=== PATIENT | female | born 1935 | race Caucasian/White ===

== ENCOUNTER 2018-01-05 14:09 | Inpatient (IN) | payer MEDICARE ==
--- NOTE | 2018-01-05 14:37 | ED ---
General Adult HPI - General Chief complaint: Shortness of Breath Stated complaint: Sob Time Seen by Provider: 01/05/18 14:24 Source: patient, RN notes reviewed, old records reviewed Mode of arrival: wheelchair Limitations: no limitations - History of Present Illness Initial comments: 82-year-old female presenting for dyspnea over the past 2-3 days. Patient states she received an infusion approximately one week ago for a history of lymphoma. She is uncertain of the name of this infusion. She believes this may be the cause of her dyspnea. She has had a mild cough with some clear sputum. No URI symptoms. No fever or chills. Denies central chest pain. She has history of lymphoma, history of sick sinus syndrome status post pacemaker, history of DVT and PE. She is currently on Coumadin. She has history of IVC filter as well. Patient states she had an echo and stress test approximately one week ago which she believes were normal. - Related Data Home Medications Medication Instructions Recorded Confirmed Atorvastatin [Lipitor] 20 mg PO HS 02/12/16 01/05/18 Folic Acid [Folic Acid] 1 mg PO DAILY 01/05/18 01/05/18 Metoprolol Succinate [Toprol Xl] 50 mg PO DAILY 01/05/18 01/05/18 Spironolactone [Aldactone] 25 mg PO DAILY 01/05/18 01/05/18 Warfarin Sodium 2.5 mg PO HS 01/05/18 01/05/18 Previous Rx's Medication Instructions Recorded Furosemide [Lasix] 20 mg PO DAILY #30 tab 06/26/15 Potassium Chloride ER [K-Dur 10] 10 meq PO DAILY #30 tab 06/26/15 Allergies Allergy/AdvReac Type Severity Reaction Status Date / Time No Known Allergies Allergy Verified 01/05/18 14:50 Review of Systems ROS Statement: Those systems with pertinent positive or pertinent negative responses have been documented in the HPI. ROS Other: All systems not noted in ROS Statement are negative. 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, oophorectomy, tooth implants Past Anesthesia/Blood Transfusion Reactions: No Reported Reaction Past Psychological History: No Psychological Hx Reported Smoking Status: Former smoker - Past Family History Father Family Medical History: Cancer, Deep Vein Thrombosis (DVT) Additional Family Medical History / Comment(s): colon cancer at 82 Mother Family Medical History: No Reported History Additional Family Medical History / Comment(s): mother at 103yrs General Exam Limitations: no limitations General appearance: alert, in no apparent distress Head exam: Present: atraumatic, normocephalic ENT exam: Present: normal exam Neck exam: Present: normal inspection. Absent: tenderness, meningismus Respiratory exam: Present: decreased breath sounds (Decreased breath sounds at the lung bases). Absent: respiratory distress, wheezes, rales, rhonchi Cardiovascular Exam: Present: regular rate, normal rhythm GI/Abdominal exam: Present: soft. Absent: distended, tenderness Extremities exam: Present: normal inspection, normal capillary refill. Absent: pedal edema, calf tenderness Neurological exam: Present: alert, oriented X3, CN II-XII intact. Absent: motor sensory deficit Psychiatric exam: Present: normal affect, normal mood Skin exam: Present: warm, dry, intact. Absent: cyanosis, diaphoretic Course Vital Signs 01/05/18 01/05/18 01/05/18 14:12 15:00 17:00 Temperature 97.7 F Pulse Rate 84 72 77 Respiratory 18 26 H 32 H Rate Blood Pressure 122/77 130/62 165/78 O2 Sat by Pulse 99 100 93 L Oximetry 01/05/18 01/05/18 18:00 19:00 Temperature 99 F Pulse Rate 88 80 Respiratory 36 H 30 H Rate Blood Pressure 155/70 147/62 O2 Sat by Pulse 94 L 96 Oximetry EKG Findings - EKG Comments: EKG Findings:: EKG: Atrial fibrillation, low voltage, rate of 80, QRS duration 88, QTC 452, there is no ST segment elevation, artifact in leads V3 and V4, T- wave inversion in the lateral precordium. Medical Decision Making - Medical Decision Making 82-year-old female presenting with 2 days worsening dyspnea. On exam patient is diminished bilaterally, no rales, no wheezing. She's had only mild cough. No central chest pain. Chest x-rays obtained, there is some left long atelectasis at the base and concern for possible infiltrate. History not concerning for pneumonia. Hemoglobin 9.4 white blood cell count is normal at 4.7. BNP and troponin are negative. INR is therapeutic. Patient remains quite In the emergency department although her oxygenation is normal. CT is obtained which shows very large bilateral pleural effusions and cardiomegaly. There is concern for heart failure although BNP is negative. Echo will be obtained. Patient will be admitted for IV diuresis and cardiology evaluation. - Lab Data Result diagrams: 01/05/18 17:19 01/05/18 17:19 Lab Results 01/05/18 01/05/18 01/05/18 Range/Units 15:00 15:00 16:25 WBC (3.8-10.6) k/uL RBC (3.80-5.40) m/uL Hgb (11.4-16.0) gm/dL Hct (34.0-46.0) % MCV (80.0-100.0) fL MCH (25.0-35.0) pg MCHC (31.0-37.0) g/dL RDW (11.5-15.5) % Plt Count (150-450) k/uL Neutrophils % (Manual) % Band Neutrophils % % Lymphocytes % (Manual) % Monocytes % (Manual) % Eosinophils % (Manual) % Neutrophils # (Manual) (1.3-7.7) k/uL Lymphocytes # (Manual) (1.0-4.8) k/uL Monocytes # (Manual) (0-1.0) k/uL Eosinophils # (Manual) (0-0.7) k/uL Nucleated RBCs (0-0) /100 WBC Manual Slide Review Polychromasia Hypochromasia Poikilocytosis Anisocytosis Macrocytosis PT 22.1 H (9.0-12.0) sec INR 2.5 H (<1.2) APTT 32.1 H (22.0-30.0) sec Sodium 131 L (137-145) mmol/L Potassium 10.0 H* (3.5-5.1) mmol/L Chloride 103 (98-107) mmol/L Carbon Dioxide 18 L (22-30) mmol/L Anion Gap 10 mmol/L BUN 23 H (7-17) mg/dL Creatinine 0.74 (0.52-1.04) mg/dL Est GFR (CKD-EPI)AfAm 89 (>60 ml/min/1.73 sqM) Est GFR (CKD-EPI)NonAf 77 (>60 ml/min/1.73 sqM) Glucose 105 H (74-99) mg/dL Plasma Lactic Acid Britton 2.0 (0.7-2.0) mmol/L Calcium 9.1 (8.4-10.2) mg/dL Magnesium 2.1 (1.6-2.3) mg/dL Total Bilirubin 5.5 H (0.2-1.3) mg/dL AST 165 H (14-36) U/L ALT 17 (9-52) U/L Alkaline Phosphatase 84 (38-126) U/L Total Creatine Kinase (30-135) U/L CK-MB (CK-2) (0.0-2.4) ng/mL CK-MB (CK-2) Rel Index Troponin I (0.000-0.034) ng/mL NT-Pro-B Natriuret Pep pg/mL Total Protein 7.4 (6.3-8.2) g/dL Albumin 4.7 (3.5-5.0) g/dL 01/05/18 01/05/18 01/05/18 Range/Units 16:25 16:25 16:25 WBC 4.8 (3.8-10.6) k/uL RBC 2.86 L (3.80-5.40) m/uL Hgb 9.7 L (11.4-16.0) gm/dL Hct 28.3 L (34.0-46.0) % MCV 98.7 (80.0-100.0) fL MCH 33.9 (25.0-35.0) pg MCHC 34.4 (31.0-37.0) g/dL RDW 17.7 H (11.5-15.5) % Plt Count 135 L (150-450) k/uL Neutrophils % (Manual) 69 % Band Neutrophils % 1 % Lymphocytes % (Manual) 22 % Monocytes % (Manual) 7 % Eosinophils % (Manual) 1 % Neutrophils # (Manual) 3.30 (1.3-7.7) k/uL Lymphocytes # (Manual) 1.06 (1.0-4.8) k/uL Monocytes # (Manual) 0.34 (0-1.0) k/uL Eosinophils # (Manual) 0.05 (0-0.7) k/uL Nucleated RBCs 0 (0-0) /100 WBC Manual Slide Review Performed Polychromasia Hypochromasia Slight Poikilocytosis Moderate Anisocytosis Slight Macrocytosis Slight PT (9.0-12.0) sec INR (<1.2) APTT (22.0-30.0) sec Sodium (137-145) mmol/L Potassium (3.5-5.1) mmol/L Chloride (98-107) mmol/L Carbon Dioxide (22-30) mmol/L Anion Gap mmol/L BUN (7-17) mg/dL Creatinine (0.52-1.04) mg/dL Est GFR (CKD-EPI)AfAm (>60 ml/min/1.73 sqM) Est GFR (CKD-EPI)NonAf (>60 ml/min/1.73 sqM) Glucose (74-99) mg/dL Plasma Lactic Acid Britton (0.7-2.0) mmol/L Calcium (8.4-10.2) mg/dL Magnesium (1.6-2.3) mg/dL Total Bilirubin (0.2-1.3) mg/dL AST (14-36) U/L ALT (9-52) U/L Alkaline Phosphatase (38-126) U/L Total Creatine Kinase 78 (30-135) U/L CK-MB (CK-2) 1.4 (0.0-2.4) ng/mL CK-MB (CK-2) Rel Index 1.8 Troponin I 0.022 (0.000-0.034) ng/mL NT-Pro-B Natriuret Pep 938 pg/mL Total Protein (6.3-8.2) g/dL Albumin (3.5-5.0) g/dL 01/05/18 01/05/18 01/05/18 Range/Units 17:19 17:19 17:19 WBC 4.7 (3.8-10.6) k/uL RBC 2.89 L (3.80-5.40) m/uL Hgb 9.4 L (11.4-16.0) gm/dL Hct 27.8 L (34.0-46.0) % MCV 96.2 (80.0-100.0) fL MCH 32.7 (25.0-35.0) pg MCHC 34.0 (31.0-37.0) g/dL RDW 16.3 H (11.5-15.5) % Plt Count 112 L (150-450) k/uL Neutrophils % (Manual) 72 % Band Neutrophils % % Lymphocytes % (Manual) 16 % Monocytes % (Manual) 12 % Eosinophils % (Manual) % Neutrophils # (Manual) 3.38 (1.3-7.7) k/uL Lymphocytes # (Manual) 0.75 L (1.0-4.8) k/uL Monocytes # (Manual) 0.56 (0-1.0) k/uL Eosinophils # (Manual) (0-0.7) k/uL Nucleated RBCs 0 (0-0) /100 WBC Manual Slide Review Polychromasia Present Hypochromasia Poikilocytosis Slight Anisocytosis Slight Macrocytosis PT (9.0-12.0) sec INR (<1.2) APTT (22.0-30.0) sec Sodium 137 (137-145) mmol/L Potassium 4.7 (3.5-5.1) mmol/L Chloride 102 (98-107) mmol/L Carbon Dioxide 23 (22-30) mmol/L Anion Gap 12 mmol/L BUN 23 H (7-17) mg/dL Creatinine 0.80 (0.52-1.04) mg/dL Est GFR (CKD-EPI)AfAm 81 (>60 ml/min/1.73 sqM) Est GFR (CKD-EPI)NonAf 70 (>60 ml/min/1.73 sqM) Glucose 113 H (74-99) mg/dL Plasma Lactic Acid Britton (0.7-2.0) mmol/L Calcium 9.6 (8.4-10.2) mg/dL Magnesium 2.0 (1.6-2.3) mg/dL Total Bilirubin 3.7 H (0.2-1.3) mg/dL AST 36 (14-36) U/L ALT 26 (9-52) U/L Alkaline Phosphatase 104 (38-126) U/L Total Creatine Kinase 34 (30-135) U/L CK-MB (CK-2) 1.3 (0.0-2.4) ng/mL CK-MB (CK-2) Rel Index 3.8 Troponin I <0.012 (0.000-0.034) ng/mL NT-Pro-B Natriuret Pep pg/mL Total Protein 5.5 L (6.3-8.2) g/dL Albumin 3.3 L (3.5-5.0) g/dL 01/05/18 01/05/18 01/05/18 Range/Units 17:19 17:19 17:19 WBC (3.8-10.6) k/uL RBC (3.80-5.40) m/uL Hgb (11.4-16.0) gm/dL Hct (34.0-46.0) % MCV (80.0-100.0) fL MCH (25.0-35.0) pg MCHC (31.0-37.0) g/dL RDW (11.5-15.5) % Plt Count (150-450) k/uL Neutrophils % (Manual) % Band Neutrophils % % Lymphocytes % (Manual) % Monocytes % (Manual) % Eosinophils % (Manual) % Neutrophils # (Manual) (1.3-7.7) k/uL Lymphocytes # (Manual) (1.0-4.8) k/uL Monocytes # (Manual) (0-1.0) k/uL Eosinophils # (Manual) (0-0.7) k/uL Nucleated RBCs (0-0) /100 WBC Manual Slide Review Polychromasia Hypochromasia Poikilocytosis Anisocytosis Macrocytosis PT 21.8 H (9.0-12.0) sec INR 2.4 H (<1.2) APTT 27.4 (22.0-30.0) sec Sodium (137-145) mmol/L Potassium (3.5-5.1) mmol/L Chloride (98-107) mmol/L Carbon Dioxide (22-30) mmol/L Anion Gap mmol/L BUN (7-17) mg/dL Creatinine (0.52-1.04) mg/dL Est GFR (CKD-EPI)AfAm (>60 ml/min/1.73 sqM) Est GFR (CKD-EPI)NonAf (>60 ml/min/1.73 sqM) Glucose (74-99) mg/dL Plasma Lactic Acid Britton 1.6 (0.7-2.0) mmol/L Calcium (8.4-10.2) mg/dL Magnesium (1.6-2.3) mg/dL Total Bilirubin (0.2-1.3) mg/dL AST (14-36) U/L ALT (9-52) U/L Alkaline Phosphatase (38-126) U/L Total Creatine Kinase (30-135) U/L CK-MB (CK-2) (0.0-2.4) ng/mL CK-MB (CK-2) Rel Index Troponin I (0.000-0.034) ng/mL NT-Pro-B Natriuret Pep 943 pg/mL Total Protein (6.3-8.2) g/dL Albumin (3.5-5.0) g/dL Disposition Clinical Impression: Congestive heart failure Disposition: ADMITTED IP TO THIS HOSP Condition: Stable Is patient prescribed a controlled substance at d/c from ED?: No Referrals: Alfredo Norwood MD [Primary Care Provider] - 1-2 days Decision to Admit Reason: Admit from EC Decision Date: 01/05/18 Decision Time: 17:20
--- NOTE | 2018-01-05 15:53 | XR ---
EXAMINATION TYPE: XR chest 2V DATE OF EXAM: 01/05/2018 COMPARISON: 02/14/2016 INDICATION: Difficulty breathing, SOB TECHNIQUE: Frontal and lateral views of the chest are obtained. FINDINGS: The heart size is normal. The pulmonary vasculature is normal. Some mild streak opacities at the left base. Correlate for atelectasis or pneumonia.. IMPRESSION: 1. Mild streak opacities at the left base. Correlate for atelectasis or pneumonia.
[2018-01-05 15:56] LABS: INR 2.5 (<1.2); Prothrombin Time 22.1 sec (9.0-12.0)
[2018-01-05 15:57] LABS: Partial Thromboplastin Time 32.1 sec (22.0-30.0)
[2018-01-05 16:55] LABS: Albumin 4.7 g/dL (3.5-5.0); Calcium 9.1 mg/dL (8.4-10.2); Magnesium 2.1 mg/dL (1.6-2.3); Total Protein 7.4 g/dL (6.3-8.2)
[2018-01-05 17:01] LABS: Total Bilirubin 5.5 mg/dL (0.2-1.3)
[2018-01-05 17:02] LABS: Anisocytosis Slight; HCT 28.3 % (34.0-46.0); HGB 9.7 gm/dL (11.4-16.0); Hypochromasia Slight; MCH 33.9 pg (25.0-35.0); MCHC 34.4 g/dL (31.0-37.0); MCV 98.7 fL (80.0-100.0); Macrocytosis Slight; Mean Platelet Volume 8.7; Platelet Count 135 k/uL (150-450); Poikilocytosis Moderate; RBC 2.86 m/uL (3.80-5.40); RDW 17.7 % (11.5-15.5); WBC 4.8 k/uL (3.8-10.6)
[2018-01-05 17:20] LABS: Band Neutrophils % 1 %; Eosinophils # (M) 0.05 k/uL (0-0.7); Lymphocytes # (M) 1.06 k/uL (1.0-4.8); Monocytes # (M) 0.34 k/uL (0-1.0); Neutrophils % (M) 69 %; Nucleated Red Blood Cells 0 /100 WBC (0-0); Total Cells Counted 100
[2018-01-05 17:25] LABS: Creatine Kinase MB 1.4 ng/mL (0.0-2.4); Troponin I 0.022 ng/mL (0.000-0.034)
[2018-01-05] MEDS ORDERED: RX INFO: IV CONTRAST WAS GIVEN 1 EACH MISC MISCELLANE PRN (17:42)
[2018-01-05 17:57] LABS: INR 2.4 (<1.2); Partial Thromboplastin Time 27.4 sec (22.0-30.0); Prothrombin Time 21.8 sec (9.0-12.0)
[2018-01-05 17:59] LABS: Albumin 3.3 g/dL (3.5-5.0); Calcium 9.6 mg/dL (8.4-10.2); Creatine Kinase 34 U/L (30-135); Potassium 4.7 mmol/L (3.5-5.1); Total Bilirubin 3.7 mg/dL (0.2-1.3); Total Protein 5.5 g/dL (6.3-8.2)
[2018-01-05 18:11] LABS: Creatine Kinase MB 1.3 ng/mL (0.0-2.4); Troponin I <0.012 ng/mL (0.000-0.034)
[2018-01-05 18:15] LABS: Anisocytosis Slight; HCT 27.8 % (34.0-46.0); HGB 9.4 gm/dL (11.4-16.0); MCH 32.7 pg (25.0-35.0); MCV 96.2 fL (80.0-100.0); Mean Platelet Volume 7.8; Platelet Count 112 k/uL (150-450); Poikilocytosis Slight; RBC 2.89 m/uL (3.80-5.40); RDW 16.3 % (11.5-15.5); WBC 4.7 k/uL (3.8-10.6)
[2018-01-05] MEDS ORDERED: AZITHROMYCIN 500 MG in SODIUM CHLORIDE 0.9% 250 ML IVPB STA (18:23)
[2018-01-05] MEDS ORDERED: cefTRIAXone IN SWFI 1,000 MG/10 ML SYRINGE IVP STA (18:23)
[2018-01-05 18:24] LABS: Lymphocytes # (M) 0.75 k/uL (1.0-4.8); Monocytes # (M) 0.56 k/uL (0-1.0); Neutrophils # (M) 3.38 k/uL (1.3-7.7); Neutrophils % (M) 72 %; Nucleated Red Blood Cells 0 /100 WBC (0-0); Polychromasia Present; Total Cells Counted 100
--- NOTE | 2018-01-05 18:51 | CT ---
EXAMINATION TYPE: CT angio chest DATE OF EXAM: 01/05/2018 6:37 PM COMPARISON: 09/17/2012 HISTORY: SOB CT DLP: 915 mGycm Automated exposure control for dose reduction was used. CONTRAST: CTA scan of the thorax is performed with IV Contrast, patient injected with 100 mL of Isovue 370, pul monary embolism protocol. There are 3-D post processed images.. FINDINGS: There are moderate sized bilateral pleural effusions. Heart is enlarged. There is atelectasis at the lung bases. There is no pericardial effusion. I see no filling defects in the pulmonary arteries. There is no evidence of thoracic aortic aneurysm or dissection. There is no mediastinal adenopathy. There are interstitial infiltrates in the upper sisi ng miguel. The bony thorax appears intact. IMPRESSION: NO EVIDENCE OF PULMONARY EMBOLISM. LARGE PLEURAL EFFUSIONS WITH CARDIOMEGALY. BILATERAL LOWER LOBE IN FILTRATE AND ATELECTASIS. THIS IS PROBABLY CONGESTIVE HEART FAILURE. PLEURAL AND PULMONARY CHANGES IS NEW COMPARED TO OLD EXAM.
[2018-01-05] MEDS ORDERED: FUROSEMIDE 10 MG/ML 4 ML VIAL IV STA (19:30)
[2018-01-05] MEDS ORDERED: NALOXONE 0.4 MG/ML 1 ML VIAL IV PRN (19:36)
[2018-01-05] MEDS ORDERED: ACETAMINOPHEN TAB 325 MG TAB PO PRN (19:36)
[2018-01-05] MEDS: FUROSEMIDE 10 MG/ML 4 ML VIAL IV SCH (21:46)
[2018-01-06 01:38] LABS: Glucose,Whole Blood 130 mg/dL (75-99)
[2018-01-06 01:51] VITALS: BMI 32.1
[2018-01-06 05:12] LABS: Calcium 9.4 mg/dL (8.4-10.2); Phosphorus 4.7 mg/dL (2.5-4.5); Potassium 5.3 mmol/L (3.5-5.1)
[2018-01-06 05:36] LABS: Hypochromasia Slight; Macrocytosis Slight
[2018-01-06 05:57] LABS: Anisocytosis Slight; HCT 27.3 % (34.0-46.0); HGB 9.4 gm/dL (11.4-16.0); MCH 33.5 pg (25.0-35.0); MCHC 34.3 g/dL (31.0-37.0); MCV 97.5 fL (80.0-100.0); Mean Platelet Volume 7.6; Platelet Count 129 k/uL (150-450); Poikilocytosis Moderate; RDW 17.1 % (11.5-15.5); WBC 4.6 k/uL (3.8-10.6)
[2018-01-06 06:16] LABS: Monocytes # (M) 0.64 k/uL (0-1.0); Neutrophils # (M) 2.76 k/uL (1.3-7.7); Neutrophils % (M) 60 %; Nucleated Red Blood Cells 0 /100 WBC (0-0); Total Cells Counted 100
--- NOTE | 2018-01-06 07:47 | XR ---
EXAMINATION TYPE: XR chest 1V portable DATE OF EXAM: 01/06/2018 HISTORY: Shortness of breath. COMPARISON: 01/05/2018 TECHNIQUE: Single view of the chest is submitted. FINDINGS: Demonstrated are scattered senescent parenchymal change. Pulmonary venous congestion with basilar pleural effusions and mild compressive atelectasis. The hear t is at the upper limits of normal with regards to size. Hilar and mediastinal structures are within normal limits. Degenerative changes are seen of the dorsal spine. IMPRESSION: 1. Correlate for mild CHF.
[2018-01-06] MEDS: FUROSEMIDE 10 MG/ML 4 ML VIAL IV SCH ×2 (08:03→20:48)
--- NOTE | 2018-01-06 09:15 | P.CNPUL ---
History of Present Illness Consult date: 01/06/18 Reason for consult: dyspnea, pleural effusion, abnormal CXR/CT Chief complaint: Shortness of breath History of present illness: Consult dated 01/06/2018 82-year-old female who presented with complaints of 2 or 3 days with increasing shortness of breath. She was evaluated in the emergency room. She has a history of both melanoma and lymphoma. The patient apparently came in with what appears to be congestive heart failure. N-terminal proBNP was mildly elevated. Chest x-ray was consistent with heart failure. Apparently she had a recent stress test and echocardiogram that were relatively normal she tells us. She does have a history of a pacemaker insertion for sick sinus syndrome. She also has a previous history of DVT and pulmonary embolism and had a filter placed. A CT angiogram was negative for PE on this admission. The patient did have evidence of some interstitial edema and pleural effusions left greater than right. She is on blood thinner. It has been held. We'll have interventional radiology consider doing a thoracentesis on her. Her medical problem list includes atrial fibrillation melanoma, lymphoma, possible COPD deep venous thrombosis pulmonary embolism hypertension GERD. The melanoma involvement of the eye. Surgical history includes heart catheterization hysterectomy joint replacement tubal ligation dental implants pacemaker insertion, etc. Review of Systems A 12 point review of systems is positive for shortness of breath. He denies fever chills. Not coughing or producing any phlegm. No nausea vomiting or diarrhea. No chest pain or chest discomfort. 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, oophorectomy, tooth implants Past Anesthesia/Blood Transfusion Reactions: No Reported Reaction Past Psychological History: No Psychological Hx Reported Smoking Status: Former smoker Past Alcohol Use History: Rare Additional Past Alcohol Use History / Comment(s): less than one drink per month Past Drug Use History: None Reported - Past Family History Father Family Medical History: Cancer, Deep Vein Thrombosis (DVT) Additional Family Medical History / Comment(s): colon cancer at 82 Mother Family Medical History: No Reported History Additional Family Medical History / Comment(s): mother at 103yrs Medications and Allergies Home Medications Medication Instructions Recorded Confirmed Type Furosemide [Lasix] 20 mg PO DAILY #30 tab 06/26/15 01/05/18 Rx Potassium Chloride ER [K-Dur 10] 10 meq PO DAILY #30 tab 06/26/15 01/05/18 Rx Atorvastatin [Lipitor] 20 mg PO HS 02/12/16 01/05/18 History Folic Acid [Folic Acid] 1 mg PO DAILY 01/05/18 01/05/18 History Metoprolol Succinate [Toprol Xl] 50 mg PO DAILY 01/05/18 01/05/18 History Spironolactone [Aldactone] 25 mg PO DAILY 01/05/18 01/05/18 History Warfarin Sodium 2.5 mg PO HS 01/05/18 01/05/18 History Allergies Allergy/AdvReac Type Severity Reaction Status Date / Time No Known Allergies Allergy Verified 01/05/18 14:50 Physical Exam Osteopathic Statement: *. No significant issues noted on an osteopathic structural exam other than those noted in the History and Physical/Consult. Vitals: Vital Signs Temp Pulse Resp BP Pulse Ox 01/06/18 07:00 80 31 H 135/70 98 01/06/18 06:30 90 30 H 131/58 99 01/06/18 06:00 74 17 131/58 99 01/06/18 05:30 79 23 161/73 100 01/06/18 05:00 105 H 22 161/73 99 01/06/18 04:50 94 25 H 161/73 98 01/06/18 04:40 101 H 35 H 161/73 98 01/06/18 04:30 95 20 147/77 98 01/06/18 04:20 96 21 147/77 98 01/06/18 04:10 77 17 147/77 98 01/06/18 04:00 98.7 F 88 18 147/77 98 01/06/18 03:50 94 21 147/77 99 01/06/18 03:40 95 17 147/77 98 01/06/18 03:30 66 21 155/86 98 01/06/18 03:20 74 33 H 155/86 98 01/06/18 03:10 70 33 H 155/86 99 01/06/18 03:00 91 39 H 155/86 98 01/06/18 02:50 82 35 H 155/86 99 01/06/18 02:40 82 34 H 155/86 99 01/06/18 02:30 83 35 H 169/89 99 01/06/18 02:20 97.7 F 88 27 H 169/89 100 01/06/18 02:10 91 32 H 169/89 100 01/06/18 02:00 87 32 H 169/89 99 01/06/18 01:50 87 30 H 169/89 100 01/06/18 01:40 87 169/89 100 01/06/18 01:34 89 01/06/18 00:59 97.7 F 86 30 H 124/57 97 01/05/18 23:00 99.0 F 79 30 H 166/66 95 01/05/18 22:06 97.7 F 01/05/18 21:30 78 30 H 145/65 99 01/05/18 19:00 99 F 80 30 H 147/62 96 01/05/18 18:00 88 36 H 155/70 94 L 01/05/18 17:00 77 32 H 165/78 93 L 01/05/18 15:00 72 26 H 130/62 100 01/05/18 14:12 97.7 F 84 18 122/77 99 Intake and Output 01/05/18 01/06/18 01/06/18 22:59 06:59 14:59 Output Total 525 Balance -525 Output: Urine 525 Other: Voiding Method Bedside Commode # Voids 0 0 Weight 101.6 kg No acute distress, oriented 3, Currently on oxygen at 2 L. HEENT examination is grossly unremarkable. Mucous membranes are moist. No oral lesions. Neck supple. Full range of motion. No adenopathy thyromegaly or neck vein distention. Cardiovascular examination reveals regular rhythm rate. S1-S2 normal. No S3 or S4. No discernible murmur noted. Lungs reveal bibasilar crackles. Breath sounds are equal bilaterally. No rhonchi. No wheezes. Abdomen soft bowel sounds are heard. No masses or tenderness. Extremities are intact. No cyanosis clubbing or edema. Skin is without rash or lesion. Neurologic examination is brief but nonfocal. Results - Laboratory Findings CBC and BMP: 01/06/18 04:40 01/06/18 04:40 PT/INR, D-dimer PT 21.8 sec (9.0-12.0) H 01/05/18 17:19 INR 2.4 (<1.2) H 01/05/18 17:19 Abnormal lab findings: Abnormal Labs 01/05/18 01/05/18 01/05/18 15:00 16:25 16:25 RBC 2.86 L Hgb 9.7 L Hct 28.3 L RDW 17.7 H Plt Count 135 L Lymphocytes # (Manual) PT 22.1 H INR 2.5 H APTT 32.1 H Sodium 131 L Potassium 10.0 H* Carbon Dioxide 18 L BUN 23 H Glucose 105 H POC Glucose (mg/dL) Phosphorus Total Bilirubin 5.5 H AST 165 H Total Protein Albumin 01/05/18 01/05/18 01/05/18 17:19 17:19 17:19 RBC 2.89 L Hgb 9.4 L Hct 27.8 L RDW 16.3 H Plt Count 112 L Lymphocytes # (Manual) 0.75 L PT 21.8 H INR 2.4 H APTT Sodium Potassium Carbon Dioxide BUN 23 H Glucose 113 H POC Glucose (mg/dL) Phosphorus Total Bilirubin 3.7 H AST Total Protein 5.5 L Albumin 3.3 L 01/06/18 01/06/18 01/06/18 01:35 04:40 04:40 RBC 2.80 L Hgb 9.4 L Hct 27.3 L RDW 17.1 H Plt Count 129 L Lymphocytes # (Manual) PT INR APTT Sodium 135 L Potassium 5.3 H Carbon Dioxide 21 L BUN 24 H Glucose 113 H POC Glucose (mg/dL) 130 H Phosphorus 4.7 H Total Bilirubin AST Total Protein Albumin - Diagnostic Findings Chest x-ray: image reviewed CT scan - chest: image reviewed (Chest x-ray labs and medications are all reviewed.) Assessment and Plan Assessment: Assessment Shortness of breath, likely related to fluid overload/heart failure. It may be diastolic in nature as apparently the patient's echocardiogram shows good LV function Bilateral pleural effusions, left greater than right, likely related to the heart failure. History of melanoma History of lymphoma. 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 Plan: Plan dated 01/06/2018 The patient's blood thinner has been held. We'll have interventional radiology consider doing an ultrasound to rule out malignant pleural effusion. She does have a history of lymphoma and melanoma. Other than that, the patient seems be doing relatively well. She is a bit tachypnea. Meds labs and x-rays are all reviewed. No evidence of pulmonary embolism on CT angiogram. She does have a filter in place. Additional recommendations and suggestions are forthcoming. Time with Patient: Greater than 30
[2018-01-06] MEDS: METOPROLOL SUCCINATE (ER) 50 MG TAB.ER.24H PO SCH (10:07)
[2018-01-06 10:09] LABS: Total Protein 5.6 g/dL (6.3-8.2)
--- NOTE | 2018-01-06 11:14 | ECHOF ---
Referral Reason:Dyspnea MEASUREMENTS -------- HEIGHT: 152.4 cm WEIGHT: 101.2 kg BP: IVSd: 1.2 cm (0.6 - 1.1) LVIDd: 4.1 cm (3.9 - 5.3) LVPWd: 1.3 cm (0.6 - 1.1) IVSs: 1.4 cm LVIDs: 3.0 cm LVPWs: 1.6 cm LAESV Index (A-L): 33.15 ml/m Ao Diam: 2.7 cm (2.0 - 3.7) AV Cusp: 1.7 cm (1.5 - 2.6) LA Diam: 5.6 cm (2.7 - 3.8) MV EXCURSION: 20.607 mm (> 18.000) MV EF SLOPE: 107 mm/s (70 - 150) EPSS: 0.4 cm MV E Matthew: 0.89 m/s MV DecT: 194 ms MV A Matthew: 0.32 m/s MV E/A Ratio: 2.74 RAP: 5.00 mmHg RVSP: 47.20 mmHg FINDINGS -------- Paced rhythm. This was a technically adequate study. The left ventricular size is normal. Left ventricular wall thickness is normal. Overall left vent ricular systolic function is low-normal with, an EF between 50 - 55 %. The right ventricle is normal in size. The left atrial size is normal. The right atrial size is normal. There is mild aortic valve sclerosis. There is no evidence of aortic regurgitation. Mild mitral annular calcification present. Mild mitral regurgitation is present. Mild tricuspid regurgitation present. There is mild to moderate pulmonary hypertension. The right ventricular systolic pressure, as measured by Doppler, is 47.20mmHg. There is no pulmonic regurgitation present. The aortic root size is normal. There is no pericardial effusion. Large Pleural Effusion. CONCLUSIONS -------- 1. Paced rhythm. 2. This was a technically adequate study. 3. The left ventricular size is normal. 4. Left ventricular wall thickness is normal. 5. Overall left ventricular systolic function is low-normal with, an EF between 50 - 55 %. 6. There is mild aortic valve sclerosis. 7. Mild mitral annular calcification present. 8. Mild mitral regurgitation is present. 9. Mild tricuspid regurgitation present. 10. There is mild to moderate pulmonary hypertension. 11. The right ventricular systolic pressure, as measured by Doppler, is 47.20mmHg. 12. There is no pulmonic regurgitation present. 13. The aortic root size is normal. 14. There is no pericardial effusion. 15. Large Pleural Effusion. [employer] CUTTER: Lynsey Rosas RDCS
[2018-01-06 13:57] LABS: INR 2.2 (<1.2)
--- NOTE | 2018-01-06 15:10 | P.HPIM ---
History of Present Illness H&P Date: 01/06/18 Chief Complaint: Difficulty breathing Yet what looks like this is an 82-year-old female patient of Dr. Lee with a past mental history of atrial fibrillation, right eye melanoma with prosthesis, COPD, DVT and pulmonary embolism, gastroesophageal reflux disease hypertension, sick sinus syndrome status post pacemaker, lymphoma actively being treated. Patient states that she had onset of shortness of breath and difficulty breathing along with the cough a little phlegm production. She states she had some sharp chest pain that she thought was related to her pacemaker. She came into [facility] emergency center for evaluation. CT angiogram was negative for pulmonary embolism. There was interstitial edema and pleural effusions left greater than right. Chest x- ray shows correlate with mild CHF. Hemoglobin 9.4, BUN 23 creatinine 0.8. INR is 2.5, sodium 131 potassium 10. Lactic acid was 2. Total bilirubin 5.5 and AST 165. ProBNP was 938. Troponin 0.0-2. Patient was admitted to the selective care unit and consult requested by pulmonary medicine and cardiology. Echocardiogram reveals EF 50-55%, mild aortic valve sclerosis, mild mitral regurgitation, mild tricuspid regurgitation, moderate pulmonary hypertension, large pleural effusion. Review of Systems All systems: negative Constitutional: Reports fatigue, Denies chills, Denies fever, Denies poor appetite Eyes: denies blurred vision, denies pain Ears, nose, mouth and throat: Denies headache, Denies sore throat, Denies vertigo Cardiovascular: Reports chest pain, Reports decreased exercise tolerance, Reports dyspnea on exertion, Reports shortness of breath, Denies lightheadedness , Denies syncope Respiratory: Reports cough, Reports cough with sputum, Reports dyspnea, Denies excessive sputum, Denies hemoptysis, Denies home oxygen, Denies wheezing Gastrointestinal: Denies abdominal pain, Denies diarrhea, Denies nausea, Denies vomiting Genitourinary: Denies dysuria, Denies hematuria Musculoskeletal: Denies myalgias Integumentary: Denies pruritus, Denies rash Neurological: Denies numbness, Denies weakness Psychiatric: Denies anxiety, Denies depression Endocrine: Denies fatigue, Denies weight change 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, oophorectomy, tooth implants Past Anesthesia/Blood Transfusion Reactions: No Reported Reaction Past Psychological History: No Psychological Hx Reported Smoking Status: Former smoker Past Alcohol Use History: Rare Additional Past Alcohol Use History / Comment(s): less than one drink per month Past Drug Use History: None Reported - Past Family History Father Family Medical History: Cancer, Deep Vein Thrombosis (DVT) Additional Family Medical History / Comment(s): colon cancer at 82 Mother Family Medical History: No Reported History Additional Family Medical History / Comment(s): mother at 103yrs Medications and Allergies Home Medications Medication Instructions Recorded Confirmed Type Furosemide [Lasix] 20 mg PO DAILY #30 tab 06/26/15 01/05/18 Rx Potassium Chloride ER [K-Dur 10] 10 meq PO DAILY #30 tab 06/26/15 01/05/18 Rx Atorvastatin [Lipitor] 20 mg PO HS 02/12/16 01/05/18 History Folic Acid [Folic Acid] 1 mg PO DAILY 01/05/18 01/05/18 History Metoprolol Succinate [Toprol Xl] 50 mg PO DAILY 01/05/18 01/05/18 History Spironolactone [Aldactone] 25 mg PO DAILY 01/05/18 01/05/18 History Warfarin Sodium 2.5 mg PO HS 01/05/18 01/05/18 History Allergies Allergy/AdvReac Type Severity Reaction Status Date / Time No Known Allergies Allergy Verified 01/05/18 14:50 Physical Exam Vitals: Vital Signs Temp Pulse Resp BP Pulse Ox 01/06/18 07:00 80 31 H 135/70 98 01/06/18 06:30 90 30 H 131/58 99 01/06/18 06:00 74 17 131/58 99 01/06/18 05:30 79 23 161/73 100 01/06/18 05:00 105 H 22 161/73 99 01/06/18 04:50 94 25 H 161/73 98 01/06/18 04:40 101 H 35 H 161/73 98 01/06/18 04:30 95 20 147/77 98 01/06/18 04:20 96 21 147/77 98 01/06/18 04:10 77 17 147/77 98 01/06/18 04:00 98.7 F 88 18 147/77 98 01/06/18 03:50 94 21 147/77 99 01/06/18 03:40 95 17 147/77 98 01/06/18 03:30 66 21 155/86 98 01/06/18 03:20 74 33 H 155/86 98 01/06/18 03:10 70 33 H 155/86 99 01/06/18 03:00 91 39 H 155/86 98 01/06/18 02:50 82 35 H 155/86 99 01/06/18 02:40 82 34 H 155/86 99 01/06/18 02:30 83 35 H 169/89 99 01/06/18 02:20 97.7 F 88 27 H 169/89 100 01/06/18 02:10 91 32 H 169/89 100 01/06/18 02:00 87 32 H 169/89 99 01/06/18 01:50 87 30 H 169/89 100 01/06/18 01:40 87 169/89 100 01/06/18 01:34 89 01/06/18 00:59 97.7 F 86 30 H 124/57 97 01/05/18 23:00 99.0 F 79 30 H 166/66 95 01/05/18 22:06 97.7 F 01/05/18 21:30 78 30 H 145/65 99 01/05/18 19:00 99 F 80 30 H 147/62 96 01/05/18 18:00 88 36 H 155/70 94 L 01/05/18 17:00 77 32 H 165/78 93 L 01/05/18 15:00 72 26 H 130/62 100 01/05/18 14:12 97.7 F 84 18 122/77 99 Intake and Output 01/05/18 01/06/18 01/06/18 22:59 06:59 14:59 Output Total 525 Balance -525 Output: Urine 525 Other: Voiding Method Bedside Commode # Voids 0 0 Weight 101.6 kg Gen: This is an 82-year-old female. She has seen in the ICU she is waiting for [facility] care bed. She is sitting up in awake and alert and appears to be comfortable and in no acute distress. HEENT: Head is atraumatic, normocephalic. Pupils equal, round. Sclerae is anicteric. NECK: Supple. No JVD. No lymphadenopathy. No thyromegaly. LUNGS: Diminished to the bilateral bases.. No wheezes or rhonchi. No intercostal retractions. HEART: Irregular rate and rhythm. No murmur. ABDOMEN: Soft. Bowel sounds are present. No masses. No tenderness. EXTREMITIES: No pedal edema. No calf tenderness. Dorsalis pedis +2 bilaterally. NEUROLOGICAL: Patient is awake, alert and oriented x3. Cranial nerves 2 through 12 are grossly intact. Results CBC & Chem 7: 01/06/18 04:40 01/06/18 04:40 Labs: Abnormal Lab Results - Last 24 Hours (Table) 01/05/18 01/05/18 01/05/18 Range/Units 15:00 16:25 16:25 RBC 2.86 L (3.80-5.40) m/uL Hgb 9.7 L (11.4-16.0) gm/dL Hct 28.3 L (34.0-46.0) % RDW 17.7 H (11.5-15.5) % Plt Count 135 L (150-450) k/uL Lymphocytes # (Manual) (1.0-4.8) k/uL PT 22.1 H (9.0-12.0) sec INR 2.5 H (<1.2) APTT 32.1 H (22.0-30.0) sec Sodium 131 L (137-145) mmol/L Potassium 10.0 H* (3.5-5.1) mmol/L Carbon Dioxide 18 L (22-30) mmol/L BUN 23 H (7-17) mg/dL Glucose 105 H (74-99) mg/dL POC Glucose (mg/dL) (75-99) mg/dL Phosphorus (2.5-4.5) mg/dL Total Bilirubin 5.5 H (0.2-1.3) mg/dL AST 165 H (14-36) U/L Total Protein (6.3-8.2) g/dL Albumin (3.5-5.0) g/dL 01/05/18 01/05/18 01/05/18 Range/Units 17:19 17:19 17:19 RBC 2.89 L (3.80-5.40) m/uL Hgb 9.4 L (11.4-16.0) gm/dL Hct 27.8 L (34.0-46.0) % RDW 16.3 H (11.5-15.5) % Plt Count 112 L (150-450) k/uL Lymphocytes # (Manual) 0.75 L (1.0-4.8) k/uL PT 21.8 H (9.0-12.0) sec INR 2.4 H (<1.2) APTT (22.0-30.0) sec Sodium (137-145) mmol/L Potassium (3.5-5.1) mmol/L Carbon Dioxide (22-30) mmol/L BUN 23 H (7-17) mg/dL Glucose 113 H (74-99) mg/dL POC Glucose (mg/dL) (75-99) mg/dL Phosphorus (2.5-4.5) mg/dL Total Bilirubin 3.7 H (0.2-1.3) mg/dL AST (14-36) U/L Total Protein 5.5 L (6.3-8.2) g/dL Albumin 3.3 L (3.5-5.0) g/dL 01/06/18 01/06/18 01/06/18 Range/Units 01:35 04:40 04:40 RBC 2.80 L (3.80-5.40) m/uL Hgb 9.4 L (11.4-16.0) gm/dL Hct 27.3 L (34.0-46.0) % RDW 17.1 H (11.5-15.5) % Plt Count 129 L (150-450) k/uL Lymphocytes # (Manual) (1.0-4.8) k/uL PT (9.0-12.0) sec INR (<1.2) APTT (22.0-30.0) sec Sodium 135 L (137-145) mmol/L Potassium 5.3 H (3.5-5.1) mmol/L Carbon Dioxide 21 L (22-30) mmol/L BUN 24 H (7-17) mg/dL Glucose 113 H (74-99) mg/dL POC Glucose (mg/dL) 130 H (75-99) mg/dL Phosphorus 4.7 H (2.5-4.5) mg/dL Total Bilirubin (0.2-1.3) mg/dL AST (14-36) U/L Total Protein (6.3-8.2) g/dL Albumin (3.5-5.0) g/dL Thrombosis Risk Factor Assmnt - DVT/VTE Prophylaxis DVT/VTE Prophylaxis: Pharmacologic Prophylaxis ordered Assessment and Plan Plan: 1. Acute respiratory distress secondary to pleural effusions bilaterally with left greater than right and possible acute diastolic heart failure. Consult in place with cardiology and pulmonary medicine. Echocardiogram as above. Continue Lasix 40 mg IV every 12 hours, Toprol-XL 50 mg daily, Aldactone 25 mg daily. Coumadin is on hold for thoracentesis. 2. History of right eye melanoma with prosthesis. Stable. 3. Lymphoma under the care of oncology. 4. Chronic atrial fibrillation status post pacemaker. Continue Toprol-XL. 5. History of DVT and pulmonary embolism status post [place] filter. Coumadin is on hold. 6. Hypertension. Continue Toprol-XL 50 mg daily 7. Gastroesophageal reflux disease and GI prophylaxis. Protonix daily. 8. History of brain aneurysm, stable. 9. DVT prophylaxis. Patient is therapeutic on Coumadin. 10. Patient will be admitted to the hospital for a minimum of 3 nights stay. Discharge plan: Most likely return home. PT and OT will be added once patient' s respiratory status is stable. Impression and plan of care have been directed as dictated by the signing physician. Geneva Dc nurse practitioner acting as scribe for signing physician.
--- NOTE | 2018-01-06 15:24 | P.CRDCN ---
History of Present Illness Consult date: 01/06/18 History of present illness: This is a 82-year-old female with history of previous pulmonary emboli and also [place] filter placement, who is admitted now with complaints of increasing shortness of breath. She also has sick sinus syndrome and permanent pacemaker implantation. Patient had this symptoms in the past. Chest x-ray showed some bilateral infiltrates and possible pleural effusion and mild cardiomegaly. Computed tomography scan rule out possibility of pulmonary embolism. There appeared to be pleural effusion. Echocardiogram showed ejection fraction of 50- 50%. No significant valvular abnormalities are noted. The etiology of pleural effusion is not clear. Her proBNP is within normal limits for her age. We can empirically treat her with some diuretics. If the pleural effusion doesn't improve, may consider pleural tap. Clinically doesn't have a significant JVD or peripheral edema. Lungs show diminished breath sounds at bases. 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, oophorectomy, tooth implants Past Anesthesia/Blood Transfusion Reactions: No Reported Reaction Past Psychological History: No Psychological Hx Reported Smoking Status: Former smoker Past Alcohol Use History: Rare Additional Past Alcohol Use History / Comment(s): less than one drink per month Past Drug Use History: None Reported - Past Family History Father Family Medical History: Cancer, Deep Vein Thrombosis (DVT) Additional Family Medical History / Comment(s): colon cancer at 82 Mother Family Medical History: No Reported History Additional Family Medical History / Comment(s): mother at 103yrs Medications and Allergies Home Medications Medication Instructions Recorded Confirmed Type Furosemide [Lasix] 20 mg PO DAILY #30 tab 06/26/15 01/05/18 Rx Potassium Chloride ER [K-Dur 10] 10 meq PO DAILY #30 tab 06/26/15 01/05/18 Rx Atorvastatin [Lipitor] 20 mg PO HS 02/12/16 01/05/18 History Folic Acid [Folic Acid] 1 mg PO DAILY 01/05/18 01/05/18 History Metoprolol Succinate [Toprol Xl] 50 mg PO DAILY 01/05/18 01/05/18 History Spironolactone [Aldactone] 25 mg PO DAILY 01/05/18 01/05/18 History Warfarin Sodium 2.5 mg PO HS 01/05/18 01/05/18 History Allergies Allergy/AdvReac Type Severity Reaction Status Date / Time No Known Allergies Allergy Verified 01/05/18 14:50 Physical Exam Vitals: Vital Signs Temp Pulse Resp BP Pulse Ox 01/06/18 11:00 78 32 H 116/69 99 01/06/18 10:00 94 32 H 129/62 98 01/06/18 09:00 81 41 H 131/87 100 01/06/18 08:00 97.7 F 107 H 29 H 138/76 100 01/06/18 07:00 80 31 H 135/70 98 01/06/18 06:30 90 30 H 131/58 99 01/06/18 06:00 74 17 131/58 99 01/06/18 05:30 79 23 161/73 100 01/06/18 05:00 105 H 22 161/73 99 01/06/18 04:50 94 25 H 161/73 98 01/06/18 04:40 101 H 35 H 161/73 98 01/06/18 04:30 95 20 147/77 98 01/06/18 04:20 96 21 147/77 98 01/06/18 04:10 77 17 147/77 98 01/06/18 04:00 98.7 F 88 18 147/77 98 01/06/18 03:50 94 21 147/77 99 01/06/18 03:40 95 17 147/77 98 01/06/18 03:30 66 21 155/86 98 01/06/18 03:20 74 33 H 155/86 98 01/06/18 03:10 70 33 H 155/86 99 01/06/18 03:00 91 39 H 155/86 98 01/06/18 02:50 82 35 H 155/86 99 01/06/18 02:40 82 34 H 155/86 99 01/06/18 02:30 83 35 H 169/89 99 01/06/18 02:20 97.7 F 88 27 H 169/89 100 01/06/18 02:10 91 32 H 169/89 100 01/06/18 02:00 87 32 H 169/89 99 01/06/18 01:50 87 30 H 169/89 100 01/06/18 01:40 87 169/89 100 01/06/18 01:34 89 01/06/18 00:59 97.7 F 86 30 H 124/57 97 01/05/18 23:00 99.0 F 79 30 H 166/66 95 01/05/18 22:06 97.7 F 01/05/18 21:30 78 30 H 145/65 99 01/05/18 19:00 99 F 80 30 H 147/62 96 01/05/18 18:00 88 36 H 155/70 94 L 01/05/18 17:00 77 32 H 165/78 93 L Intake and Output 01/06/18 01/06/18 01/06/18 06:59 14:59 22:59 Output Total 525 400 Balance -525 -400 Output: Urine 525 400 Other: Voiding Method Bedside Commode Bedside Commode # Voids 0 1 # Bowel Movements 1 GENERAL EXAM: Patient is alert and oriented and doesn't appear to be in any acute distress HEENT: Normocephalic. Normal reaction of pupils, equal size, normal range of extraocular motion. No erythema or exudates in the throat. NECK: No masses, no nuchal rigidity. CHEST: No chest wall deformity. LUNGS: Diminished breath sounds at bases HEART: S1 and S2 normal with no audible mumurs or gallops. Regular rhythm, femorals equal on both sides.. ABDOMEN: No hepatosplenomegaly, normal bowel sounds, no guarding or rigidity. SKIN: No rashes CENTRAL NERVOUS SYSTEM: No focal deficits. EXTREMITIES: No cyanosis, clubbing or edema. Results 01/06/18 04:40 01/06/18 04:40 Cardiac Enzymes 01/05/18 01/05/18 01/05/18 Range/Units 16:25 16:25 17:19 AST 165 H (14-36) U/L Lactate Dehydrogenase (313-618) U/L CK-MB (CK-2) 1.4 1.3 (0.0-2.4) ng/mL Troponin I 0.022 <0.012 (0.000-0.034) ng/mL 01/05/18 01/06/18 Range/Units 17:19 04:40 AST 36 (14-36) U/L Lactate Dehydrogenase 959 H (313-618) U/L CK-MB (CK-2) (0.0-2.4) ng/mL Troponin I (0.000-0.034) ng/mL Coagulation 01/05/18 01/05/18 01/06/18 Range/Units 15:00 17:19 13:32 PT 22.1 H 21.8 H 20.0 H (9.0-12.0) sec APTT 32.1 H 27.4 (22.0-30.0) sec CBC 01/05/18 01/05/18 01/06/18 Range/Units 16:25 17:19 04:40 WBC 4.8 4.7 4.6 (3.8-10.6) k/uL RBC 2.86 L 2.89 L 2.80 L (3.80-5.40) m/uL Hgb 9.7 L 9.4 L 9.4 L (11.4-16.0) gm/dL Hct 28.3 L 27.8 L 27.3 L (34.0-46.0) % Plt Count 135 L 112 L 129 L (150-450) k/uL Comprehensive Metabolic Panel 01/05/18 01/05/18 01/06/18 Range/Units 16:25 17:19 04:40 Sodium 131 L 137 135 L (137-145) mmol/L Potassium 10.0 H* 4.7 5.3 H (3.5-5.1) mmol/L Chloride 103 102 101 (98-107) mmol/L Carbon Dioxide 18 L 23 21 L (22-30) mmol/L BUN 23 H 23 H 24 H (7-17) mg/dL Creatinine 0.74 0.80 0.80 (0.52-1.04) mg/dL Glucose 105 H 113 H 113 H (74-99) mg/dL Calcium 9.1 9.6 9.4 (8.4-10.2) mg/dL AST 165 H 36 (14-36) U/L ALT 17 26 (9-52) U/L Alkaline Phosphatase 84 104 (38-126) U/L Total Protein 7.4 5.5 L (6.3-8.2) g/dL Albumin 4.7 3.3 L (3.5-5.0) g/dL 01/06/18 Range/Units 04:40 Sodium (137-145) mmol/L Potassium (3.5-5.1) mmol/L Chloride (98-107) mmol/L Carbon Dioxide (22-30) mmol/L BUN (7-17) mg/dL Creatinine (0.52-1.04) mg/dL Glucose (74-99) mg/dL Calcium (8.4-10.2) mg/dL AST (14-36) U/L ALT (9-52) U/L Alkaline Phosphatase (38-126) U/L Total Protein 5.6 L (6.3-8.2) g/dL Albumin (3.5-5.0) g/dL Current Medications Generic Name Dose Route Start Last Admin Trade Name Freq PRN Reason Stop Dose Admin Acetaminophen 650 mg 01/05/18 19:36 Tylenol Tab PO Q6HR PRN Mild Pain or Fever > 100.5 Atorvastatin Calcium 20 mg 01/06/18 21:00 Lipitor PO HS ASHU Folic Acid 1 mg 01/07/18 12:00 Folic Acid PO 1200 ASHU Furosemide 40 mg 01/05/18 21:00 01/06/18 08:03 Lasix IV 40 mg Q12HR ASHU Administration Metoprolol Succinate 50 mg 01/06/18 09:15 01/06/18 10:07 Toprol Xl PO 50 mg DAILY ASHU Administration Miscellaneous Information 1 each 01/05/18 17:42 01/05/18 19:22 Rx Info: Iv Contrast Was Given MISCELLANE 01/07/18 17:42 1 each DAILY PRN Administration Per Protocol Naloxone HCl 0.2 mg 01/05/18 19:36 Narcan IV Q2M PRN Opioid Reversal Spironolactone 25 mg 01/07/18 09:00 Aldactone PO DAILY ASHU Intake and Output 01/06/18 01/06/18 01/06/18 06:59 14:59 22:59 Output Total 525 400 Balance -525 -400 Output: Urine 525 400 Other: Voiding Method Bedside Commode Bedside Commode # Voids 0 1 # Bowel Movements 1 01/06/18 04:40 01/06/18 04:40 EKG Interpretations (text) Atrial fibrillation with controlled ventricular response Assessment and Plan (1) Pleural effusion Current Visit: Yes Status: Acute Code(s): J90 - PLEURAL EFFUSION, NOT ELSEWHERE CLASSIFIED SNOMED Code(s): 66218593 (2) Anemia Current Visit: No Status: Acute Code(s): D64.9 - ANEMIA, UNSPECIFIED SNOMED Code(s): 430104041 (3) Atrial fibrillation Current Visit: No Status: Acute Code(s): I48.91 - UNSPECIFIED ATRIAL FIBRILLATION SNOMED Code(s): 91163540 (4) Hx of deep venous thrombosis Current Visit: No Status: Acute Code(s): Z86.718 - PERSONAL HISTORY OF OTHER VENOUS THROMBOSIS AND EMBOLISM SNOMED Code(s): 327923950 (5) Presence of permanent cardiac pacemaker Current Visit: No Status: Acute Code(s): Z95.0 - PRESENCE OF CARDIAC PACEMAKER SNOMED Code(s): 848096924 Plan: The etiology of her symptoms are not entirely clear. No clinical evidence of JVD or peripheral edema and proBNP is within normal limits. Echo showed normal LV function without any significant valvular abnormalities. We'll may brightly treated with Lasix and see if symptoms improve. If pleural effusion persists, consider pleural tap. Further recommendations depend upon clinical course
[2018-01-06] MEDS: ATORVASTATIN 20 MG TAB PO SCH (20:48)
[2018-01-07 06:19] LABS: INR 1.7 (<1.2); Prothrombin Time 15.7 sec (9.0-12.0)
[2018-01-07 06:26] LABS: Calcium 9.9 mg/dL (8.4-10.2)
[2018-01-07 06:34] LABS: Anisocytosis Slight; HCT 27.5 % (34.0-46.0); HGB 9.3 gm/dL (11.4-16.0); Hypochromasia Slight; MCH 33.3 pg (25.0-35.0); MCHC 33.7 g/dL (31.0-37.0); MCV 98.6 fL (80.0-100.0); Macrocytosis Slight; Mean Platelet Volume 7.5; Platelet Count 154 k/uL (150-450); Poikilocytosis Slight; RBC 2.79 m/uL (3.80-5.40); WBC 4.3 k/uL (3.8-10.6)
[2018-01-07 07:28] LABS: Eosinophils # (M) 0.09 k/uL (0-0.7); Lymphocytes # (M) 1.08 k/uL (1.0-4.8); Monocytes # (M) 0.56 k/uL (0-1.0); Neutrophils # (M) 2.62 k/uL (1.3-7.7); Neutrophils % (M) 61 %; Nucleated Red Blood Cells 0 /100 WBC (0-0); Rouleaux Present; Total Cells Counted 200
[2018-01-07] MEDS ORDERED: POTASSIUM CHLORIDE ER 10 MEQ TAB.ER.PRT PO SCH (09:00)
[2018-01-07] MEDS: METOPROLOL SUCCINATE (ER) 50 MG TAB.ER.24H PO SCH (09:24)
[2018-01-07] MEDS: SPIRONOLACTONE 25 MG TAB PO SCH (09:25)
[2018-01-07] MEDS: FUROSEMIDE 10 MG/ML 4 ML VIAL IV SCH ×2 (09:25→20:18)
[2018-01-07] MEDS ORDERED: LIDOCAINE 1% INJ 10MG/ML (20 ML MDV) SQ ONE (10:17)
--- NOTE | 2018-01-07 10:52 | XR ---
EXAMINATION TYPE: XR chest 1V DATE OF EXAM: 01/07/2018 COMPARISON: 01/06/2018 HISTORY: Status post left thoracentesis. Left-sided pleural effusion. TECHNIQUE: Single frontal view of the chest is obtained. FINDINGS: There is improved degree of the left pleural effusion, now trace. Trace right pleural effu benja and right basilar airspace disease is redemonstrated. Overall there are low lung volumes and crossing watchman wding of the pulmonary vasculature. Cardia mediastinal silhouette is stable. Single lead left-sided c ardiac device is noted. No postprocedural pneumothorax is seen. Chronic bilateral pleural thickening is present. IMPRESSION: Improved degree of left-sided pleural effusion, now trace, with persistent small right p leural effusion and right basilar airspace disease most commonly related to atelectasis. No postproce dural pneumothorax.
[2018-01-07] MEDS: FOLIC ACID 1 MG TAB PO SCH (12:13)
--- NOTE | 2018-01-07 12:33 | P.PN ---
Subjective Progress Note Date: 01/07/18 This is an 82-year-old female patient of Dr. Lee with a past mental history of atrial fibrillation, right eye melanoma with prosthesis, COPD , DVT and pulmonary embolism, gastroesophageal reflux disease hypertension, sick sinus syndrome status post pacemaker, lymphoma actively being treated. Patient states that she had onset of shortness of breath and difficulty breathing along with the cough a little phlegm production. She states she had some sharp chest pain that she thought was related to her pacemaker. She came into [facility] emergency center for evaluation. CT angiogram was negative for pulmonary embolism. There was interstitial edema and pleural effusions left greater than right. Chest x-ray shows correlate with mild CHF. Hemoglobin 9.4, BUN 23 creatinine 0.8. INR is 2.5, sodium 131 potassium 10. Lactic acid was 2. Total bilirubin 5.5 and AST 165. ProBNP was 938. Troponin 0.0-2. Patient was admitted to the selective care unit and consult requested by pulmonary medicine and cardiology. Echocardiogram reveals EF 50-55%, mild aortic valve sclerosis, mild mitral regurgitation, mild tricuspid regurgitation, moderate pulmonary hypertension, large pleural effusion. 01/07: INR today is 1.7. Patient is scheduled for thoracentesis today. We will ask for oncology consult regarding whether patient should continue chemotherapy as normally scheduled or wait for pathology report from thoracentesis. Hemoglobin is stable at 9.3. Objective - Vital Signs Vital signs: Vital Signs Temp 97.7 F 01/07/18 04:00 Pulse 77 01/07/18 10:37 Resp 16 01/07/18 10:37 BP 124/57 01/07/18 10:37 Pulse Ox 96 01/07/18 10:37 Intake & Output 01/06/18 01/07/18 01/07/18 18:59 06:59 18:59 Output Total 400 650 Balance -400 -650 Weight 98 kg Output: Urine 400 650 Other: Voiding Method Bedside Commode Toilet # Voids 1 1 # Bowel Movements 1 - Exam Gen: This is an 82-year-old female. She is sitting up in awake and alert and appears to be comfortable and in no acute distress. HEENT: Head is atraumatic, normocephalic. Pupils equal, round. Sclerae is anicteric. NECK: Supple. No JVD. No lymphadenopathy. No thyromegaly. LUNGS: Diminished to the bilateral bases.. No wheezes or rhonchi. No intercostal retractions. HEART: Irregular rate and rhythm. No murmur. ABDOMEN: Soft. Bowel sounds are present. No masses. No tenderness. EXTREMITIES: No pedal edema. No calf tenderness. Dorsalis pedis +2 bilaterally. NEUROLOGICAL: Patient is awake, alert and oriented x3. Cranial nerves 2 through 12 are grossly intact. - Labs CBC & Chem 7: 01/07/18 05:41 01/07/18 05:41 Labs: Abnormal Lab Results - Last 24 Hours (Table) 01/06/18 01/07/18 01/07/18 Range/Units 13:32 05:41 05:41 RBC 2.79 L (3.80-5.40) m/uL Hgb 9.3 L (11.4-16.0) gm/dL Hct 27.5 L (34.0-46.0) % RDW 17.0 H (11.5-15.5) % PT 20.0 H 15.7 H (9.0-12.0) sec INR 2.2 H 1.7 H (<1.2) BUN (7-17) mg/dL Glucose (74-99) mg/dL 01/07/18 Range/Units 05:41 RBC (3.80-5.40) m/uL Hgb (11.4-16.0) gm/dL Hct (34.0-46.0) % RDW (11.5-15.5) % PT (9.0-12.0) sec INR (<1.2) BUN 26 H (7-17) mg/dL Glucose 108 H (74-99) mg/dL Assessment and Plan Plan: 1. Acute respiratory distress secondary to pleural effusions bilaterally with left greater than right and possible acute diastolic heart failure. Consult in place with cardiology and pulmonary medicine. Echocardiogram as above. Continue Lasix 40 mg IV every 12 hours, Toprol-XL 50 mg daily, Aldactone 25 mg daily. Coumadin is on hold for thoracentesis. Thoracentesis is scheduled for today. 2. History of right eye melanoma with prosthesis. Stable. 3. Lymphoma under the care of oncology. 4. Chronic atrial fibrillation status post pacemaker. Continue Toprol-XL. 5. History of DVT and pulmonary embolism status post [place] filter. Coumadin is on hold. 6. Hypertension. Continue Toprol-XL 50 mg daily 7. Gastroesophageal reflux disease and GI prophylaxis. Protonix daily. 8. History of brain aneurysm, stable. 9. DVT prophylaxis. Patient is therapeutic on Coumadin. 10. Patient will be admitted to the hospital for a minimum of 3 nights stay. Discharge plan: Most likely return home. PT and OT will be added once patient' s respiratory status is stable. Impression and plan of care have been directed as dictated by the signing physician. Geneva Dc nurse practitioner acting as scribe for signing physician.
--- NOTE | 2018-01-07 12:35 | P.PN ---
Subjective Progress Note Date: 01/07/18 This is a 82-year-old female with history of previous pulmonary emboli and also [place] filter placement, who is admitted now with complaints of increasing shortness of breath. She also has sick sinus syndrome and permanent pacemaker implantation. Patient had this symptoms in the past. Chest x-ray showed some bilateral infiltrates and possible pleural effusion and mild cardiomegaly. Computed tomography scan rule out possibility of pulmonary embolism. There appeared to be pleural effusion. Echocardiogram showed ejection fraction of 50- 50%. No significant valvular abnormalities are noted. The etiology of pleural effusion is not clear. Her proBNP is within normal limits for her age. We can empirically treat her with some diuretics. If the pleural effusion doesn't improve, may consider pleural tap. Clinically doesn't have a significant JVD or peripheral edema. Lungs show diminished breath sounds at bases. No complaints of cough, fever or chills. 01/07/2018 Patient seen and examined this morning, just returned from a thoracentesis. Overall she does state that she's feeling better. Blood pressure 124/60 with a heart rate in the 70s, 96% on room air. White blood cell count is normal, hemoglobin 9.3, platelet count 154. INR today is 1.7. Sodium 139, potassium 4.0, BUN 26, creatinine 0.9. Objective - Vital Signs Vital signs: Vital Signs Temp 97.9 F 01/07/18 08:00 Pulse 77 01/07/18 10:37 Resp 16 01/07/18 10:37 BP 124/57 01/07/18 10:37 Pulse Ox 96 01/07/18 10:37 Intake & Output 01/06/18 01/07/18 01/07/18 18:59 06:59 18:59 Output Total 400 650 Balance -400 -650 Weight 98 kg Output: Urine 400 650 Other: Voiding Method Bedside Commode Toilet Toilet # Voids 1 1 # Bowel Movements 1 - Exam PHYSICAL EXAMINATION: HEENT: Head is atraumatic, normocephalic. Pupils equal, round. Neck is supple. There is no elevated jugular venous pressure. HEART EXAMINATION: Heart S1, S2 normal. No murmur or gallop heard. CHEST EXAMINATION: Lungs are clear with diminished air entry to bilateral bases. ABDOMEN: Soft, nontender. Bowel sounds are heard. No organomegaly noted. EXTREMITIES: 2+ peripheral pulses with no evidence of peripheral edema and no calf tenderness noted. NEUROLOGIC patient is awake, alert and oriented -3. . - Labs CBC & Chem 7: 01/07/18 05:41 01/07/18 05:41 Labs: Abnormal Lab Results - Last 24 Hours (Table) 01/06/18 01/07/18 01/07/18 Range/Units 13:32 05:41 05:41 RBC 2.79 L (3.80-5.40) m/uL Hgb 9.3 L (11.4-16.0) gm/dL Hct 27.5 L (34.0-46.0) % RDW 17.0 H (11.5-15.5) % PT 20.0 H 15.7 H (9.0-12.0) sec INR 2.2 H 1.7 H (<1.2) BUN (7-17) mg/dL Glucose (74-99) mg/dL 01/07/18 Range/Units 05:41 RBC (3.80-5.40) m/uL Hgb (11.4-16.0) gm/dL Hct (34.0-46.0) % RDW (11.5-15.5) % PT (9.0-12.0) sec INR (<1.2) BUN 26 H (7-17) mg/dL Glucose 108 H (74-99) mg/dL Assessment and Plan Plan: Assessment and plan #1. Acute respiratory distress secondary to pleural effusions bilaterally with left greater than right status post thoracentesis of the left side this morning. #2 no clear-cut evidence of congestive cardiac failure. 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 Echocardiogram with Doppler study revealed an LV function of 50-55%. Moderate pulmonary hypertension. DNP note has been reviewed, I agree with a documented findings and plan of care. Patient was seen and examined.
--- NOTE | 2018-01-07 13:59 | P.PN ---
Subjective Progress Note Date: 01/07/18 Principal diagnosis: Shortness of breath likely related to fluid overload/heart failure Consult dated 01/06/2018 82-year-old female who presented with complaints of 2 or 3 days with increasing shortness of breath. She was evaluated in the emergency room. She has a history of both melanoma and lymphoma. The patient apparently came in with what appears to be congestive heart failure. N-terminal proBNP was mildly elevated. Chest x-ray was consistent with heart failure. Apparently she had a recent stress test and echocardiogram that were relatively normal she tells us. She does have a history of a pacemaker insertion for sick sinus syndrome. She also has a previous history of DVT and pulmonary embolism and had a filter placed. A CT angiogram was negative for PE on this admission. The patient did have evidence of some interstitial edema and pleural effusions left greater than right. She is on blood thinner. It has been held. We'll have interventional radiology consider doing a thoracentesis on her. Her medical problem list includes atrial fibrillation melanoma, lymphoma, possible COPD deep venous thrombosis pulmonary embolism hypertension GERD. The melanoma involvement of the eye. Surgical history includes heart catheterization hysterectomy joint replacement tubal ligation dental implants pacemaker insertion, etc. On 01/07/2018 patient seen in follow-up, she is status post ultrasound-guided left thoracentesis would removal of 1000 ML of pleural fluid. She reports significant improvements in her breathing, she is currently on room air, O2 sat at 96%, hemodynamically stable, afebrile. Pleural fluids sent for cytology and analysis. Patient tolerated the procedures very well. Chest x-ray showed improved degree of left-sided pleural effusion, and persistent right pleural effusion and right basilar airspace disease, most likely related to atelectasis. Today's labs were reviewed, WBC is 4.3, hemoglobin is 9.3, INR is 1.7, electrolytes are normal, B1 is 26, creatinine 0.90. She is receiving IV diuretics. We will see if patient can have ultrasound-guided right thoracentesis tomorrow, continue holding Coumadin. Objective - Vital Signs Vital signs: Vital Signs Temp 97.9 F 01/07/18 08:00 Pulse 77 01/07/18 10:37 Resp 16 01/07/18 10:37 BP 124/57 01/07/18 10:37 Pulse Ox 96 01/07/18 10:37 Intake & Output 01/06/18 01/07/18 01/07/18 18:59 06:59 18:59 Output Total 400 650 Balance -400 -650 Weight 98 kg Output: Urine 400 650 Other: Voiding Method Bedside Commode Toilet Toilet # Voids 1 1 # Bowel Movements 1 - Exam No acute distress, oriented 3, Currently on oxygen at 2 L. HEENT examination is grossly unremarkable. Mucous membranes are moist. No oral lesions. Neck supple. Full range of motion. No adenopathy thyromegaly or neck vein distention. Cardiovascular examination reveals regular rhythm rate. S1-S2 normal. No S3 or S4. No discernible murmur noted. Lungs reveal bibasilar crackles. Breath sounds are equal bilaterally. No rhonchi. No wheezes. Abdomen soft bowel sounds are heard. No masses or tenderness. Extremities are intact. No cyanosis clubbing or edema. Skin is without rash or lesion. Neurologic examination is brief but nonfocal. - Labs CBC & Chem 7: 01/07/18 05:41 01/07/18 05:41 Labs: Abnormal Lab Results - Last 24 Hours (Table) 01/06/18 01/07/18 01/07/18 Range/Units 13:32 05:41 05:41 RBC 2.79 L (3.80-5.40) m/uL Hgb 9.3 L (11.4-16.0) gm/dL Hct 27.5 L (34.0-46.0) % RDW 17.0 H (11.5-15.5) % PT 20.0 H 15.7 H (9.0-12.0) sec INR 2.2 H 1.7 H (<1.2) BUN (7-17) mg/dL Glucose (74-99) mg/dL 01/07/18 Range/Units 05:41 RBC (3.80-5.40) m/uL Hgb (11.4-16.0) gm/dL Hct (34.0-46.0) % RDW (11.5-15.5) % PT (9.0-12.0) sec INR (<1.2) BUN 26 H (7-17) mg/dL Glucose 108 H (74-99) mg/dL Assessment and Plan Plan: Assessment: Shortness of breath, likely related to fluid overload/heart failure. It may be diastolic in nature as apparently the patient's echocardiogram shows good LV function Bilateral pleural effusions, left greater than right, likely related to the heart failure. History of melanoma History of lymphoma. 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 Plan: Plan dated 01/06/2018 The patient's blood thinner has been held. We'll have interventional radiology consider doing an ultrasound to rule out malignant pleural effusion. She does have a history of lymphoma and melanoma. Other than that, the patient seems be doing relatively well. She is a bit tachypnea. Meds labs and x-rays are all reviewed. No evidence of pulmonary embolism on CT angiogram. She does have a filter in place. Additional recommendations and suggestions are forthcoming. Plan dated 01/07/2018 Await the results of the pleural fluid analysis and cytology. Patient tolerated the procedure well, reports significant improvement in her dyspnea. We will request interventional radiology to consider right-sided ultrasound- guided thoracentesis tomorrow, continue holding Coumadin. Continue to follow I performed a history & physical examination of the patient and discussed their management with my nurse practitioner, Renate Pradhan. I reviewed the nurse practitioner's note and agree with the documented findings and plan of care. Lung sounds are positive for a few bibasilar crackles. The findings and the impression was discussed with the patient. I attest to the documentation by the nurse practitioner. Time with Patient: Less than 30
--- NOTE | 2018-01-07 14:02 | US ---
EXAMINATION TYPE: US thoracentesis DATE OF EXAM: 01/07/2018 COMPARISON: NONE HISTORY: Pleural effusion. FINDINGS: Maximal barrier technique was utilized. The skin overlying a suitable pocket of fluid was localized and the overlying skin prepped and draped. Lidocaine was used for local anesthesia. Ultras ound was used with sterile technique. A 5 [place] catheter over guide needle was advanced into the pl eural fluid collection using ultrasound guidance and the catheter advanced, needle removed. Approxim ately 1 liter(s) of serous sanguinous fluid was removed. Catheter was withdrawn and hemostasis achie carly. There is no immediate complication. The patient discharged in stable condition without complic ation. IMPRESSION: STATUS POST ULTRASOUND GUIDED THORACENTESIS, POST PROCEDURE CHEST X-RAY PENDING. THIS PA OCEDURE WAS PERFORMED BY THE UNDERSIGNED. Specimen sent for laboratory analysis.
[2018-01-07 14:27] LABS: Appearance,BF Hazy; Color,BF Orange; Nucleated Cells, Body Fluid 1610 /uL; RBC, Body Fluid 4570 /uL
[2018-01-07 14:30] LABS: Mononuclear WBC,Body Fluid 94 %; Polynuclear WBC,Body Fluid 5 %; Total Cells Counted,Body Fluid 100
[2018-01-07] MEDS: ATORVASTATIN 20 MG TAB PO SCH (20:18)
[2018-01-07 20:39] LABS: Total Protein, Body Fluid 3600 mg/dL
[2018-01-08 06:40] LABS: INR 1.4 (<1.2); Prothrombin Time 12.9 sec (9.0-12.0)
[2018-01-08 06:42] LABS: Calcium 9.6 mg/dL (8.4-10.2); Potassium 3.9 mmol/L (3.5-5.1)
[2018-01-08 06:59] LABS: Anisocytosis Slight; HCT 24.5 % (34.0-46.0); HGB 8.8 gm/dL (11.4-16.0); Hypochromasia Slight; MCH 35.2 pg (25.0-35.0); MCHC 36.1 g/dL (31.0-37.0); MCV 97.6 fL (80.0-100.0); Macrocytosis Slight; Mean Platelet Volume 7.5; Platelet Count 148 k/uL (150-450); Poikilocytosis Moderate; RBC 2.52 m/uL (3.80-5.40); RDW 16.9 % (11.5-15.5); WBC 3.1 k/uL (3.8-10.6)
[2018-01-08 07:18] LABS: Lymphocytes # (M) 0.87 k/uL (1.0-4.8); Monocytes # (M) 0.43 k/uL (0-1.0); Neutrophils % (M) 58 %; Nucleated Red Blood Cells 0 /100 WBC (0-0); Total Cells Counted 100
[2018-01-08] MEDS: FUROSEMIDE 10 MG/ML 4 ML VIAL IV SCH ×2 (09:09→20:12)
[2018-01-08] MEDS: SPIRONOLACTONE 25 MG TAB PO SCH (09:09)
[2018-01-08] MEDS: METOPROLOL SUCCINATE (ER) 50 MG TAB.ER.24H PO SCH (09:09)
--- NOTE | 2018-01-08 10:22 | P.PN ---
Subjective Progress Note Date: 01/08/18 Principal diagnosis: Congestive heart failure Consult dated 01/06/2018 82-year-old female who presented with complaints of 2 or 3 days with increasing shortness of breath. She was evaluated in the emergency room. She has a history of both melanoma and lymphoma. The patient apparently came in with what appears to be congestive heart failure. N-terminal proBNP was mildly elevated. Chest x-ray was consistent with heart failure. Apparently she had a recent stress test and echocardiogram that were relatively normal she tells us. She does have a history of a pacemaker insertion for sick sinus syndrome. She also has a previous history of DVT and pulmonary embolism and had a filter placed. A CT angiogram was negative for PE on this admission. The patient did have evidence of some interstitial edema and pleural effusions left greater than right. She is on blood thinner. It has been held. We'll have interventional radiology consider doing a thoracentesis on her. Her medical problem list includes atrial fibrillation melanoma, lymphoma, possible COPD deep venous thrombosis pulmonary embolism hypertension GERD. The melanoma involvement of the eye. Surgical history includes heart catheterization hysterectomy joint replacement tubal ligation dental implants pacemaker insertion, etc. On 01/07/2018 patient seen in follow-up, she is status post ultrasound-guided left thoracentesis would removal of 1000 ML of pleural fluid. She reports significant improvements in her breathing, she is currently on room air, O2 sat at 96%, hemodynamically stable, afebrile. Pleural fluids sent for cytology and analysis. Patient tolerated the procedures very well. Chest x-ray showed improved degree of left-sided pleural effusion, and persistent right pleural effusion and right basilar airspace disease, most likely related to atelectasis. Today's labs were reviewed, WBC is 4.3, hemoglobin is 9.3, INR is 1.7, electrolytes are normal, B1 is 26, creatinine 0.90. She is receiving IV diuretics. We will see if patient can have ultrasound-guided right thoracentesis tomorrow, continue holding Coumadin. The patient is seen again today 01/08/2018 in follow-up on the selective care unit. She is currently resting quite comfortably in bed. She is awake and alert in no acute distress. She states she is breathing quite a bit easier today as compared to yesterday. Maintaining good O2 saturations in the 90s on room air. She is status post left-sided thoracentesis with approximately 1 L of fluid removed. Total protein 3.6. LDH 277. Pathology is pending. The plan is for ultrasound-guided right-sided thoracentesis today per IR. White count 3.1. Hemoglobin 8.8. INR 1.4. Creatinine 1.01. Objective - Vital Signs Vital signs: Vital Signs Temp 97.2 F L 01/08/18 09:00 Pulse 78 01/08/18 09:00 Resp 24 01/08/18 09:00 BP 117/60 01/08/18 09:00 Pulse Ox 96 01/08/18 09:00 Intake & Output 01/07/18 01/08/18 01/08/18 18:59 06:59 18:59 Intake Total 600 Output Total 2150 Balance 600 -2150 Weight 95.9 kg Intake: Oral 600 Output: Urine 2150 Other: Voiding Method Toilet Toilet # Voids 2 2 - Exam GENERAL EXAM: Alert, active, comfortable in no apparent distress. HEAD: Normocephalic. EYES: Normal reaction of pupils, equal size. NOSE: Clear with pink turbinates. THROAT: No erythema or exudates. NECK: No masses, no JVD. CHEST: No chest wall deformity. LUNGS: Equal air entry with faint crackles in the bilateral posterior bases. CVS: S1 and S2 normal with no audible murmur, regular rhythm. ABDOMEN: No hepatosplenomegaly, normal bowel sounds, no guarding or rigidity. SPINE: No scoliosis or deformity SKIN: No rashes CENTRAL NERVOUS SYSTEM: No focal deficits, tone is normal in all 4 extremities. EXTREMITIES: There is no peripheral edema. No clubbing, no cyanosis. Peripheral pulses are intact. - Labs CBC & Chem 7: 01/08/18 06:09 01/08/18 06:09 Labs: Abnormal Lab Results - Last 24 Hours (Table) 01/08/18 01/08/18 01/08/18 Range/Units 06:09 06:09 06:09 WBC 3.1 L (3.8-10.6) k/uL RBC 2.52 L (3.80-5.40) m/uL Hgb 8.8 L (11.4-16.0) gm/dL Hct 24.5 L (34.0-46.0) % MCH 35.2 H (25.0-35.0) pg RDW 16.9 H (11.5-15.5) % Plt Count 148 L (150-450) k/uL Lymphocytes # (Manual) 0.87 L (1.0-4.8) k/uL PT 12.9 H (9.0-12.0) sec INR 1.4 H (<1.2) BUN 26 H (7-17) mg/dL Microbiology - Last 24 Hours (Table) 01/07/18 10:18 Gram Stain - Preliminary Pleural Fluid Body Fluid Culture - Preliminary 01/07/18 10:18 Anaerobic Culture - Preliminary Pleural Fluid Assessment and Plan Assessment: Assessment: Shortness of breath, likely related to fluid overload/heart failure. It may be diastolic in nature as apparently the patient's echocardiogram shows good LV function Bilateral pleural effusions, left greater than right, likely related to the heart failure. Status post left-sided thoracentesis with 1 L fluid removed. Pathology is pending. History of melanoma History of lymphoma. History of atrial fibrillation/flutter, status post pacemaker insertion, maintained on warfarin in the outpatient setting. 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 Plan: The patient was seen and evaluated by Dr. Garcia. She is currently stable from the pulmonary standpoint. She remains on IV diuretics and Aldactone per cardiology. We will follow the patient on an as-needed basis. I, the cosigning physician, performed a history & physical examination of the patient. Lungs sounds are faint crackles in the bilateral posterior bases. Maintaining good O2 saturations in the 90s on room air. I discussed the assessment and plan of care with my nurse practitioner, Elaine Cheatham. I attest to the above note as dictated by her.
[2018-01-08] MEDS: FOLIC ACID 1 MG TAB PO SCH (12:17)
--- NOTE | 2018-01-08 12:17 | P.PN ---
Subjective Progress Note Date: 01/08/18 This is an 82-year-old female patient of Dr. Lee with a past mental history of atrial fibrillation, right eye melanoma with prosthesis, COPD , DVT and pulmonary embolism, gastroesophageal reflux disease hypertension, sick sinus syndrome status post pacemaker, lymphoma actively being treated. Patient states that she had onset of shortness of breath and difficulty breathing along with the cough a little phlegm production. She states she had some sharp chest pain that she thought was related to her pacemaker. She came into [facility] emergency center for evaluation. CT angiogram was negative for pulmonary embolism. There was interstitial edema and pleural effusions left greater than right. Chest x-ray shows correlate with mild CHF. Hemoglobin 9.4, BUN 23 creatinine 0.8. INR is 2.5, sodium 131 potassium 10. Lactic acid was 2. Total bilirubin 5.5 and AST 165. ProBNP was 938. Troponin 0.0-2. Patient was admitted to the selective care unit and consult requested by pulmonary medicine and cardiology. Echocardiogram reveals EF 50-55%, mild aortic valve sclerosis, mild mitral regurgitation, mild tricuspid regurgitation, moderate pulmonary hypertension, large pleural effusion. 01/07: INR today is 1.7. Patient is scheduled for thoracentesis today. We will ask for oncology consult regarding whether patient should continue chemotherapy as normally scheduled or wait for pathology report from thoracentesis. Hemoglobin is stable at 9.3. 01/08: Patient underwent ultrasound-guided left thoracentesis with removal of 1 L of pleural fluid. Patient states that her breathing is significantly improved. Plan is for a right sided thoracentesis today and she can resume Coumadin. Patient is anticipating discharge home on Thursday. Her daughter is coming here to stay with her and will be arriving on Thursday. Objective - Vital Signs Vital signs: Vital Signs Temp 97.2 F L 01/08/18 09:00 Pulse 78 01/08/18 09:00 Resp 24 01/08/18 09:00 BP 117/60 01/08/18 09:00 Pulse Ox 96 01/08/18 09:00 Intake & Output 01/07/18 01/08/18 01/08/18 18:59 06:59 18:59 Intake Total 600 Output Total 2150 Balance 600 -2150 Weight 95.9 kg Intake: Oral 600 Output: Urine 2150 Other: Voiding Method Toilet Toilet # Voids 2 2 - Exam Gen: This is an 82-year-old female. She is sitting up in awake and alert and appears to be comfortable and in no acute distress. HEENT: Head is atraumatic, normocephalic. Pupils equal, round. Sclerae is anicteric. NECK: Supple. No JVD. No lymphadenopathy. No thyromegaly. LUNGS: Diminished to the bilateral bases.. No wheezes or rhonchi. No intercostal retractions. HEART: Irregular rate and rhythm. No murmur. ABDOMEN: Soft. Bowel sounds are present. No masses. No tenderness. EXTREMITIES: No pedal edema. No calf tenderness. Dorsalis pedis +2 bilaterally. NEUROLOGICAL: Patient is awake, alert and oriented x3. Cranial nerves 2 through 12 are grossly intact. - Labs CBC & Chem 7: 01/08/18 06:09 01/08/18 06:09 Labs: Abnormal Lab Results - Last 24 Hours (Table) 01/08/18 01/08/18 01/08/18 Range/Units 06:09 06:09 06:09 WBC 3.1 L (3.8-10.6) k/uL RBC 2.52 L (3.80-5.40) m/uL Hgb 8.8 L (11.4-16.0) gm/dL Hct 24.5 L (34.0-46.0) % MCH 35.2 H (25.0-35.0) pg RDW 16.9 H (11.5-15.5) % Plt Count 148 L (150-450) k/uL Lymphocytes # (Manual) 0.87 L (1.0-4.8) k/uL PT 12.9 H (9.0-12.0) sec INR 1.4 H (<1.2) BUN 26 H (7-17) mg/dL Microbiology - Last 24 Hours (Table) 01/07/18 10:18 Gram Stain - Preliminary Pleural Fluid Body Fluid Culture - Preliminary 01/07/18 10:18 Anaerobic Culture - Preliminary Pleural Fluid Assessment and Plan Plan: 1. Acute respiratory distress secondary to pleural effusions bilaterally with left greater than right and possible acute diastolic heart failure. Consult in place with cardiology and pulmonary medicine. Echocardiogram as above. Continue Lasix 40 mg IV every 12 hours, Toprol-XL 50 mg daily, Aldactone 25 mg daily. Coumadin is on hold for thoracentesis. Thoracentesis left-sided ultrasound-guided completed yesterday with removal of 1 L of fluid. Patient is scheduled for right sided thoracentesis today. Coumadin will then be resumed tonight.. 2. History of right eye melanoma with prosthesis. Stable. 3. Lymphoma under the care of oncology. 4. Chronic atrial fibrillation status post pacemaker. Continue Toprol-XL. 5. History of DVT and pulmonary embolism status post [place] filter. Coumadin is on hold. 6. Hypertension. Continue Toprol-XL 50 mg daily 7. Gastroesophageal reflux disease and GI prophylaxis. Protonix daily. 8. History of brain aneurysm, stable. 9. DVT prophylaxis. Patient is therapeutic on Coumadin. Discharge plan: Home on Thursday and/or is staying with her. Impression and plan of care have been directed as dictated by the signing physician. Geneva Dc nurse practitioner acting as scribe for signing physician.
--- NOTE | 2018-01-08 13:09 | P.PN ---
Subjective Progress Note Date: 01/08/18 This is a 82-year-old female with history of previous pulmonary emboli and also Luis Fernando filter placement, who is admitted now with complaints of increasing shortness of breath. She also has sick sinus syndrome and permanent pacemaker implantation. Patient had this symptoms in the past. Chest x-ray showed some bilateral infiltrates and possible pleural effusion and mild cardiomegaly. Computed tomography scan rule out possibility of pulmonary embolism. There appeared to be pleural effusion. Echocardiogram showed ejection fraction of 50- 50%. No significant valvular abnormalities are noted. The etiology of pleural effusion is not clear. Her proBNP is within normal limits for her age. We can empirically treat her with some diuretics. If the pleural effusion doesn't improve, may consider pleural tap. Clinically doesn't have a significant JVD or peripheral edema. Lungs show diminished breath sounds at bases. No complaints of cough, fever or chills. 01/07/2018 Patient seen and examined this morning, just returned from a thoracentesis. Overall she does state that she's feeling better. Blood pressure 124/60 with a heart rate in the 70s, 96% on room air. White blood cell count is normal, hemoglobin 9.3, platelet count 154. INR today is 1.7. Sodium 139, potassium 4.0, BUN 26, creatinine 0.9. 01/08/2018 Patient seen and examined this morning, sitting up in the chair, breathing is overall stable. She is scheduled today to undergo a thoracentesis of the right side of her lung by interventional radiology at 2:00 today. Hemodynamically she is stable. She continues to be on IV Lasix. Her weight is down 3 kg today , creatinine 1.0. Objective - Vital Signs Vital signs: Vital Signs Temp 97.3 F L 01/08/18 11:53 Pulse 79 01/08/18 11:53 Resp 20 01/08/18 11:53 BP 121/67 01/08/18 11:53 Pulse Ox 95 01/08/18 11:53 Intake & Output 01/07/18 01/08/18 01/08/18 18:59 06:59 18:59 Intake Total 600 Output Total 2150 Balance 600 -2150 Weight 95.9 kg Intake: Oral 600 Output: Urine 2150 Other: Voiding Method Toilet Toilet Toilet # Voids 2 2 - Exam PHYSICAL EXAMINATION: HEENT: Head is atraumatic, normocephalic. Pupils equal, round. Neck is supple. There is no elevated jugular venous pressure. HEART EXAMINATION: Heart S1, S2 normal. No murmur or gallop heard. CHEST EXAMINATION: Lungs are clear with diminished air entry to bilateral bases. ABDOMEN: Soft, nontender. Bowel sounds are heard. No organomegaly noted. EXTREMITIES: 2+ peripheral pulses with no evidence of peripheral edema and no calf tenderness noted. NEUROLOGIC patient is awake, alert and oriented -3. . - Labs CBC & Chem 7: 01/08/18 06:09 01/08/18 06:09 Labs: Abnormal Lab Results - Last 24 Hours (Table) 01/08/18 01/08/18 01/08/18 Range/Units 06:09 06:09 06:09 WBC 3.1 L (3.8-10.6) k/uL RBC 2.52 L (3.80-5.40) m/uL Hgb 8.8 L (11.4-16.0) gm/dL Hct 24.5 L (34.0-46.0) % MCH 35.2 H (25.0-35.0) pg RDW 16.9 H (11.5-15.5) % Plt Count 148 L (150-450) k/uL Lymphocytes # (Manual) 0.87 L (1.0-4.8) k/uL PT 12.9 H (9.0-12.0) sec INR 1.4 H (<1.2) BUN 26 H (7-17) mg/dL Microbiology - Last 24 Hours (Table) 01/07/18 10:18 Gram Stain - Preliminary Pleural Fluid Body Fluid Culture - Preliminary 01/07/18 10:18 Anaerobic Culture - Preliminary Pleural Fluid Assessment and Plan Plan: Assessment and plan #1. Acute respiratory distress secondary to pleural effusions bilaterally with left greater than right status post thoracentesis of the left side this morning. #2 no clear-cut evidence of congestive cardiac failure. 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 Echocardiogram with Doppler study revealed an LV function of 50-55%. Moderate pulmonary hypertension. DNP note has been reviewed, I agree with a documented findings and plan of care. Patient was seen and examined.
[2018-01-08] MEDS ORDERED: IOPAMIDOL-300 CONTRAST 30 ML VIAL (ORAL USE) PO PRN (13:17)
[2018-01-08] MEDS ORDERED: RX INFO: IV CONTRAST WAS GIVEN 1 EACH MISC MISCELLANE PRN (13:17)
[2018-01-08 14:00] LABS: Reticulocyte % 4.9 % (0.5-2.0)
[2018-01-08 14:21] LABS: Uric Acid 14.9 mg/dL (3.7-7.4)
--- NOTE | 2018-01-08 14:29 | XR ---
EXAMINATION TYPE: XR chest 1V DATE OF EXAM: 01/08/2018 COMPARISON: 01/07/2018 INDICATION: Postthoracentesis right side TECHNIQUE: Single frontal view of the chest is obtained. FINDINGS: The heart size is normal. The pulmonary vasculature is normal. Small left pleural effusion appears to be present. No significant right pleural effusion. No pneumothorax is evident. IMPRESSION: 1. No acute pulmonary process. 2. No pneumothorax postthoracentesis.
--- NOTE | 2018-01-08 15:38 | US ---
EXAMINATION TYPE: US thoracentesis DATE OF EXAM: 01/08/2018 COMPARISON: NONE HISTORY: Pleural effusion. FINDINGS: Maximal barrier technique was utilized. The skin overlying a suitable pocket of fluid was localized and the overlying skin prepped and draped. Lidocaine was used for local anesthesia. Ultras ound was used with sterile technique. A 5 Uzbek catheter over guide needle was advanced into the pl eural fluid collection using ultrasound guidance and the catheter advanced, needle removed. Approxim ately 1 liter(s) of serous sanguinous fluid was removed. Catheter was withdrawn and hemostasis achie carly. There is no immediate complication. The patient discharged in stable condition without complic ation. IMPRESSION: STATUS POST ULTRASOUND GUIDED THORACENTESIS, POST PROCEDURE CHEST X-RAY PENDING. THIS [place] OCEDURE WAS PERFORMED BY THE UNDERSIGNED.
[2018-01-08] MEDS: ALLOPURINOL 300 MG TAB PO SCH (16:12)
--- NOTE | 2018-01-08 16:31 | CT ---
EXAMINATION TYPE: CT abdomen pelvis w con DATE OF EXAM: 01/08/2018 HISTORY: Increased bili, history of lymphoma. CT DLP: 1653.6mGycm Automated Exposure Control for Dose Reduction was Utilized. CONTRAST: CT scan of the abdomen and pelvis is performed with IV Contrast, patient injected with 80 mL of Isovu e M300. COMPARISON: None. FINDINGS: LUNG BASES: There bilateral pleural effusions, small the left and trace on the right. Right basilar a irspace disease with cylindrical bronchiectasis is seen that is high density suggestive of atelectasi s rather than pneumonia. LIVER/GB: Liver is unremarkable without focal mass. Gallbladder is surgically absent. No fluid collec tion is seen within the gallbladder fossa. PANCREAS: Pancreatic parenchymal atrophy is identified. No ductal dilatation. SPLEEN: No significant abnormality is seen. No splenomegaly. ADRENALS: Slight thickening of the adrenal glands without discrete nodularity. KIDNEYS: Kidneys enhance symmetrically. No hydronephrosis. BOWEL: Distal esophageal diverticulum is seen left laterally, likely pulsion type diverticulum. Desce nding duodenal diverticulum is also seen. UTERUS/ADNEXA: No gross abnormality seen. LYMPH NODES: Right superficial inguinal adenopathy measures up to 1.2 cm. Prominent but nonenlarged l eft superficial inguinal lymph nodes are seen. Confluent and large left external chain iliac lymph no salma measure up to 2.5 cm. On the right external chain iliac lymph nodes measure up to 2.0 cm. Interna l iliac lymph nodes on the left measure 1.6 cm in short axis on the right measure 1.2 cm. Periaortic adenopathy is most confluent left laterally on series 3 image 46 measuring 2.5 x 1.9 cm. Left periaor tic adenopathy near the left renal vein is centrally hypoattenuated measuring 1 cm in short axis. Sca ttered nonenlarged mesenteric lymph nodes are seen. OSSEOUS STRUCTURES: No suspicious lesion. OTHER: Renal inferior vena cava filter is noted. IMPRESSION: 1. Abdominal pelvic adenopathy in keeping with the patient's history of lymphoma as described above. 2. Bilateral pleural effusions, small left and trace on the right. Findings most suggestive of right basilar atelectasis.
[2018-01-08] MEDS ORDERED: WARFARIN 5 MG TAB PO ONE (18:00)
--- NOTE | 2018-01-08 19:11 | P.CONS ---
<Mavis Hassan - Last Filed: 01/08/18 19:05> History of Present Illness - Reason for Consult Consult date: 01/08/18 MALT Lymphoma Requesting physician: Geneva Dc - Chief Complaint Shortness of Breath - History of Present Illness This is a very nice lady, patient of Dr. Ngo'ginger who originally presented with buldging of her right eye in the summer of 2011 and got progressively worse associated with significant decrease in her vision.She was evaluated by a local architectural associate and found to have retinal detachement and was referred to [facility]. She had a CT scan of the brain on 06/04/2012 which revealed high density materials within the right globe.A CT scan of chest/abdomen/pelvis and a bone scan done on 06/04/2012 were negative except for a 5 mm lung nodule.Her laboratory work up was unremarkable. 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 She had a repeat CT scan of orbit on 11/18/2012 which was negative.(I reviewed it with Dr Zhang and felt no significant changes from prior CT scan). Repeat CT scan of head on 03/13/2014 revealed no significant changes. Repeat CT scan of orbits on 10/05/2015 revealed no evidence of recurrent lymphoma. She has a known history of deep vein thrombosis and pulmonary emboli and also Luis Fernando filter placement. She also has known history of atrial fibrillation , melanoma, COPD, GERD sick sinus syndrome and permanent pacemaker implantation. She presented to Emergency Department with complaints of Shortness of Breath. Chest x-ray showed some bilateral infiltrates and possible pleural effusion and mild cardiomegaly. Computed tomography scan was negative pulmonary embolism. Although did reveal pleural effusions (Left greater than right) and some evidence of interstitial edema. Echo showed ejection fraction of 50-50%. Cardiology and Pulmonary have consulted on patient. She was recently started on Rituxan weekly x4, status post one treatment 01/07/18 - Thoracentesis performed and 1Liter of fluid removed. Cytology pending 01/08/18 - Planning for thoracentesis of right pleural effusion. She is breathing well, no oxygen. 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, oophorectomy, tooth implants Past Anesthesia/Blood Transfusion Reactions: No Reported Reaction Past Psychological History: No Psychological Hx Reported Smoking Status: Former smoker Past Alcohol Use History: Rare Additional Past Alcohol Use History / Comment(s): less than one drink per month Past Drug Use History: None Reported - Past Family History Father Family Medical History: Cancer, Deep Vein Thrombosis (DVT) Additional Family Medical History / Comment(s): colon cancer at 82 Mother Family Medical History: No Reported History Additional Family Medical History / Comment(s): mother at 103yrs Medications and Allergies Home Medications Medication Instructions Recorded Confirmed Type Furosemide [Lasix] 20 mg PO DAILY #30 tab 06/26/15 01/05/18 Rx Potassium Chloride ER [K-Dur 10] 10 meq PO DAILY #30 tab 06/26/15 01/05/18 Rx Atorvastatin [Lipitor] 20 mg PO HS 02/12/16 01/05/18 History Folic Acid [Folic Acid] 1 mg PO DAILY 01/05/18 01/05/18 History Metoprolol Succinate [Toprol Xl] 50 mg PO DAILY 01/05/18 01/05/18 History Spironolactone [Aldactone] 25 mg PO DAILY 01/05/18 01/05/18 History Warfarin Sodium 2.5 mg PO HS 01/05/18 01/05/18 History Allergies Allergy/AdvReac Type Severity Reaction Status Date / Time No Known Allergies Allergy Verified 01/05/18 14:50 Physical Exam Vitals: Vital Signs Temp Pulse Resp BP Pulse Ox 01/08/18 11:53 97.3 F L 79 20 121/67 95 01/08/18 09:00 97.2 F L 78 24 117/60 96 01/08/18 04:00 97.6 F 72 18 115/67 97 01/08/18 00:00 85 20 118/61 95 01/07/18 20:00 98.5 F 83 20 126/63 96 01/07/18 16:00 71 18 138/81 97 Intake and Output 01/07/18 01/08/18 01/08/18 22:59 06:59 14:59 Intake Total 240 Output Total 600 1550 Balance -360 -1550 Intake: Oral 240 Output: Urine 600 1550 Other: Voiding Method Toilet Toilet # Voids 1 2 Weight 95.9 kg - Constitutional General appearance: average body habitus, cooperative, no acute distress - EENT Right artificial eye ENT: hard of hearing, NA/AT, normal oropharynx - Neck Neck: lymphadenopathy, normal ROM - Respiratory Respiratory: bilateral: diminished (Bilateral, no increased effort) - Cardiovascular Rhythm: regular Heart sounds: normal: S1, S2 - Gastrointestinal General gastrointestinal: normal bowel sounds, soft - Neurologic Neurologic: CNII-XII intact - Musculoskeletal Musculoskeletal: generalized weakness, strength equal bilaterally - Psychiatric Psychiatric: A&O x's 3, appropriate affect, intact judgment & insight Results CBC & Chem 7: 01/08/18 06:09 01/08/18 06:09 Labs: Abnormal Lab Results - Last 24 Hours (Table) 01/08/18 01/08/18 01/08/18 Range/Units 06:09 06:09 06:09 WBC 3.1 L (3.8-10.6) k/uL RBC 2.52 L (3.80-5.40) m/uL Hgb 8.8 L (11.4-16.0) gm/dL Hct 24.5 L (34.0-46.0) % MCH 35.2 H (25.0-35.0) pg RDW 16.9 H (11.5-15.5) % Plt Count 148 L (150-450) k/uL Lymphocytes # (Manual) 0.87 L (1.0-4.8) k/uL PT 12.9 H (9.0-12.0) sec INR 1.4 H (<1.2) BUN 26 H (7-17) mg/dL Microbiology - Last 24 Hours (Table) 01/07/18 10:18 Gram Stain - Preliminary Pleural Fluid Body Fluid Culture - Preliminary 01/07/18 10:18 Anaerobic Culture - Preliminary Pleural Fluid Assessment and Plan Plan: 1. Acute Respiratory Insufficiency Secondary to Bilateral Pleural Effusions - Pulmonary Following - CTA Reviewed (No PE) 2. HX: MALT Lymphoma involving right eye in 2011, status right enoculation at that time - Status Post Rituxan therapy on 01/01/18 (one of 4 weekly doses) - Reviewed CT Abdomen and Pelvis - LDH 900s, Check Uric Acid Level 3. Bilateral Pleural Effusions: - Status Post 1 Liter Removed Via Thoracentesis of Left Effusion on 01/07/18 ( Pathology Pending) - Plan Thoracentesis of Right Lung (Sent Cytology, LDH, ALbumin) - Pulmonary and Cardiology Following 4. Normocytic Anemia - Chronic - Check Hapto, Iron Studies, B12, Folate, Retics, Smear. 5. Mild Leukopenia (Lymphopenia) and Thrombocytopenia 6. Hyperbilirubinemia - Chronically Elevated - Hepatitis Panel 12/22/17 drawn in office - Non-Reactive 7. HX: DVT and PE with IVC Filter - On Warfarin at home - Currently on Hold for procedures - Monitor PT/INR 8. Increased Uric Acid and LDH secondary to Lymphoma - Allopurinol 300mg Daily - Monitor Tumor Lysis <Norris,Erwin - Last Filed: 01/09/18 01:16> Physical Exam Vitals: Vital Signs Temp Pulse Resp BP Pulse Ox 01/08/18 20:00 96.9 F L 81 17 111/49 94 L 01/08/18 16:10 77 107/51 01/08/18 15:36 72 16 109/58 94 L 01/08/18 15:13 97.6 F 83 16 100/56 96 01/08/18 14:42 78 20 117/50 95 01/08/18 14:36 76 20 106/62 95 01/08/18 11:53 97.3 F L 79 20 121/67 95 01/08/18 09:00 97.2 F L 78 24 117/60 96 01/08/18 04:00 97.6 F 72 18 115/67 97 Intake and Output 01/08/18 01/08/18 01/09/18 14:59 22:59 06:59 Intake Total 0 120 Output Total 1000 Balance -1000 120 Intake: Oral 0 120 Output: Other 1000 Other: Voiding Method Toilet Toilet # Voids 1 Results CBC & Chem 7: 01/08/18 06:09 01/08/18 06:09 Labs: Abnormal Lab Results - Last 24 Hours (Table) 01/08/18 01/08/18 01/08/18 Range/Units 06:09 06:09 06:09 WBC 3.1 L (3.8-10.6) k/uL RBC 2.52 L (3.80-5.40) m/uL Hgb 8.8 L (11.4-16.0) gm/dL Hct 24.5 L (34.0-46.0) % MCH 35.2 H (25.0-35.0) pg RDW 16.9 H (11.5-15.5) % Plt Count 148 L (150-450) k/uL Lymphocytes # (Manual) 0.87 L (1.0-4.8) k/uL Retic Count (0.5-2.0) % PT 12.9 H (9.0-12.0) sec INR 1.4 H (<1.2) BUN 26 H (7-17) mg/dL Uric Acid (3.7-7.4) mg/dL Creatine Kinase (30-135) U/L Vitamin B12 (200.0-944.0) pg/mL 01/08/18 01/08/18 01/08/18 Range/Units 06:09 06:09 06:09 WBC (3.8-10.6) k/uL RBC (3.80-5.40) m/uL Hgb (11.4-16.0) gm/dL Hct (34.0-46.0) % MCH (25.0-35.0) pg RDW (11.5-15.5) % Plt Count (150-450) k/uL Lymphocytes # (Manual) (1.0-4.8) k/uL Retic Count 4.9 H (0.5-2.0) % PT (9.0-12.0) sec INR (<1.2) BUN (7-17) mg/dL Uric Acid 14.9 H* (3.7-7.4) mg/dL Creatine Kinase (30-135) U/L Vitamin B12 193.0 L (200.0-944.0) pg/mL 01/08/18 Range/Units 16:15 WBC (3.8-10.6) k/uL RBC (3.80-5.40) m/uL Hgb (11.4-16.0) gm/dL Hct (34.0-46.0) % MCH (25.0-35.0) pg RDW (11.5-15.5) % Plt Count (150-450) k/uL Lymphocytes # (Manual) (1.0-4.8) k/uL Retic Count (0.5-2.0) % PT (9.0-12.0) sec INR (<1.2) BUN (7-17) mg/dL Uric Acid (3.7-7.4) mg/dL Creatine Kinase 24 L (30-135) U/L Vitamin B12 (200.0-944.0) pg/mL Microbiology - Last 24 Hours (Table) 01/07/18 10:18 Gram Stain - Preliminary Pleural Fluid Body Fluid Culture - Preliminary Assessment and Plan Plan: Add: Case reviewed with GUM MACHINE OPERATOR. Agree with above. Possibility of tumor lysis need to be considered with a high uric acid level. However creatinine, potassium, and calcium are all normal. Therefore for now we will treat with IV fluids and allopurinol, and follow tumor lysis labs. If there is any evidence of progression, rasburicase will be utilized
[2018-01-08] MEDS: ATORVASTATIN 20 MG TAB PO SCH (20:12)
[2018-01-08 20:27] LABS: Iron Saturation 16.38 (12.00-45.00)
[2018-01-08 20:38] VITALS: RESP 18
[2018-01-08 20:47] LABS: Folate, Serum >24.0 ng/mL
[2018-01-09 07:13] LABS: INR 1.3 (<1.2)
[2018-01-09 07:19] LABS: Albumin 3.2 g/dL (3.5-5.0); Calcium 9.4 mg/dL (8.4-10.2); Potassium 4.1 mmol/L (3.5-5.1); Total Bilirubin 2.6 mg/dL (0.2-1.3); Total Protein 5.3 g/dL (6.3-8.2)
[2018-01-09 07:33] LABS: Anisocytosis Slight; HCT 26.8 % (34.0-46.0); HGB 9.1 gm/dL (11.4-16.0); MCH 32.9 pg (25.0-35.0); MCHC 33.8 g/dL (31.0-37.0); Macrocytosis Slight; Mean Platelet Volume 7.2; Platelet Count 144 k/uL (150-450); Poikilocytosis Slight; RBC 2.75 m/uL (3.80-5.40); RDW 16.3 % (11.5-15.5); WBC 3.6 k/uL (3.8-10.6)
[2018-01-09 07:34] LABS: Uric Acid 15.6 mg/dL (3.7-7.4)
[2018-01-09 07:35] LABS: MCV 97.6 fL (80.0-100.0)
[2018-01-09 08:44] LABS: Band Neutrophils % 1 %; Lymphocytes # (M) 0.65 k/uL (1.0-4.8); Monocytes # (M) 0.36 k/uL (0-1.0); Neutrophils % (M) 71 %; Nucleated Red Blood Cells 0 /100 WBC (0-0); Total Cells Counted 100
[2018-01-09] MEDS: FUROSEMIDE 10 MG/ML 4 ML VIAL IV SCH (08:57)
[2018-01-09] MEDS: METOPROLOL SUCCINATE (ER) 50 MG TAB.ER.24H PO SCH (08:58)
[2018-01-09] MEDS: SPIRONOLACTONE 25 MG TAB PO SCH (08:58)
[2018-01-09] MEDS: ALLOPURINOL 300 MG TAB PO SCH (08:58)
[2018-01-09 09:06] VITALS: BP 111/62; PULSE 75; TEMP 98.3
--- NOTE | 2018-01-09 11:14 | P.PN ---
Subjective Progress Note Date: 01/09/18 This is a 82-year-old female with history of previous pulmonary emboli and also Luis Fernando filter placement, who is admitted now with complaints of increasing shortness of breath. She also has sick sinus syndrome and permanent pacemaker implantation. Patient had this symptoms in the past. Chest x-ray showed some bilateral infiltrates and possible pleural effusion and mild cardiomegaly. Computed tomography scan rule out possibility of pulmonary embolism. There appeared to be pleural effusion. Echocardiogram showed ejection fraction of 50- 50%. No significant valvular abnormalities are noted. The etiology of pleural effusion is not clear. Her proBNP is within normal limits for her age. We can empirically treat her with some diuretics. If the pleural effusion doesn't improve, may consider pleural tap. Clinically doesn't have a significant JVD or peripheral edema. Lungs show diminished breath sounds at bases. No complaints of cough, fever or chills. 01/07/2018 Patient seen and examined this morning, just returned from a thoracentesis. Overall she does state that she's feeling better. Blood pressure 124/60 with a heart rate in the 70s, 96% on room air. White blood cell count is normal, hemoglobin 9.3, platelet count 154. INR today is 1.7. Sodium 139, potassium 4.0, BUN 26, creatinine 0.9. 01/08/2018 Patient seen and examined this morning, sitting up in the chair, breathing is overall stable. She is scheduled today to undergo a thoracentesis of the right side of her lung by interventional radiology at 2:00 today. Hemodynamically she is stable. She continues to be on IV Lasix. Her weight is down 3 kg today , creatinine 1.0. 01/09/2018 Patient seen and examined this morning, feeling much better overall. Underwent a thoracentesis of the right lung yesterday. Continues to be on IV Lasix. Repeat chest x-ray does not reveal any acute pulmonary process. We'll discontinue the IV Lasix today and put the patient on oral diuretics. Objective - Vital Signs Vital signs: Vital Signs Temp 98.3 F 01/09/18 08:00 Pulse 75 01/09/18 08:00 Resp 18 01/09/18 04:00 BP 111/62 01/09/18 08:00 Pulse Ox 97 01/09/18 08:00 Intake & Output 01/08/18 01/09/1801/09/18 18:59 06:59 18:59 Intake Total 120 Output Total 1000 800 Balance -880 -800 Weight 94.7 kg Intake: Oral 120 Output: Urine 800 Other 1000 Other: Voiding Method Toilet Toilet # Voids 1 4 - Exam PHYSICAL EXAMINATION: HEENT: Head is atraumatic, normocephalic. Pupils equal, round. Neck is supple. There is no elevated jugular venous pressure. HEART EXAMINATION: Heart S1, S2 normal. No murmur or gallop heard. CHEST EXAMINATION: Lungs are clear to auscultation. ABDOMEN: Soft, nontender. Bowel sounds are heard. No organomegaly noted. EXTREMITIES: 2+ peripheral pulses with no evidence of peripheral edema and no calf tenderness noted. NEUROLOGIC patient is awake, alert and oriented -3. . - Labs CBC & Chem 7: 01/09/18 06:30 01/09/18 06:30 Labs: Abnormal Lab Results - Last 24 Hours (Table) 01/08/18 01/08/18 01/08/18 Range/Units 06:09 06:09 06:09 WBC (3.8-10.6) k/uL RBC (3.80-5.40) m/uL Hgb (11.4-16.0) gm/dL Hct (34.0-46.0) % RDW (11.5-15.5) % Plt Count (150-450) k/uL Lymphocytes # (Manual) (1.0-4.8) k/uL Retic Count 4.9 H (0.5-2.0) % INR (<1.2) BUN (7-17) mg/dL Creatinine (0.52-1.04) mg/dL Uric Acid 14.9 H* (3.7-7.4) mg/dL Total Bilirubin (0.2-1.3) mg/dL Creatine Kinase (30-135) U/L Total Protein (6.3-8.2) g/dL Albumin (3.5-5.0) g/dL Vitamin B12 193.0 L (200.0-944.0) pg/mL 01/08/18 01/09/18 01/09/18 Range/Units 16:15 06:30 06:30 WBC 3.6 L (3.8-10.6) k/uL RBC 2.75 L (3.80-5.40) m/uL Hgb 9.1 L (11.4-16.0) gm/dL Hct 26.8 L (34.0-46.0) % RDW 16.3 H (11.5-15.5) % Plt Count 144 L (150-450) k/uL Lymphocytes # (Manual) 0.65 L (1.0-4.8) k/uL Retic Count (0.5-2.0) % INR 1.3 H (<1.2) BUN (7-17) mg/dL Creatinine (0.52-1.04) mg/dL Uric Acid (3.7-7.4) mg/dL Total Bilirubin (0.2-1.3) mg/dL Creatine Kinase 24 L (30-135) U/L Total Protein (6.3-8.2) g/dL Albumin (3.5-5.0) g/dL Vitamin B12 (200.0-944.0) pg/mL 01/09/18 Range/Units 06:30 WBC (3.8-10.6) k/uL RBC (3.80-5.40) m/uL Hgb (11.4-16.0) gm/dL Hct (34.0-46.0) % RDW (11.5-15.5) % Plt Count (150-450) k/uL Lymphocytes # (Manual) (1.0-4.8) k/uL Retic Count (0.5-2.0) % INR (<1.2) BUN 30 H (7-17) mg/dL Creatinine 1.06 H (0.52-1.04) mg/dL Uric Acid 15.6 H* (3.7-7.4) mg/dL Total Bilirubin 2.6 H (0.2-1.3) mg/dL Creatine Kinase (30-135) U/L Total Protein 5.3 L (6.3-8.2) g/dL Albumin 3.2 L (3.5-5.0) g/dL Vitamin B12 (200.0-944.0) pg/mL Microbiology - Last 24 Hours (Table) 01/07/18 10:18 Gram Stain - Preliminary Pleural Fluid Body Fluid Culture - Preliminary Assessment and Plan Plan: Assessment and plan #1. Acute respiratory distress secondary to pleural effusions bilaterally with left greater than right status post bilateral thoracentesis . #2 no clear-cut evidence of congestive cardiac failure. 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 She was taking 40 mg daily at home, we'll increase that to 40 mg twice a day. Increase activity as tolerated. DNP note has been reviewed, I agree with a documented findings and plan of care. Patient was seen and examined.
[2018-01-09] MEDS ORDERED: CYANOCOBALAMIN 1,000 MCG/ML 1 ML VIAL IM SCH (11:15)
--- NOTE | 2018-01-09 11:20 | P.PN ---
Subjective Progress Note Date: 01/09/18 Principal diagnosis: Hemolytic Anemia This is a very nice lady, patient of Dr. Chow who originally presented with buldging of her right eye in the summer of 2011 and got progressively worse associated with significant decrease in her vision.She was evaluated by a local activities volunteer and found to have retinal detachement and was referred to [facility]. She had a CT scan of the brain on 06/04/2012 which revealed high density materials within the right globe.A CT scan of chest/abdomen/pelvis and a bone scan done on 06/04/2012 were negative except for a 5 mm lung nodule.Her laboratory work up was unremarkable. 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 She had a repeat CT scan of orbit on 11/18/2012 which was negative.(I reviewed it with Dr Zhang and felt no significant changes from prior CT scan). Repeat CT scan of head on 03/13/2014 revealed no significant changes. Repeat CT scan of orbits on 10/05/2015 revealed no evidence of recurrent lymphoma. She has a known history of deep vein thrombosis and pulmonary emboli and also Luis Fernando filter placement. She also has known history of atrial fibrillation , melanoma, COPD, GERD sick sinus syndrome and permanent pacemaker implantation. She presented to Emergency Department with complaints of Shortness of Breath. Chest x-ray showed some bilateral infiltrates and possible pleural effusion and mild cardiomegaly. Computed tomography scan was negative pulmonary embolism. Although did reveal pleural effusions (Left greater than right) and some evidence of interstitial edema. Echo showed ejection fraction of 50-50%. Cardiology and Pulmonary have consulted on patient. She was recently started on Rituxan weekly x4, status post one treatment - This was for a low grade hemolytic anemia not Lymphoma treatment. No current evidence of recurrent or bulky disease lymphoma. 01/07/18 - Thoracentesis performed and 1Liter of fluid removed. Cytology pending 01/08/18 - Planning for thoracentesis of right pleural effusion. She is breathing well, no oxygen. She is feeling much better since thoracentesis 01/09/18 - She is feeling good today, up in chair and breathing better Objective - Vital Signs Vital signs: Vital Signs Temp 98.3 F 05/26/18 08:00 Pulse 75 01/09/18 08:00 Resp 18 01/09/18 04:00 BP 111/62 01/09/18 08:00 Pulse Ox 97 01/09/18 08:00 Intake & Output 01/08/18 01/09/18 01/09/18 18:59 06:59 18:59 Intake Total 120 Output Total 1000 800 Balance -880 -800 Weight 94.7 kg Intake: Oral 120 Output: Urine 800 Other 1000 Other: Voiding Method Toilet Toilet # Voids 1 4 - Constitutional General appearance: Present: average body habitus, no acute distress - EENT EENT Comment(s): Right prosthetic eye - Neck Neck: Present: normal ROM - Respiratory Respiratory: bilateral: CTA, diminished (bibasilar) - Cardiovascular Rhythm: irregularly irregular - Gastrointestinal General gastrointestinal: Present: normal bowel sounds, soft - Integumentary Integumentary: Present: pale - Neurologic Neurologic: Present: CNII-XII intact - Musculoskeletal Musculoskeletal: Present: generalized weakness, strength equal bilaterally - Psychiatric Psychiatric: Present: A&O x's 3, appropriate affect, intact judgment & insight - Labs CBC & Chem 7: 01/09/18 06:30 01/09/18 06:30 Labs: Abnormal Lab Results - Last 24 Hours (Table) 01/08/18 01/08/18 01/08/18 Range/Units 06:09 06:09 06:09 WBC (3.8-10.6) k/uL RBC (3.80-5.40) m/uL Hgb (11.4-16.0) gm/dL Hct (34.0-46.0) % RDW (11.5-15.5) % Plt Count (150-450) k/uL Lymphocytes # (Manual) (1.0-4.8) k/uL Retic Count 4.9 H (0.5-2.0) % INR (<1.2) BUN (7-17) mg/dL Creatinine (0.52-1.04) mg/dL Uric Acid 14.9 H* (3.7-7.4) mg/dL Total Bilirubin (0.2-1.3) mg/dL Creatine Kinase (30-135) U/L Total Protein (6.3-8.2) g/dL Albumin (3.5-5.0) g/dL Vitamin B12 193.0 L (200.0-944.0) pg/mL 01/08/18 01/09/18 01/09/18 Range/Units 16:15 06:30 06:30 WBC 3.6 L (3.8-10.6) k/uL RBC 2.75 L (3.80-5.40) m/uL Hgb 9.1 L (11.4-16.0) gm/dL Hct 26.8 L (34.0-46.0) % RDW 16.3 H (11.5-15.5) % Plt Count 144 L (150-450) k/uL Lymphocytes # (Manual) 0.65 L (1.0-4.8) k/uL Retic Count (0.5-2.0) % INR 1.3 H (<1.2) BUN (7-17) mg/dL Creatinine (0.52-1.04) mg/dL Uric Acid (3.7-7.4) mg/dL Total Bilirubin (0.2-1.3) mg/dL Creatine Kinase 24 L (30-135) U/L Total Protein (6.3-8.2) g/dL Albumin (3.5-5.0) g/dL Vitamin B12 (200.0-944.0) pg/mL 01/09/18 Range/Units 06:30 WBC (3.8-10.6) k/uL RBC (3.80-5.40) m/uL Hgb (11.4-16.0) gm/dL Hct (34.0-46.0) % RDW (11.5-15.5) % Plt Count (150-450) k/uL Lymphocytes # (Manual) (1.0-4.8) k/uL Retic Count (0.5-2.0) % INR (<1.2) BUN 30 H (7-17) mg/dL Creatinine 1.06 H (0.52-1.04) mg/dL Uric Acid 15.6 H* (3.7-7.4) mg/dL Total Bilirubin 2.6 H (0.2-1.3) mg/dL Creatine Kinase (30-135) U/L Total Protein 5.3 L (6.3-8.2) g/dL Albumin 3.2 L (3.5-5.0) g/dL Vitamin B12 (200.0-944.0) pg/mL Microbiology - Last 24 Hours (Table) 01/07/18 10:18 Gram Stain - Preliminary Pleural Fluid Body Fluid Culture - Preliminary Assessment and Plan Plan: 1. Acute Respiratory Insufficiency Secondary to Bilateral Pleural Effusions - Pulmonary Following - CTA Reviewed (No PE) 2. HX: MALT Lymphoma involving right eye in 2011, status right enoculation at that time - Reviewed CT Abdomen and Pelvis - No evidence of recurrent or bulky disease. 3. Bilateral Pleural Effusions: - Status Post 1 Liter Removed Via Thoracentesis of Left Effusion on 01/07/18 ( Pathology Pending) - Plan Thoracentesis of Right Lung (Sent Cytology, LDH, ALbumin) - Await Cytology from Fluid. - Pulmonary and Cardiology Following 4. Normocytic Anemia - Chronic factor of hemolytic anemia and B12 deficiency - Status Post Rituxan therapy on 01/01/18 (one of 4 weekly doses) - Check Hapto, Iron Studies, B12, Folate, Retics, Smear. - B12 deficiency noted - Will add B12 1000mcg daily while in hospital, may be discharged on PO sublingual and follow-up in office to receive IM injections as an outpatient. No need to remain in hospital to receive B12 injections. 5. Mild Leukopenia (Lymphopenia) and Thrombocytopenia 6. Hyperbilirubinemia - Chronically Elevated secondary to low grade chronic hemolytic anemia - Hepatitis Panel 12/22/17 drawn in office - Non-Reactive 7. HX: DVT and PE with IVC Filter - On Warfarin at home - Currently on Hold for procedures - Monitor PT/INR 8. Increased Uric Acid - Unclear etiology as there is no evidence of bulky disease related to her history of lymphoma. - Possible Gout versus other - Allopurinol 300mg Daily Plan From Hematology Standpoint to follow-up with Dr. Ngo as outpatient regarding hemolytic anemia and lymphoma surveillance Physician Attestation: I have completed the full History and Physical of this patient and agree with the above note by Mavis Hassan NP. Dictated as a scribe.
--- NOTE | 2018-01-09 11:44 | P.DS ---
Providers Date of admission: 01/05/18 19:36 Attending physician: Amanda Gunderson MD Consults: 01/05/18 19:37 Consult Physician Routine Consulting Provider: Margo Rodrigues Consult Reason/Comments: Bilateral pleural effusions, concern for heart failure Do you want consulting provider notified?: Yes 01/05/18 19:45 Consult Physician Routine Consulting Provider: Artem Fisher Consult Reason/Comments: Bilateral pleural effusions Do you want consulting provider notified?: Yes 01/07/18 12:29 Consult Physician Routine Consulting Provider: Erwin Pisano Consult Reason/Comments: lymphoma, should she continue chemo or wait for path Do you want consulting provider notified?: Yes Primary care physician: [facility] Course: This is an 82-year-old female patient of Dr. Lee with a past mental history of atrial fibrillation, right eye melanoma with prosthesis, COPD , DVT and pulmonary embolism, gastroesophageal reflux disease hypertension, sick sinus syndrome status post pacemaker, lymphoma actively being treated. Patient states that she had onset of shortness of breath and difficulty breathing along with the cough a little phlegm production. She states she had some sharp chest pain that she thought was related to her pacemaker. She came into [facility] emergency center for evaluation. CT angiogram was negative for pulmonary embolism. There was interstitial edema and pleural effusions left greater than right. Chest x-ray shows correlate with mild CHF. Hemoglobin 9.4, BUN 23 creatinine 0.8. INR is 2.5, sodium 131 potassium 10. Lactic acid was 2. Total bilirubin 5.5 and AST 165. ProBNP was 938. Troponin 0.0-2. Patient was admitted to the selective care unit and consult requested by pulmonary medicine and cardiology. Echocardiogram reveals EF 50-55%, mild aortic valve sclerosis, mild mitral regurgitation, mild tricuspid regurgitation, moderate pulmonary hypertension, large pleural effusion. 01/07: INR today is 1.7. Patient is scheduled for thoracentesis today. We will ask for oncology consult regarding whether patient should continue chemotherapy as normally scheduled or wait for pathology report from thoracentesis. Hemoglobin is stable at 9.3. 01/08: Patient underwent ultrasound-guided left thoracentesis with removal of 1 L of pleural fluid. Patient states that her breathing is significantly improved. Plan is for a right sided thoracentesis today and she can resume Coumadin. Patient is anticipating discharge home on Thursday. Her daughter is coming here to stay with her and will be arriving on Thursday. Had her second thoracentesis successfully with over 1500 mL off, cytology still pending at this point. Patient will be discharged home to follow cytology and the rest of as an outpatient. She is back on warfarin for now PT/INR be done next week. Surprisingly her uric acid was very high between 14-16 patient had no sign and symptom of gout so far but was started on allopurinol 300 mg daily with switch to every other day afterward and watch for any recurrent episode of gout in the next few weeks. Assessment and Plan Plan: 1. Acute respiratory distress secondary to pleural effusions bilaterally with left greater than right and possible acute diastolic heart failure. Consult in place with cardiology and pulmonary medicine. Echocardiogram as above. Continue Lasix 40 mg IV every 12 hours, Toprol-XL 50 mg daily, Aldactone 25 mg daily. Coumadin is on hold for thoracentesis. Thoracentesis left-sided ultrasound-guided completed yesterday with removal of 1 L of fluid. Patient is scheduled for right sided thoracentesis today. Patient had the second side thoracentesis yesterday successfully been feeling much better with decreased shortness of breath or mobility has improved she was to go home and follow the cytology as an outpatient.. 2. History of right eye melanoma with prosthesis. Stable. 3. Lymphoma under the care of oncology. 4. Chronic atrial fibrillation status post pacemaker. Continue Toprol-XL. 5. History of DVT and pulmonary embolism status post Luis Fernando filter. Coumadin is on hold. 6. Hypertension. Continue Toprol-XL 50 mg daily 7. Gastroesophageal reflux disease and GI prophylaxis. Protonix daily. 8. History of brain aneurysm, stable. Patient is stable today 01/09/2018 to be discharged home to follow as an outpatient by myself, pulmonary and oncology to the side and further management depend on the cytology of the pleural fluid. Patient Condition at Discharge: Stable Plan - Discharge Summary Discharge Rx Participant: Yes New Discharge Prescriptions: New Acetaminophen Tab [Tylenol] 650 mg PO Q6HR PRN tab PRN Reason: Mild Pain Or Fever > 100.5 Allopurinol [Zyloprim] 300 mg PO DAILY #60 tab Continue Potassium Chloride ER [K-Dur 10] 10 meq PO DAILY #30 tab Atorvastatin [Lipitor] 20 mg PO HS Spironolactone [Aldactone] 25 mg PO DAILY Metoprolol Succinate [Toprol Xl] 50 mg PO DAILY Folic Acid 1 mg PO DAILY Warfarin Sodium 2.5 mg PO HS Changed Furosemide [Lasix] 40 mg PO DAILY #60 tab Discharge Medication List Potassium Chloride ER [K-Dur 10] 10 meq PO DAILY #30 tab 06/26/15 [Rx] Atorvastatin [Lipitor] 20 mg PO HS 02/12/16 [History] Folic Acid 1 mg PO DAILY 01/05/18 [History] Metoprolol Succinate [Toprol Xl] 50 mg PO DAILY 01/05/18 [History] Spironolactone [Aldactone] 25 mg PO DAILY 01/05/18 [History] Warfarin Sodium 2.5 mg PO HS 01/05/18 [History] Acetaminophen Tab [Tylenol] 650 mg PO Q6HR PRN tab 01/09/18 [Rx] Allopurinol [Zyloprim] 300 mg PO DAILY #60 tab 01/09/18 [Rx] Furosemide [Lasix] 40 mg PO DAILY #60 tab 01/09/18 [Rx] Follow up Appointment(s)/Referral(s): Alfredo Norwood MD [Primary Care Provider] - 1 Week Jace Garcia DO [Doctor of Osteopathic Medicine] - 1 Week Almas Ngo MD [STAFF PHYSICIAN] - 1 Week Discharge Disposition: HOME SELF-CARE
[2018-01-09 11:52] LABS: Haptoglobin 37.1 mg/dL (31.2-198.0)
[2018-01-09] MEDS: FOLIC ACID 1 MG TAB PO SCH (12:43)
[2018-01-09] MEDS ORDERED: FUROSEMIDE 40 MG TAB PO SCH (16:00)
== END 2018-01-09 13:22 | disposition home or self-care (01) | DRG 292 ==
LOC: EC 14:09 → 6SEL 19:36 → 6ICU 01-06 00:52 → 6SEL 01-06 12:03
PROVIDERS: ADMIT Internal Medicine; ATTEND Internal Medicine
PROC: 0W9B3ZZ Drainage of Left Pleural Cavity, Percutaneous Approach (ICD-10-PCS; principal; 2018-01-07)
PROC: 0W9B3ZZ Drainage of Left Pleural Cavity, Percutaneous Approach (ICD-10-PCS; 2018-01-08)
DX: I11.0 Hypertensive heart disease with heart failure (principal); C85.90 Non-Hodgkin lymphoma, unspecified, unspecified site; D58.9 Hereditary hemolytic anemia, unspecified; R06.03 Acute respiratory distress; J98.11 Atelectasis; D63.8 Anemia in other chronic diseases classified elsewhere; I08.3 Combined rheumatic disorders of mitral, aortic and tricuspid valves; I27.20 Pulmonary hypertension, unspecified; I48.2 Chronic atrial fibrillation; J44.9 Chronic obstructive pulmonary disease, unspecified; K21.9 Gastro-esophageal reflux disease without esophagitis; I50.31 Acute diastolic (congestive) heart failure; Z79.01 Long term (current) use of anticoagulants; Z79.899 Other long term (current) drug therapy; Z80.0 Family history of malignant neoplasm of digestive organs; Z85.820 Personal history of malignant melanoma of skin; Z86.711 Personal history of pulmonary embolism; Z86.718 Personal history of other venous thrombosis and embolism; Z87.891 Personal history of nicotine dependence; Z90.01 Acquired absence of eye; Z90.710 Acquired absence of both cervix and uterus; Z95.0 Presence of cardiac pacemaker
CPT/HCPCS: 32555; 36415; 71045; 71046; 71275; 74177; 80048; 80053; 82550; 82553; 82607; 82728; 82746; 82945; 83010; 83540; 83550; 83605; 83615; 83735; 83880; 83921; 84100; 84155; 84157; 84484; 84550; 85025; 85045; 85610; 85730; 87070; 87075; 87205; 89050; 93005; 93306; 96365; 96366; 96375; 99285

== ENCOUNTER 2018-01-19 09:44 | Inpatient (IN) | payer MEDICARE ==
--- NOTE | 2018-01-19 10:02 | ED ---
General Adult HPI - General Chief complaint: Shortness of Breath Stated complaint: Diff Breathing Time Seen by Provider: 01/19/18 09:52 Source: patient, RN notes reviewed Mode of arrival: wheelchair Limitations: no limitations - History of Present Illness Initial comments: Patient is a pleasant 82-year-old female presenting to the emergency Department with shortness of breath. Symptoms started a couple nights ago and have progressed, especially since last night/early this morning. Patient was in the hospital within the past couple of weeks with similar problems. Patient did have fluid removed from her lungs. Patient states symptoms are similar but worse at this time. Patient is unclear if she has any history of chronic lung disease but does not believe she does prior to the past previous weeks. No fevers. No chest pain. Patient states there may be some mild ankle swelling. - Related Data Home Medications Medication Instructions Recorded Confirmed Atorvastatin [Lipitor] 20 mg PO HS 02/12/16 01/19/18 Folic Acid 1 mg PO DAILY 01/05/18 01/19/18 Metoprolol Succinate [Toprol Xl] 50 mg PO DAILY 01/05/18 01/19/18 Spironolactone [Aldactone] 25 mg PO DAILY 01/05/18 01/19/18 Warfarin Sodium 2.5 mg PO HS 01/05/18 01/19/18 Previous Rx's Medication Instructions Recorded Potassium Chloride ER [K-Dur 10] 10 meq PO DAILY #30 tab 06/26/15 Acetaminophen Tab [Tylenol] 650 mg PO Q6HR PRN tab 01/09/18 Allopurinol [Zyloprim] 300 mg PO DAILY #60 tab 01/09/18 Furosemide [Lasix] 40 mg PO DAILY #60 tab 01/09/18 Allergies Allergy/AdvReac Type Severity Reaction Status Date / Time No Known Allergies Allergy Verified 01/19/18 10:17 Review of Systems ROS Statement: Those systems with pertinent positive or pertinent negative responses have been documented in the HPI. ROS Other: All systems not noted in ROS Statement are negative. Constitutional: Denies: fever Eyes: Denies: eye pain ENT: Denies: ear pain Respiratory: Reports: dyspnea Cardiovascular: Denies: chest pain Endocrine: Reports: fatigue Gastrointestinal: Denies: abdominal pain Genitourinary: Denies: dysuria Musculoskeletal: Denies: back pain Skin: Denies: rash Neurological: Denies: weakness 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, oophorectomy, tooth implants Past Anesthesia/Blood Transfusion Reactions: No Reported Reaction Past Psychological History: No Psychological Hx Reported Smoking Status: Former smoker Past Alcohol Use History: Rare Past Drug Use History: None Reported - Past Family History Father Family Medical History: Cancer, Deep Vein Thrombosis (DVT) Additional Family Medical History / Comment(s): colon cancer at 82 Mother Family Medical History: No Reported History Additional Family Medical History / Comment(s): mother at 103yrs General Exam Limitations: no limitations General appearance: alert Head exam: Present: atraumatic Eye exam: Present: other (Patient has a prosthetic right eye) ENT exam: Present: normal oropharynx Neck exam: Present: normal inspection Respiratory exam: Present: accessory muscle use, decreased breath sounds ( Bilateral bases) Cardiovascular Exam: Present: regular rate, irregular rhythm GI/Abdominal exam: Present: soft. Absent: tenderness Extremities exam: Present: pedal edema (Mild bilateral). Absent: calf tenderness Back exam: Present: normal inspection Neurological exam: Present: alert Psychiatric exam: Present: normal affect, normal mood Skin exam: Present: normal color. Absent: rash Course Vital Signs 01/19/18 01/19/18 01/19/18 09:48 09:57 10:03 Temperature 97.1 F L Pulse Rate 76 78 Respiratory 20 30 H 34 H Rate Blood Pressure 127/58 155/81 O2 Sat by Pulse 98 100 Oximetry 01/19/18 01/19/18 01/19/18 11:04 11:58 12:58 Temperature Pulse Rate 73 72 72 Respiratory 18 22 18 Rate Blood Pressure 141/58 144/89 134/58 O2 Sat by Pulse 99 97 100 Oximetry EKG Findings - EKG Comments: EKG Findings:: A. fib with rate of 76. QRS 80. QT 374. QTC 420. Normal axis. Low QRS voltage. Lateral T wave inversion. Medical Decision Making - Medical Decision Making Patient reevaluated and is somewhat improved. Patient updated on results and plan. Case was discussed in detail with Dr. Stone, who will admit for Dr. Norwood. She does recommend Lasix and cardiology consult. - Lab Data Result diagrams: 01/19/18 12:25 01/19/18 12:25 Lab Results 01/19/18 01/19/18 01/19/18 Range/Units 12:25 12:25 12:25 WBC 4.1 (3.8-10.6) k/uL RBC 2.78 L (3.80-5.40) m/uL Hgb 9.8 L (11.4-16.0) gm/dL Hct 28.0 L (34.0-46.0) % MCV 100.4 H (80.0-100.0) fL MCH 35.0 (25.0-35.0) pg MCHC 34.9 (31.0-37.0) g/dL RDW 17.2 H (11.5-15.5) % Plt Count 149 L (150-450) k/uL Neutrophils % (Manual) 79 % Lymphocytes % (Manual) 12 % Monocytes % (Manual) 8 % Eosinophils % (Manual) 1 % Neutrophils # (Manual) 3.24 (1.3-7.7) k/uL Lymphocytes # (Manual) 0.49 L (1.0-4.8) k/uL Monocytes # (Manual) 0.33 (0-1.0) k/uL Eosinophils # (Manual) 0.04 (0-0.7) k/uL Nucleated RBCs 0 (0-0) /100 WBC Differential Comment Manual Slide Review Performed Toxic Vacuolation Present Hypochromasia Moderate Poikilocytosis Moderate Anisocytosis Slight Macrocytosis Slight PT (9.0-12.0) sec INR (<1.2) APTT (22.0-30.0) sec Sodium 140 (137-145) mmol/L Potassium 4.8 (3.5-5.1) mmol/L Chloride 109 H (98-107) mmol/L Carbon Dioxide 19 L (22-30) mmol/L Anion Gap 12 mmol/L BUN 24 H (7-17) mg/dL Creatinine 0.90 (0.52-1.04) mg/dL Est GFR (CKD-EPI)AfAm 70 (>60 ml/min/1.73 sqM) Est GFR (CKD-EPI)NonAf 61 (>60 ml/min/1.73 sqM) Glucose 102 H (74-99) mg/dL Calcium 10.0 (8.4-10.2) mg/dL Total Bilirubin 3.3 H (0.2-1.3) mg/dL AST 41 H (14-36) U/L ALT 34 (9-52) U/L Alkaline Phosphatase 110 (38-126) U/L Total Creatine Kinase 44 (30-135) U/L CK-MB (CK-2) 1.6 (0.0-2.4) ng/mL CK-MB (CK-2) Rel Index 3.6 Troponin I <0.012 (0.000-0.034) ng/mL NT-Pro-B Natriuret Pep pg/mL Total Protein 5.6 L (6.3-8.2) g/dL Albumin 3.4 L (3.5-5.0) g/dL 01/19/18 01/19/18 Range/Units 12:25 12:25 WBC (3.8-10.6) k/uL RBC (3.80-5.40) m/uL Hgb (11.4-16.0) gm/dL Hct (34.0-46.0) % MCV (80.0-100.0) fL MCH (25.0-35.0) pg MCHC (31.0-37.0) g/dL RDW (11.5-15.5) % Plt Count (150-450) k/uL Neutrophils % (Manual) % Lymphocytes % (Manual) % Monocytes % (Manual) % Eosinophils % (Manual) % Neutrophils # (Manual) (1.3-7.7) k/uL Lymphocytes # (Manual) (1.0-4.8) k/uL Monocytes # (Manual) (0-1.0) k/uL Eosinophils # (Manual) (0-0.7) k/uL Nucleated RBCs (0-0) /100 WBC Differential Comment Manual Slide Review Toxic Vacuolation Hypochromasia Poikilocytosis Anisocytosis Macrocytosis PT 19.5 H (9.0-12.0) sec INR 2.2 H (<1.2) APTT 31.0 H (22.0-30.0) sec Sodium (137-145) mmol/L Potassium (3.5-5.1) mmol/L Chloride (98-107) mmol/L Carbon Dioxide (22-30) mmol/L Anion Gap mmol/L BUN (7-17) mg/dL Creatinine (0.52-1.04) mg/dL Est GFR (CKD-EPI)AfAm (>60 ml/min/1.73 sqM) Est GFR (CKD-EPI)NonAf (>60 ml/min/1.73 sqM) Glucose (74-99) mg/dL Calcium (8.4-10.2) mg/dL Total Bilirubin (0.2-1.3) mg/dL AST (14-36) U/L ALT (9-52) U/L Alkaline Phosphatase (38-126) U/L Total Creatine Kinase (30-135) U/L CK-MB (CK-2) (0.0-2.4) ng/mL CK-MB (CK-2) Rel Index Troponin I (0.000-0.034) ng/mL NT-Pro-B Natriuret Pep 1320 pg/mL Total Protein (6.3-8.2) g/dL Albumin (3.5-5.0) g/dL - Radiology Data Radiology results: image reviewed (Chest x-ray shows bibasilar effusions, correlate for CHF) Disposition Clinical Impression: Pleural effusion Disposition: ADMITTED IP TO THIS HOSP Is patient prescribed a controlled substance at d/c from ED?: No Referrals: Alfredo Norwood MD [Primary Care Provider] - 1-2 days Decision Time: 14:10
--- NOTE | 2018-01-19 10:44 | XR ---
EXAMINATION TYPE: XR chest 2V DATE OF EXAM: 01/19/2018 COMPARISON: Prior chest 01/07/2018 HISTORY: Difficulty breathing TECHNIQUE: Frontal and lateral views of the chest are obtained. FINDINGS: Bibasilar increased density is present, there is blunting of the costophrenic angles an ob scured hemidiaphragms and heart borders. No evident pneumothorax. Heart is likely enlarged. Pacemaker lead is stable, generator in left pectoral region. Central vascularity is prominent. IMPRESSION: Correlate for congestive heart failure with bibasilar effusions and associated atelectas is versus edema, cannot exclude pneumonia, follow-up recommended.
[2018-01-19 12:47] LABS: INR 2.2 (<1.2); Prothrombin Time 19.5 sec (9.0-12.0)
[2018-01-19 13:01] LABS: Anisocytosis Slight; HGB 9.8 gm/dL (11.4-16.0); Hypochromasia Moderate; MCV 100.4 fL (80.0-100.0); Macrocytosis Slight; Mean Platelet Volume 11.5; Platelet Count 149 k/uL (150-450); Poikilocytosis Moderate; RBC 2.78 m/uL (3.80-5.40); RDW 17.2 % (11.5-15.5); WBC 4.1 k/uL (3.8-10.6)
[2018-01-19 13:02] LABS: MCHC 34.9 g/dL (31.0-37.0)
[2018-01-19 13:03] LABS: Creatine Kinase 44 U/L (30-135)
[2018-01-19 13:07] LABS: Albumin 3.4 g/dL (3.5-5.0); Total Bilirubin 3.3 mg/dL (0.2-1.3); Total Protein 5.6 g/dL (6.3-8.2)
[2018-01-19 13:08] LABS: Potassium 4.8 mmol/L (3.5-5.1)
[2018-01-19 13:16] LABS: Creatine Kinase MB 1.6 ng/mL (0.0-2.4); Troponin I <0.012 ng/mL (0.000-0.034)
[2018-01-19 13:24] LABS: Eosinophils # (M) 0.04 k/uL (0-0.7); Lymphocytes # (M) 0.49 k/uL (1.0-4.8); Monocytes # (M) 0.33 k/uL (0-1.0); Neutrophils # (M) 3.24 k/uL (1.3-7.7); Neutrophils % (M) 79 %; Nucleated Red Blood Cells 0 /100 WBC (0-0); Total Cells Counted 100
[2018-01-19 13:25] LABS: Toxic Vacuolation Present
[2018-01-19] MEDS ORDERED: ASPIRIN 325 MG TAB PO STA (14:10)
[2018-01-19] MEDS: FUROSEMIDE 10 MG/ML 4 ML VIAL IV SCH ×2 (16:07→23:31)
[2018-01-19] MEDS: NITROGLYCERIN OINT 1 INCH/GM PACKET TOPICAL SCH ×3 (16:08→23:31)
[2018-01-19] MEDS ORDERED: ACETAMINOPHEN TAB 325 MG TAB PO PRN (16:21)
[2018-01-19] MEDS: ATORVASTATIN 20 MG TAB PO SCH (19:47)
[2018-01-20] MEDS: FUROSEMIDE 10 MG/ML 4 ML VIAL IV SCH ×3 (06:30→23:05)
[2018-01-20] MEDS ORDERED: ASPIRIN 325 MG TAB PO SCH (09:00)
[2018-01-20] MEDS: METOPROLOL SUCCINATE (ER) 50 MG TAB.ER.24H PO SCH (09:00)
[2018-01-20] MEDS: NITROGLYCERIN OINT 1 INCH/GM PACKET TOPICAL SCH (09:00)
[2018-01-20] MEDS: SPIRONOLACTONE 25 MG TAB PO SCH (09:01)
[2018-01-20] MEDS: ALLOPURINOL 300 MG TAB PO SCH (09:01)
[2018-01-20] MEDS: FOLIC ACID 1 MG TAB PO SCH (09:01)
[2018-01-20] MEDS: POTASSIUM CHLORIDE ER 10 MEQ TAB.ER.PRT PO SCH (09:01)
--- NOTE | 2018-01-20 10:14 | P.CNPUL ---
History of Present Illness Consult date: 01/20/18 Requesting physician: Bibi Stone Reason for consult: dyspnea, abnormal CXR/CT (Bilateral pleural effusions right greater than left) Chief complaint: Shortness of breath History of present illness: This is a very pleasant 82-year-old female patient who follows with Dr. Norwood as her primary care physician. She has a history of atrial fibrillation/ flutter anticoagulated with warfarin, hypertension, pulmonary embolism/DVT with previous [place] filter placement, gastroesophageal reflux disease, chronic obstructive pulmonary disease. 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 She had undergone 1 round of Rituxan therapy on 2017. Following that she developed congestive heart failure and bilateral pleural effusions and was recently admitted for the same. She had undergone thoracentesis bilaterally on January 07 and then 01/08/2018. Fluid which was negative for malignancy. She was due to see Dr. Garcia in our office yesterday however she developed increasing shortness of breath and presented to the emergency room. He did feel nearly back to her baseline and her discharge however the last several days she has noticed the shortness of breath progressively worsening. Chest x-ray reveals recurrent bilateral pleural effusions right greater than left. Hemoglobin 9.8. INR 2.2. Creatinine 0.90. ProBNP 1320. She has been initiated on Lasix 40 mg IV push every 8 hours along with Aldactone 25 mg daily. She is seen today in consultation on the selective care unit. She is awake and alert in no acute distress. She is maintaining good O2 saturations in the mid to upper 90s on 2 L/m per nasal cannula. She has been afebrile. No leukocytosis. Review of Systems 14 point review of system was conducted. All negative other than as mentioned in the HPI. Past Medical History Past Medical History: Atrial Fibrillation, Atrial Flutter, Coronary Artery Disease (CAD), Cancer, COPD, Deep Vein Thrombosis (DVT), GERD/Reflux, Hypertension, Osteoarthritis (OA), Pneumonia, Pulmonary Embolus (PE) Additional Past Medical History / Comment(s): Pt resently admitted to [facility] on with bilateral pleural effusions and thoracentesis done bilaterally. Echo showed ef of 50-55%. 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 History of Any Multi-Drug Resistant Organisms: None Reported Past Surgical History: Heart Catheterization, Hysterectomy, Joint Replacement, Pacemaker, Tubal Ligation Additional Past Surgical History / Comment(s): Bilateral thoracentesis 12/2017, green field filter, cardiac cath in 2012 with mild disease, ORIF R leg d/t fracture, R eye removed, tooth implants, skin lesions removed from face and R leg, EGD/colonoscopies, bronchoscopy, D&C, L knee arthroscopy, bilateral knee tendon repairs. Past Anesthesia/Blood Transfusion Reactions: No Reported Reaction Additional Past Anesthesia/Blood Transfusion Reaction / Comment(s): Pt has received blood in past without reaction. Type of Cardiac Device: Permanent Pacemaker Device Placement Date:: 02/14/16 Smoking Status: Former smoker - Past Family History Father Family Medical History: Cancer, Deep Vein Thrombosis (DVT) Additional Family Medical History / Comment(s): colon cancer at 82 Mother Family Medical History: No Reported History Additional Family Medical History / Comment(s): mother at 103yrs Medications and Allergies Home Medications Medication Instructions Recorded Confirmed Type Potassium Chloride ER [K-Dur 10] 10 meq PO DAILY #30 tab 06/26/15 01/19/18 Rx Atorvastatin [Lipitor] 20 mg PO HS 02/12/16 01/19/18 History Folic Acid 1 mg PO DAILY 01/05/18 01/19/18 History Metoprolol Succinate [Toprol Xl] 50 mg PO DAILY 01/05/18 01/19/18 History Spironolactone [Aldactone] 25 mg PO DAILY 01/05/18 01/19/18 History Warfarin Sodium 2.5 mg PO HS 01/05/18 01/19/18 History Acetaminophen Tab [Tylenol] 650 mg PO Q6HR PRN tab 01/09/18 01/19/18 Rx Allopurinol [Zyloprim] 300 mg PO DAILY #60 tab 01/09/18 01/19/18 Rx Furosemide [Lasix] 40 mg PO DAILY #60 tab 01/09/18 01/19/18 Rx Allergies Allergy/AdvReac Type Severity Reaction Status Date / Time No Known Allergies Allergy Verified 01/19/18 10:17 Physical Exam Vitals: Vital Signs Temp Pulse Pulse Resp BP BP Pulse Ox 01/20/18 08:00 97.4 F L 85 18 119/59 97 01/20/18 03:24 97.7 F 82 20 106/55 95 01/20/18 00:00 98.0 F 91 20 134/55 98 01/19/18 20:00 98.3 F 80 20 124/57 95 01/19/18 17:00 88 18 142/78 100 01/19/18 16:05 97.2 F L 81 22 127/58 96 01/19/18 14:14 97.5 F L 73 18 115/56 100 01/19/18 12:58 72 18 134/58 100 01/19/18 11:58 72 22 144/89 97 01/19/18 11:04 73 18 141/58 99 01/19/18 10:03 78 34 H 155/81 100 01/19/18 09:57 30 H 01/19/18 09:48 97.1 F L 76 20 127/58 98 Intake and Output 01/19/18 01/20/18 01/20/18 22:59 06:59 14:59 Intake Total 360 118 Output Total 600 1600 Balance -240 -1600 118 Intake: Oral 360 118 Output: Urine 600 1600 Other: Voiding Method Toilet # Voids 2 Weight 99 kg GENERAL EXAM: Alert, active, comfortable in no apparent distress. HEAD: Normocephalic. EYES: Right eye enucleation. NOSE: Clear with pink turbinates. THROAT: No erythema or exudates. NECK: No masses, no JVD. CHEST: No chest wall deformity. Pacer left chest LUNGS: Equal air entry with crackles in the bilateral posterior bases. CVS: S1 and S2 normal with no audible murmur, irregular rhythm. ABDOMEN: No hepatosplenomegaly, normal bowel sounds, no guarding or rigidity. SPINE: No scoliosis or deformity SKIN: No rashes CENTRAL NERVOUS SYSTEM: No focal deficits, tone is normal in all 4 extremities. EXTREMITIES: There is no peripheral edema. No clubbing, no cyanosis. Peripheral pulses are intact. Results - Laboratory Findings CBC and BMP: 01/19/18 12:25 01/19/18 12:25 PT/INR, D-dimer PT 19.5 sec (9.0-12.0) H 01/19/18 12:25 INR 2.2 (<1.2) H 01/19/18 12:25 Abnormal lab findings: Abnormal Labs 01/19/18 01/19/18 01/19/18 12:25 12:25 12:25 RBC 2.78 L Hgb 9.8 L Hct 28.0 L MCV 100.4 H RDW 17.2 H Plt Count 149 L Lymphocytes # (Manual) 0.49 L PT 19.5 H INR 2.2 H APTT 31.0 H Chloride 109 H Carbon Dioxide 19 L BUN 24 H Glucose 102 H Total Bilirubin 3.3 H AST 41 H Total Protein 5.6 L Albumin 3.4 L - Diagnostic Findings Chest x-ray: image reviewed Assessment and Plan Assessment: Impression: #1 Acute hypoxic respiratory failure secondary to recurrent bilateral pleural effusions secondary to diastolic congestive heart failure. #2 Bilateral pleural effusions status post bilateral thoracentesis on January 07 and 2017. Fluid negative for malignancy. #3 Lymphoma, first dose of Rituxan received on 01/01/2018. 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 #5 Atrial fibrillation anticoagulated with warfarin. INR 2.2. #6 History of PE/DVT, status post [place] filter placement. #7 Chronic obstructive pulmonary disease with a remote history of chronic tobacco dependence. #8 History of brain aneurysm in 1994 with residual left-handed weakness. #9 Hypertension. #10 Gastric esophageal reflux disease. #11 Anemia, current hemoglobin 9.8. Plan: The patient was seen and evaluated by Dr. Fisher. Chest x-ray was reviewed. There is recurrence of bilateral pleural effusion right greater than left. We will order an ultrasound of the chest to see if there is any significant fluid for repeat thoracentesis. Warfarin currently on hold. In the interim we'll continue with diuretics. We will continue to follow and make further recommendations based on her clinical status. I, the cosigning physician, performed a history & physical examination of the patient. Lungs sounds crackles in the bilateral posterior bases right greater than left. Maintaining good O2 saturations in the 90s on 2 L/m per nasal cannula. I discussed the assessment and plan of care with my nurse practitioner , Elaine Cheatham. I attest to the above note as dictated by her. Time with Patient: Greater than 30
--- NOTE | 2018-01-20 11:18 | US ---
EXAMINATION TYPE: US chest DATE OF EXAM: 01/20/2018 COMPARISON: NONE CLINICAL HISTORY: Bilateral pleural effusions. EXAM MEASUREMENTS: Right Pleural Effusion fluid pocket: 9.8 cm Right skin to fluid thickness: 2.9 cm Left Pleural Effusion fluid pocket: 6.1 cm Left skin to fluid thickness: 3.8 cm Right side marked for possible thoracentesis outside the dept. Left side marked for possible thoracentesis outside the dept. Pulmonologists are able to review the images in the patient?s EMR. IMPRESSIONS: Pleural effusions as discussed.
--- NOTE | 2018-01-20 11:36 | P.CRDCN ---
History of Present Illness History of present illness: Mrs. Pena is a pleasant 82-year-old female past medical history significant for chronic permanent atrial fibrillation on usp anticoagulation with coumadin, sick sinus syndrome s/p permanent pacemaker implantation, coronary artery disease involving the mid LAD 30%, hypertension, lymphoma on chemotherapy, DVT and PE. She follows with Dr. Velasco in the office. We have been asked to see her in consultation for bilateral pleural effusions. She was recently admitted here with similar symptoms and underwent a thoracentesis which removed approximately 1-liter of serous sanguinous fluid. Cultures have shown no growth. She was discharged home feeling well and states her breathing was stable and she felt good for a couple days. After about 2 days she started feeling short of breath again with exertion. The breathing was worse with exertion, better with rest, worse especially at night when she would lay down and try to sleep. She describes feeling like she was drowning when she laid flat. Denies symptoms of chest pain, dizziness, palpitations, nausea, vomiting or diaphoresis. Chest xray on admission reveals bibasilar effusions with associated atelectasis versus edema, cannot exclude pneumonia. After her last admission she was sent home on Lasix 40 mg daily. She states she followed up with her primary care physician and was told to decrease that to 20 daily. She has been started on IV Lasix 40 mg every 8 hours. EKG reveals atrial fibrillation with controlled ventricular response with T- wave inversion anterolaterally. This is consistent with old EKG. No acute changes. Laboratory data reviewed, hemoglobin 9.8, platelets 149, INR 2.2, sodium 140, potassium 4.8, creatinine 0.9, proBNP 1320, cardiac enzymes negative 1. Current cardiac medications include Lasix 20 mg daily, Aldactone 25 mg daily, potassium supplementation, Toprol 50 mg daily, atorvastatin 20 mg daily and Coumadin 2.5 mg daily. Most recent echocardiogram performed 01/06/2018 reveals preserved left ventricular systolic function with ejection fraction 50-55%, mild MR, mild TR and moderate pulmonary hypertension with an RVSP of 47.20 mmHg. Review of Systems At the time of my exam: CONSTITUTIONAL: Denies fever. Denies chills. EYES: Denies blurred vision. Denies vision changes. Denies eye pain. EARS, NOSE, MOUTH & THROAT: Denies headache. Denies sore throat. Denies ear pain. CARDIOVASCULAR: Denies chest pain. Complains of shortness of breath. Complains of orthopnea. Denies PND. Denies palpitations. RESPIRATORY: Denies cough. GASTROINTESTINAL: Denies abdominal pain. Denies diarrhea. Denies constipation. Denies nausea. Denies vomiting. MUSCULOSKELETAL: Denies myalgias. INTEGUMENTARY: Denies pruitis. Denies rash. NEUROLOGIC: Denies numbness. Denies tingling. Denies weakness. PSYCHIATRIC: Denies anxiety. Denies depression. ENDOCRINE: Denies fatigue. Denies weight change. Denies polydipsia. Denies polyurina. GENITOURINARY: Denies burning, hematuria or urgency with micturation. HEMATOLOGIC: Denies history of anemia. Denies bleeding. Past Medical History Past Medical History: Atrial Fibrillation, Atrial Flutter, Coronary Artery Disease (CAD), Cancer, COPD, Deep Vein Thrombosis (DVT), GERD/Reflux, Hypertension, Osteoarthritis (OA), Pneumonia, Pulmonary Embolus (PE) Additional Past Medical History / Comment(s): Pt resently admitted to [facility] on with bilateral pleural effusions and thoracentesis done bilaterally. Echo showed ef of 50-55%. 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 History of Any Multi-Drug Resistant Organisms: None Reported Past Surgical History: Heart Catheterization, Hysterectomy, Joint Replacement, Pacemaker, Tubal Ligation Additional Past Surgical History / Comment(s): Bilateral thoracentesis 12/2017, green field filter, cardiac cath in 2012 with mild disease, ORIF R leg d/t fracture, R eye removed, tooth implants, skin lesions removed from face and R leg, EGD/colonoscopies, bronchoscopy, D&C, L knee arthroscopy, bilateral knee tendon repairs. Past Anesthesia/Blood Transfusion Reactions: No Reported Reaction Additional Past Anesthesia/Blood Transfusion Reaction / Comment(s): Pt has received blood in past without reaction. Type of Cardiac Device: Permanent Pacemaker Device Placement Date:: 02/14/16 Smoking Status: Former smoker - Past Family History Father Family Medical History: Cancer, Deep Vein Thrombosis (DVT) Additional Family Medical History / Comment(s): colon cancer at 82 Mother Family Medical History: No Reported History Additional Family Medical History / Comment(s): mother at 103yrs Medications and Allergies Home Medications Medication Instructions Recorded Confirmed Type Potassium Chloride ER [K-Dur 10] 10 meq PO DAILY #30 tab 06/26/15 01/19/18 Rx Atorvastatin [Lipitor] 20 mg PO HS 02/12/16 01/19/18 History Folic Acid 1 mg PO DAILY 01/05/18 01/19/18 History Metoprolol Succinate [Toprol Xl] 50 mg PO DAILY 01/05/18 01/19/18 History Spironolactone [Aldactone] 25 mg PO DAILY 01/05/18 01/19/18 History Warfarin Sodium 2.5 mg PO HS 01/05/18 01/19/18 History Acetaminophen Tab [Tylenol] 650 mg PO Q6HR PRN tab 01/09/18 01/19/18 Rx Allopurinol [Zyloprim] 300 mg PO DAILY #60 tab 01/09/18 01/19/18 Rx Furosemide [Lasix] 40 mg PO DAILY #60 tab 01/09/18 01/19/18 Rx Allergies Allergy/AdvReac Type Severity Reaction Status Date / Time No Known Allergies Allergy Verified 01/19/18 10:17 Physical Exam Vitals: Vital Signs Temp Pulse Pulse Resp BP BP Pulse Ox 01/20/18 08:00 97.4 F L 85 18 119/59 97 01/20/18 03:24 97.7 F 82 20 106/55 95 01/20/18 00:00 98.0 F 91 20 134/55 98 01/19/18 20:00 98.3 F 80 20 124/57 95 01/19/18 17:00 88 18 142/78 100 01/19/18 16:05 97.2 F L 81 22 127/58 96 01/19/18 14:14 97.5 F L 73 18 115/56 100 01/19/18 12:58 72 18 134/58 100 01/19/18 11:58 72 22 144/89 97 01/19/18 11:04 73 18 141/58 99 01/19/18 10:03 78 34 H 155/81 100 01/19/18 09:57 30 H 01/19/18 09:48 97.1 F L 76 20 127/58 98 Intake and Output 01/19/18 01/20/18 01/20/18 22:59 06:59 14:59 Intake Total 360 118 Output Total 600 1600 Balance -240 -1600 118 Intake: Oral 360 118 Output: Urine 600 1600 Other: Voiding Method Toilet # Voids 2 Weight 99 kg Blood pressure 119/59 heart rate 85 afebrile maintaining oxygen saturation on nasal cannula 2 L. GENERAL: This is a 82-year-old female in no apparent distress at the time of my examination. HEENT: Head is atraumatic, normocephalic. Pupils are equal, round. Sclerae anicteric. Conjunctivae are clear. Mucous membranes of the mouth are moist. Neck is supple. There is no jugular venous distention. No carotid bruit is heard. LUNGS: Bibasilar rales. No wheezes or rhonchi. No chest wall tenderness is noted on palpation or with deep breathing. HEART: Irregular rate and rhythm without murmurs, rubs or gallops. S1 and S2 heard. ABDOMEN: Soft, nontender. Bowel sounds are heard. No organomegaly noted. EXTREMITIES: 1+ bilateral lower extremity pretibial edema. No calf tenderness noted. VASCULAR: Radial and dorsalis pedis pulses palpated, no evidence of clubbing. NEUROLOGIC: Patient is awake, alert and oriented x3. Results 01/19/18 12:25 01/19/18 12:25 Cardiac Enzymes 01/19/18 01/19/18 Range/Units 12:25 12:25 AST 41 H (14-36) U/L CK-MB (CK-2) 1.6 (0.0-2.4) ng/mL Troponin I <0.012 (0.000-0.034) ng/mL Coagulation 01/19/18 Range/Units 12:25 PT 19.5 H (9.0-12.0) sec APTT 31.0 H (22.0-30.0) sec CBC 01/19/18 Range/Units 12:25 WBC 4.1 (3.8-10.6) k/uL RBC 2.78 L (3.80-5.40) m/uL Hgb 9.8 L (11.4-16.0) gm/dL Hct 28.0 L (34.0-46.0) % Plt Count 149 L (150-450) k/uL Comprehensive Metabolic Panel 01/19/18 Range/Units 12:25 Sodium 140 (137-145) mmol/L Potassium 4.8 (3.5-5.1) mmol/L Chloride 109 H (98-107) mmol/L Carbon Dioxide 19 L (22-30) mmol/L BUN 24 H (7-17) mg/dL Creatinine 0.90 (0.52-1.04) mg/dL Glucose 102 H (74-99) mg/dL Calcium 10.0 (8.4-10.2) mg/dL AST 41 H (14-36) U/L ALT 34 (9-52) U/L Alkaline Phosphatase 110 (38-126) U/L Total Protein 5.6 L (6.3-8.2) g/dL Albumin 3.4 L (3.5-5.0) g/dL Current Medications Generic Name Dose Route Start Last Admin Trade Name Freq PRN Reason Stop Dose Admin Acetaminophen 650 mg 01/19/18 16:21 Tylenol Tab PO Q6HR PRN Mild Pain or Fever > 100.5 Allopurinol 300 mg 01/20/18 09:00 01/20/18 09:01 Zyloprim PO 300 mg DAILY ASHU Administration Atorvastatin Calcium 20 mg 01/19/18 21:00 01/19/18 19:47 Lipitor PO 20 mg HS ASHU Administration Folic Acid 1 mg 01/20/18 09:00 01/20/18 09:01 Folic Acid PO 1 mg DAILY ASHU Administration Furosemide 40 mg 01/19/18 15:00 01/20/18 06:30 Lasix IV 40 mg Q8H ASHU Administration Metoprolol Succinate 50 mg 01/20/18 09:00 01/20/18 09:00 Toprol Xl PO 50 mg DAILY ASHU Administration Nitroglycerin 1 inch 01/19/18 14:15 01/20/18 09:00 Nitro-Bid Oint TOPICAL 1 inch QID ASHU Administration Potassium Chloride 10 meq 01/20/18 09:00 01/20/18 09:01 K-Dur 10 PO 10 meq DAILY ASHU Administration Sodium Chloride 10 ml 01/19/18 21:00 01/20/18 09:01 Saline Flush IV 10 ml BID ASHU Administration Spironolactone 25 mg 01/20/18 09:00 01/20/18 09:01 Aldactone PO 25 mg DAILY ASHU Administration Intake and Output 01/19/18 01/20/18 01/20/18 22:59 06:59 14:59 Intake Total 360 118 Output Total 600 1600 Balance -240 -1600 118 Intake: Oral 360 118 Output: Urine 600 1600 Other: Voiding Method Toilet # Voids 2 Weight 99 kg 01/19/18 12:25 01/19/18 12:25 Assessment and Plan Assessment: ASSESSMENT 1. Acute respiratory distress secondary to b/l pleural effusion. No clear cut evidence of heart failure with normal proBNP. 2. Chronic permanent atiral fibrillation with controlled ventriculare response on terminologist anticoagulation with coumadin, currently being held pending pulmonary evaluation of pleural effusions. 3. Hypertension, controlled 4. History of sick sinus syndrome s/p permanent pacemaker implantation 5. History of lymphoma PLAN Ongoing medical management with possible thoracentesis. Coumadin will be held until pulmonary has evaluated the patient for possible repeat thoracentesis. Continue atorvastatin 20 mg daily, aldactone 25 mg daily and toprol 50 mg daily. Further recommendations to follow based on clinical course. Nurse Practitioner note has been reviewed, I agree with a documented findings and plan of care. Patient was seen and examined.
--- NOTE | 2018-01-20 13:00 | P.HPIM ---
History of Present Illness H&P Date: 01/20/18 This is an 82-year-old female patient of Dr. Lee with a past mental history of atrial fibrillation, right eye melanoma with prosthesis, COPD , DVT and pulmonary embolism, gastroesophageal reflux disease hypertension, sick sinus syndrome status post pacemaker, lymphoma actively being treated. She had a recent hospitalization January 05 through January 09 at which time she was treated for acute respiratory distress secondary to pleural effusions bilaterally and acute diastolic heart failure. She underwent a thoracentesis on the left side with removal of 1 L and the right side was done the following day with removal of 1500 MLS and significant improvement of her shortness of breath and patient was discharged home. Patient now presents with shortness of breath just as much as last time. She denies any cough or chest pain. She denies any bloody sputum production. She states she had a follow-up appointment set for yesterday with Dr. Garcia but she ended up coming into the hospital instead. She has had a follow-up appointment with Dr. Gunderson since her discharge and Lasix 40 mg daily was decreased to 20 mg daily. Cytology from last admission reveals negative for metastatic melanoma with good control section performance. Negative for monoclonal B-cell population.Echocardiogram EF 50-55%, mild aortic valve sclerosis, mild mitral regurgitation, mild tricuspid regurgitation, moderate pulmonary hypertension, large pleural effusion. She has history of 90 pounds weight loss since her 2 1/2 years ago. She came into [facility] emergency center for evaluation. Chest x-ray shows correlate for heart failure with bibasilar effusions and associated atelectasis versus edema. Cannot exclude pneumonia. Patient was afebrile. Respiratory rate between 20 and 34. Pulse ox was 98%. Hemoglobin 9.8, PLT 149. BUN 24 creatinine 0.9. INR is 2.2, sodium 131 potassium 10. Lactic acid was 2. Total bilirubin 3.3 and AST 41. ProBNP was 1320. Troponin 0.012. Patient was admitted to the selective care unit and consult requested by pulmonary medicine and cardiology. Review of Systems All systems: negative Constitutional: Reports weight loss, Denies chills, Denies fever Eyes: denies blurred vision, denies pain Ears, nose, mouth and throat: Denies dysphagia, Denies headache, Denies mouth pain, Denies sore throat Cardiovascular: Reports dyspnea on exertion, Reports orthopnea, Reports shortness of breath, Denies chest pain, Denies leg edema, Denies lightheadedness , Denies palpitations, Denies paroxysmal nocturnal dyspnea, Denies syncope Respiratory: Denies congestion, Denies cough, Denies cough with sputum, Denies dyspnea, Denies excessive sputum, Denies hemoptysis, Denies home oxygen, Denies wheezing Gastrointestinal: Denies abdominal pain, Denies diarrhea, Denies nausea, Denies vomiting Genitourinary: Denies dysuria, Denies hematuria, Denies urgency, Denies urinary frequency Musculoskeletal: Denies frequent falls, Denies myalgias Integumentary: Denies pruritus, Denies rash, Denies wounds Neurological: Denies confusion, Denies gait dysfunction, Denies numbness, Denies seizures, Denies syncope, Denies vertigo, Denies weakness Psychiatric: Denies anxiety, Denies depression Endocrine: Denies fatigue, Denies weight change Past Medical History Past Medical History: Atrial Fibrillation, Atrial Flutter, Coronary Artery Disease (CAD), Cancer, COPD, Deep Vein Thrombosis (DVT), GERD/Reflux, Hypertension, Osteoarthritis (OA), Pneumonia, Pulmonary Embolus (PE) Additional Past Medical History / Comment(s): Pt resently admitted to [facility] on with bilateral pleural effusions and thoracentesis done bilaterally. Echo showed ef of 50-55%. 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 History of Any Multi-Drug Resistant Organisms: None Reported Past Surgical History: Heart Catheterization, Hysterectomy, Joint Replacement, Pacemaker, Tubal Ligation Additional Past Surgical History / Comment(s): Bilateral thoracentesis 12/2017, green [place] filter, cardiac cath in 2012 with mild disease, ORIF R leg d/t fracture, R eye removed, tooth implants, skin lesions removed from face and R leg, EGD/colonoscopies, bronchoscopy, D&C, L knee arthroscopy, bilateral knee tendon repairs. Past Anesthesia/Blood Transfusion Reactions: No Reported Reaction Additional Past Anesthesia/Blood Transfusion Reaction / Comment(s): Pt has received blood in past without reaction. Type of Cardiac Device: Permanent Pacemaker Device Placement Date:: 02/14/16 Smoking Status: Former smoker - Past Family History Father Family Medical History: Cancer, Deep Vein Thrombosis (DVT) Additional Family Medical History / Comment(s): colon cancer at 82 Mother Family Medical History: No Reported History Additional Family Medical History / Comment(s): mother at 103yrs Medications and Allergies Home Medications Medication Instructions Recorded Confirmed Type Potassium Chloride ER [K-Dur 10] 10 meq PO DAILY #30 tab 06/26/15 01/19/18 Rx Atorvastatin [Lipitor] 20 mg PO HS 02/12/16 01/19/18 History Folic Acid 1 mg PO DAILY 01/05/18 01/19/18 History Metoprolol Succinate [Toprol Xl] 50 mg PO DAILY 01/05/18 01/19/18 History Spironolactone [Aldactone] 25 mg PO DAILY 01/05/18 01/19/18 History Warfarin Sodium 2.5 mg PO HS 01/05/18 01/19/18 History Acetaminophen Tab [Tylenol] 650 mg PO Q6HR PRN tab 01/09/18 01/19/18 Rx Allopurinol [Zyloprim] 300 mg PO DAILY #60 tab 01/09/18 01/19/18 Rx Furosemide [Lasix] 40 mg PO DAILY #60 tab 01/09/18 01/19/18 Rx Allergies Allergy/AdvReac Type Severity Reaction Status Date / Time No Known Allergies Allergy Verified 01/19/18 10:17 Physical Exam Vitals: Vital Signs Temp Pulse Pulse Resp BP BP Pulse Ox 01/20/18 03:24 97.7 F 82 20 106/55 95 01/20/18 00:00 98.0 F 91 20 134/55 98 01/19/18 20:00 98.3 F 80 20 124/57 95 01/19/18 17:00 88 18 142/78 100 01/19/18 16:05 97.2 F L 81 22 127/58 96 01/19/18 14:14 97.5 F L 73 18 115/56 100 01/19/18 12:58 72 18 134/58 100 01/19/18 11:58 72 22 144/89 97 01/19/18 11:04 73 18 141/58 99 01/19/18 10:03 78 34 H 155/81 100 01/19/18 09:57 30 H 01/19/18 09:48 97.1 F L 76 20 127/58 98 Intake and Output 01/19/18 01/20/18 01/20/18 22:59 06:59 14:59 Intake Total 360 118 Output Total 600 1600 Balance -240 -1600 118 Intake: Oral 360 118 Output: Urine 600 1600 Other: Voiding Method Toilet # Voids 2 Weight 99 kg Gen: This is an 82-year-old female. She is sitting up in awake and alert and appears to be comfortable and in no acute distress. HEENT: Head is atraumatic, normocephalic. Pupils equal, round. Sclerae is anicteric. Conjunctiva pink. Because members of the mouth are moist. NECK: Supple. No JVD. No lymphadenopathy. No thyromegaly. LUNGS: Diminished to the bilateral basesm with fine crackles. No wheezes or rhonchi. No intercostal retractions. HEART: Irregular rate and rhythm. No murmur. ABDOMEN: Soft. Bowel sounds are present. No masses. No tenderness. EXTREMITIES: 1+ pedal edema. No calf tenderness. Dorsalis pedis +2 bilaterally. NEUROLOGICAL: Patient is awake, alert and oriented x3. Cranial nerves 2 through 12 are grossly intact. Results CBC & Chem 7: 01/19/18 12:25 01/19/18 12:25 Labs: Abnormal Lab Results - Last 24 Hours (Table) 01/19/18 01/19/18 01/19/18 Range/Units 12:25 12:25 12:25 RBC 2.78 L (3.80-5.40) m/uL Hgb 9.8 L (11.4-16.0) gm/dL Hct 28.0 L (34.0-46.0) % MCV 100.4 H (80.0-100.0) fL RDW 17.2 H (11.5-15.5) % Plt Count 149 L (150-450) k/uL Lymphocytes # (Manual) 0.49 L (1.0-4.8) k/uL PT 19.5 H (9.0-12.0) sec INR 2.2 H (<1.2) APTT 31.0 H (22.0-30.0) sec Chloride 109 H (98-107) mmol/L Carbon Dioxide 19 L (22-30) mmol/L BUN 24 H (7-17) mg/dL Glucose 102 H (74-99) mg/dL Total Bilirubin 3.3 H (0.2-1.3) mg/dL AST 41 H (14-36) U/L Total Protein 5.6 L (6.3-8.2) g/dL Albumin 3.4 L (3.5-5.0) g/dL Thrombosis Risk Factor Assmnt - DVT/VTE Prophylaxis DVT/VTE Prophylaxis: Pharmacologic Prophylaxis ordered - Choose All That Apply Any of the Below Risk Factors Present?: Yes Each Factor Represents 1 point: Abnormal pulmonary function (COPD), Obesity ( BMI >25), Serious lung disease incl. pneumonia (< 1month) Other Risk Factors: Yes Each Risk Factor Represents 2 Points: Malignancy Each Risk Factor Represents 3 Points: Age 75 years or older, Family history of DVT/PE, History of DVT/PE Other congenital or acquired thrombophilia - If yes, enter type in comment: No Thrombosis Risk Factor Assessment Total Risk Factor Score: 14 Thrombosis Risk Factor Assessment Level: High Risk Assessment and Plan Plan: 1. Acute respiratory distress secondary to pleural effusions bilaterally right greater than left and possible acute diastolic heart failure. Consults with cardiology and pulmonary medicine are appreciated. Echocardiogram as above from previous admission. Continue Lasix 40 mg IV every 8 hours, Toprol-XL 50 mg daily, Aldactone 25 mg daily. Coumadin is on hold for thoracentesis. Chest ultrasound ordered. Coumadin currently on hold. 2. History of right eye melanoma with prosthesis. Stable. 3. Lymphoma under the care of oncology. 4. Chronic atrial fibrillation. Continue Toprol-XL. Coumadin is on hold. Recheck INR in the morning. 5. History of DVT and pulmonary embolism status post [place] filter. Coumadin is on hold. 6. Hypertension. Continue Toprol-XL 50 mg daily 7. Gastroesophageal reflux disease and GI prophylaxis. Protonix daily. 8. History of brain aneurysm, stable. 9. Sick sinus syndrome status post permanent pacemaker. 10. DVT prophylaxis. Patient is therapeutic on Coumadin. 11. Patient will be admitted to the hospital for a minimum of 2 nights stay. Discharge plan: Home with home care. Impression and plan of care have been directed as dictated by the signing physician. Geneva Dc nurse practitioner acting as scribe for signing physician.
[2018-01-20 14:28] VITALS: BMI 30.4
[2018-01-20] MEDS: ATORVASTATIN 20 MG TAB PO SCH (19:48)
[2018-01-21] MEDS: FUROSEMIDE 10 MG/ML 4 ML VIAL IV SCH ×3 (06:18→23:22)
[2018-01-21 06:31] LABS: INR 1.9 (<1.2); Prothrombin Time 16.9 sec (9.0-12.0)
[2018-01-21 06:39] LABS: Calcium 9.3 mg/dL (8.4-10.2); Potassium 4.5 mmol/L (3.5-5.1)
[2018-01-21] MEDS: POTASSIUM CHLORIDE ER 10 MEQ TAB.ER.PRT PO SCH (07:42)
[2018-01-21] MEDS: ALLOPURINOL 300 MG TAB PO SCH (07:42)
[2018-01-21] MEDS: FOLIC ACID 1 MG TAB PO SCH (07:42)
[2018-01-21] MEDS: METOPROLOL SUCCINATE (ER) 50 MG TAB.ER.24H PO SCH (07:42)
[2018-01-21] MEDS: SPIRONOLACTONE 25 MG TAB PO SCH (07:43)
[2018-01-21] MEDS ORDERED: PHYTONADIONE ORAL 5 MG/5 ML ORAL.SYRG PO STA (11:02)
--- NOTE | 2018-01-21 11:02 | P.PN ---
Subjective Progress Note Date: 01/21/18 Principal diagnosis: Recurrent bilateral pleural effusions This is a very pleasant 82-year-old female patient who follows with Dr. Norwood as her primary care physician. She has a history of atrial fibrillation/ flutter anticoagulated with warfarin, hypertension, pulmonary embolism/DVT with previous [place] filter placement, gastroesophageal reflux disease, chronic obstructive pulmonary disease. 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 She had undergone 1 round of Rituxan therapy on 2017. Following that she developed congestive heart failure and bilateral pleural effusions and was recently admitted for the same. She had undergone thoracentesis bilaterally on January 07 and then 01/08/2018. Fluid which was negative for malignancy. She was due to see Dr. Garcia in our office yesterday however she developed increasing shortness of breath and presented to the emergency room. He did feel nearly back to her baseline and her discharge however the last several days she has noticed the shortness of breath progressively worsening. Chest x-ray reveals recurrent bilateral pleural effusions right greater than left. Hemoglobin 9.8. INR 2.2. Creatinine 0.90. ProBNP 1320. She has been initiated on Lasix 40 mg IV push every 8 hours along with Aldactone 25 mg daily. She is seen today in consultation on the selective care unit. She is awake and alert in no acute distress. She is maintaining good O2 saturations in the mid to upper 90s on 2 L/m per nasal cannula. She has been afebrile. No leukocytosis. The patient is seen again today 01/21/2018 in follow-up on the selective care unit. She remains awake and alert in no acute distress. She is breathing somewhat better today as compared to yesterday. Maintaining good O2 saturations in the mid to upper 90s on 2 L/m per nasal cannula. She's been afebrile. Hemodynamically stable. Ultrasound of the chest did reveal a 9.8 cm pocket on the right. 6.1 cm pocket on the left. Today's INR is 1.9. Objective - Vital Signs Vital signs: Vital Signs Temp 97.5 F L 01/21/18 07:36 Pulse 81 01/21/18 08:00 Resp 18 01/21/18 08:00 BP 127/61 01/21/18 07:36 Pulse Ox 96 01/21/18 07:36 Intake & Output 01/20/18 01/21/18 01/21/18 18:59 06:59 18:59 Intake Total 336 180 Output Total 600 Balance 336 -600 180 Weight 99 kg Intake: Oral 336 180 Output: Urine 600 Other: Voiding Method Toilet - Exam GENERAL EXAM: Alert, active, comfortable in no apparent distress. HEAD: Normocephalic. EYES: Right eye enucleation. NOSE: Clear with pink turbinates. THROAT: No erythema or exudates. NECK: No masses, no JVD. CHEST: No chest wall deformity. Pacer left chest LUNGS: Equal air entry with crackles in the bilateral posterior bases. CVS: S1 and S2 normal with no audible murmur, irregular rhythm. ABDOMEN: No hepatosplenomegaly, normal bowel sounds, no guarding or rigidity. SPINE: No scoliosis or deformity SKIN: No rashes CENTRAL NERVOUS SYSTEM: No focal deficits, tone is normal in all 4 extremities. EXTREMITIES: There is no peripheral edema. No clubbing, no cyanosis. Peripheral pulses are intact. - Labs CBC & Chem 7: 01/19/18 12:25 01/21/18 05:52 Labs: Abnormal Lab Results - Last 24 Hours (Table) 01/21/18 01/21/18 Range/Units 05:52 05:52 PT 16.9 H (9.0-12.0) sec INR 1.9 H (<1.2) BUN 28 H (7-17) mg/dL Glucose 101 H (74-99) mg/dL Assessment and Plan Assessment: Impression: #1 Acute hypoxic respiratory failure secondary to recurrent bilateral pleural effusions secondary to diastolic congestive heart failure. #2 Bilateral pleural effusions status post bilateral thoracentesis on January 07 and 2017. Fluid negative for malignancy. #3 Lymphoma, first dose of Rituxan received on 01/01/2018. 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 #5 Atrial fibrillation anticoagulated with warfarin. INR 1.9. #6 History of PE/DVT, status post [place] filter placement. #7 Chronic obstructive pulmonary disease with a remote history of chronic tobacco dependence. #8 History of brain aneurysm in 1994 with residual left-handed weakness. #9 Hypertension. #10 Gastric esophageal reflux disease. #11 Anemia, current hemoglobin 9.8. Plan: The patient was seen and evaluated by Dr. Fisher. Chest ultrasound was reviewed. There is significant bilateral pleural effusion right greater than left. We will give a dose of vitamin K today. Repeat INR in a.m. Warfarin currently on hold. Plan for thoracentesis in the a.m. Continue with diuretics. We will continue to follow and make further recommendations based on her clinical status. I, the cosigning physician, performed a history & physical examination of the patient. Lungs sounds crackles in the bilateral posterior bases right greater than left. Maintaining good O2 saturations in the 90s on 2 L/m per nasal cannula. I discussed the assessment and plan of care with my nurse practitioner , Elaine Cheatham. I attest to the above note as dictated by her.
[2018-01-21] MEDS: ATORVASTATIN 20 MG TAB PO SCH (20:46)
[2018-01-22] MEDS: FUROSEMIDE 10 MG/ML 4 ML VIAL IV SCH (06:44)
[2018-01-22 06:45] LABS: INR 1.2 (<1.2); Prothrombin Time 11.8 sec (9.0-12.0)
[2018-01-22 07:03] LABS: Anisocytosis Slight; HCT 26.1 % (34.0-46.0); HGB 9.1 gm/dL (11.4-16.0); Hypochromasia Slight; MCH 34.7 pg (25.0-35.0); MCHC 34.7 g/dL (31.0-37.0); MCV 100.2 fL (80.0-100.0); Macrocytosis Slight; Mean Platelet Volume 7.7; Platelet Count 123 k/uL (150-450); Poikilocytosis Slight; RBC 2.61 m/uL (3.80-5.40); RDW 17.2 % (11.5-15.5); WBC 3.6 k/uL (3.8-10.6)
--- NOTE | 2018-01-22 07:21 | XR ---
EXAMINATION TYPE: XR chest 1V portable DATE OF EXAM: 01/22/2018 COMPARISON: 01/20/2018 HISTORY: Pleural effusion follow-up exam. TECHNIQUE: Single frontal view of the chest is obtained. FINDINGS: There is a persistent small layering right pleural effusion with associated right basilar airspace disease and trace left pleural effusion with left basilar linear atelectasis. No cephalizati on is seen. Cardiac silhouette is partially obscured but appears enlarged. Single lead left cardiac d evice is present. There is osseous demineralization mild acromioclavicular arthropathy. I IMPRESSION: Similar-appearing small right and trace left pleural effusions with bibasilar airspace d isease, likely compressive atelectasis. No cephalization or pulmonary vascular congestion.
--- NOTE | 2018-01-22 08:29 | P.PN ---
Subjective Progress Note Date: 01/21/18 This is an 82-year-old female patient of Dr. Lee with a past mental history of atrial fibrillation, right eye melanoma with prosthesis, COPD , DVT and pulmonary embolism, gastroesophageal reflux disease hypertension, sick sinus syndrome status post pacemaker, lymphoma actively being treated. She had a recent hospitalization January 05 through January 09 at which time she was treated for acute respiratory distress secondary to pleural effusions bilaterally and acute diastolic heart failure. She underwent a thoracentesis on the left side with removal of 1 L and the right side was done the following day with removal of 1500 MLS and significant improvement of her shortness of breath and patient was discharged home. Patient now presents with shortness of breath just as much as last time. She denies any cough or chest pain. She denies any bloody sputum production. She states she had a follow-up appointment set for yesterday with Dr. Garcia but she ended up coming into the hospital instead. She has had a follow-up appointment with Dr. Gunderson since her discharge and Lasix 40 mg daily was decreased to 20 mg daily. Cytology from last admission reveals negative for metastatic melanoma with good control section performance. Negative for monoclonal B-cell population.Echocardiogram EF 50-55%, mild aortic valve sclerosis, mild mitral regurgitation, mild tricuspid regurgitation, moderate pulmonary hypertension, large pleural effusion. She has history of 90 pounds weight loss since her 2 1/2 years ago. She came into [facility] emergency center for evaluation. Chest x-ray shows correlate for heart failure with bibasilar effusions and associated atelectasis versus edema. Cannot exclude pneumonia. Patient was afebrile. Respiratory rate between 20 and 34. Pulse ox was 98%. Hemoglobin 9.8, PLT 149. BUN 24 creatinine 0.9. INR is 2.2, sodium 131 potassium 10. Lactic acid was 2. Total bilirubin 3.3 and AST 41. ProBNP was 1320. Troponin 0.012. Patient was admitted to the selective care unit and consult requested by pulmonary medicine and cardiology. 01/21: Chest ultrasound showed a right pleural fluid pocket of 9.8 cm and left of 6.1. INR today is 1.9 and patient has been given vitamin K 1 dose. Plan for thoracentesis in the morning. Currently on Lasix 40 mg IV every 8 hours. Patient states her breathing status is improved since she came in. Objective - Vital Signs Vital signs: Vital Signs Temp 97.5 F L 01/21/18 07:36 Pulse 72 01/21/18 11:13 Resp 16 01/21/18 11:13 BP 127/57 01/21/18 11:13 Pulse Ox 95 01/21/18 11:13 Intake & Output 01/20/18 01/21/18 01/21/18 18:59 06:59 18:59 Intake Total 336 180 Output Total 600 Balance 336 -600 180 Weight 99 kg Intake: Oral 336 180 Output: Urine 600 Other: Voiding Method Toilet - Exam Gen: This is an 82-year-old female. She is sitting up in awake and alert and appears to be comfortable and in no acute distress. HEENT: Head is atraumatic, normocephalic. Pupils equal, round. Sclerae is anicteric. Conjunctiva pink. Because members of the mouth are moist. NECK: Supple. No JVD. No lymphadenopathy. No thyromegaly. LUNGS: Diminished to the bilateral basesm with fine crackles. No wheezes or rhonchi. No intercostal retractions. HEART: Irregular rate and rhythm. No murmur. ABDOMEN: Soft. Bowel sounds are present. No masses. No tenderness. EXTREMITIES: 1+ pedal edema. No calf tenderness. Dorsalis pedis +2 bilaterally. NEUROLOGICAL: Patient is awake, alert and oriented x3. Cranial nerves 2 through 12 are grossly intact. - Labs CBC & Chem 7: 01/22/18 06:16 01/21/18 05:52 Labs: Abnormal Lab Results - Last 24 Hours (Table) 01/21/18 01/21/18 Range/Units 05:52 05:52 PT 16.9 H (9.0-12.0) sec INR 1.9 H (<1.2) BUN 28 H (7-17) mg/dL Glucose 101 H (74-99) mg/dL Assessment and Plan Plan: 1. Acute respiratory distress secondary to pleural effusions bilaterally right greater than left and possible acute diastolic heart failure. Consults with cardiology and pulmonary medicine are appreciated. Echocardiogram as above from previous admission. Continue Lasix 40 mg IV every 8 hours, Toprol-XL 50 mg daily, Aldactone 25 mg daily. Coumadin is on hold for thoracentesis. Chest ultrasound as above. One dose of vitamin K was given today. 2. History of right eye melanoma with prosthesis. Stable. 3. Lymphoma under the care of oncology. 4. Chronic atrial fibrillation. Continue Toprol-XL. Coumadin is on hold. Recheck INR in the morning. 5. History of DVT and pulmonary embolism status post [place] filter. Coumadin is on hold. 6. Hypertension. Continue Toprol-XL 50 mg daily 7. Gastroesophageal reflux disease and GI prophylaxis. Protonix daily. 8. History of brain aneurysm, stable. 9. Sick sinus syndrome status post permanent pacemaker. 10. DVT prophylaxis. Patient is therapeutic on Coumadin. Discharge plan: Home with home care on Thursday or Thursday. Impression and plan of care have been directed as dictated by the signing physician. Geneva Dc nurse practitioner acting as scribe for signing physician.
[2018-01-22 08:44] VITALS: TEMP 97
[2018-01-22] MEDS: ALLOPURINOL 300 MG TAB PO SCH (08:45)
[2018-01-22] MEDS: METOPROLOL SUCCINATE (ER) 50 MG TAB.ER.24H PO SCH (08:45)
[2018-01-22] MEDS: POTASSIUM CHLORIDE ER 10 MEQ TAB.ER.PRT PO SCH (08:45)
[2018-01-22] MEDS: SPIRONOLACTONE 25 MG TAB PO SCH (08:45)
[2018-01-22] MEDS: FOLIC ACID 1 MG TAB PO SCH (08:45)
[2018-01-22] MEDS ORDERED: LIDOCAINE 2% INJ 20 MG/ML (20 ML MDV) ONE (10:08)
--- NOTE | 2018-01-22 10:49 | XR ---
EXAMINATION TYPE: XR chest 1V portable DATE OF EXAM: 01/22/2018 COMPARISON: 01/22/2018 HISTORY: Status post left thoracentesis TECHNIQUE: Single frontal view of the chest is obtained. FINDINGS: There is a [id number] layering right pleural effusion and right basilar airspace. T here is interval near complete resolution of the left-sided pleural effusion, trace fluid remaining, with improvement in degree of the left-sided midlung platelike subsegmental atelectasis. No postproce dural pneumothorax is appreciated. Osseous structures are intact. Single lead left-sided cardiac deep ce is stable. Cardiomediastinal silhouette is enlarged. IMPRESSION: 1. No postprocedural left-sided pneumothorax visualized with near-complete resolution of the left-jorge luis ed pleural effusion and improvement of the left midlung atelectasis. 2. [id number] right pleural effusion with probable atelectasis.
[2018-01-22 10:58] LABS: Total Protein 5.4 g/dL (6.3-8.2)
--- NOTE | 2018-01-22 11:08 | P.PN ---
Subjective Progress Note Date: 01/22/18 Principal diagnosis: Recurrent bilateral pleural effusions This is a very pleasant 82-year-old female patient who follows with Dr. Norwood as her primary care physician. She has a history of atrial fibrillation/ flutter anticoagulated with warfarin, hypertension, pulmonary embolism/DVT with previous [place] filter placement, gastroesophageal reflux disease, chronic obstructive pulmonary disease. 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 She had undergone 1 round of Rituxan therapy on 2017. Following that she developed congestive heart failure and bilateral pleural effusions and was recently admitted for the same. She had undergone thoracentesis bilaterally on January 07 and then 01/08/2018. Fluid which was negative for malignancy. She was due to see Dr. Garcia in our office yesterday however she developed increasing shortness of breath and presented to the emergency room. He did feel nearly back to her baseline and her discharge however the last several days she has noticed the shortness of breath progressively worsening. Chest x-ray reveals recurrent bilateral pleural effusions right greater than left. Hemoglobin 9.8. INR 2.2. Creatinine 0.90. ProBNP 1320. She has been initiated on Lasix 40 mg IV push every 8 hours along with Aldactone 25 mg daily. She is seen today in consultation on the selective care unit. She is awake and alert in no acute distress. She is maintaining good O2 saturations in the mid to upper 90s on 2 L/m per nasal cannula. She has been afebrile. No leukocytosis. The patient is seen again today 01/21/2018 in follow-up on the selective care unit. She remains awake and alert in no acute distress. She is breathing somewhat better today as compared to yesterday. Maintaining good O2 saturations in the mid to upper 90s on 2 L/m per nasal cannula. She's been afebrile. Hemodynamically stable. Ultrasound of the chest did reveal a 9.8 cm pocket on the right. 6.1 cm pocket on the left. Today's INR is 1.9. The patient is seen again today 01/22/2018 in follow-up on the selective care unit. She has been up ambulating with assistance. Maintaining good O2 saturations in the 90s on room air. Dr. Fisher reviewed her chest x-ray today he did go ahead and perform a left-sided thoracentesis with 850 dark fluid removed. Sent for cytology. Sent for fluid analysis along with flow cytology. White count 2.6. Hemoglobin 9.1. INR 1.2. She remains on diuretics. Objective - Vital Signs Vital signs: Vital Signs Temp 97.0 F L 01/22/18 08:00 Pulse 70 01/22/18 08:00 Resp 18 01/22/18 10:12 BP 147/63 01/22/18 08:00 Pulse Ox 93 L 01/22/18 10:12 Intake & Output 01/21/18 01/22/18 01/22/18 18:59 06:59 18:59 Intake Total 478 240 Balance 478 240 Weight 87 kg Intake: Oral 478 240 Other: Voiding Method Toilet - Exam GENERAL EXAM: Alert, active, comfortable in no apparent distress. HEAD: Normocephalic. EYES: Right eye enucleation. NOSE: Clear with pink turbinates. THROAT: No erythema or exudates. NECK: No masses, no JVD. CHEST: No chest wall deformity. Pacer left chest LUNGS: Equal air entry with crackles in the bilateral posterior bases. CVS: S1 and S2 normal with no audible murmur, irregular rhythm. ABDOMEN: No hepatosplenomegaly, normal bowel sounds, no guarding or rigidity. SPINE: No scoliosis or deformity SKIN: No rashes CENTRAL NERVOUS SYSTEM: No focal deficits, tone is normal in all 4 extremities. EXTREMITIES: There is no peripheral edema. No clubbing, no cyanosis. Peripheral pulses are intact. - Labs CBC & Chem 7: 01/22/18 06:16 01/21/18 05:52 Labs: Abnormal Lab Results - Last 24 Hours (Table) 01/22/18 01/22/18 01/22/18 Range/Units 06:16 06:16 06:16 WBC 3.6 L (3.8-10.6) k/uL RBC 2.61 L (3.80-5.40) m/uL Hgb 9.1 L (11.4-16.0) gm/dL Hct 26.1 L (34.0-46.0) % MCV 100.2 H (80.0-100.0) fL RDW 17.2 H (11.5-15.5) % Plt Count 123 L (150-450) k/uL INR 1.2 H (<1.2) Total Protein 5.4 L (6.3-8.2) g/dL Assessment and Plan Assessment: Impression: #1 Acute hypoxic respiratory failure secondary to recurrent bilateral pleural effusions secondary to diastolic congestive heart failure. Left-sided thoracentesis performed today with 850 MLS dark fluid removed. Sent for cytology, flow cytology and fluid analysis. #2 Bilateral pleural effusions status post bilateral thoracentesis on January 07 and 2017. Fluid negative for malignancy. #3 Lymphoma, first dose of Rituxan received on 01/01/2018. 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 #5 Atrial fibrillation anticoagulated with warfarin. INR 1.9. #6 History of PE/DVT, status post [place] filter placement. #7 Chronic obstructive pulmonary disease with a remote history of chronic tobacco dependence. #8 History of brain aneurysm in 1994 with residual left-handed weakness. #9 Hypertension. #10 Gastric esophageal reflux disease. #11 Anemia, current hemoglobin 9.8. Plan: The patient was seen and evaluated by Dr. Fisher. Chest x-ray reviewed. He did go ahead and perform a left-sided thoracentesis with 850 MLS of dark fluid removed. She is stable from the pulmonary standpoint and could be discharged home once post thoracentesis x-ray reviewed. She should follow-up in our office in 1-2 weeks' time. We will repeat a chest x-ray then. We may consider right-sided thoracentesis in the outpatient setting if needed. Continue with diuretics. I, the cosigning physician, performed a history & physical examination of the patient. Lungs sounds crackles in the bilateral posterior bases right greater than left. Maintaining good O2 saturations in the 90s on room air. I discussed the assessment and plan of care with my nurse practitioner, Elaine Cheatham. I attest to the above note as dictated by her.
[2018-01-22 11:18] VITALS: BP 101/54; PULSE 75; RESP 16
--- NOTE | 2018-01-22 11:27 | PCN ---
PROCEDURE NOTE OPERATIVE REPORT: Left-sided thoracentesis. PREOPERATIVE DIAGNOSIS: Left pleural effusion. POSTOPERATIVE DIAGNOSIS: Left pleural effusion. ANESTHESIA USED: 2 mL of 1% lidocaine. PROCEDURE: The patient was placed in a sitting upright position. The area below the left scapula was prepared in a sterile fashion and drapes were applied. At the level of 8th intercostal space and tip of the scapula, the area was locally anesthetized. Then, a 26-gauge needle was inserted into the same site to the pleural space and the fluid was localized. Then a small tiny incision was made with a size 11 scalpel and the 8-Qat[place] catheter with a needle were inserted at the same site, advanced into the pleural space. Fluid was obtained. Then, the catheter was advanced out of the needle, and the needle was pulled out of the pleural space. Freely flowing fluid was removed, roughly 850 mL of serosanguineous fluid removed from the left pleural space. Procedure was well tolerated. No evidence of any immediate complications. Chest x-ray was ordered postoperatively. The fluid was sent for different diagnostic studies including flow cytometry since the patient had history of lymphoma. MMODL / IJN: [id number] /
--- NOTE | 2018-01-22 14:28 | P.DS ---
Providers Date of admission: 01/20/18 14:10 Expected date of discharge: 01/22/18 Attending physician: Bibi Stone Consults: 01/19/18 14:10 Consult Physician Routine Consulting Provider: Jace Garcia Consult Reason/Comments: Bilateral pleural effusions Do you want consulting provider notified?: Yes Consult Physician Routine Consulting Provider: Sushil Lantigua Consult Reason/Comments: Bilateral pleural effusions Do you want consulting provider notified?: Yes Primary care physician: Alfredo Cuco [facility] Course: This is an 82-year-old female patient of Dr. Norwood with a past mental history of atrial fibrillation, right eye melanoma with prosthesis, COPD, DVT and pulmonary embolism, gastroesophageal reflux disease hypertension, sick sinus syndrome status post pacemaker, lymphoma actively being treated. She had a recent hospitalization January 05 through January 09 at which time she was treated for acute respiratory distress secondary to pleural effusions bilaterally and acute diastolic heart failure. She underwent a thoracentesis on the left side with removal of 1 L and the right side was done the following day with removal of 1500 MLS and significant improvement of her shortness of breath and patient was discharged home. Patient now presents with shortness of breath just as much as last time. She denies any cough or chest pain. She denies any bloody sputum production. She states she had a follow-up appointment set for yesterday with Dr. Garcia but she ended up coming into the hospital instead. She has had a follow-up appointment with Dr. Gunderson since her discharge and Lasix 40 mg daily was decreased to 20 mg daily. Cytology from last admission reveals negative for metastatic melanoma with good control section performance. Negative for monoclonal B-cell population.Echocardiogram EF 50-55%, mild aortic valve sclerosis, mild mitral regurgitation, mild tricuspid regurgitation , moderate pulmonary hypertension, large pleural effusion. She has history of 90 pounds weight loss since her 2 1/2 years ago. She came into [facility] emergency center for evaluation. Chest x-ray shows correlate for heart failure with bibasilar effusions and associated atelectasis versus edema. Cannot exclude pneumonia. Patient was afebrile. Respiratory rate between 20 and 34. Pulse ox was 98%. Hemoglobin 9.8, PLT 149. BUN 24 creatinine 0.9. INR is 2.2, sodium 131 potassium 10. Lactic acid was 2. Total bilirubin 3.3 and AST 41. ProBNP was 1320. Troponin 0.012. Patient was admitted to the selective care unit and consult requested by pulmonary medicine and cardiology. 01/21: Chest ultrasound showed a right pleural fluid pocket of 9.8 cm and left of 6.1. INR today is 1.9 and patient has been given vitamin K 1 dose. Plan for thoracentesis in the morning. Currently on Lasix 40 mg IV every 8 hours. Patient states her breathing status is improved since she came in. 01/22: Repeat chest x-ray shows similar-appearing small right and trace left pleural effusion with bibasilar airspace disease likely compressive atelectasis. Patient underwent a left-sided thoracentesis with removal of 850 ML's of serosanguineous fluid. Patient has been cleared for discharge from pulmonary medicine with follow-up in the office in one to 2 weeks for possible right-sided thoracentesis as an outpatient if needed. Pulse ox is 93% on room air. Patient will be discharged home today in stable condition. Discharge diagnoses: 1. Acute respiratory distress secondary to pleural effusions bilaterally right greater than left and possible acute diastolic heart failure. 2. History of right eye melanoma with prosthesis. 3. Lymphoma under the care of oncology. 4. Chronic atrial fibrillation. 5. History of DVT and pulmonary embolism status post [place] filter. 6. Hypertension. 7. Gastroesophageal reflux disease and GI prophylaxis. 8. History of brain aneurysm, stable. 9. Sick sinus syndrome status post permanent pacemaker. 10. Anemia of chronic disease. Discharge plan: Home with [facility] Impression and plan of care have been directed as dictated by the signing physician. Geneva Dc nurse practitioner acting as scribe for signing physician. . Patient Condition at Discharge: Good Plan - Discharge Summary Discharge Rx Participant: No New Discharge Prescriptions: Continue Potassium Chloride ER [K-Dur 10] 10 meq PO DAILY #30 tab Atorvastatin [Lipitor] 20 mg PO HS Spironolactone [Aldactone] 25 mg PO DAILY Metoprolol Succinate [Toprol Xl] 50 mg PO DAILY Folic Acid 1 mg PO DAILY Warfarin Sodium 2.5 mg PO HS Acetaminophen Tab [Tylenol] 650 mg PO Q6HR PRN tab PRN Reason: Mild Pain Or Fever > 100.5 Allopurinol [Zyloprim] 300 mg PO DAILY #60 tab Changed Furosemide [Lasix] 40 mg PO BID #120 tab Discharge Medication List Potassium Chloride ER [K-Dur 10] 10 meq PO DAILY #30 tab 06/26/15 [Rx] Atorvastatin [Lipitor] 20 mg PO HS 02/12/16 [History] Folic Acid 1 mg PO DAILY 01/05/18 [History] Metoprolol Succinate [Toprol Xl] 50 mg PO DAILY 01/05/18 [History] Spironolactone [Aldactone] 25 mg PO DAILY 01/05/18 [History] Warfarin Sodium 2.5 mg PO HS 01/05/18 [History] Acetaminophen Tab [Tylenol] 650 mg PO Q6HR PRN tab 01/09/18 [Rx] Allopurinol [Zyloprim] 300 mg PO DAILY #60 tab 01/09/18 [Rx] Furosemide [Lasix] 40 mg PO BID #120 tab 01/22/18 [Rx] Follow up Appointment(s)/Referral(s): Alfredo Norwood MD [Primary Care Provider] - 02/01/18 4:30 pm (Thursday) Jace Garcia DO [Doctor of Osteopathic Medicine] - 01/27/18 2:30 pm ( Thursday with Anny MORENO) [facility], [NON-STAFF] - Patient Instructions/Handouts: Thoracentesis (DC), Pleural Effusion (DC) Discharge Disposition: HOME WITH HOME HEALTH SERVICES
[2018-01-22 16:18] LABS: Appearance,BF Cloudy; Color,BF Yellow
[2018-01-22 18:14] LABS: Nucleated Cells, Body Fluid 1200 /uL; RBC, Body Fluid 3900 /uL
[2018-01-22 18:16] LABS: Mononuclear WBC,Body Fluid 73 %; Polynuclear WBC,Body Fluid 27 %; Total Cells Counted,Body Fluid 100
[2018-01-22 19:10] LABS: Total Protein, Body Fluid 3500 mg/dL
== END 2018-01-22 14:39 | disposition home health service (06) | DRG 291 ==
LOC: EC 09:44 → 6SEL 14:10 → OBSVTOIN 01-20 14:10 → 6SEL 01-20 23:15
PROVIDERS: ADMIT Family Medicine; ATTEND Family Medicine
PROC: 0W9B3ZZ Drainage of Left Pleural Cavity, Percutaneous Approach (ICD-10-PCS; principal; 2018-01-20)
DX: I11.0 Hypertensive heart disease with heart failure (principal); J96.01 Acute respiratory failure with hypoxia; C85.90 Non-Hodgkin lymphoma, unspecified, unspecified site; J90 Pleural effusion, not elsewhere classified; I50.31 Acute diastolic (congestive) heart failure; D63.8 Anemia in other chronic diseases classified elsewhere; I08.3 Combined rheumatic disorders of mitral, aortic and tricuspid valves; I25.10 Atherosclerotic heart disease of native coronary artery without angina pectoris; I27.20 Pulmonary hypertension, unspecified; I48.2 Chronic atrial fibrillation; J44.9 Chronic obstructive pulmonary disease, unspecified; K21.9 Gastro-esophageal reflux disease without esophagitis; Z79.01 Long term (current) use of anticoagulants; Z79.899 Other long term (current) drug therapy; Z80.0 Family history of malignant neoplasm of digestive organs; Z85.820 Personal history of malignant melanoma of skin; Z85.840 Personal history of malignant neoplasm of eye; Z86.010 Personal history of colon polyps; Z86.711 Personal history of pulmonary embolism; Z86.718 Personal history of other venous thrombosis and embolism; Z87.891 Personal history of nicotine dependence; Z90.01 Acquired absence of eye; Z90.710 Acquired absence of both cervix and uterus; Z95.0 Presence of cardiac pacemaker
CPT/HCPCS: 36415; 71045; 71046; 76604; 80048; 80053; 82550; 82553; 82945; 83615; 83880; 84155; 84157; 84484; 84550; 85025; 85027; 85610; 85730; 87070; 87205; 88108; 88305; 88341; 88342; 89050; 93005; 96374; 99285

== ENCOUNTER 2018-02-03 12:04 | Day surgery (SDC) | payer MEDICARE ==
[~2018-02-03 12:04] MED LIST: SODIUM CHLORIDE 0.9% 500 ML in EMPTY BAG 1 BAG IV PRN
[2018-02-03 13:00] VITALS: BP 129/86; TEMP 97.6
[2018-02-03 13:18] VITALS: PULSE 85; RESP 22
--- NOTE | 2018-02-03 14:13 | XR ---
EXAMINATION TYPE: XR chest 1V portable DATE OF EXAM: 02/03/2018 COMPARISON: NONE INDICATION: Postthoracentesis TECHNIQUE: Single frontal view of the chest is obtained. FINDINGS: The heart size is normal. The pulmonary vasculature is normal. Bibasilar present. A small left pleural effusion is present. No pneumothorax is evident. IMPRESSION: 1. Right lower lobe atelectasis. No pneumothorax is evident. 2. Small left pleural effusion
--- NOTE | 2018-02-03 15:27 | PCN ---
PROCEDURE NOTE PROCEDURE NOTE: Thoracentesis, on the right side. PREOPERATIVE DIAGNOSIS: Right-sided pleural effusion. POSTOPERATIVE DIAGNOSIS: Right-sided pleural effusion. Indication Pleural effusion. A time-out was completed verifying correct patient, procedure, site, positioning, and implant (s) or special equipment if applicable. Ultrasound guidance was not used and appropriate fluid pocket was identified and marked. Patient was positioned, prepped and draped in usual sterile fashion. Lidocaine was used to anesthetize the area. A Thoracentesis catheter was introduced into the pleural space and fluid was removed. Blood loss was none. A chest x-ray was ordered to evaluate for pneumothorax. Total Fluid Removed 1.5 L Color of Fluid Turbid, dark yellowish fluid Fluid was sent for appropriate laboratory tests. Patient tolerated the procedure well and there were no complications. No bedside complications or bleeding. Chest x-rays to follow. The fluid will be sent for flow cytometry and cytology. MMODL / IJN: [id number] /
[2018-02-03 22:45] LABS: Appearance,BF Hazy; Color,BF Yellow; Mononuclear WBC,Body Fluid 96 %; Nucleated Cells, Body Fluid 490 /uL; Polynuclear WBC,Body Fluid 3 %
[2018-02-04 15:27] LABS: RBC, Body Fluid 2060 /uL
== END 2018-02-03 16:23 | disposition home or self-care (01) ==
LOC: PROCWHC3 12:04
PROVIDERS: ATTEND Internal Medicine Critical Care Medicine
DX: J90 Pleural effusion, not elsewhere classified (principal); J98.11 Atelectasis
CPT/HCPCS: 32554; 36415; 71045; 88108; 88305; 89050

== ENCOUNTER 2018-02-12 09:56 | Day surgery (SDC) | payer MEDICARE ==
[~2018-02-12 09:56] MED LIST changes: +Pre Op ABX Message 1 EACH MISC MISCELLANE ONE; -SODIUM CHLORIDE 0.9% 500 ML in EMPTY BAG 1 BAG IV PRN
[2018-02-12 10:51] VITALS: TEMP 97.6
[2018-02-12] MEDS ORDERED: LACTATED RINGERS 1,000 ML IV ONE (10:57)
[2018-02-12] MEDS ORDERED: LIDOCAINE 1% 20 ML VIAL (10MG/ML) FOR IV START INTRADERMA ONE (10:58)
[2018-02-12 12:49] LABS: Prothrombin Time 18.2 sec (9.0-12.0)
[2018-02-12] MEDS ORDERED: PROPOFOL 10 MG/ML 20 ML VIAL IV ONE (12:56)
[2018-02-12] MEDS ORDERED: LIDOCAINE 1% INJ 10MG/ML (20 ML MDV) SQ ONE (13:14)
--- NOTE | 2018-02-12 13:47 | P.OP ---
Date of Procedure: 02/12/18 Preoperative Diagnosis: Recurrent bilateral pleural effusion Postoperative Diagnosis: Same Procedure(s) Performed: Bilateral Pleurx catheter placement with fluoroscopy Implants: Bilateral Pleurx catheters Anesthesia: MAC Surgeon: Sharan Barton [employer] Stewardess #1: Kvng Kerns Estimated Blood Loss (ml): 4 IV fluids (ml): 200 Urine output (ml): 0 Pathology: other (Pleural fluid for cytology) Condition: stable Disposition: PACU Indications for Procedure: 82-year-old female who presents with persistent and worsening shortness of breath. She has had multiple bilateral thoracenteses performed over the last several months. Last thoracentesis was on February 03 at which time over a liter of fluid was drained from the right side. She is recurred that pleural effusion within a week. Bilateral Pleurx catheters were indicated for control pleural drainage. Pleural fluid was exudative but negative by cytology. Operative Findings: Pleural spaces were entered bilaterally without difficulty with a needle. Pleural fluid was aspirated from bilateral sides. Aspirate was clear serous pleural fluid bilaterally. A total of 750 mL was drained from the left side. 1500 mL was drained from the right side. Fluoroscopy guidance was used. Both pleural spaces appeared empty by fluoroscopy at the completion of the procedure. Description of Procedure: Patient was brought to the operating room and placed supine on the operating table. The head was elevated 30. Bilateral chest and upper abdomen were sterilely prepped and draped. 2% lidocaine was used for anesthesia. Initial puncture was performed in the eighth interspace in the posterior axillary line on the left side. Pleural fluid was encountered. An 18-gauge needle was used to puncture at the site after instillation of lidocaine and a guidewire was placed into the left pleural space. Presence in the pleural space was confirmed on fluoroscopy. The puncture site was now enlarged to 1 cm and a counterincision was made in the left upper quadrant about three quarters of a centimeter. Pleurx catheter was tunneled from the abdominal counterincision to the initial primary incision and the cuff positioned just under the skin of the abdominal incision. Introducer and dilator were placed over the guidewire and through the introducer sheath the Pleurx catheter was introduced into the left pleural space. Placement in the pleural space was confirmed with fluoroscopy. Incision was closed with Vicryl suture and skin glue and the catheter secured at the exit site with a 2-0 silk. The catheter was connected to suction. Next we punctured the right side in the midaxillary line in the eighth interspace and again encountered pleural fluid. 18-gauge needle was placed and the guidewire placed into the pleural space through the 18-gauge needle. Placement in the pleural cavity was confirmed on fluoroscopy. The puncture site was enlarged to 1 cm and counterincision made in the right upper quadrant three quarters of a centimeter. A second Pleurx catheter was tunneled from the abdominal incision to the initial puncture incision with the cuff secured just under the skin of the abdominal incision. Introducer and dilator were placed over the guidewire and through the introducer sheath the Pleurx catheter was placed into the pleural space. Placement in the pleural space was confirmed on fluoroscopy. Catheter was connected to suction. The incision was closed with layers of Vicryl suture and skin glue. This catheter was secured at the exit site with a 2-0 silk. Fluoroscopy was now used to confirm complete evacuation of the pleural spaces bilaterally. The Pleurx catheters were capped and placed and appropriate dressings. Patient was then transferred to recovery in stable condition. Plan - Discharge Summary New Discharge Prescriptions: No Action Potassium Chloride ER [K-Dur 10] 10 meq PO DAILY #30 tab Atorvastatin [Lipitor] 20 mg PO HS Spironolactone [Aldactone] 25 mg PO DAILY Metoprolol Succinate [Toprol Xl] 50 mg PO DAILY Folic Acid 1 mg PO DAILY Warfarin Sodium 2.5 mg PO HS Acetaminophen Tab [Tylenol] 650 mg PO Q6HR PRN tab PRN Reason: Mild Pain Or Fever > 100.5 Allopurinol [Zyloprim] 300 mg PO DAILY #60 tab Furosemide [Lasix] 40 mg PO BID #120 tab Discharge Medication List Potassium Chloride ER [K-Dur 10] 10 meq PO DAILY #30 tab 06/26/15 [Rx] Atorvastatin [Lipitor] 20 mg PO HS 02/12/16 [History] Folic Acid 1 mg PO DAILY 01/05/18 [History] Metoprolol Succinate [Toprol Xl] 50 mg PO DAILY 01/05/18 [History] Spironolactone [Aldactone] 25 mg PO DAILY 01/05/18 [History] Warfarin Sodium 2.5 mg PO HS 01/05/18 [History] Acetaminophen Tab [Tylenol] 650 mg PO Q6HR PRN tab 01/09/18 [Rx] Allopurinol [Zyloprim] 300 mg PO DAILY #60 tab 01/09/18 [Rx] Furosemide [Lasix] 40 mg PO BID #120 tab 01/22/18 [Rx] Activity/Diet/Wound Care/Special Instructions: Notify physician if you develop a temperature > 101 F, shortness of breath, reddness, swelling, oozing, or intense pain at the exit site. Home care to drain PleurX catheters ThursdayFebruary 15, then 2-3 times per week according to patient's symptoms. Please call Dr. Barton's office with drainage amounts weekly. Discharge Disposition: HOME WITH HOME HEALTH SERVICES
--- NOTE | 2018-02-12 14:15 | FL ---
EXAMINATION TYPE: FL guided central line placemt DATE OF EXAM: 02/12/2018 CLINICAL HISTORY: Bilateral pleural effusions TECHNIQUE: Fluoroscopy. COMPARISON: None. FINDINGS: Fluoroscopic guidance was provided during bilateral pleural catheter insertion procedure p erformed by Dr. Barton. A total of 23 seconds of fluoroscopic time was utilized during the procedure and 0 spot images are acquired. IMPRESSION: As Above.
--- NOTE | 2018-02-12 14:50 | XR ---
EXAMINATION TYPE: XR chest 1V portable DATE OF EXAM: 02/12/2018 Comparison: 02/03/2018 Clinical History: 82-year-old female Pleural Catheter placement Findings: Heart remains mildly enlarged. Mild elongation thoracic aorta. Mild diffuse interstitial prominence. Bibasilar densities remain though with decrease in size of the pleural effusions bilaterally. Left an terior chest wall pacemaker generator with right ventricular lead. A pleural catheter is present on t he right with tip directed superiorly at the level of the aortic knob. A left pleural catheter may al so be present. No pneumothorax. Impression: 1. Bilateral pleural effusions have decreased. The right pleural catheter has its tip directed superi floridalma near the aortic knob. A left pleural catheter is also likely present. 2. Cardiomegaly, interstitial prominence, and patchy bibasilar atelectasis/consolidation remain. Evy elate to exclude underlying pneumonia and for mild CHF.
[2018-02-12] MEDS ORDERED: ACETAMINOPHEN TAB 500 MG TAB PO STA (17:04)
[2018-02-12 17:08] VITALS: BP 106/72; PULSE 104; RESP 18
== END 2018-02-12 18:00 | disposition home health service (06) ==
LOC: OR 09:56
PROVIDERS: ATTEND Thoracic Surgery (Cardiothoracic Vascular Surgery)
DX: J90 Pleural effusion, not elsewhere classified (principal); Z85.79 Personal history of other malignant neoplasms of lymphoid, hematopoietic and related tissues; Z79.01 Long term (current) use of anticoagulants; Z79.899 Other long term (current) drug therapy; I25.10 Atherosclerotic heart disease of native coronary artery without angina pectoris; I10 Essential (primary) hypertension; I48.91 Unspecified atrial fibrillation; Z86.718 Personal history of other venous thrombosis and embolism; I49.5 Sick sinus syndrome; Z86.711 Personal history of pulmonary embolism; I67.1 Cerebral aneurysm, nonruptured
CPT/HCPCS: 32550; 88108; 88305; 85610; 77001; 71045; J2001; J2704

== ENCOUNTER 2018-03-12 20:57 | Inpatient (IN) | payer MEDICARE ==
--- NOTE | 2018-03-12 21:22 | ED ---
General Adult HPI - General Chief complaint: Recheck/Abnormal Lab/Rx Stated complaint: Abn Blood count Time Seen by Provider: 03/12/18 21:00 Source: patient Mode of arrival: wheelchair Limitations: no limitations - History of Present Illness Initial comments: This patient is an 82-year-old woman who presents to be evaluated for low hemoglobin. The patient states that she had gone to see her physician today, Dr. Norwood, and she had been taken. She received a call tonight telling her that her blood counts were very low and that she should go to the emergency department. The patient does relate that over the past approximately 3 days she has been very fatigued, and that when she attempts to walk around the house she becomes so short of breath that she must rest. Patient denies any active bleeding. She has not noticed red blood or dark tarry stools. She states that she has long-standing history of anemia. She states she has not previously required transfusion. Patient denies chest pain. She does have some lightheadedness when she stands up. No palpitations. Denies dyspnea at rest. -: hour(s) Improves with: rest Worsens with: other (Exertion) Associated Symptoms: other (Exertional dyspnea) Treatments Prior to Arrival: none - Related Data Home Medications Medication Instructions Recorded Confirmed Atorvastatin [Lipitor] 20 mg PO HS 02/12/16 03/12/18 Folic Acid 1 mg PO DAILY 01/05/18 03/12/18 Metoprolol Succinate [Toprol Xl] 25 mg PO DAILY 01/05/18 03/13/18 Spironolactone [Aldactone] 12.5 mg PO DAILY 01/05/18 03/13/18 Warfarin Sodium 2.5 mg PO HS 01/05/18 03/12/18 Previous Rx's Medication Instructions Recorded Potassium Chloride ER [K-Dur 10] 10 meq PO DAILY #30 tab 06/26/15 Acetaminophen Tab [Tylenol] 650 mg PO Q6HR PRN tab 01/09/18 Allopurinol [Zyloprim] 300 mg PO DAILY #60 tab 01/09/18 Furosemide [Lasix] 40 mg PO BID #120 tab 01/22/18 Allergies Allergy/AdvReac Type Severity Reaction Status Date / Time No Known Allergies Allergy Verified 03/12/18 21:15 Review of Systems ROS Statement: Those systems with pertinent positive or pertinent negative responses have been documented in the HPI. ROS Other: All systems not noted in ROS Statement are negative. Constitutional: Reports: weakness (Generalized). Denies: fever, chills Respiratory: Denies: cough, dyspnea, wheezes, hemoptysis Cardiovascular: Reports: dyspnea on exertion. Denies: chest pain, palpitations , orthopnea, edema, syncope Gastrointestinal: Denies: abdominal pain, vomiting, diarrhea Genitourinary: Denies: dysuria, frequency Musculoskeletal: Denies: back pain Skin: Denies: rash Neurological: Denies: headache, weakness, numbness Hematological/Lymphatic: Denies: easy bleeding Past Medical History Past Medical History: Atrial Fibrillation, Atrial Flutter, Coronary Artery Disease (CAD), Cancer, COPD, Deep Vein Thrombosis (DVT), GERD/Reflux, Hypertension, Osteoarthritis (OA), Pneumonia, Pulmonary Embolus (PE) Additional Past Medical History / Comment(s): Pt resently admitted to [facility] on with bilateral pleural effusions and thoracentesis done bilaterally. Echo showed ef of 50-55%. 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 History of Any Multi-Drug Resistant Organisms: None Reported Past Surgical History: Heart Catheterization, Hysterectomy, Joint Replacement, Pacemaker, Tubal Ligation Additional Past Surgical History / Comment(s): Bilateral thoracentesis 12/2017, green field filter, cardiac cath in 2012 with mild disease, ORIF R leg d/t fracture, R eye removed, tooth implants, skin lesions removed from face and R leg, EGD/colonoscopies, bronchoscopy, D&C, L knee arthroscopy, bilateral knee tendon repairs. Past Anesthesia/Blood Transfusion Reactions: No Reported Reaction Additional Past Anesthesia/Blood Transfusion Reaction / Comment(s): Pt has received blood in past without reaction. Type of Cardiac Device: Permanent Pacemaker Device Placement Date:: 02/14/16 Past Psychological History: No Psychological Hx Reported Smoking Status: Former smoker Past Alcohol Use History: None Reported Past Drug Use History: None Reported - Past Family History Father Family Medical History: Cancer, Deep Vein Thrombosis (DVT) Additional Family Medical History / Comment(s): colon cancer at 82 Mother Family Medical History: No Reported History Additional Family Medical History / Comment(s): mother at 103yrs General Exam Limitations: no limitations General appearance: alert, in no apparent distress, obese Head exam: Present: atraumatic, normocephalic Eye exam: Present: normal appearance, other (Conjunctival pallor). Absent: scleral icterus, conjunctival injection ENT exam: Present: mucous membranes dry, other (Mucosal pallor) Respiratory exam: Present: normal lung sounds bilaterally. Absent: respiratory distress, wheezes, rales, rhonchi, stridor Cardiovascular Exam: Present: regular rate, irregular rhythm, normal heart sounds. Absent: systolic murmur, diastolic murmur, rubs, gallop GI/Abdominal exam: Present: soft. Absent: distended, tenderness, guarding, rebound, mass Extremities exam: Present: normal inspection, normal capillary refill. Absent: pedal edema, calf tenderness Back exam: Present: normal inspection. Absent: CVA tenderness (R), CVA tenderness (L) Neurological exam: Present: alert Skin exam: Present: warm, dry, intact, pallor. Absent: rash Course Vital Signs 03/12/18 03/12/18 03/12/18 21:07 22:22 23:14 Temperature 96.8 F L Pulse Rate 96 78 74 Respiratory 20 20 22 Rate Blood Pressure 85/48 83/37 93/42 O2 Sat by Pulse 96 98 100 Oximetry 03/13/18 03/13/18 03/13/18 00:40 01:10 02:10 Temperature Pulse Rate 85 70 82 Respiratory 18 18 18 Rate Blood Pressure 80/39 81/43 84/45 O2 Sat by Pulse 100 100 100 Oximetry 03/13/18 03/13/18 03/13/18 02:30 02:40 02:48 Temperature 97.1 F L 97.6 F 97.1 F L Pulse Rate 74 74 83 Respiratory 18 18 18 Rate Blood Pressure 82/46 87/42 88/53 O2 Sat by Pulse 100 100 100 Oximetry 03/13/18 03:10 Temperature 97.2 F L Pulse Rate 77 Respiratory 18 Rate Blood Pressure 89/47 O2 Sat by Pulse 100 Oximetry EKG Findings - EKG Results: EKG: interpreted by ERMD, normal axis, normal QRS, no acute changes EKG shows: atrial fibrillation (Rate approximate 79 bpm) - Blocks, [place], Hypertrophy, ST Abn: Repolarization changes or abnormalities: ST or T wave suggestive of ischemia ( There are T inversions in the inferior leads 2, 3, aVF, and in the lateral leads V4 through V6. These are present on the comparison EKG.) Medical Decision Making - Medical Decision Making This patient is an 82-year-old woman presenting after she was called with abnormal lab results. The patient is anemic, hemoglobin 5.9 and& crossmatch is in progress, patient will have transfusion when blood is ready. Case discussed with her primary physician who will admit. The case is also discussed with Dr. Garcia, and his treatment recommendations are incorporated. At this point, the patient is appearing stable for the select care. - Lab Data Result diagrams: 03/12/18 21:05 03/12/18 21:05 Lab Results 03/12/18 03/12/18 03/12/18 Range/Units 21:05 21:05 21:05 WBC 4.2 (3.8-10.6) k/uL RBC 1.76 L (3.80-5.40) m/uL Hgb 5.9 L* D (11.4-16.0) gm/dL Hct 17.5 L* (34.0-46.0) % MCV 99.1 (80.0-100.0) fL MCH 33.5 (25.0-35.0) pg MCHC 33.8 (31.0-37.0) g/dL RDW 14.8 (11.5-15.5) % Plt Count 167 (150-450) k/uL Neutrophils % (Manual) 82 % Lymphocytes % (Manual) 13 % Monocytes % (Manual) 5 % Neutrophils # (Manual) 3.44 (1.3-7.7) k/uL Lymphocytes # (Manual) 0.55 L (1.0-4.8) k/uL Monocytes # (Manual) 0.21 (0-1.0) k/uL Nucleated RBCs 0 (0-0) /100 WBC Manual Slide Review Performed Hypochromasia (manual) Present Poikilocytosis Slight Anisocytosis (manual) Present Macrocytosis Slight PT 12.4 H (9.0-12.0) sec INR 1.3 H (<1.2) APTT 26.9 (22.0-30.0) sec Sodium 133 L (137-145) mmol/L Potassium 6.2 H* (3.5-5.1) mmol/L Chloride 106 (98-107) mmol/L Carbon Dioxide 15 L (22-30) mmol/L Anion Gap 12 mmol/L BUN 65 H (7-17) mg/dL Creatinine 1.96 H (0.52-1.04) mg/dL Est GFR (CKD-EPI)AfAm 27 (>60 ml/min/1.73 sqM) Est GFR (CKD-EPI)NonAf 24 (>60 ml/min/1.73 sqM) Glucose 111 H (74-99) mg/dL Calcium 8.9 (8.4-10.2) mg/dL Total Bilirubin 1.5 H (0.2-1.3) mg/dL AST 30 (14-36) U/L ALT 29 (9-52) U/L Alkaline Phosphatase 85 (38-126) U/L Total Protein 4.6 L (6.3-8.2) g/dL Albumin 2.8 L (3.5-5.0) g/dL Stool Occult Blood (Negative) Blood Type Blood Type Recheck Antibody Screen Crossmatch Spec Expiration Date 03/12/18 03/13/18 Range/Units 23:04 00:05 WBC (3.8-10.6) k/uL RBC (3.80-5.40) m/uL Hgb (11.4-16.0) gm/dL Hct (34.0-46.0) % MCV (80.0-100.0) fL MCH (25.0-35.0) pg MCHC (31.0-37.0) g/dL RDW (11.5-15.5) % Plt Count (150-450) k/uL Neutrophils % (Manual) % Lymphocytes % (Manual) % Monocytes % (Manual) % Neutrophils # (Manual) (1.3-7.7) k/uL Lymphocytes # (Manual) (1.0-4.8) k/uL Monocytes # (Manual) (0-1.0) k/uL Nucleated RBCs (0-0) /100 WBC Manual Slide Review Hypochromasia (manual) Poikilocytosis Anisocytosis (manual) Macrocytosis PT (9.0-12.0) sec INR (<1.2) APTT (22.0-30.0) sec Sodium (137-145) mmol/L Potassium (3.5-5.1) mmol/L Chloride (98-107) mmol/L Carbon Dioxide (22-30) mmol/L Anion Gap mmol/L BUN (7-17) mg/dL Creatinine (0.52-1.04) mg/dL Est GFR (CKD-EPI)AfAm (>60 ml/min/1.73 sqM) Est GFR (CKD-EPI)NonAf (>60 ml/min/1.73 sqM) Glucose (74-99) mg/dL Calcium (8.4-10.2) mg/dL Total Bilirubin (0.2-1.3) mg/dL AST (14-36) U/L ALT (9-52) U/L Alkaline Phosphatase (38-126) U/L Total Protein (6.3-8.2) g/dL Albumin (3.5-5.0) g/dL Stool Occult Blood Positive H (Negative) Blood Type O Positive Blood Type Recheck No Antibody Screen NEGATIVE Crossmatch See Detail Spec Expiration Date 03/16/2018 - 4883 Critical Care Time Critical Care Time: Yes (35 minutes) Disposition Clinical Impression: Hyperkalemia, Anemia, Atrial fibrillation, Acute renal failure, GIB ( gastrointestinal bleeding) Disposition: ADMITTED IP TO THIS [facility] Condition: Serious
[2018-03-12 21:38] LABS: Albumin 2.8 g/dL (3.5-5.0); Calcium 8.9 mg/dL (8.4-10.2); Total Bilirubin 1.5 mg/dL (0.2-1.3); Total Protein 4.6 g/dL (6.3-8.2)
[2018-03-12 21:47] LABS: INR 1.3 (<1.2); Partial Thromboplastin Time 26.9 sec (22.0-30.0); Prothrombin Time 12.4 sec (9.0-12.0)
[2018-03-12 22:04] LABS: MCH 33.5 pg (25.0-35.0); MCHC 33.8 g/dL (31.0-37.0); MCV 99.1 fL (80.0-100.0); Macrocytosis Slight; Mean Platelet Volume 8.3; Platelet Count 167 k/uL (150-450); Poikilocytosis Slight; RBC 1.76 m/uL (3.80-5.40); RDW 14.8 % (11.5-15.5); WBC 4.2 k/uL (3.8-10.6)
[2018-03-12 22:07] LABS: HCT 17.5 % (34.0-46.0); HGB 5.9 gm/dL (11.4-16.0)
[2018-03-12 22:14] LABS: Potassium 6.2 mmol/L (3.5-5.1)
[2018-03-12 22:19] LABS: Lymphocytes # (M) 0.55 k/uL (1.0-4.8); Monocytes # (M) 0.21 k/uL (0-1.0); Neutrophils # (M) 3.44 k/uL (1.3-7.7); Neutrophils % (M) 82 %; Nucleated Red Blood Cells 0 /100 WBC (0-0); Total Cells Counted 100
[2018-03-12 22:20] LABS: Anisocytosis (M) Present; Hypochromasia (M) Present
[2018-03-12] MEDS ORDERED: HYDROcodone/APAP 5-325MG 1 EACH TAB PO STA (23:16)
[2018-03-13] MEDS ORDERED: ACETAMINOPHEN TAB 325 MG TAB PO PRN ×2 (00:42→09:04)
[2018-03-13] MEDS ORDERED: ONDANSETRON 4 MG/2 ML VIAL IVP PRN (00:42)
[2018-03-13] MEDS ORDERED: NALOXONE 0.4 MG/ML 1 ML VIAL IV PRN (00:42)
[2018-03-13] MEDS ORDERED: PANTOPRAZOLE 40 MG/10 ML VIAL IVP STA (00:45)
[2018-03-13] MEDS ORDERED: SODIUM BICARB 8.4% 50 ML SYR (1 MEQ/ML) IV STA (00:49)
[2018-03-13] MEDS ORDERED: DEXTROSE 50%-WATER 50 ML SYRINGE IVP STA (00:49)
[2018-03-13] MEDS ORDERED: CALCIUM GLUCONATE 1,000 MG in SODIUM CHLORIDE 0.9% 100 ML IVPB ONE (00:49)
[2018-03-13] MEDS ORDERED: SODIUM POLYSTYRENE SULFONATE 15 GM/60 ML BOTTLE PO STA (00:49)
[2018-03-13] MEDS ORDERED: INSULIN REGULAR 100 UNIT/ML VIAL IV STA (00:49)
[2018-03-13] MEDS ORDERED: SODIUM CHLORIDE 0.9% IV ONE (01:00)
[2018-03-13] MEDS ORDERED: CALCIUM CHLORIDE IV ONE (01:00)
[2018-03-13] MEDS ORDERED: SODIUM CHLORIDE 0.9% 1,000 ML IV ONE (01:24)
[2018-03-13] MEDS: SODIUM CHLORIDE 0.9% 1,000 ML IV SCH (02:43)
[2018-03-13 03:52] VITALS: BMI 28.4
[2018-03-13] MEDS: METOPROLOL SUCCINATE (ER) 50 MG TAB.ER.24H PO SCH (08:46)
[2018-03-13] MEDS: FOLIC ACID 1 MG TAB PO SCH (08:47)
[2018-03-13 09:10] LABS: Anisocytosis Slight
[2018-03-13] MEDS ORDERED: FUROSEMIDE 10 MG/ML 2 ML VIAL IV PRN ×2 (09:31)
[2018-03-13 09:32] LABS: Albumin 2.1 g/dL (3.5-5.0); Calcium 8.5 mg/dL (8.4-10.2); Potassium 4.7 mmol/L (3.5-5.1); Total Bilirubin 1.2 mg/dL (0.2-1.3); Total Protein 3.7 g/dL (6.3-8.2)
[2018-03-13 09:54] LABS: MCHC 34.1 g/dL (31.0-37.0); MCV 99.8 fL (80.0-100.0); Macrocytosis Slight; Mean Platelet Volume 8.2; Platelet Count 109 k/uL (150-450); RBC 1.69 m/uL (3.80-5.40); RDW 15.6 % (11.5-15.5)
[2018-03-13 09:56] LABS: HCT 16.9 % (34.0-46.0); HGB 5.8 gm/dL (11.4-16.0)
--- NOTE | 2018-03-13 10:59 | CONS ---
CONSULTATION DATE OF SERVICE: 03/13/2018 REQUESTING PHYSICIAN: Dr. Norwood. REASON FOR CONSULTATION: Severe symptomatic anemia. HISTORY OF PRESENT ILLNESS: The patient is an 82-year-old pleasant white female who came in to the emergency room for severe anemia. She went to see Dr. Norwood on an outpatient basis yesterday for routine labs as she was having extreme fatigue and tiredness for the last 2 weeks duration. She was noted to have a hemoglobin of 5.9. She got a call from Dr. Norwood's office yesterday, recommending her to go to the emergency room and she was subsequently admitted for further evaluation. The patient denies any abdominal pain. She reports no nausea or vomiting. No rectal bleeding or melena. She recalls having a colonoscopy by Dr. Amaya in the last 1-2 years and was noted to have small polyps. She received 1 unit of blood through the night and this morning repeat hemoglobin is 5.9. She denies any prior history of peptic ulcer disease or NSAID use. No history of blood transfusions in the past. The patient stated that recently she was admitted to the hospital a month ago for bilateral pleural effusion and underwent thoracentesis done and presently following with Dr. Correa on an outpatient basis. She has history of lymphoma diagnosed in the past. She is scheduled for a PET scan today at 3:00 pm for history of non-Hodgkin's lymphoma. PAST MEDICAL HISTORY: Past medical history significant for atrial fibrillation, coronary artery disease, history of non-Hodgkin's lymphoma, GERD, hypertension, degenerative joint disease, DVT, history of PE in the past. PAST SURGICAL HISTORY: Colonoscopy 1-2 years ago, right eye removed because of lymphoma in 1994. Cardiac cath, left leg fracture surgery, D and C, knee arthroscopy, bronchoscopy, right leg fracture, bilateral knee tendon repairs. MEDICATIONS: At home include Lipitor, folic acid, Toprol, Aldactone, Coumadin. ALLERGIES: None. SOCIAL HISTORY: No smoking or alcohol use. FAMILY HISTORY: Family history of father had DVT. REVIEW OF SYSTEMS: Cardiopulmonary: No chest pain, shortness of breath. Genitourinary: No dysuria or hematuria. Musculoskeletal unremarkable. Skin unremarkable. Endocrine unremarkable. Psychiatric unremarkable. Neurology unremarkable. ENT vision unremarkable. Constitutional: No recent weight loss. No fever, chills, night sweats. PHYSICAL EXAMINATION: She appears comfortable. No apparent distress. Vital signs are stable. Blood pressure is 87/42, pulse is 74, temperature 97.6. HEENT examination unremarkable. Conjunctivae pink. Sclerae anicteric. Oral cavity no lesions. Neck no JVD or lymph node enlargement. Chest was clear to auscultation. HEART: Regular rate and rhythm. ABDOMEN: Soft. Bowel sounds are positive. No organomegaly Extremities: No pedal edema. Skin no rashes. NEUROLOGIC: Alert and oriented x3. No focal deficits. LABS: WBC 4.2, hemoglobin 5.9, platelets 167. PT 12.4, INR is 1.3. Sodium 133, potassium 6.2, BUN is 63, creatinine 1.96. Stool Hemoccult was positive. Repeat hemoglobin this morning is 5.8. Rest of the labs are pending. IMPRESSION: 1. This is a lady who presents to the hospital with severe symptomatic anemia and hemoglobin 5.9 with no evidence of active gastrointestinal bleed. Stool Hemoccult was positive. She had a colonoscopy 1-[address] Amaya according to the patient was within normal limits. The patient has been on Coumadin for atrial fibrillation. Currently, her INR is 1.3 and Coumadin is on hold. At this time, possibility of upper gastrointestinal source of occult blood loss needs to be considered. Also possibility of bone marrow pathology needs to be considered. 2. Atrial fibrillation on Coumadin, currently on hold. INR is 1.3. RECOMMENDATIONS: 1. Start on clear liquid diet. 2. Repeat CBC today, was 5.8, so we will give her 2 units of blood transfusion. 3. Continue with Protonix 40 mg daily. 4. Obtain iron studies. 5. Recommend hematology consultation. Thank you for this consultation. We will follow the patient closely with you during her hospital stay. MMODL / IJN: [id number] /
[2018-03-13 11:01] LABS: Lymphocytes # (M) 0.82 k/uL (1.0-4.8); Monocytes # (M) 0.12 k/uL (0-1.0); Neutrophils # (M) 1.06 k/uL (1.3-7.7); Neutrophils % (M) 53 %; Nucleated Red Blood Cells 1 /100 WBC (0-0); Total Cells Counted 100
[2018-03-13] MEDS ORDERED: IPRATROPIUM-ALBUTEROL 3 ML NEB INHALATION PRN (13:05)
--- NOTE | 2018-03-13 13:05 | P.HPIM ---
History of Present Illness H&P Date: 03/13/18 Chief Complaint: Acute GI bleed, acute blood loss anemia, pleural effusion, A. graciela 82-year-old female one of my office patient of known very well for many years with history of melanoma, history of atherosclerotic heart disease, history of 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 History of chronic iron deficiency anemia, and history of atrophy fibrillation with rapid ventricular response has been well controlled medication. Patient was hospitalized last 2 months with increased pleural effusion require thoracentesis with analysis of her fluid, has been seen pulmonary on regular basis since. Patient was seen in the office on Thursday with complaint of severe tiredness fatigue found to be pale with high suspicion for severe anemia. CBC was done and hemoglobin reported as 5.7. Patient was call and requested to go to the emergency department where was seen her hemoglobin remained very low started process for blood transfusion, her Hemoccult was positive A she was claimed to be inactive acute gastrointestinal bleed requested GI consult and admit patient to the hospital. Review of Systems CONSTITUTIONAL: Well-developed no acute respiratory distress. Severe fatigue and tiredness EYES: No icterus sclerae, no conjunctivitis. EARS, NOSE, MOUTH, THROAT, and FACE: No sore throat, lymphadenopathy, carotid bruits or deformity. RESPIRATORY: No SOB cough or wheezes. CARDIOVASCULAR: No CP, Palpitation, PND, Orthopnea, or angina. GASTROINTESTINAL: No Abd pain, Nausea or vomiting, no Diarrhea or constipation, possible GI bleed with slight change in bowel habit only. GENITOURINARY: Negative for Hematuria or UTI, no kidney stones. INTEGUMENT/BREAST: Negative for any muscular injury with mild osteoarthritis.. HEMATOLOGIC/LYMPHATIC: Negative for bleed or purpura. MUSCULOSKELTAL: Negative for Myalgia or arthralgia. NEURLOGICAL: No LOC, Sz or syncope, blurred vision dizziness or abnormality.. BEHAVIORAL/PSYCH: Negative. ENDOCRINE: Negative. Past Medical History Past Medical History: Atrial Fibrillation, Atrial Flutter, Coronary Artery Disease (CAD), Cancer, COPD, Deep Vein Thrombosis (DVT), GERD/Reflux, Hypertension, Osteoarthritis (OA), Pneumonia, Pulmonary Embolus (PE) Additional Past Medical History / Comment(s): Pt resently admitted to [facility] on with bilateral pleural effusions and thoracentesis done bilaterally. Echo showed ef of 50-55%. 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 History of Any Multi-Drug Resistant Organisms: None Reported Past Surgical History: Heart Catheterization, Hysterectomy, Joint Replacement, Pacemaker, Tubal Ligation Additional Past Surgical History / Comment(s): Bilateral thoracentesis 12/2017, green field filter, cardiac cath in 2012 with mild disease, ORIF R leg d/t fracture, R eye removed, tooth implants, skin lesions removed from face and R leg, EGD/colonoscopies, bronchoscopy, D&C, L knee arthroscopy, bilateral knee tendon repairs. Past Anesthesia/Blood Transfusion Reactions: No Reported Reaction Additional Past Anesthesia/Blood Transfusion Reaction / Comment(s): Pt has received blood in past without reaction. Type of Cardiac Device: Permanent Pacemaker Device Placement Date:: 02/14/16 Past Psychological History: No Psychological Hx Reported Smoking Status: Former smoker Past Alcohol Use History: None Reported Past Drug Use History: None Reported - Past Family History Father Family Medical History: Cancer, Deep Vein Thrombosis (DVT) Additional Family Medical History / Comment(s): colon cancer at 82 Mother Family Medical History: No Reported History Additional Family Medical History / Comment(s): mother at 103yrs Medications and Allergies Home Medications Medication Instructions Recorded Confirmed Type Potassium Chloride ER [K-Dur 10] 10 meq PO DAILY #30 tab 06/26/15 03/12/18 Rx Atorvastatin [Lipitor] 20 mg PO HS 02/12/16 03/12/18 History Folic Acid 1 mg PO DAILY 01/05/18 03/12/18 History Metoprolol Succinate [Toprol Xl] 25 mg PO DAILY 01/05/18 03/13/18 History Spironolactone [Aldactone] 12.5 mg PO DAILY 01/05/18 03/13/18 History Warfarin Sodium 2.5 mg PO HS 01/05/18 03/12/18 History Acetaminophen Tab [Tylenol] 650 mg PO Q6HR PRN tab 01/09/18 03/12/18 Rx Allopurinol [Zyloprim] 300 mg PO DAILY #60 tab 01/09/18 03/13/18 Rx Furosemide [Lasix] 40 mg PO BID #120 tab 01/22/18 03/12/18 Rx Allergies Allergy/AdvReac Type Severity Reaction Status Date / Time No Known Allergies Allergy Verified 03/12/18 21:15 Physical Exam Vitals: Vital Signs Temp Pulse Pulse Resp BP BP Pulse Ox 03/13/18 07:52 97.0 F L 77 16 87/45 100 03/13/18 03:35 97 F L 82 18 94/45 99 03/13/18 03:10 97.2 F L 77 18 89/47 100 03/13/18 02:48 97.1 F L 83 18 88/53 100 03/13/18 02:40 97.6 F 74 18 87/42 100 03/13/18 02:30 97.1 F L 74 18 82/46 100 03/13/18 02:10 82 18 84/45 100 03/13/18 01:10 70 18 81/43 100 03/13/18 00:40 85 18 80/39 100 03/12/18 23:14 74 22 93/42 100 03/12/18 22:22 78 20 83/37 98 03/12/18 21:07 96.8 F L 96 20 85/48 96 Intake and Output 03/12/18 03/13/18 03/13/18 22:59 06:59 14:59 Intake Total 400 Balance 400 Intake: Oral 100 Blood Product 300 Rc As-1 Unit 300 [id number] Other: Weight 102.512 kg 99.5 kg General Appearance: Alert, cooperative, no distress, appears stated age. Neck HEENT: Supple, no lymphadenopathy, no thyroid enlargement, no carotid bruits. Lungs: Clear to auscultation without crackles or wheezes no rhonchi, no deformity. Chest Wall: Chest wall normal expansion with deep inspiration no tenderness and no deformity was found on exam, no costochondral pain or discomfort. Heart: Irregular rhythm and rate S1-S2 positive S3 positive systolic murmur Back: Symmetric, no curvature, ROM normal, no CVA tenderness. Abdomen: Soft, non-tender, bowel sounds active all four quadrants, slight discomfort in the epigastric area with no rebound or rigidity. Extremities: Extremities normal, atraumatic, no cyanosis or edema. Pulses: 2+ and symmetric. Skin: Skin color, texture, tugor normal, no rashes or lesions. Neurologic: Alert oriented x3 cranial nerves II through XII intact, no motor deficit, no abnormal balance or gait. Results CBC & Chem 7: 03/13/18 08:47 03/13/18 08:55 Labs: Abnormal Lab Results - Last 24 Hours (Table) 03/12/18 03/12/18 03/12/18 Range/Units 21:05 21:05 21:05 RBC 1.76 L (3.80-5.40) m/uL Hgb 5.9 L* D (11.4-16.0) gm/dL Hct 17.5 L* (34.0-46.0) % Lymphocytes # (Manual) 0.55 L (1.0-4.8) k/uL PT 12.4 H (9.0-12.0) sec INR 1.3 H (<1.2) Sodium 133 L (137-145) mmol/L Potassium 6.2 H* (3.5-5.1) mmol/L Carbon Dioxide 15 L (22-30) mmol/L BUN 65 H (7-17) mg/dL Creatinine 1.96 H (0.52-1.04) mg/dL Glucose 111 H (74-99) mg/dL Total Bilirubin 1.5 H (0.2-1.3) mg/dL Total Protein 4.6 L (6.3-8.2) g/dL Albumin 2.8 L (3.5-5.0) g/dL Stool Occult Blood (Negative) Crossmatch 03/12/18 03/13/18 Range/Units 23:04 00:05 RBC (3.80-5.40) m/uL Hgb (11.4-16.0) gm/dL Hct (34.0-46.0) % Lymphocytes # (Manual) (1.0-4.8) k/uL PT (9.0-12.0) sec INR (<1.2) Sodium (137-145) mmol/L Potassium (3.5-5.1) mmol/L Carbon Dioxide (22-30) mmol/L BUN (7-17) mg/dL Creatinine (0.52-1.04) mg/dL Glucose (74-99) mg/dL Total Bilirubin (0.2-1.3) mg/dL Total Protein (6.3-8.2) g/dL Albumin (3.5-5.0) g/dL Stool Occult Blood Positive H (Negative) Crossmatch See Detail Thrombosis Risk Factor Assmnt - DVT/VTE Prophylaxis DVT/VTE Prophylaxis: Mechanical Prophylaxis ordered - Choose All That Apply Each Risk Factor Represents 3 Points: Age 75 years or older, History of DVT/PE Thrombosis Risk Factor Assessment Total Risk Factor Score: 6 Thrombosis Risk Factor Assessment Level: High Risk Assessment and Plan Plan: 1 acute gastrointestinal bleed: Most likely upper in origin and most likely cause and aggravated by gastritis or peptic ulcer disease with somebody has been on anticoagulation. Consult gastroenterology, consult compensation specialist, we'll continue to watch patient for any further bleed, CBC will be done every 8 hours and transfusion to keep hemoglobin above 9. 2 acute blood loss anemia: Will require 2 units of blood transfusion, correct hemoglobin to above 90 g and watch for any symptoms. 3 recurrent bilateral pleural effusion: Post thoracentesis less than 3 weeks ago , patient still seen pulmonary on regular basis, will repeat chest x-ray. 4 hyperkalemia: Kayexalate along with D50 with insulin will be use, repeat potassium level and if no improvement further management will be done. 5 acute kidney injury: With chronic kidney disease, bun to creatinine ratio is above 20 and this is a prerenal condition with the current problem hydration blood transfusion and recheck BUN/creatinine in 24 hours. 6 A. fib with RVR: Heart rates under control lately patient is doing well will hold off on anticoagulation for the next 3 weeks. 7 COPD: Will use DuoNeb on an as-needed basis. 8 atherosclerosis heart disease: With no angioplasty or stent placement continue medical management. 9 diastolic congestive heart failure: Patient remain on furosemide 40 mg twice a day and spironolactone 12.5 mg daily. 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 11 hyperlipidemia: Remain on atorvastatin 20 mg a day. 12 recurrent gout: Has been on Zyloprim 300 mg daily. 13 GI prophylaxis: Patient will be on pantoprazole IV. 14 DVT prophylaxis: Off anticoagulation for now will continue knee-high CODI hose and Venodyne boots. CODE STATUS: Full code. Admit patient to inpatient status for more than 2 nights.
[2018-03-13] MEDS: ATORVASTATIN 20 MG TAB PO SCH (20:11)
[2018-03-13 20:36] LABS: HCT 20.2 % (34.0-46.0); HGB 7.2 gm/dL (11.4-16.0); MCH 32.4 pg (25.0-35.0); MCHC 35.4 g/dL (31.0-37.0); Mean Platelet Volume 8.6; Platelet Count 122 k/uL (150-450); RBC 2.21 m/uL (3.80-5.40); RDW 15.3 % (11.5-15.5); WBC 2.5 k/uL (3.8-10.6)
[2018-03-13 20:56] LABS: Band Neutrophils % 2 %; Neutrophils % (M) 53 %; Nucleated Red Blood Cells 0 /100 WBC (0-0); Total Cells Counted 100
[2018-03-13 20:58] LABS: Lymphocytes # (M) 1.13 k/uL (1.0-4.8); MCV 91.4 fL (80.0-100.0)
[2018-03-14] MEDS: SODIUM CHLORIDE 0.9% 1,000 ML IV SCH (01:47)
[2018-03-14 07:40] LABS: INR 1.9 (<1.2); Prothrombin Time 17.1 sec (9.0-12.0)
[2018-03-14 07:43] LABS: Albumin 2.2 g/dL (3.5-5.0); Calcium 8.8 mg/dL (8.4-10.2); Potassium 4.4 mmol/L (3.5-5.1); Total Bilirubin 2.1 mg/dL (0.2-1.3); Total Protein 3.9 g/dL (6.3-8.2)
[2018-03-14 07:48] LABS: Anisocytosis Slight; HGB 8.5 gm/dL (11.4-16.0); Poikilocytosis Slight
[2018-03-14 08:16] LABS: MCH 34.8 pg (25.0-35.0); MCHC 37.1 g/dL (31.0-37.0); MCV 93.8 fL (80.0-100.0); Mean Platelet Volume 7.9; Platelet Count 103 k/uL (150-450); RBC 2.45 m/uL (3.80-5.40); RDW 16.4 % (11.5-15.5); WBC 2.6 k/uL (3.8-10.6)
[2018-03-14 08:25] LABS: Eosinophils # (M) 0.05 k/uL (0-0.7); Lymphocytes # (M) 0.73 k/uL (1.0-4.8); Monocytes # (M) 0.26 k/uL (0-1.0); Neutrophils # (M) 1.56 k/uL (1.3-7.7); Neutrophils % (M) 60 %; Nucleated Red Blood Cells 0 /100 WBC (0-0); Total Cells Counted 100
[2018-03-14] MEDS: FOLIC ACID 1 MG TAB PO SCH (09:08)
[2018-03-14] MEDS: ALLOPURINOL 100 MG TAB PO SCH (09:08)
[2018-03-14] MEDS: PANTOPRAZOLE 40 MG/10 ML VIAL IV SCH (09:08)
[2018-03-14] MEDS: FUROSEMIDE 40 MG TAB PO SCH ×2 (09:08→20:29)
[2018-03-14] MEDS: METOPROLOL SUCCINATE (ER) 50 MG TAB.ER.24H PO SCH (09:08)
--- NOTE | 2018-03-14 09:41 | P.PN ---
Subjective Progress Note Date: 03/14/18 Principal diagnosis: Acute GI bleed, acute blood loss anemia, pleural effusion, A. fib, long management with anticoagulation. 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 History of chronic iron deficiency anemia, and history of atrophy fibrillation with rapid ventricular response has been well controlled medication. Patient was hospitalized last 2 months with increased pleural effusion require thoracentesis with analysis of her fluid, has been seen pulmonary on regular basis since. Patient was seen in the office on Thursday with complaint of severe tiredness fatigue found to be pale with high suspicion for severe anemia. CBC was done and hemoglobin reported as 5.7. Patient was call and requested to go to the emergency department where was seen her hemoglobin remained very low started process for blood transfusion, her Hemoccult was positive A she was claimed to be inactive acute gastrointestinal bleed requested GI consult and admit patient to the hospital. Patient will be going for EGD with Dr. Duckworth hopefully today in the meanwhile her hemoglobin is slightly but more stable and no active bleed, has been off anticoagulation for now. Her generalized weakness and fatigue is slightly but better. Hemoglobin is above 8.5 today no need for blood transfusion, patient kidney function has improved since yesterday with mild hydration. Discussion whether to hold her anticoagulation for 2-3 weeks will be discussed after the finding of her EGD. Objective - Vital Signs Vital signs: Vital Signs Temp 96.5 F L 03/14/18 03:30 Pulse 94 03/14/18 04:00 Resp 20 03/14/18 04:00 BP 106/57 03/14/18 03:30 Pulse Ox 96 03/14/18 03:30 Intake & Output 03/13/18 03/14/18 03/14/18 18:59 06:59 18:59 Intake Total 1440 310 Output Total 1150 2049 Balance 290 -1740 Weight 96.5 kg Intake: Oral 820 0 Blood Product 620 310 Rc As-1 Unit 310 [id number] Rc As-1 Unit 310 [id number] Rc Pheresis 2 As3 Unit 310 [id number] Rc Pheresis 2 As3 Unit 0 [id number] Output: Urine 1150 2050 Other: # Voids 1 1 - Exam Review of Systems CONSTITUTIONAL: Well-developed no acute respiratory distress. Severe fatigue and tiredness EYES: No icterus sclerae, no conjunctivitis. EARS, NOSE, MOUTH, THROAT, and FACE: No sore throat, lymphadenopathy, carotid bruits or deformity. RESPIRATORY: No SOB cough or wheezes. CARDIOVASCULAR: No CP, Palpitation, PND, Orthopnea, or angina. GASTROINTESTINAL: Mild abdominal discomfort with nausea with no vomiting.. GENITOURINARY: Negative for Hematuria or UTI, no kidney stones. INTEGUMENT/BREAST: Negative for any muscular injury with mild osteoarthritis.. HEMATOLOGIC/LYMPHATIC: Negative for bleed or purpura. MUSCULOSKELTAL: Negative for Myalgia or arthralgia. NEURLOGICAL: No LOC, Sz or syncope, blurred vision dizziness or abnormality.. BEHAVIORAL/PSYCH: Negative. ENDOCRINE: Negative. Physical: General Appearance: Alert, cooperative, no distress, appears stated age. Neck HEENT: Supple, no lymphadenopathy, no thyroid enlargement, no carotid bruits. Lungs: Clear to auscultation without crackles or wheezes no rhonchi, no deformity. Chest Wall: Chest wall normal expansion with deep inspiration no tenderness and no deformity was found on exam, no costochondral pain or discomfort. Heart: Irregular rhythm and rate S1-S2 positive S3 positive systolic murmur Back: Symmetric, no curvature, ROM normal, no CVA tenderness. Abdomen: Soft, non-tender, bowel sounds active all four quadrants, slight discomfort in the epigastric area with no rebound or rigidity. Extremities: Extremities normal, atraumatic, no cyanosis or edema. Pulses: 2+ and symmetric. Skin: Skin color, texture, tugor normal, no rashes or lesions. Neurologic: Alert oriented x3 cranial nerves II through XII intact, no motor deficit, no abnormal balance or gait. - Labs CBC & Chem 7: 03/14/18 06:39 03/14/18 06:39 Labs: Abnormal Lab Results - Last 24 Hours (Table) 03/13/18 03/13/18 03/13/18 Range/Units 00:05 08:47 08:55 WBC 2.0 L* (3.8-10.6) k/uL RBC 1.69 L (3.80-5.40) m/uL Hgb 5.8 L* (11.4-16.0) gm/dL Hct 16.9 L* (34.0-46.0) % MCHC (31.0-37.0) g/dL RDW 15.6 H (11.5-15.5) % Plt Count 109 L (150-450) k/uL Neutrophils # (Manual) 1.06 L (1.3-7.7) k/uL Lymphocytes # (Manual) 0.82 L (1.0-4.8) k/uL Nucleated RBCs 1 H (0-0) /100 WBC PT (9.0-12.0) sec INR (<1.2) Sodium 136 L (137-145) mmol/L Chloride 111 H (98-107) mmol/L Carbon Dioxide 16 L (22-30) mmol/L BUN 62 H (7-17) mg/dL Creatinine 1.63 H (0.52-1.04) mg/dL Total Bilirubin (0.2-1.3) mg/dL Total Protein 3.7 L (6.3-8.2) g/dL Albumin 2.1 L (3.5-5.0) g/dL Crossmatch See Detail 03/13/18 03/14/18 03/14/18 Range/Units 19:42 06:39 06:39 WBC 2.5 L 2.6 L (3.8-10.6) k/uL RBC 2.21 L 2.45 L (3.80-5.40) m/uL Hgb 7.2 L 8.5 L (11.4-16.0) gm/dL Hct 20.2 L 23.0 L (34.0-46.0) % MCHC 37.1 H (31.0-37.0) g/dL RDW 16.4 H (11.5-15.5) % Plt Count 122 L 103 L (150-450) k/uL Neutrophils # (Manual) (1.3-7.7) k/uL Lymphocytes # (Manual) (1.0-4.8) k/uL Nucleated RBCs (0-0) /100 WBC PT 17.1 H (9.0-12.0) sec INR 1.9 H (<1.2) Sodium (137-145) mmol/L Chloride (98-107) mmol/L Carbon Dioxide (22-30) mmol/L BUN (7-17) mg/dL Creatinine (0.52-1.04) mg/dL Total Bilirubin (0.2-1.3) mg/dL Total Protein (6.3-8.2) g/dL Albumin (3.5-5.0) g/dL Crossmatch 03/14/18 Range/Units 06:39 WBC (3.8-10.6) k/uL RBC (3.80-5.40) m/uL Hgb (11.4-16.0) gm/dL Hct (34.0-46.0) % MCHC (31.0-37.0) g/dL RDW (11.5-15.5) % Plt Count (150-450) k/uL Neutrophils # (Manual) (1.3-7.7) k/uL Lymphocytes # (Manual) (1.0-4.8) k/uL Nucleated RBCs (0-0) /100 WBC PT (9.0-12.0) sec INR (<1.2) Sodium 136 L (137-145) mmol/L Chloride 112 H (98-107) mmol/L Carbon Dioxide 20 L (22-30) mmol/L BUN 43 H (7-17) mg/dL Creatinine 1.13 H (0.52-1.04) mg/dL Total Bilirubin 2.1 H (0.2-1.3) mg/dL Total Protein 3.9 L (6.3-8.2) g/dL Albumin 2.2 L (3.5-5.0) g/dL Crossmatch Assessment and Plan Plan: 1 acute gastrointestinal bleed: Stable so far, patient is going for an EGD and continue PPI for now we'll continue PPI for the next 3-4 weeks and whether to start or not anticoagulation past 7 days will be discussed with the patient after the result. 2 acute blood loss anemia: She had total of 3 units of blood her hemoglobin is up to 8.5, no need for blood transfusion today Minna hemoglobin dropped down further. 3 recurrent bilateral pleural effusion: Post thoracentesis less than 3 weeks ago , patient still seen pulmonary on regular basis, will repeat chest x-ray. 4 hyperkalemia: Potassium improvement back to normal no need for any management for it.. 5 acute kidney injury: Change to almost normal bun and creatinine continue conservative management for now. 6 A. fib with RVR: Heart rates under control lately patient is doing well will hold off on anticoagulation for the next 3 weeks. 7 COPD: Will use DuoNeb on an as-needed basis. 8 atherosclerosis heart disease: With no angioplasty or stent placement continue medical management. 9 diastolic congestive heart failure: Patient remain on furosemide 40 mg twice a day and spironolactone 12.5 mg daily. 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 11 hyperlipidemia: Remain on atorvastatin 20 mg a day. 12 recurrent gout: Has been on Zyloprim 300 mg daily. 13 GI prophylaxis: Patient will be on pantoprazole IV. 14 DVT prophylaxis: Off anticoagulation for now will continue knee-high CODI hose and Venodyne boots. CODE STATUS: Full code. Discharge planning: Patient might be going home in 48 hours if the bleeding stopped and the EGD showed finding consistent with something might be manageable with medication.
[2018-03-14] MEDS ORDERED: LACTATED RINGERS 1,000 ML IV ONE (10:14)
--- NOTE | 2018-03-14 10:45 | P.PCN ---
Date of Procedure: 03/14/18 Procedure(s) Performed: BRIEF HISTORY: Patient is a 82-year-old, pleasant, white female, admitted to hospital with severe symptomatic anemia and hemoglobin of 5.8 g/dL. She received total of 3 units of blood transfusion last hemoglobin is 8.5. She had a colonoscopy one to [address] Amaya which was normal. She denies any GI bleeding. She was noted to have a Hemoccult positive stool. She has history of recurrent DVT and has been on Coumadin which is currently on hold. She is scheduled for an upper endoscopy to rule out peptic ulcer disease PROCEDURE PERFORMED: Esophagogastroduodenoscopy. PREOPERATIVE DIAGNOSIS: Severe symptomatic anemia and a negative colonoscopy one year ago. IV sedation per anesthesia. PROCEDURE: After informed consent was obtained, the patient was brought into the endoscopy unit. IV sedation was administered by Anesthesia under continuous monitoring. Initially the Olympus GIF-140 video endoscope was inserted into the mouth. Esophagus intubated without any difficulty. It was gradually advanced into the stomach and duodenum and carefully examined. The bulb and the second part of the duodenum appeared normal. The scope at this time was withdrawn to the stomach, adequately insufflated with air, and upon careful examination, mucosa of the antrum, body, cardia and the fundus appeared normal. The scope was then withdrawn into the esophagus. The GE junction was located at 39 cm from the incisors. The esophagus appeared normal. There were no erosions or ulcerations seen and the patient tolerated the procedure well. IMPRESSION: 1. Antral erosive gastritis. 2. No evidence of esophagitis or peptic ulcer. RECOMMENDATIONS: The findings of this examination were discussed with the patient as her family. Consult hematology for anemia. Resume regular diet.
--- NOTE | 2018-03-14 12:19 | P.CNPUL ---
History of Present Illness Consult date: 03/14/18 Reason for consult: other Chief complaint: Pleural effusion, anemia, renal failure History of present illness: Pulmonary consultation dated 03/14/2018 This is an 82-year-old female with multiple trips and admissions to the hospital. She apparently presents this time with complaints of shortness of breath and feeling weak. She apparently was found to be quite anemic and subsequently has had 3 units of packed red blood cells. She underwent an EGD today. She also is complaining of profound shortness of breath. She apparently has a history of pleural effusions. One of my partners did a thoracentesis on her and subsequent to that Dr. Barton has placed bilateral Pleurx catheters. She apparently had blood work in her primary doctor's office and was found to be anemic which is why she came into the hospital. She did not notice any blood in her stools black tarry stools or she did not admit to any vomiting up of blood or coffee ground emesis. Her biggest reasons for coming in was that she was told to come in and because of shortness of breath. She has an extensive medical history including atrial fibrillation CAD COPD DVT GERD hypertension DJD pneumonia pulmonary embolism bilateral pleural effusions status post bilateral Pleurx catheter insertions lymphoma brain aneurysm sick sinus syndrome status post pacemaker and a whole host of other medical problems and surgical procedures. She has received 3 units of blood since being admitted to the hospital. Her EGD today showed antral erosive gastritis without evidence of esophagitis or peptic ulcer. Review of Systems A 12 point review of systems is positive for weakness and fatigue shortness of breath on exertion. She's feeling a bit better today. She has received 3 units of blood. She denies any shortness of breath cough wheezing phlegm production chest pain chest discomfort and nausea vomiting or diarrhea at the present time. Past Medical History Past Medical History: Atrial Fibrillation, Atrial Flutter, Coronary Artery Disease (CAD), Cancer, COPD, Deep Vein Thrombosis (DVT), GERD/Reflux, Hypertension, Osteoarthritis (OA), Pneumonia, Pulmonary Embolus (PE) Additional Past Medical History / Comment(s): Pt resently admitted to [facility] on with bilateral pleural effusions and thoracentesis done bilaterally. Echo showed ef of 50-55%. 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 History of Any Multi-Drug Resistant Organisms: None Reported Past Surgical History: Heart Catheterization, Hysterectomy, Joint Replacement, Pacemaker, Tubal Ligation Additional Past Surgical History / Comment(s): Bilateral thoracentesis 12/2017, green field filter, cardiac cath in 2012 with mild disease, ORIF R leg d/t fracture, R eye removed, tooth implants, skin lesions removed from face and R leg, EGD/colonoscopies, bronchoscopy, D&C, L knee arthroscopy, bilateral knee tendon repairs. Past Anesthesia/Blood Transfusion Reactions: No Reported Reaction Additional Past Anesthesia/Blood Transfusion Reaction / Comment(s): Pt has received blood in past without reaction. Type of Cardiac Device: Permanent Pacemaker Device Placement Date:: 02/14/16 Past Psychological History: No Psychological Hx Reported Smoking Status: Former smoker Past Alcohol Use History: None Reported Past Drug Use History: None Reported - Past Family History Father Family Medical History: Cancer, Deep Vein Thrombosis (DVT) Additional Family Medical History / Comment(s): colon cancer at 82 Mother Family Medical History: No Reported History Additional Family Medical History / Comment(s): mother at 103yrs Medications and Allergies Home Medications Medication Instructions Recorded Confirmed Type Potassium Chloride ER [K-Dur 10] 10 meq PO DAILY #30 tab 06/26/15 03/12/18 Rx Atorvastatin [Lipitor] 20 mg PO HS 02/12/16 03/12/18 History Folic Acid 1 mg PO DAILY 01/05/18 03/12/18 History Metoprolol Succinate [Toprol Xl] 25 mg PO DAILY 01/05/18 03/13/18 History Spironolactone [Aldactone] 12.5 mg PO DAILY 01/05/18 03/13/18 History Warfarin Sodium 2.5 mg PO HS 01/05/18 03/12/18 History Acetaminophen Tab [Tylenol] 650 mg PO Q6HR PRN tab 01/09/18 03/12/18 Rx Allopurinol [Zyloprim] 300 mg PO DAILY #60 tab 01/09/18 03/13/18 Rx Furosemide [Lasix] 40 mg PO BID #120 tab 01/22/18 03/12/18 Rx Allergies Allergy/AdvReac Type Severity Reaction Status Date / Time No Known Allergies Allergy Verified 03/12/18 21:15 Physical Exam Osteopathic Statement: *. No significant issues noted on an osteopathic structural exam other than those noted in the History and Physical/Consult. Vitals: Vital Signs Temp Pulse Pulse Resp BP BP Pulse Ox 03/14/18 04:00 94 20 03/14/18 03:30 96.5 F L 75 106/57 96 03/14/18 01:40 98.1 F 91 20 116/53 93 L 03/14/18 01:10 98 F 75 20 103/50 93 L 03/14/18 01:00 98.1 F 92 16 112/53 03/14/18 00:00 94 16 03/13/18 23:45 98.3 F 89 121/53 96 03/13/18 22:55 97.9 F 90 16 111/56 95 03/13/18 22:45 98.5 F 95 18 103/49 95 03/13/18 20:00 97.7 F 94 16 116/54 97 03/13/18 16:57 97.2 F L 84 18 91/46 99 03/13/18 16:10 97.0 F L 70 18 92/48 99 03/13/18 15:46 97.0 F L 78 18 83/42 99 03/13/18 15:40 97.0 F L 81 18 83/42 99 03/13/18 15:30 97.0 F L 74 18 91/42 99 03/13/18 14:27 97.1 F L 85 18 95/44 99 03/13/18 13:29 97.0 F L 79 18 96/44 99 03/13/18 12:59 97.1 F L 75 16 94/44 100 03/13/18 12:49 97.0 F L 78 16 93/45 99 Intake and Output 03/13/18 03/14/18 03/14/18 22:59 06:59 14:59 Intake Total 690 310 580 Output Total 950 1500 Balance -260 1190 580 Intake: IV 100 Oral 380 480 Blood Product 310 310 Rc As-1 Unit 310 [id number] Rc Pheresis 2 As3 Unit 310 [id number] Rc Pheresis 2 As3 Unit 0 0 [id number] Output: Urine 950 1500 Other: # Voids 1 1 1 Weight 96.5 kg No acute distress, oriented 3. Not requiring any supplemental oxygen at this time. She is a bit pale. HEENT examination is grossly unremarkable. Mucous membranes are moist. No oral lesions. Neck supple. Full range of motion. No adenopathy thyromegaly or neck vein distention. Cardiovascular examination reveals irregular rhythm and rate. S1-S2 normal. No S3 or S4. No discernible murmur noted. Lungs reveal mostly clear breath sounds. Her sounds are equal bilaterally. There are a few scattered bibasilar rhonchi noted. Bilateral Pleurx catheters noted. Abdomen soft bowel sounds are heard. No masses or tenderness. Extremities are intact. No cyanosis clubbing or edema. Skin is without rash or lesion. Neurologic examination is brief but nonfocal. Results - Laboratory Findings CBC and BMP: 03/14/18 06:39 03/14/18 06:39 PT/INR, D-dimer PT 17.1 sec (9.0-12.0) H 03/14/18 06:39 INR 1.9 (<1.2) H 03/14/18 06:39 Abnormal lab findings: Abnormal Labs 03/12/18 03/12/18 03/12/18 21:05 21:05 21:05 WBC RBC 1.76 L Hgb 5.9 L* D Hct 17.5 L* MCHC RDW Plt Count Neutrophils # (Manual) Lymphocytes # (Manual) 0.55 L Nucleated RBCs PT 12.4 H INR 1.3 H Sodium 133 L Potassium 6.2 H* Chloride Carbon Dioxide 15 L BUN 65 H Creatinine 1.96 H Glucose 111 H Total Bilirubin 1.5 H Total Protein 4.6 L Albumin 2.8 L Stool Occult Blood Crossmatch 03/12/18 03/13/18 03/13/18 23:04 00:05 08:47 WBC 2.0 L* RBC 1.69 L Hgb 5.8 L* Hct 16.9 L* MCHC RDW 15.6 H Plt Count 109 L Neutrophils # (Manual) 1.06 L Lymphocytes # (Manual) 0.82 L Nucleated RBCs 1 H PT INR Sodium Potassium Chloride Carbon Dioxide BUN Creatinine Glucose Total Bilirubin Total Protein Albumin Stool Occult Blood Positive H Crossmatch See Detail 03/13/18 03/13/1803/14/18 08:55 19:42 06:39 WBC 2.5 L 2.6 L RBC 2.21 L 2.45 L Hgb 7.2 L 8.5 L Hct 20.2 L 23.0 L MCHC 37.1 H RDW 16.4 H Plt Count 122 L 103 L Neutrophils # (Manual) Lymphocytes # (Manual) 0.73 L Nucleated RBCs PT INR Sodium 136 L Potassium Chloride 111 H Carbon Dioxide 16 L BUN 62 H Creatinine 1.63 H Glucose Total Bilirubin Total Protein 3.7 L Albumin 2.1 L Stool Occult Blood Crossmatch 03/14/18 03/14/18 06:39 06:39 WBC RBC Hgb Hct MCHC RDW Plt Count Neutrophils # (Manual) Lymphocytes # (Manual) Nucleated RBCs PT 17.1 H INR 1.9 H Sodium 136 L Potassium Chloride 112 H Carbon Dioxide 20 L BUN 43 H Creatinine 1.13 H Glucose Total Bilirubin 2.1 H Total Protein 3.9 L Albumin 2.2 L Stool Occult Blood Crossmatch - Diagnostic Findings Chest x-ray: report reviewed (Labs x-rays and medications are reviewed.), image reviewed Assessment and Plan Assessment: Assessment Gastrointestinal bleeding secondary to antral erosive gastritis. The patient has required 3 units of PRBCs on this admission Weakness and shortness of breath in part related to her underlying anemia from a GI bleed History of bilateral pleural effusions, status post thoracentesis and bilateral Pleurx catheter placement Chronic atrial fibrillation History of COPD from previous tobacco use History of hyperlipidemia History of hypertension CAD History of lymphoma DVT/pulmonary embolism GERD History of pneumonia Brain aneurysm Plan: Plan dated 03/14/2018 A chest x-ray will be ordered. White count 2.6 hemoglobin up to 8.5 from 5.9 hematocrit 23 and platelet count is 103,000. PT was 17.1 with an INR of 1.9. Sodium 136 potassium 4.4 chloride 112 CO2 20 BUN is down to 43 and 1.13 from 65 and 1.96 on admission. Microbiology is negative. Medications are reviewed. She is on updrafts 4 times a day and when necessary. We'll continue to follow. Pulmonary status seems to be relatively stable at this time. Time with Patient: Greater than 30
--- NOTE | 2018-03-14 17:31 | XR ---
EXAMINATION TYPE: XR chest 1V portable DATE OF EXAM: 03/14/2018 CLINICAL HISTORY: Difficulty breathing progress study. TECHNIQUE: Single AP portable upright view of the chest is obtained. COMPARISON: Chest x-ray from 03/09/2018 FINDINGS: A single lead cardiac conduction device is again seen and unchanged position. Small bilateral pleural effusions with associated atelectasis persists. Minimally increased interstit ial markings are evident. No new focal consolidation or pneumothorax. Osseous structures are unchange d. The cardiomediastinal silhouette is unchanged. IMPRESSION: Overall no significant interval change. Stable small bilateral pleural effusions.
[2018-03-14] MEDS: ATORVASTATIN 20 MG TAB PO SCH (20:29)
[2018-03-15 06:51] LABS: Anisocytosis Slight; HCT 25.6 % (34.0-46.0); HGB 8.8 gm/dL (11.4-16.0); MCH 32.9 pg (25.0-35.0); MCHC 34.3 g/dL (31.0-37.0); MCV 95.9 fL (80.0-100.0); Mean Platelet Volume 7.5; Platelet Count 116 k/uL (150-450); RBC 2.67 m/uL (3.80-5.40); RDW 17.2 % (11.5-15.5); WBC 2.7 k/uL (3.8-10.6)
[2018-03-15] MEDS: SODIUM CHLORIDE 0.9% 1,000 ML IV SCH (06:56)
[2018-03-15 07:00] LABS: INR 1.7 (<1.2); Prothrombin Time 15.9 sec (9.0-12.0)
[2018-03-15 07:08] LABS: Albumin 2.4 g/dL (3.5-5.0); Calcium 9.1 mg/dL (8.4-10.2); Potassium 4.2 mmol/L (3.5-5.1); Total Bilirubin 1.7 mg/dL (0.2-1.3); Total Protein 4.3 g/dL (6.3-8.2)
[2018-03-15 07:35] LABS: Eosinophils # (M) 0.03 k/uL (0-0.7); Lymphocytes # (M) 0.89 k/uL (1.0-4.8); Monocytes # (M) 0.27 k/uL (0-1.0); Neutrophils # (M) 1.51 k/uL (1.3-7.7); Neutrophils % (M) 56 %; Nucleated Red Blood Cells 0 /100 WBC (0-0); Total Cells Counted 100
[2018-03-15 07:36] LABS: Large Platelets Present; Toxic Vacuolation Present
[2018-03-15] MEDS: PANTOPRAZOLE 40 MG/10 ML VIAL IV SCH (08:45)
[2018-03-15] MEDS: METOPROLOL SUCCINATE (ER) 50 MG TAB.ER.24H PO SCH ×2 (08:45→15:56)
[2018-03-15] MEDS: FUROSEMIDE 40 MG TAB PO SCH ×2 (08:45→19:50)
[2018-03-15] MEDS: SPIRONOLACTONE 25 MG TAB PO SCH (08:46)
[2018-03-15] MEDS: ALLOPURINOL 100 MG TAB PO SCH (08:46)
[2018-03-15] MEDS: FOLIC ACID 1 MG TAB PO SCH (08:46)
[2018-03-15 12:42] LABS: Reticulocyte % 13.5 % (0.5-2.0)
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
--- NOTE | 2018-03-15 15:52 | P.PN ---
Subjective Progress Note Date: 03/15/18 82-year-old female one of my office patient of known very well for many years with history of melanoma, history of atherosclerotic heart disease, history of 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 History of chronic iron deficiency anemia, and history of atrophy fibrillation with rapid ventricular response has been well controlled medication. Patient was hospitalized last 2 months with increased pleural effusion require thoracentesis with analysis of her fluid, has been seen pulmonary on regular basis since. Patient was seen in the office on Thursday with complaint of severe tiredness fatigue found to be pale with high suspicion for severe anemia. CBC was done and hemoglobin reported as 5.7. Patient was call and requested to go to the emergency department where was seen her hemoglobin remained very low started process for blood transfusion, her Hemoccult was positive A she was claimed to be inactive acute gastrointestinal bleed requested GI consult and admit patient to the hospital. Patient will be going for EGD with Dr. Duckworth hopefully today in the meanwhile her hemoglobin is slightly but more stable and no active bleed, has been off anticoagulation for now. Her generalized weakness and fatigue is slightly but better. Hemoglobin is above 8.5 today no need for blood transfusion, patient kidney function has improved since yesterday with mild hydration. Discussion whether to hold her anticoagulation for 2-3 weeks will be discussed after the finding of her EGD. 03/15: Yesterday, patient underwent EGD with Dr. Duckworth found antral erosive gastritis. No evidence of esophagitis or peptic ulcer. Recommendations were to consult hematology. Patient was resumed on a regular diet. Patient is tolerating her diet. She states she was up a lot during the night due to Lasix and did not get very much sleep. She has a little left upper quadrant discomfort. She denies having any lightheadedness or dizziness. Patient is followed by Dr. fregoso with recommendations to have pleural fluid evacuated prior to her discharge. Patient does have bilateral Pleurx catheters in place. Chest x-ray showed no sizable pleural effusion. Hemoglobin is stable at 8.8. INR is 1.7, BUN 35 creatinine 1.08. Objective - Vital Signs Vital signs: Vital Signs Temp 97.4 F L 03/15/18 08:49 Pulse 79 03/15/18 08:49 Resp 18 03/15/18 08:49 BP 109/72 03/15/18 08:49 Pulse Ox 97 03/15/18 08:49 Intake & Output 03/14/18 03/15/18 03/15/18 18:59 06:59 18:59 Intake Total 1300 240 Output Total 400 Balance 1300 -400 240 Weight 94.1 kg Intake: IV 100 Oral 1200 240 Output: Urine 400 Other: # Voids 1 1 1 - Exam General Appearance: Alert, cooperative, no distress, appears stated age. Neck HEENT: Supple, no lymphadenopathy, no thyroid enlargement, no carotid bruits. Lungs: Clear to auscultation without crackles or wheezes no rhonchi, no deformity. Chest Wall: Chest wall normal expansion with deep inspiration no tenderness and no deformity was found on exam, no costochondral pain or discomfort. Heart: Irregular rhythm and rate S1-S2 positive S3 positive systolic murmur Back: Symmetric, no curvature, ROM normal, no CVA tenderness. Abdomen: Soft, non-tender, bowel sounds active all four quadrants, slight discomfort in the epigastric area with no rebound or rigidity. Extremities: Extremities normal, atraumatic, no cyanosis or edema. Pulses: 2+ and symmetric. Skin: Skin color, texture, tugor normal, no rashes or lesions. Neurologic: Alert oriented x3 cranial nerves II through XII intact, no motor deficit, no abnormal balance or gait. - Labs CBC & Chem 7: 03/15/18 06:37 03/15/18 06:37 Labs: Abnormal Lab Results - Last 24 Hours (Table) 03/15/18 03/15/18 03/15/18 Range/Units 06:37 06:37 06:37 WBC 2.7 L (3.8-10.6) k/uL RBC 2.67 L (3.80-5.40) m/uL Hgb 8.8 L (11.4-16.0) gm/dL Hct 25.6 L (34.0-46.0) % RDW 17.2 H (11.5-15.5) % Plt Count 116 L (150-450) k/uL Lymphocytes # (Manual) 0.89 L (1.0-4.8) k/uL PT 15.9 H (9.0-12.0) sec INR 1.7 H (<1.2) Chloride 108 H (98-107) mmol/L BUN 35 H (7-17) mg/dL Creatinine 1.08 H (0.52-1.04) mg/dL Total Bilirubin 1.7 H (0.2-1.3) mg/dL Total Protein 4.3 L (6.3-8.2) g/dL Albumin 2.4 L (3.5-5.0) g/dL Assessment and Plan Plan: 1. acute gastrointestinal bleed with erosive gastritis without active bleed found on EGD. No active bleeding. Continue Protonix. Consult with hematology. A shunt is status post transfusion of 3 units of packed RBCs. 2. acute blood loss anemia: No transfusion. 3. Recurrent bilateral pleural effusion status post Pleurx catheters bilaterally. Consult with Dr. Katie pichardo. Plan for emptying of catheters bilaterally before discharge. 4 hyperkalemia: Potassium improvement back to normal no need for any management for it.. 5 acute kidney injury: back to baseline. 6. Chronic atrial fibrillation with no sign of A. fib with RVR. Coumadin is currently on hold due to GI bleed. Continue Toprol-XL 50 mg daily. 7. COPD: Will use DuoNeb on an as-needed basis. 8. Atherosclerosis heart disease: With no angioplasty or stent placement continue medical management. 9. Chronic diastolic heart failure. Continue furosemide 40 mg twice a day and spironolactone 12.5 mg daily. 10. History of melanoma has affected the eye post resection has been in remission. 11. Hhyperlipidemia: Remain on atorvastatin 20 mg a day. 12. Recurrent gout: Has been on Zyloprim 300 mg daily. 13. Pancytopenia. Consult with Dr. Pisano. 14. GI prophylaxis: Patient will be on pantoprazole IV. 15. DVT prophylaxis: Off anticoagulation for now will continue knee-high CODI hose and Venodyne boots. CODE STATUS: Full code. Discharge plan: Return home with [facility] care in place. Impression and plan of care have been directed as dictated by the signing physician. Geneva Dc nurse practitioner acting as scribe for signing physician.
[2018-03-15 19:22] LABS: Iron Saturation 43.68 (12.00-45.00)
[2018-03-15] MEDS: ATORVASTATIN 20 MG TAB PO SCH (19:50)
[2018-03-16 01:42] VITALS: RESP 18
[2018-03-16 06:41] LABS: INR 1.3 (<1.2)
[2018-03-16] MEDS: SODIUM CHLORIDE 0.9% 1,000 ML IV SCH (08:54)
[2018-03-16] MEDS: ALLOPURINOL 100 MG TAB PO SCH (08:57)
[2018-03-16] MEDS: METOPROLOL SUCCINATE (ER) 50 MG TAB.ER.24H PO SCH (08:57)
[2018-03-16] MEDS: SPIRONOLACTONE 25 MG TAB PO SCH (08:57)
[2018-03-16] MEDS: FUROSEMIDE 40 MG TAB PO SCH (08:58)
[2018-03-16] MEDS: PANTOPRAZOLE 40 MG/10 ML VIAL IV SCH (08:58)
[2018-03-16] MEDS: FOLIC ACID 1 MG TAB PO SCH (08:58)
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
[2018-03-16 12:23] VITALS: BP 120/57; PULSE 82; TEMP 97.1
[2018-03-16 14:50] LABS: Haptoglobin 37.1 mg/dL (31.2-198.0)
--- NOTE | 2018-03-16 14:56 | P.PN ---
Subjective Progress Note Date: 03/16/18 Principal diagnosis: Hemolytic Anemia Hemoglobin is stable, no acute events overnight Objective - Vital Signs Vital signs: Vital Signs Temp 97.1 F L 03/16/18 12:00 Pulse 82 03/16/18 12:00 Resp 18 03/16/18 12:00 BP 120/57 03/16/18 12:00 Pulse Ox 97 03/16/18 12:00 Intake & Output 03/15/18 03/16/18 03/16/18 18:59 06:59 18:59 Intake Total 480 360 Balance 480 360 Weight 93.8 kg Intake: Oral 480 360 Other: Voiding Method Toilet # Voids 2 2 0 - Constitutional General appearance: Present: cooperative, no acute distress - EENT Eyes: Present: EOMI, dentition normal ENT: Present: NA/AT, normal oropharynx - Neck Details: supple Neck: Present: normal ROM - Respiratory Respiratory: bilateral: CTA - Cardiovascular Rhythm: regular Heart sounds: normal: S1, S2 - Gastrointestinal General gastrointestinal: Present: normal bowel sounds, soft, tenderness - Integumentary Integumentary: Present: pale - Neurologic Neurologic: Present: CNII-XII intact - Musculoskeletal Musculoskeletal: Present: generalized weakness, strength equal bilaterally - Psychiatric Psychiatric: Present: A&O x's 3, appropriate affect - Labs CBC & Chem 7: 03/15/18 06:37 03/15/18 06:37 Labs: Abnormal Lab Results - Last 24 Hours (Table) 03/15/18 03/16/18 Range/Units 06:37 05:56 INR 1.3 H (<1.2) Ferritin 563.1 H (10.0-291.0) ng/mL Assessment and Plan Plan: Assessment and Plan (1) Anemia Narrative/Plan: The patient has had a prior history of anemia, due to hemolysis. This actually recovered with just 1 dose of Rituxan. She is now presenting with a new drop in hemoglobin that is quite marked. She has responded appropriately to transfusion. EGD did not show any major findings. She has had a colonoscopy within the last 2 years. The patient is on warfarin on a regular basis. On admission actually her INR was not therapeutic. She reports possibly one partial black stool in the last several weeks but not otherwise. - Given her history the GI bleed, as well as hemolysis or both in the differential diagnosis. Bone marrow involvement due to lymphoma recurrence is felt to be much less likely. I will check iron studies (though these might be affected by the blood transfusion), as well as hemolysis markers. Await biopsy results from the EGD. In the meantime continue to monitor, and transfuse as needed. - If the patient is found to have iron deficiency, indicating bleed, he would have to make a decision about continued anticoagulation. In the absence of obvious major acute bleed, continuation of anticoagulation, with aggressive monitoring and and supplementation can be an option. - Will obtain an appointment as outpatient this week to check CBC and possibly set up for IVIG in addition to steroids. Current Visit: Yes Status: Acute Code(s): D64.9 - ANEMIA, UNSPECIFIED SNOMED Code(s): 159910820 (2) Pleural effusion Narrative/Plan: serial testing has been negative for malignancy. The patient is currently status post bilateral Pleuryx tubes, and has had good control of symptoms with intermittent drainage. On exam today there does not appear to be major accumulation. Current Visit: No Status: Acute Code(s): J90 - PLEURAL EFFUSION, NOT ELSEWHERE CLASSIFIED SNOMED Code(s): 35227491 (3) MALT (mucosa associated lymphoid tissue) Narrative/Plan: the patient had a history of MALT lymphoma of the left eye treated with enucleation. She has had no evidence of disease elsewhere so far Current Visit: Yes Status: Acute Code(s): C88.4 - EXTRNOD MRGNL ZN B-CELL LYMPH OF MUCOSA-ASSOC LYMPHOID TISS SNOMED Code(s): 452399583
--- NOTE | 2018-03-17 12:21 | P.DS ---
Providers Date of admission: 03/13/18 00:42 Expected date of discharge: 03/16/18 Attending physician: Alfredo Norwood Consults: 03/13/18 00:43 Consult Physician Routine Consulting Provider: Kourtney Duckworth Consult Reason/Comments: hemoccult positive. Anemia. Do you want consulting provider notified?: Yes 03/13/18 10:38 Consult Physician Routine Consulting Provider: Jace Garcia Consult Reason/Comments: Pleural effusion Do you want consulting provider notified?: Yes 03/14/18 10:45 Consult Physician Routine Consulting Provider: Almas Ngo Consult Reason/Comments: anemia Do you want consulting provider notified?: Yes Primary care physician: [facility] Course: 82-year-old female one of my office patient of known very well for many years with history of MALT lymphoma of the left eye post resection, history of atherosclerotic heart disease, history of 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 History of chronic iron deficiency anemia, and history of atrophy fibrillation with rapid ventricular response has been well controlled medication. Patient was hospitalized last 2 months with increased pleural effusion require thoracentesis with analysis of her fluid, has been seen pulmonary on regular basis since. Patient was seen in the office on Thursday with complaint of severe tiredness fatigue found to be pale with high suspicion for severe anemia. CBC was done and hemoglobin reported as 5.7. Patient was call and requested to go to the emergency department where was seen her hemoglobin remained very low started process for blood transfusion, her Hemoccult was positive A she was claimed to be inactive acute gastrointestinal bleed requested GI consult and admit patient to the hospital. Patient will be going for EGD with Dr. Duckworth hopefully today in the meanwhile her hemoglobin is slightly but more stable and no active bleed, has been off anticoagulation for now. Her generalized weakness and fatigue is slightly but better. Hemoglobin is above 8.5 today no need for blood transfusion, patient kidney function has improved since yesterday with mild hydration. Discussion whether to hold her anticoagulation for 2-3 weeks will be discussed after the finding of her EGD. 03/15: Yesterday, patient underwent EGD with Dr. Duckworth found antral erosive gastritis. No evidence of esophagitis or peptic ulcer. Recommendations were to consult hematology. Patient was resumed on a regular diet. Patient is tolerating her diet. She states she was up a lot during the night due to Lasix and did not get very much sleep. She has a little left upper quadrant discomfort. She denies having any lightheadedness or dizziness. Patient is followed by Dr. fregoso with recommendations to have pleural fluid evacuated prior to her discharge. Patient does have bilateral Pleurx catheters in place. Chest x-ray showed no sizable pleural effusion. Hemoglobin is stable at 8.8. INR is 1.7, BUN 35 creatinine 1.08. 03/16: Patient has had Pleurx catheter drained this morning by her cardiovascular surgery services with removal of 650 mL on the right and 1 L on the left. Patient is currently off Coumadin and to resume this in 3 weeks. Patient will be discharged home today in stable condition. Discharge diagnoses: 1. Acute gastrointestinal bleed with erosive gastritis without active bleed found on EGD. 2. Acute blood loss anemia: No transfusion. 3. Recurrent bilateral pleural effusion status post Pleurx catheters bilaterally. 4. Hyperkalemia: 5. Acute kidney injury with chronic kidney disease stage III 6. Chronic atrial fibrillation with no sign of A. fib with RVR. 7. COPD 8. Atherosclerosis heart disease 9. Chronic diastolic heart failure. 10. History of MALT lymphoma of the left eye post resection 11. Hyperlipidemia 12. Recurrent gout 13. Pancytopenia. 14. Chronic anemia of chronic illness with history of hemolysis Discharge plan: Return home with [facility] Impression and plan of care have been directed as dictated by the signing physician. Geneva Dc nurse practitioner acting as scribe for signing physician. Patient Condition at Discharge: Good Plan - Discharge Summary New Discharge Prescriptions: Continue Atorvastatin [Lipitor] 20 mg PO HS Spironolactone [Aldactone] 12.5 mg PO DAILY Metoprolol Succinate [Toprol Xl] 25 mg PO DAILY Folic Acid 1 mg PO DAILY Acetaminophen Tab [Tylenol] 650 mg PO Q6HR PRN tab PRN Reason: Mild Pain Or Fever > 100.5 Allopurinol [Zyloprim] 300 mg PO DAILY #60 tab Furosemide [Lasix] 40 mg PO BID #120 tab Discontinued Potassium Chloride ER [K-Dur 10] 10 meq PO DAILY #30 tab Warfarin Sodium 2.5 mg PO HS Discharge Medication List Atorvastatin [Lipitor] 20 mg PO HS 02/12/16 [History] Folic Acid 1 mg PO DAILY 01/05/18 [History] Metoprolol Succinate [Toprol Xl] 25 mg PO DAILY 01/05/18 [History] Spironolactone [Aldactone] 12.5 mg PO DAILY 01/05/18 [History] Acetaminophen Tab [Tylenol] 650 mg PO Q6HR PRN tab 01/09/18 [Rx] Allopurinol [Zyloprim] 300 mg PO DAILY #60 tab 01/09/18 [Rx] Furosemide [Lasix] 40 mg PO BID #120 tab 01/22/18 [Rx] Follow up Appointment(s)/Referral(s): Artem Fisher MD [STAFF PHYSICIAN] - 04/14/18 3:00 pm (Please keep previous appointment.) Diego Velasco MD [STAFF PHYSICIAN] - 3 Weeks (Office will call you with follow up appointment.) Alfredo Norwood MD [Primary Care Provider] - 03/22/18 1:30 pm (Thursday with LOADING MACHINE OPERATOR HELPER) Kourtney Duckworth MD [STAFF PHYSICIAN] - 05/03/18 3:45 pm [facility], [NON-STAFF] - Almas Ngo MD [STAFF PHYSICIAN] - 03/23/18 12:00 pm Ambulatory/Diagnostic Orders: Miscellaneous Lab Order [LAB.AMB] Location: None Selected Basic Metabolic Panel [LAB.AMB] Location: None Selected Complete Blood Count w/diff [LAB.AMB] Location: None Selected Patient Instructions/Handouts: Acute Kidney Injury (DC), Diet for Stomach Ulcers and Gastritis (GEN), Iron Rich Diet (DC), Upper Endoscopy (DC), Anemia ( DC) Activity/Diet/Wound Care/Special Instructions: Hold Coumadin for 3 weeks Discharge Disposition: HOME WITH HOME HEALTH SERVICES
== END 2018-03-16 16:16 | disposition home health service (06) | DRG 378 ==
LOC: EC 20:57 → 6SEL 03-13 00:42
PROVIDERS: ADMIT Internal Medicine Geriatric Medicine; ATTEND Internal Medicine Geriatric Medicine
PROC: 0DJ08ZZ Inspection of Upper Intestinal Tract, Via Natural or Artificial Opening Endoscopic (ICD-10-PCS; principal; 2018-03-14 10:00)
DX: K29.01 Acute gastritis with bleeding (principal); D61.818 Other pancytopenia; D62 Acute posthemorrhagic anemia; I13.0 Hypertensive heart and chronic kidney disease with heart failure and stage 1 through stage 4 chronic kidney disease, or unspecified chronic kidney disease; I50.32 Chronic diastolic (congestive) heart failure; N17.9 Acute kidney failure, unspecified; I48.92 Unspecified atrial flutter; C88.4 Extranodal marginal zone B-cell lymphoma of mucosa-associated lymphoid tissue [MALT-lymphoma]; D63.8 Anemia in other chronic diseases classified elsewhere; E78.5 Hyperlipidemia, unspecified; E87.5 Hyperkalemia; I25.10 Atherosclerotic heart disease of native coronary artery without angina pectoris; I48.2 Chronic atrial fibrillation; I67.1 Cerebral aneurysm, nonruptured; J44.9 Chronic obstructive pulmonary disease, unspecified; K21.9 Gastro-esophageal reflux disease without esophagitis; M10.9 Gout, unspecified; M19.90 Unspecified osteoarthritis, unspecified site; N18.3 Chronic kidney disease, stage 3 (moderate); G43.909 Migraine, unspecified, not intractable, without status migrainosus; K57.90 Diverticulosis of intestine, part unspecified, without perforation or abscess without bleeding; R91.1 Solitary pulmonary nodule; R01.1 Cardiac murmur, unspecified; Z79.01 Long term (current) use of anticoagulants; Z79.899 Other long term (current) drug therapy; Z95.0 Presence of cardiac pacemaker; Z90.710 Acquired absence of both cervix and uterus; Z90.01 Acquired absence of eye; Z87.891 Personal history of nicotine dependence; Z87.440 Personal history of urinary (tract) infections; Z87.01 Personal history of pneumonia (recurrent); Z86.718 Personal history of other venous thrombosis and embolism; Z86.711 Personal history of pulmonary embolism; Z86.010 Personal history of colon polyps; Z85.820 Personal history of malignant melanoma of skin; Z96.60 Presence of unspecified orthopedic joint implant; Z80.0 Family history of malignant neoplasm of digestive organs; Z82.49 Family history of ischemic heart disease and other diseases of the circulatory system
CPT/HCPCS: 36415; 43235; 71045; 80053; 82272; 82728; 83010; 83540; 83550; 83615; 85025; 85045; 85610; 85730; 86850; 86900; 86901; 86920; 93005; 96365; 96375; 99285

== ENCOUNTER 2018-03-29 05:59 | Day surgery (SDC) | payer MEDICARE ==
[2018-03-26 11:10] VITALS: BMI 28.4
[~2018-03-29 05:59] MED LIST changes: +LACTATED RINGERS 1,000 ML IV SCH; +LIDOCAINE 1% 20 ML VIAL (10MG/ML) FOR IV START INTRADERMA PRN; -Pre Op ABX Message 1 EACH MISC MISCELLANE ONE
[2018-03-29 06:42] VITALS: RESP 16; TEMP 97.8
[2018-03-29] MEDS ORDERED: PROPOFOL 10 MG/ML 20 ML VIAL IV ONE (07:04)
[2018-03-29] MEDS ORDERED: LIDOCAINE 1% INJ 10MG/ML (20 ML MDV) ONE (07:04)
--- NOTE | 2018-03-29 07:57 | PCN ---
PROCEDURE NOTE PROCEDURE: Bone marrow aspirate and biopsy. INDICATION: History of MALT lymphoma and autoimmune hemolytic anemia. PROCEDURE: After obtaining consent from the patient, the procedure was performed in the endoscopy suite under general anesthesia performed by the anesthesia team. The patient was put on the left lateral decubitus position. The right posterior superior iliac crest was localized. Skin was cleansed with ChloraPrep. All sterile procedures were followed and 2 mL 1% Xylocaine was used for local anesthetic. A small incision was made. The Monoject needle was inserted and 15 mL aspirate was obtained and about 1 cm core biopsy was obtained without difficulties. Pressure applied afterwards. There was negligible blood loss. Patient tolerated the procedure very well without any immediate complications. MMODL / IJN: [id number] /
[2018-03-29] MEDS ORDERED: ACETAMINOPHEN TAB 325 MG TAB PO ONE (08:03)
[2018-03-29 08:21] VITALS: BP 111/73; PULSE 76
[2018-03-29 08:33] LABS: Anisocytosis Moderate; HCT 25.4 % (34.0-46.0); HGB 9.4 gm/dL (11.4-16.0); Hypochromasia Slight; MCH 36.6 pg (25.0-35.0); MCV 98.9 fL (80.0-100.0); Macrocytosis Moderate; Mean Platelet Volume 8.1; Platelet Count 132 k/uL (150-450); Poikilocytosis Moderate; RBC 2.57 m/uL (3.80-5.40); RDW 20.9 % (11.5-15.5)
[2018-03-29 09:13] LABS: Band Neutrophils % 3 %; Eosinophils # (M) 0.09 k/uL (0-0.7); Lymphocytes # (M) 0.39 k/uL (1.0-4.8); Monocytes # (M) 0.42 k/uL (0-1.0); Neutrophils % (M) 67 %; Nucleated Red Blood Cells 0 /100 WBC (0-0); Total Cells Counted 100
[2018-03-29 09:15] LABS: Poikilocytosis (M) Present
[2018-03-29 09:16] LABS: Polychromasia Present
[2018-03-29 09:17] LABS: Toxic Vacuolation Present
[2018-03-29] MEDS ORDERED: LIDOCAINE 1% 20 ML VIAL (10MG/ML) FOR IV START INTRADERMA PRN (18:54)
[2018-03-29] MEDS ORDERED: MIDAZOLAM 2 MG/2 ML VIAL IV PRN (18:54)
[2018-03-29] MEDS ORDERED: LACTATED RINGERS 1,000 ML IV SCH (19:00)
== END 2018-03-29 08:38 | disposition home or self-care (01) ==
LOC: OR 05:59
PROVIDERS: ATTEND Internal Medicine Hematology & Oncology
DX: D53.9 Nutritional anemia, unspecified (principal); D69.6 Thrombocytopenia, unspecified; D72.810 Lymphocytopenia; I10 Essential (primary) hypertension; Z86.711 Personal history of pulmonary embolism; I50.9 Heart failure, unspecified; Z95.0 Presence of cardiac pacemaker; Z90.01 Acquired absence of eye; Z87.891 Personal history of nicotine dependence; J90 Pleural effusion, not elsewhere classified; Z79.899 Other long term (current) drug therapy
CPT/HCPCS: 38222; 85025; J2001; J2704

== ENCOUNTER 2018-05-20 12:13 | Inpatient (IN) | payer MEDICARE ==
--- NOTE | 2018-05-20 12:38 | ED ---
General Adult HPI - General Chief complaint: Recheck/Abnormal Lab/Rx Stated complaint: LOW HEMOGLOBIN Time Seen by Provider: 05/20/18 12:15 Source: patient, RN notes reviewed Mode of arrival: wheelchair Limitations: no limitations - History of Present Illness Initial comments: This is an 82-year-old female presents emergency department from outpatient chemotherapy. Patient was there to get her chemotherapy treatment for her lymphoma and blood work was done that showed she had a hemoglobin in the fives. Patient states she has had blood transfusions in the past and she thought she might be low because of her weakness and fatigue. Patient denies any shortness of breath. Patient denies any lightheadedness or dizziness. Patient denies any near syncopal episode. Patient denies any black or bloody stools. Patient denies any pain. She denies a headache she denies numbness weakness. Patient denies chest pain palpitations difficulty breathing or shortness of breath. Patient denies abdominal pain patient denies nausea vomiting diarrhea. - Related Data Home Medications Medication Instructions Recorded Confirmed Atorvastatin [Lipitor] 20 mg PO HS 02/12/16 05/20/18 Folic Acid 1 mg PO DAILY 01/05/18 05/20/18 Metoprolol Succinate [Toprol Xl] 25 mg PO DAILY 01/05/18 05/20/18 Spironolactone [Aldactone] 12.5 mg PO DAILY 01/05/18 05/20/18 Previous Rx's Medication Instructions Recorded Acetaminophen Tab [Tylenol] 650 mg PO Q6HR PRN tab 01/09/18 Allopurinol [Zyloprim] 300 mg PO DAILY #60 tab 01/09/18 Furosemide [Lasix] 40 mg PO BID #120 tab 01/22/18 Allergies Allergy/AdvReac Type Severity Reaction Status Date / Time No Known Allergies Allergy Verified 05/20/18 12:18 Review of Systems ROS Statement: Those systems with pertinent positive or pertinent negative responses have been documented in the HPI. ROS Other: All systems not noted in ROS Statement are negative. Past Medical History Past Medical History: Atrial Fibrillation, Atrial Flutter, Blood Disorder, Coronary Artery Disease (CAD), Cancer, COPD, Deep Vein Thrombosis (DVT), GERD/ Reflux, Hypertension, Osteoarthritis (OA), Pneumonia, Pulmonary Embolus (PE) Additional Past Medical History / Comment(s): Bilat Pleural Effusions, HAS PLEURX CATHS MICHAEL; [facility] NURSE [facility]IA [facility] 3X/WK. Echo showed ef of 50-55% . Lymphoma, R eye removed d/t CA; SKIN CA. 1994 Brain Aneurysm w/ Surgery, LT hand weakness since. SSS w/ Pacemaker. R leg DVT, L lung PE. Benign colon polyps. RECENT ADM FOR ANEMIA SX, TRANSFUSED X3. HX UTIs, Diverticular dx, Migraines. History of Any Multi-Drug Resistant Organisms: None Reported Past Surgical History: Heart Catheterization, Hysterectomy, Joint Replacement, Pacemaker, Tubal Ligation Additional Past Surgical History / Comment(s): Bilateral thoracentesis 12/2017, [place] Filter, cardiac cath in 2012 w/ mild disease, ORIF R leg d/t fracture, R eye removed, tooth implants, EXC skin lesions face and R leg, EGD/ colonoscopies, bronchoscopy, D&C, L knee arthroscopy, bilateral knee tendon repairs. Past Anesthesia/Blood Transfusion Reactions: No Reported Reaction Additional Past Anesthesia/Blood Transfusion Reaction / Comment(s): Pt has received blood in past without reaction. Type of Cardiac Device: Permanent Pacemaker Device Placement Date:: 02/14/16 Past Psychological History: No Psychological Hx Reported Smoking Status: Never smoker Past Alcohol Use History: None Reported Past Drug Use History: None Reported - Past Family History Father Family Medical History: Cancer, Deep Vein Thrombosis (DVT) Additional Family Medical History / Comment(s): colon cancer at 82 Mother Family Medical History: No Reported History Additional Family Medical History / Comment(s): mother at 103yrs General Exam - General Exam Comments Initial Comments: GENERAL: Patient is well-developed and well-nourished. Patient is nontoxic and well- hydrated and is in no acute distress. ENT: Neck is soft and supple. No significant lymphadenopathy is noted. Oropharynx is clear. Moist mucous membranes. Neck has full range of motion without eliciting any pain. EYES: The sclera were anicteric and conjunctiva are pale. Extraocular movements were intact and pupils were equal round and reactive to light. Eyelids were unremarkable. PULMONARY: Unlabored respirations. Good breath sounds bilaterally. No audible rales rhonchi or wheezing was noted. CARDIOVASCULAR: There is a regular rate and rhythm without any murmurs gallops or rubs. ABDOMEN: Soft and nontender with normal bowel sounds. No palpable organomegaly was noted. There is no palpable pulsatile mass. SKIN: Skin is extremely pale NEUROLOGIC: Patient is alert and oriented x3. Cranial nerves II through XII are grossly intact. Motor and sensory are also intact. Normal speech, volume and content. Symmetrical smile. MUSCULOSKELETAL: Normal extremities with adequate strength and full range of motion. No lower extremity swelling or edema. No calf tenderness. LYMPHATICS: No significant lymphadenopathy is noted PSYCHIATRIC: Normal psychiatric evaluation. Limitations: no limitations Course Vital Signs 05/20/18 12:18 Temperature 97.8 F Pulse Rate 67 Respiratory 18 Rate Blood Pressure 108/53 O2 Sat by Pulse 100 Oximetry Medical Decision Making - Medical Decision Making Patient's hemoglobin was 5. Patient had 2 units of packed red blood cells ordered and transfusion was to begin as soon as blood was received. I spoke with Dr. Gunderson she agreed to admit the patient admitted the patient I wrote admitting orders and continue transfusions on the floor. EKG shows paced rhythm at 60 bpm QRS is 80 QT interval 424 QTC is 450. Patient has an occasional PVC - Lab Data Lab Results 05/20/18 Range/Units 11:00 Blood Type O Positive Blood Type Recheck No Antibody Screen NEGATIVE Crossmatch See Detail Spec Expiration Date 05/23/20182299 Disposition Clinical Impression: Symptomatic anemia, History of lymphoma Disposition: ADMITTED IP TO THIS [facility] Time of Disposition: 12:55
[2018-05-20] MEDS ORDERED: SODIUM CHLORIDE 0.9% 1,000 ML IV ONE (12:56)
[2018-05-20 13:16] LABS: INR 1.1 (<1.2); Partial Thromboplastin Time 29.2 sec (22.0-30.0); Prothrombin Time 10.4 sec (9.0-12.0)
[2018-05-20 13:44] LABS: Albumin 2.8 g/dL (3.5-5.0); Calcium 8.9 mg/dL (8.4-10.2); Potassium 4.6 mmol/L (3.5-5.1); Total Bilirubin 1.9 mg/dL (0.2-1.3); Total Protein 4.7 g/dL (6.3-8.2)
--- NOTE | 2018-05-20 14:10 | XR ---
EXAMINATION TYPE: XR chest 2V DATE OF EXAM: 05/20/2018 COMPARISON: 03/14/2018 INDICATION: Difficulty breathing TECHNIQUE: Frontal and lateral views of the chest are obtained. FINDINGS: The heart size is mild cardiomegaly. The pulmonary vasculature is normal. Small posterior pleural effusions are present. Right-sided chest tube is present on the left side dina st tube is present.. There is a electronic device overlies left chest. IMPRESSION: 1. Small posterior bilateral pleural effusions with bilateral chest tubes.
[2018-05-20 16:01] VITALS: BMI 23.8
[2018-05-20] MEDS: FUROSEMIDE 40 MG TAB PO SCH (17:54)
[2018-05-20] MEDS: ACETAMINOPHEN TAB 325 MG TAB PO PRN (18:05)
--- NOTE | 2018-05-20 20:29 | P.HPIM ---
History of Present Illness H&P Date: 05/20/18 82-year-old female patient of Dr. 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 History of chronic iron deficiency anemia, and history of atrial fibrillation with rapid ventricular response has been well controlled medication,melanoma, COPD, GERD sick sinus syndrome and permanent pacemaker implantation.last hospitalised for pleural effusion s/p thoracentesis, history of fatigue and tiredness found to have anemia requiring trnasfusion in 2017. Patient underwent EGD in February and was found to have antral erosive gastritis but no evidence of peptic ulcer was seen with plan to resume anticoagulation in 3 weeks. Patient has Pleurx catheter and get pleural fluid removed from both pleural spaces 3 times a week. 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 Patient comes in from outpatient chemotherapy for anemia with hemoglobin of 5.7. 2 units of PRBCs was transfused in the ER patient was admitted for further evaluation of anemia. She is currently off anticoagulation. She denies any 3 of dark stool but does complain of fatigue and generalized tiredness. She has noticed that her left pleural effusion is bloody in color but right is clear.It is in the ER suggested temp of 96.6 respiratory rate 18, blood pressure 118/58 saturating well on room air. Labs evaluated in the outpatient chemotherapy suggested hemoglobin of 5.1, platelets 28, WBC 2.5, reticulocyte count 8, LDH 1442, creatinine 0.88, glucose 128, total bilirubin 1.9 albumin 2.8. EKG suggests atrial fibrillation but pacemaker does not appear to be close to the QRS complex. Cardiology consulted for evaluation. Hematology consulted for pancytopenia. 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 With peripheral smear concerning for macrocytic normochromic normocytic anemia. Oncology consulted for further assessment. Haptoglobin LDH ordered for hemolysis workup Review of Systems Constitutional: Reports fatigue, Reports lethargy, Reports malaise, Reports weakness, Denies anorexia, Denies chills, Denies chronic pain, Denies fever, Denies night sweats, Denies poor appetite Eyes: right decreased vision, right loss of vision, denies blurred vision, denies discharge Ears, nose, mouth and throat: Denies ant. neck pain, Denies bleeding gums, Denies dysphagia, Denies epistaxis, Denies headache, Denies hoarseness, Denies nasal discharge, Denies neck fullness/pressure, Denies neck lump, Denies odynophagia, Denies post-nasal drip Cardiovascular: Reports decreased exercise tolerance, Reports lightheadedness, Denies chest pain, Denies claudication, Denies dyspnea on exertion, Denies edema , Denies high blood pressure, Denies leg edema, Denies orthopnea, Denies palpitations, Denies shortness of breath Respiratory: Denies congestion, Denies cough, Denies cough with sputum, Denies dyspnea Gastrointestinal: Denies abdominal pain, Denies belching, Denies bloating, Denies BRBPR, Denies change in bowel habits, Denies coffee ground emesis, Denies constipation, Denies diarrhea, Denies hematemesis, Denies hematochezia, Denies indigestion, Denies melena, Denies nausea, Denies vomiting Genitourinary: Denies nocturia, Denies urgency, Denies urinary frequency, Denies vaginal discharge, Denies vaginal dryness, Denies vaginal itching Musculoskeletal: Denies arm numbness/tingling, Denies limitation of motion, Denies loss of height, Denies low back pain, Denies morning stiffness Musculoskeletal: bilateral: ankle pain, ankle stiffness, ankle swelling, elbow pain, foot pain, foot swelling, hand stiffness, hip stiffness, knee pain, shoulder pain Integumentary: Denies acne, Denies brittle nails, Denies change in hair/nails, Denies darkening of skin, Denies foot/leg ulcers, Denies hirsutism, Denies lesions, Denies rash, Denies sores, Denies striae Neurological: Denies aphasia, Denies ataxia, Denies balance difficulties, Denies burning pain, Denies change in mentation, Denies change in smell/taste, Denies change in speech, Denies confusion, Denies double vision, Denies lack of coordination, Denies loss of vision, Denies memory loss, Denies motor disturbance, Denies numbness Psychiatric: Denies anxiety, Denies depression, Denies hallucinations, Denies hopelessness, Denies hypersomnia Endocrine: Denies cold intolerance, Denies deepening of the voice, Denies excessive sweating, Denies excessive thirst, Denies heat intolerance, Denies high blood sugars, Denies increase in ring/shoe/hat size, Denies low blood sugars, Denies palpitations Past Medical History Past Medical History: Atrial Fibrillation, Atrial Flutter, Blood Disorder, Coronary Artery Disease (CAD), Cancer, COPD, Deep Vein Thrombosis (DVT), GERD/ Reflux, Hypertension, Osteoarthritis (OA), Pneumonia, Pulmonary Embolus (PE) Additional Past Medical History / Comment(s): Bilat Pleural Effusions, HAS PLEURX CATHS MICHAEL; [facility] NURSE VIA [facility] 3X/WK. Echo showed ef of 50-55% . Lymphoma, R eye removed d/t CA; SKIN CA. 1994 Brain Aneurysm w/ Surgery, LT hand weakness since. SSS w/ Pacemaker. R leg DVT, L lung PE. Benign colon polyps. RECENT ADM FOR ANEMIA SX, TRANSFUSED X3. HX UTIs, Diverticular dx, Migraines. History of Any Multi-Drug Resistant Organisms: None Reported Past Surgical History: Heart Catheterization, Hysterectomy, Joint Replacement, Pacemaker, Tubal Ligation Additional Past Surgical History / Comment(s): Bilateral thoracentesis 12/2017, [place] Filter, cardiac cath in 2012 w/ mild disease, ORIF R leg d/t fracture, R eye removed, tooth implants, EXC skin lesions face and R leg, EGD/ colonoscopies, bronchoscopy, D&C, L knee arthroscopy, bilateral knee tendon repairs. Past Anesthesia/Blood Transfusion Reactions: No Reported Reaction Additional Past Anesthesia/Blood Transfusion Reaction / Comment(s): Pt has received blood in past without reaction. Type of Cardiac Device: Permanent Pacemaker Device Placement Date:: 02/14/16 Smoking Status: Never smoker - Past Family History Father Family Medical History: Cancer, Deep Vein Thrombosis (DVT) Additional Family Medical History / Comment(s): colon cancer at 82 Mother Family Medical History: No Reported History Additional Family Medical History / Comment(s): mother at 103yrs Medications and Allergies Home Medications Medication Instructions Recorded Confirmed Type Atorvastatin [Lipitor] 20 mg PO HS 02/12/16 05/20/18 History Folic Acid 1 mg PO DAILY 01/05/18 05/20/18 History Metoprolol Succinate [Toprol Xl] 25 mg PO DAILY 01/05/18 05/20/18 History Spironolactone [Aldactone] 25 mg PO DAILY 01/05/18 05/20/18 History Acetaminophen Tab [Tylenol] 650 mg PO Q6HR PRN tab 01/09/18 05/20/18 Rx Allopurinol [Zyloprim] 300 mg PO DAILY #60 tab 01/09/18 05/20/18 Rx Furosemide [Lasix] 40 mg PO BID #120 tab 01/22/18 05/20/18 Rx Baclofen 5 mg PO BID 05/20/18 05/20/18 History Losartan [Cozaar] 50 mg PO DAILY 05/20/18 05/20/18 History Allergies Allergy/AdvReac Type Severity Reaction Status Date / Time No Known Allergies Allergy Verified 05/20/18 13:46 Physical Exam Vitals: Vital Signs Temp Pulse Pulse Resp BP BP Pulse Ox 05/20/18 18:03 100 05/20/18 17:59 97.6 F 62 18 111/57 05/20/18 17:45 97.0 F L 73 18 133/63 05/20/18 17:00 66 18 05/20/18 16:14 96.6 F L 70 18 118/58 100 05/20/18 16:00 96.4 F L 66 18 135/63 100 05/20/18 15:08 97.3 F L 61 22 134/60 100 05/20/18 14:55 97.0 F L 68 22 117/53 05/20/18 14:25 98.0 F 70 22 113/56 05/20/18 14:15 98.3 F 65 22 111/55 05/20/18 12:18 97.8 F 67 18 108/53 100 Intake and Output 05/20/18 05/20/18 05/20/18 06:59 14:59 22:59 Intake Total 0 790 Output Total 300 Balance 0 490 Intake: Oral 480 Blood Product 0 310 Rc Pheresis 2 As3 Unit 0 310 [id number] Rc Pheresis As-3 Unit 0 [id number] Output: Urine 300 Other: Voiding Method Bedside Commode # Voids 1 # Bowel Movements 0 Weight 88.451 kg 77.5 kg - Constitutional General appearance: average body habitus, cooperative, no acute distress - EENT Eyes: no abnormal pupil, EOMI, PERRLA, no photophobia (No vision in the right eye) ENT: hearing grossly normal Ears: bilateral: normal - Neck Neck: no lymphadenopathy, no normal ROM Carotids: bilateral: upstroke normal Thyroid: bilateral: normal size - Respiratory Respiratory: bilateral: CTA, negative: diminished, dullness, rhonchi, wheezing, prolonged expiration - Cardiovascular Rhythm: irregularly irregular Heart sounds: normal: S1, S2 Abnormal Heart Sounds: no systolic murmur, no diastolic murmur, no rub, no S3 Gallop, no S4 Gallop ankle Peripheral Edema: bilateral: None - Gastrointestinal General gastrointestinal: normal bowel sounds, soft, no tenderness - Integumentary Integumentary: no calor, no cellulitis, no cyanotic, no decreased turgor - Neurologic Neurologic: CNII-XII intact - Musculoskeletal Musculoskeletal: gait normal, generalized weakness, strength equal bilaterally - Psychiatric Psychiatric: A&O x's 3, appropriate affect, intact judgment & insight Results CBC & Chem 7: 05/20/18 12:57 Labs: Abnormal Lab Results - Last 24 Hours (Table) 05/20/18 05/20/18 Range/Units 11:00 12:57 Chloride 108 H (98-107) mmol/L BUN 23 H (7-17) mg/dL Glucose 128 H (74-99) mg/dL Total Bilirubin 1.9 H (0.2-1.3) mg/dL Total Protein 4.7 L (6.3-8.2) g/dL Albumin 2.8 L (3.5-5.0) g/dL Crossmatch See Detail Thrombosis Risk Factor Assmnt - DVT/VTE Prophylaxis DVT/VTE Prophylaxis: Mechanical Prophylaxis ordered - Choose All That Apply Each Risk Factor Represents 3 Points: Age 75 years or older, History of DVT/PE Other congenital or acquired thrombophilia - If yes, enter type in comment: No Thrombosis Risk Factor Assessment Total Risk Factor Score: 6 Thrombosis Risk Factor Assessment Level: High Risk Assessment and Plan Plan: 1 acute anemia differential include hemolysis versus gastrointestinal bleed. Fecal occult ordered. EGD done in February 2018 suggestive antral gastritis. Currently not on Coumadin. 2 units PRBC transfused CBC every 6 hours transfuse hemoglobin less than 7 other possibility include a hemolytic anemia from lymphoma. 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 Hematology oncology consulted CBC daily. Platelet transfusion if less than 10 stop continue to watch for any bleeding 3 recurrent bilateral pleural effusion: Pleurx catheter in place bilaterally. Home care nurse helps with drainage of Pleurx catheter 3 times a week patient does not know how to do it. 4 A. fib with RVR: Heart rates under control lately patient is doing well, anticoagulation on hold since 03/15 continue to hold until addressed by hematology 5 Sick sinus syndrome status post permanent pacemaker. EKG does show pacer not close to the QRS. Pacemaker interrogation. Cardiology consulted 6 history of DVT and pulmonary embolism patient is at risk of bleeding will hold Coumadin for now until cleared by hematology. 7 COPD: Will use DuoNeb on an as-needed basis. 8 atherosclerosis heart disease: With no angioplasty or stent placement continue medical management. 9 diastolic congestive heart failure: Patient remain on furosemide 40 mg twice a day and spironolactone 12.5 mg daily. 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 11 hyperlipidemia: Remain on atorvastatin 20 mg a day. 12 recurrent gout: Has been on Zyloprim 300 mg daily. 13 GI prophylaxis: Patient will be on pantoprazole IV. 14 DVT prophylaxis: Off anticoagulation for now will continue knee-high CODI hose and Venodyne boots. CODE STATUS: Full code. Admit patient to inpatient status for more than 2 nights.
[2018-05-20] MEDS: ATORVASTATIN 20 MG TAB PO SCH (20:35)
[2018-05-20] MEDS: BACLOFEN 10 MG TAB PO SCH (20:36)
[2018-05-20 21:26] LABS: Anisocytosis Slight; MCH 34.1 pg (25.0-35.0); MCHC 34.5 g/dL (31.0-37.0); MCV 99.1 fL (80.0-100.0); Macrocytosis Slight; Mean Platelet Volume 7.9; Poikilocytosis Slight; RBC 1.79 m/uL (3.80-5.40); RDW 19.2 % (11.5-15.5); WBC 2.1 k/uL (3.8-10.6)
[2018-05-20 21:31] LABS: HCT 17.7 % (34.0-46.0); HGB 6.1 gm/dL (11.4-16.0)
[2018-05-20 22:46] LABS: Platelet Count 24 k/uL (150-450)
[2018-05-21] MEDS: FUROSEMIDE 40 MG TAB PO SCH ×2 (06:41→18:38)
[2018-05-21 07:48] LABS: Anisocytosis Slight; HCT 21.3 % (34.0-46.0); HGB 7.4 gm/dL (11.4-16.0); MCH 32.4 pg (25.0-35.0); MCHC 34.8 g/dL (31.0-37.0); Macrocytosis Slight; Mean Platelet Volume 10.7; Poikilocytosis Slight; RBC 2.29 m/uL (3.80-5.40); RDW 19.6 % (11.5-15.5); WBC 2.3 k/uL (3.8-10.6)
[2018-05-21 07:54] LABS: MCV 93.3 fL (80.0-100.0); Platelet Count 23 k/uL (150-450)
[2018-05-21] MEDS: BACLOFEN 10 MG TAB PO SCH ×2 (08:19→20:31)
[2018-05-21] MEDS: FOLIC ACID 1 MG TAB PO SCH (08:19)
[2018-05-21] MEDS: SPIRONOLACTONE 25 MG TAB PO SCH (08:20)
[2018-05-21] MEDS: METOPROLOL SUCCINATE (ER) 25 MG TAB.ER.24H PO SCH (08:20)
[2018-05-21] MEDS: LOSARTAN 50 MG TAB PO SCH (08:20)
[2018-05-21] MEDS: ALLOPURINOL 300 MG TAB PO SCH (08:20)
[2018-05-21 08:37] LABS: Band Neutrophils % 2 %; Eosinophils # (M) 0.07 k/uL (0-0.7); Lymphocytes # (M) 0.32 k/uL (1.0-4.8); Monocytes # (M) 0.23 k/uL (0-1.0); Neutrophils % (M) 71 %; Nucleated Red Blood Cells 0 /100 WBC (0-0); Total Cells Counted 100
[2018-05-21 08:38] LABS: Toxic Granulation Present
--- NOTE | 2018-05-21 08:50 | CONS ---
CONSULTATION CHIEF COMPLAINT: Shortness of breath and palpitations. Zelda is an 82-year-old lady with history of lymphoma, coronary artery disease, DVT, pulmonary embolism, history of atrial fibrillation and iron deficiency anemia, history of sick sinus syndrome, status post permanent pacemaker, who has had episodes of iron- deficiency anemia and required blood transfusion. Has recently received outpatient chemotherapy and had anemia with a hemoglobin of 5.7 for which she received blood transfusion and is admitted for the same. I have been consulted to evaluate the pacemaker. Patient denies any chest pain but has shortness of breath and is aware of her heartbeat. She thinks that her pacemaker is not functioning as well as it should. Patient is constantly twiddling with her pacemaker and I get a sense that she is constantly moving the pacemaker generator. I have evaluated the EKGs and rhythm strips that are available and pacemaker is appropriately sensing and pacing. Patient is unusually aware of her heartbeat, probably related to the anemia. However, I am going to get her pacemaker evaluated since the last time it was checked was 6 months ago and I will also obtain a 2D echo to evaluate her LV function. PAST MEDICAL HISTORY: Significant for sick sinus syndrome status post permanent pacemaker, history of atrial fibrillation, DVT, lymphoma, GERD, hypertension, osteoarthritis, pneumonia and pulmonary embolism. MEDICATIONS: She is currently on Lipitor, Toprol-XL 25 mg daily, Aldactone 25 mg daily, Tylenol, allopurinol, Lasix, baclofen, and losartan. ALLERGIES: There are no known drug allergies. FAMILY HISTORY: Negative for premature coronary artery disease. SOCIAL HISTORY: Negative for current smoking, EtOH abuse, or drug abuse. REVIEW OF SYSTEMS: HEENT: Unremarkable. CARDIAC: As described above. RESPIRATORY: As described above. GI: Negative. GENITOURINARY: Negative. ALLERGY/IMMUNOLOGY: Negative. SKIN: Negative. MUSCULOSKELETAL: Significant for arthritis. PSYCHOSOCIAL: Negative. ENDOCRINE: Negative. HEMATOLOGICAL: Significant for anemia and lymphoma. DERM: Negative. CONSTITUTIONAL: Negative. ONCOLOGICAL: Negative. PHYSICAL EXAM: Patient is comfortable at rest. Afebrile. Heart rate is 68 beats per minute, irregular. Blood pressure is 140/60, respiratory rate is 18. Chest exam reveals good air entry bilaterally. Heart exam reveals first and second heart sounds. No gallop. Has a systolic murmur at the left lower sternal border. Abdomen is soft. Exam of the extremities did not reveal any edema. Peripheral pulses are felt. The patient had an echocardiogram in December of this year which showed normal LV function. ASSESSMENT: 1. Symptomatic anemia. 2. Sick sinus syndrome, status post permanent pacemaker. 3. Lymphoma. 4. History of atrial fibrillation. PLAN: 1. Patient's anticoagulation is currently on hold due to severe anemia and history of blood loss. 2. I do not see any evidence of pacemaker malfunction, but will get it tested while she is here. Thank you for allowing us to participate in the care of this pleasant lady. MMODL / IJN: [id number] /
--- NOTE | 2018-05-21 13:09 | CDI ---
Last Revision, July 2017 Documentation Clarification Form Date: 05/21/2018 1:00:49 PM From: Margy Johns [facility], CCDS Admit Date: 05/20/2018 12:57:00 PM Patient Name: Zelda Pena Visit Number: [id number] Discharge Date: ATTENTION: The Clinical Documentation Specialists (CDI) and [facility] Coding Staff appreciate your assistance in clarifying documentation. Please respond to the clarification below the line at the bottom and electronically sign. The CDI & [facility] Coding staff will review the response and follow-up if needed. Please note: Queries are made part of the Legal Health Record. If you have any questions, please contact the author of this message via ITS. Dontrell Sosa MD: Atrial fibrillation is documented in the Cardiology consult as a history of atrial fibrillation. Per the History & Physical, atrial fibrillation is documented as "EKG suggests atrial fibrillation but pacemaker does not appear to be close to the QRS complex." History/Risk Factors: CAD, A Fib, A Flutter with pacemaker, DVT, PE, Hypertension, Lymphoma. Clinical Indicators: Patient presented from outpatient chemo with anemia. EKG/telemetry: R 68 Demand pacemaker, interpretation is based on intrinsic rhythm. Atrial fibrillation w/PVCs, Low voltage QRS. LAB: WBC 2.1*, RBC 1.79*, Hgb 6.1, Hct 17.7, Pl Ct 24*. Treatment: Anticoagulation is currently held due to chemo. IV fluid, Home meds: po Lasix, Lipitor, Lioresal, Zyloprim, Cozaar, Toprol, Aldactone. Per cardiology consult, pacemaker will be interrogated this admission. In your professional opinion, can you please clarify the type of atrial fibrillation, if known? Chronic/Permanent Paroxysmal Persistent Other, please specify Unable to determine chronic MTDD
--- NOTE | 2018-05-21 13:58 | P.CONS ---
History of Present Illness - Reason for Consult Consult date: 05/21/18 MALT Lymphoma Requesting physician: Gonzalo Harrell - Chief Complaint pancytopenia - History of Present Illness This is a very nice lady who presented with buldging of her right eye in the summer of 2011 and got progressively worse associated with significant decrease in her vision.She was evaluated by a local cyber security manager and found to have retinal detachement and was referred to [facility].She had a CT scan of the brain on 06/04/2012 which revealed high density materials within the right globe.A CT scan of chest/abdomen/pelvis and a bone scan done on 06/04/2012 were negative except for a 5 mm lung nodule.Her laboratory work up was unremarkable. 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 History of chronic iron deficiency anemia, and history of atrial fibrillation with rapid ventricular response has been well controlled medication ,melanoma, COPD, GERD sick sinus syndrome and permanent pacemaker implantation.last hospitalised for pleural effusion s/p thoracentesis, history of fatigue and tiredness found to have anemia requiring trnasfusion in 2017. Patient underwent EGD in February and was found to have antral erosive gastritis but no evidence of peptic ulcer was seen with plan to resume anticoagulation in 3 weeks. Patient has Pleurx catheter and get pleural fluid removed from both pleural spaces 3 times a week. 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 She had a repeat CT scan of orbit on 11/18/2012 which was negative.(I reviewed it with Dr Zhang and felt no significant changes from prior CT scan). Repeat CT scan of head on 03/13/2014 revealed no significant changes. Repeat CT scan of orbits on 10/05/2015 revealed no evidence of recurrent lymphoma. On 12/30/2017,she started rituxan for worsening hemolytic anemia,had one infusion,she ended up in hospital with fluid overload,had thoracentesis done, cytology and flowcytometry were negative for malignancy. She required multiple blood transfusion in February/2018,had a CT scan of abdomen/ pelvis in December/2017 which revealed abdominal and pelvis adenopathies. 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 On 04/22/2018,she started BR regimen. She is tolerating treatment well,stating that she feels much better since she felt in several months,she still has drainage from bilateral PleuRx catheter,it slowed down significantly from the right side,her appetite is well,no systemic symptom complaints at last follow-up with Dr. Ngo. She was sent from outpatient infusion for hemoglobin of 5.2, status post 2 unit of PRBC. 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 Echo showed ef of 50-55% . Lymphoma, R eye removed d/t CA; SKIN CA. 1994 Brain Aneurysm w/ Surgery, LT hand weakness since. SSS w/ Pacemaker. R leg DVT, L lung PE. Benign colon polyps. RECENT ADM FOR ANEMIA SX, TRANSFUSED X3. HX UTIs, Diverticular dx, Migraines. History of Any Multi-Drug Resistant Organisms: None Reported Past Surgical History: Heart Catheterization, Hysterectomy, Joint Replacement, Pacemaker, Tubal Ligation Additional Past Surgical History / Comment(s): Bilateral thoracentesis 12/2017, [place] Filter, cardiac cath in 2012 w/ mild disease, ORIF R leg d/t fracture, R eye removed, tooth implants, EXC skin lesions face and R leg, EGD/ colonoscopies, bronchoscopy, D&C, L knee arthroscopy, bilateral knee tendon repairs. Past Anesthesia/Blood Transfusion Reactions: No Reported Reaction Additional Past Anesthesia/Blood Transfusion Reaction / Comm: Pt has received blood in past without reaction. Type of Cardiac Device: Permanent Pacemaker Device Placement Date:: 02/14/16 Smoking Status: Never smoker - Past Family History Father Family Medical History: Cancer, Deep Vein Thrombosis (DVT) Additional Family Medical History / Comment(s): colon cancer at 82 Mother Family Medical History: No Reported History Additional Family Medical History / Comment(s): mother at 103yrs Medications and Allergies Home Medications Medication Instructions Recorded Confirmed Type Atorvastatin [Lipitor] 20 mg PO HS 02/12/16 05/20/18 History Folic Acid 1 mg PO DAILY 01/05/18 05/20/18 History Metoprolol Succinate [Toprol Xl] 25 mg PO DAILY 01/05/18 05/20/18 History Spironolactone [Aldactone] 25 mg PO DAILY 01/05/18 05/20/18 History Acetaminophen Tab [Tylenol] 650 mg PO Q6HR PRN tab 01/09/18 05/20/18 Rx Allopurinol [Zyloprim] 300 mg PO DAILY #60 tab 01/09/18 05/20/18 Rx Furosemide [Lasix] 40 mg PO BID #120 tab 01/22/18 05/20/18 Rx Baclofen 5 mg PO BID 05/20/18 05/20/18 History Losartan [Cozaar] 50 mg PO DAILY 05/20/18 05/20/18 History Allergies Allergy/AdvReac Type Severity Reaction Status Date / Time No Known Allergies Allergy Verified 05/20/18 13:46 Physical Exam Vitals: Vital Signs Temp Pulse Pulse Pulse Resp BP BP 05/21/18 11:43 97.6 F 65 18 105/57 05/21/18 08:15 97.6 F 60 16 120/57 05/21/18 08:00 60 60 16 05/21/18 05:08 97.9 F 68 14 147/62 05/21/18 04:00 98.0 F 71 17 125/59 05/21/18 00:00 98.9 F 65 65 18 142/76 05/20/18 22:57 98.9 F 65 18 142/76 05/20/18 22:48 97.9 F 62 17 123/58 05/20/18 20:00 97.9 F 62 17 123/67 05/20/18 19:45 97.9 F 62 17 123/58 05/20/18 18:03 05/20/18 17:59 97.6 F 62 18 111/57 05/20/18 17:45 97.0 F L 73 18 133/63 05/20/18 17:00 66 18 05/20/18 16:14 96.6 F L 70 18 118/58 05/20/18 16:00 96.4 F L 66 18 135/63 05/20/18 15:08 97.3 F L 61 22 134/60 05/20/18 14:55 97.0 F L 68 22 117/53 05/20/18 14:25 98.0 F 70 22 113/56 05/20/18 14:15 98.3 F 65 22 111/55 Pulse Ox 05/21/18 11:43 99 05/21/18 08:15 100 05/21/18 08:00 05/21/18 05:08 98 05/21/18 04:00 99 05/21/18 00:00 99 05/20/18 22:57 99 05/20/18 22:48 100 05/20/18 20:00 100 05/20/18 19:45 100 05/20/18 18:03 100 05/20/18 17:59 05/20/18 17:45 05/20/18 17:00 05/20/18 16:14 100 05/20/18 16:00 100 05/20/18 15:08 100 05/20/18 14:55 05/20/18 14:25 05/20/18 14:15 Intake and Output 05/20/18 05/21/18 05/21/18 22:59 06:59 14:59 Intake Total 1100 310 360 Output Total 802 012 2745 Balance 650 -390 -1440 Intake: Oral 480 360 Blood Product 620 310 Rc As-1 Unit 0 310 [id number] Rc Pheresis 2 As3 Unit 310 [id number] Rc Pheresis As-3 Unit 310 [id number] Output: Urine 763 344 2967 Other: Voiding Method Bedside Commode Bedside Commode Bedside Commode # Voids 1 2 1 # Bowel Movements 0 0 Weight 77.5 kg 93.8 kg - Constitutional General appearance: average body habitus, cooperative, no acute distress - EENT Eyes: no abnormal pupil, EOMI, PERRLA, no photophobia (No vision in the right eye) ENT: hearing grossly normal Ears: bilateral: normal - Neck Neck: no lymphadenopathy, no normal ROM Carotids: bilateral: upstroke normal Thyroid: bilateral: normal size - Respiratory Respiratory: bilateral: CTA, negative: diminished, dullness, rhonchi, wheezing, prolonged expiration - Cardiovascular Rhythm: irregularly irregular Heart sounds: normal: S1, S2 Abnormal Heart Sounds: no systolic murmur, no diastolic murmur, no rub, no S3 Gallop, no S4 Gallop ankle Peripheral Edema: bilateral: None - Gastrointestinal General gastrointestinal: normal bowel sounds, soft, no tenderness - Integumentary Integumentary: no calor, no cellulitis, no cyanotic, no decreased turgor - Neurologic Neurologic: CNII-XII intact - Musculoskeletal Musculoskeletal: gait normal, generalized weakness, strength equal bilaterally - Psychiatric Psychiatric: A&O x's 3, appropriate affect, intact judgment & insigh Results CBC & Chem 7: 05/21/18 05:47 05/20/18 12:57 Labs: Abnormal Lab Results - Last 24 Hours (Table) 05/20/18 05/20/18 05/20/18 Range/Units 11:00 12:57 20:52 WBC 2.1 L (3.8-10.6) k/uL RBC 1.79 L (3.80-5.40) m/uL Hgb 6.1 L* (11.4-16.0) gm/dL Hct 17.7 L* (34.0-46.0) % RDW 19.2 H (11.5-15.5) % Plt Count 24 L (150-450) k/uL Lymphocytes # (Manual) (1.0-4.8) k/uL Chloride 108 H (98-107) mmol/L BUN 23 H (7-17) mg/dL Glucose 128 H (74-99) mg/dL Total Bilirubin 1.9 H (0.2-1.3) mg/dL Total Protein 4.7 L (6.3-8.2) g/dL Albumin 2.8 L (3.5-5.0) g/dL Crossmatch See Detail 05/21/18 Range/Units 05:47 WBC 2.3 L (3.8-10.6) k/uL RBC 2.29 L (3.80-5.40) m/uL Hgb 7.4 L (11.4-16.0) gm/dL Hct 21.3 L (34.0-46.0) % RDW 19.6 H (11.5-15.5) % Plt Count 23 L (150-450) k/uL Lymphocytes # (Manual) 0.32 L (1.0-4.8) k/uL Chloride (98-107) mmol/L BUN (7-17) mg/dL Glucose (74-99) mg/dL Total Bilirubin (0.2-1.3) mg/dL Total Protein (6.3-8.2) g/dL Albumin (3.5-5.0) g/dL Crossmatch Assessment and Plan Plan: Assessment and Recommendations: 1. Pancytopenia secondary to Lymphoma and chemotherapy Anemia: - Hx: Of Hemolytic anemia, work-up in progress - Transfuse PRN to keep above 7 Thrombocytopenia: - Transfuse less than 10 or if s/s bleeding less than 50 Leukopenia: - Lymphocytopenia secondary to lymphoma - Neutrophils ANC 1.6 today 2. MALT LYmphoma: - Status Post Cycle One of [place] and Rituxan on 04/23/18 - Full History of Lymphoma in HPI - COntinue Supportive Care Plan: Patient has responded to transfusion, will await blood work and hemoglobin on 05-21 prior to initiation of steroids. THis could be secondary to recent chemotherapy. Discussed in full with Dr. Pisano
--- NOTE | 2018-05-21 15:24 | P.PN ---
Subjective Progress Note Date: 05/21/18 82-year-old female patient of Dr. 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 History of chronic iron deficiency anemia, and history of atrial fibrillation with rapid ventricular response has been well controlled medication,melanoma, COPD, GERD sick sinus syndrome and permanent pacemaker implantation.last hospitalised for pleural effusion s/p thoracentesis, history of fatigue and tiredness found to have anemia requiring trnasfusion in 2017. Patient underwent EGD in February and was found to have antral erosive gastritis but no evidence of peptic ulcer was seen with plan to resume anticoagulation in 3 weeks. Patient has Pleurx catheter and get pleural fluid removed from both pleural spaces 3 times a week. 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 Patient comes in from outpatient chemotherapy for anemia with hemoglobin of 5.7. 2 units of PRBCs was transfused in the ER patient was admitted for further evaluation of anemia. She is currently off anticoagulation. She denies any 3 of dark stool but does complain of fatigue and generalized tiredness. She has noticed that her left pleural effusion is bloody in color but right is clear.It is in the ER suggested temp of 96.6 respiratory rate 18, blood pressure 118/58 saturating well on room air. Labs evaluated in the outpatient chemotherapy suggested hemoglobin of 5.1, platelets 28, WBC 2.5, reticulocyte count 8, LDH 1442, creatinine 0.88, glucose 128, total bilirubin 1.9 albumin 2.8. EKG suggests atrial fibrillation but pacemaker does not appear to be close to the QRS complex. Cardiology consulted for evaluation. Hematology consulted for pancytopenia. 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 With peripheral smear concerning for macrocytic normochromic normocytic anemia. Oncology consulted for further assessment. Haptoglobin LDH ordered for hemolysis workup 05/21: Patient is status post transfusion of 2 units of packed RBC for hemoglobin of 5.2. Hemoglobin this morning is 7.4. Patient states she is feeling well with no new complaints. Patient states she has not had a bowel movement since she was at home yesterday. She denies any black or tarry in his to her stools. She denies any blood in her urine. She denies any chest pain or shortness of breath. She states cardiology has seen her in no concerns. There is a problem with interrogating her pacemaker which the nursing staff is working on. Oncology to evaluate see if we can discharge home. Most likely anemia secondary to lymphoma we do not plan to consult GI as she recently had workup. We will have nursing staff drained Pleurx catheters today. She is normally done Thursday and Thursday by home care. Patient can be discharged home once cleared by consultants. Objective - Vital Signs Vital signs: Vital Signs Temp 97.6 F 05/21/18 08:15 Pulse 60 05/21/18 08:15 Resp 16 05/21/18 08:15 BP 120/57 05/21/18 08:15 Pulse Ox 100 05/21/18 08:15 Intake & Output 05/20/18 05/21/18 05/21/18 18:59 06:59 18:59 Intake Total 550 860 120 Output Total 300 850 Balance 250 10 120 Weight 77.5 kg 93.8 kg Intake: Oral 240 240 120 Blood Product 310 620 Rc As-1 Unit 310 [id number] Rc Pheresis 2 As3 Unit 310 [id number] Rc Pheresis As-3 Unit 0 310 [id number] Output: Urine 300 850 Other: Voiding Method Bedside Commode Bedside Commode Bedside Commode # Voids 1 2 # Bowel Movements 0 - Exam General appearance: average body habitus, cooperative, no acute distress - EENT Eyes: no abnormal pupil, EOMI, PERRLA, no photophobia (No vision in the right eye) ENT: hearing grossly normal Ears: bilateral: normal - Neck Neck: no lymphadenopathy, no normal ROM Carotids: bilateral: upstroke normal Thyroid: bilateral: normal size - Respiratory Respiratory: bilateral: CTA, negative: diminished, dullness, rhonchi, wheezing, prolonged expiration - Cardiovascular Rhythm: irregularly irregular Heart sounds: normal: S1, S2 Abnormal Heart Sounds: no systolic murmur, no diastolic murmur, no rub, no S3 Gallop, no S4 Gallop ankle Peripheral Edema: bilateral: None - Gastrointestinal General gastrointestinal: normal bowel sounds, soft, no tenderness - Integumentary Integumentary: no calor, no cellulitis, no cyanotic, no decreased turgor - Neurologic Neurologic: CNII-XII intact - Musculoskeletal Musculoskeletal: gait normal, generalized weakness, strength equal bilaterally - Psychiatric Psychiatric: A&O x's 3, appropriate affect, intact judgment & insight - Labs CBC & Chem 7: 05/21/18 05:47 05/20/18 12:57 Labs: Abnormal Lab Results - Last 24 Hours (Table) 05/20/18 05/20/18 05/20/18 Range/Units 11:00 12:57 20:52 WBC 2.1 L (3.8-10.6) k/uL RBC 1.79 L (3.80-5.40) m/uL Hgb 6.1 L* (11.4-16.0) gm/dL Hct 17.7 L* (34.0-46.0) % RDW 19.2 H (11.5-15.5) % Plt Count 24 L (150-450) k/uL Lymphocytes # (Manual) (1.0-4.8) k/uL Chloride 108 H (98-107) mmol/L BUN 23 H (7-17) mg/dL Glucose 128 H (74-99) mg/dL Total Bilirubin 1.9 H (0.2-1.3) mg/dL Total Protein 4.7 L (6.3-8.2) g/dL Albumin 2.8 L (3.5-5.0) g/dL Crossmatch See Detail 05/21/18 Range/Units 05:47 WBC 2.3 L (3.8-10.6) k/uL RBC 2.29 L (3.80-5.40) m/uL Hgb 7.4 L (11.4-16.0) gm/dL Hct 21.3 L (34.0-46.0) % RDW 19.6 H (11.5-15.5) % Plt Count 23 L (150-450) k/uL Lymphocytes # (Manual) 0.32 L (1.0-4.8) k/uL Chloride (98-107) mmol/L BUN (7-17) mg/dL Glucose (74-99) mg/dL Total Bilirubin (0.2-1.3) mg/dL Total Protein (6.3-8.2) g/dL Albumin (3.5-5.0) g/dL Crossmatch Assessment and Plan Plan: 1 acute anemia differential include hemolysis versus gastrointestinal bleed. Fecal occult ordered. EGD done in February 2018 suggestive antral gastritis. Currently not on Coumadin. 2 units PRBC transfused, monitor hemoglobin and transfuse hemoglobin less than 7 other possibility include a hemolytic anemia from lymphoma. 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 Hematology oncology consulted CBC daily. Platelet transfusion if less than 10 stop continue to watch for any bleeding 3 recurrent bilateral pleural effusion: Pleurx catheter in place bilaterally. Home care nurse helps with drainage of Pleurx catheter 3 times a week patient does not know how to do it. 4 A. fib with RVR: Heart rates under control lately patient is doing well, anticoagulation on hold since 03/15 continue to hold until addressed by hematology 5 Sick sinus syndrome status post permanent pacemaker. EKG does show pacer not close to the QRS. Pacemaker interrogation. Cardiology consulted 6 history of DVT and pulmonary embolism patient is at risk of bleeding will hold Coumadin for now until cleared by hematology. 7 COPD: Will use DuoNeb on an as-needed basis. 8 atherosclerosis heart disease: With no angioplasty or stent placement continue medical management. 9 diastolic congestive heart failure: Patient remain on furosemide 40 mg twice a day and spironolactone 12.5 mg daily. 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 11 hyperlipidemia: Remain on atorvastatin 20 mg a day. 12 recurrent gout: Has been on Zyloprim 300 mg daily. 13 GI prophylaxis: Patient will be on pantoprazole IV. 14 DVT prophylaxis: Off anticoagulation for now will continue knee-high CODI hose and Venodyne boots. CODE STATUS: Full code. Discharge plan: Home with homecare Impression and plan of care have been directed as dictated by the signing physician. Geneva Dc nurse practitioner acting as scribe for signing physician.
[2018-05-21] MEDS: ACETAMINOPHEN TAB 325 MG TAB PO PRN (16:31)
[2018-05-21] MEDS: ATORVASTATIN 20 MG TAB PO SCH (20:31)
[2018-05-22] MEDS: FUROSEMIDE 40 MG TAB PO SCH ×2 (06:08→17:04)
[2018-05-22 07:58] LABS: Calcium 8.8 mg/dL (8.4-10.2); Potassium 4.3 mmol/L (3.5-5.1)
[2018-05-22 08:04] LABS: Anisocytosis Moderate; HGB 7.3 gm/dL (11.4-16.0); MCH 34.6 pg (25.0-35.0); MCHC 36.8 g/dL (31.0-37.0); Macrocytosis Slight; Mean Platelet Volume 9.2; Poikilocytosis Slight; RDW 20.3 % (11.5-15.5); WBC 2.1 k/uL (3.8-10.6)
[2018-05-22 08:14] LABS: HCT 19.8 % (34.0-46.0); Platelet Count 22 k/uL (150-450)
[2018-05-22 08:18] LABS: Albumin 2.6 g/dL (3.5-5.0); Calcium 8.6 mg/dL (8.4-10.2); Potassium 4.3 mmol/L (3.5-5.1); Total Bilirubin 1.5 mg/dL (0.2-1.3); Total Protein 4.6 g/dL (6.3-8.2)
[2018-05-22] MEDS: ACETAMINOPHEN TAB 325 MG TAB PO PRN (08:38)
[2018-05-22] MEDS: ALLOPURINOL 300 MG TAB PO SCH (08:39)
[2018-05-22] MEDS: METOPROLOL SUCCINATE (ER) 25 MG TAB.ER.24H PO SCH (08:39)
[2018-05-22] MEDS: LOSARTAN 50 MG TAB PO SCH (08:39)
[2018-05-22] MEDS: SPIRONOLACTONE 25 MG TAB PO SCH (08:40)
[2018-05-22] MEDS: BACLOFEN 10 MG TAB PO SCH ×2 (08:40→20:19)
[2018-05-22] MEDS: FOLIC ACID 1 MG TAB PO SCH (08:40)
[2018-05-22 08:55] LABS: Band Neutrophils % 2 %; Eosinophils # (M) 0.02 k/uL (0-0.7); Lymphocytes # (M) 0.34 k/uL (1.0-4.8); Monocytes # (M) 0.02 k/uL (0-1.0); Neutrophils % (M) 80 %; Nucleated Red Blood Cells 0 /100 WBC (0-0); Polychromasia Present; Total Cells Counted 100; Toxic Granulation Present
--- NOTE | 2018-05-22 11:39 | P.PN ---
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 History of chronic iron deficiency anemia, and history of atrial fibrillation with rapid ventricular response has been well controlled medication,melanoma, COPD, GERD sick sinus syndrome and permanent pacemaker implantation. Last hospitalised for pleural effusion s/p thoracentesis, history of fatigue and tiredness found to have anemia requiring trnasfusion in 2017. Patient underwent EGD in February and was found to have antral erosive gastritis but no evidence of peptic ulcer was seen with plan to resume anticoagulation in 3 weeks. Patient has Pleurx catheter and get pleural fluid removed from both pleural spaces 3 times a week. 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 She was admitted to the hospital on this occasion from outpatient chemotherapy because of anemia and a hemoglobin of 5.7. She did receive blood transfusion. Continues to be off of anticoagulation. Cardiology was initially asked to see the patient for evaluation of her pacemaker. It was interrogated yesterday and is functioning appropriately. Overall the patient states she feels well today. She is complaining of some discomfort in her bilateral legs, otherwise breathing is stable, no palpitations. Objective - Vital Signs Vital signs: Vital Signs Temp 96.7 F L 05/22/18 08:00 Pulse 78 05/22/18 08:00 Resp 18 05/22/18 08:00 BP 100/55 05/22/18 08:00 Pulse Ox 97 05/22/18 08:00 Intake & Output 05/21/18 05/22/18 05/22/18 18:59 06:59 18:59 Intake Total 620 900 260 Output Total 1800 3400 Balance -1180 -2500 260 Weight 94.7 kg Intake: IV 900 Sodium Chloride 0.9% 1, 900 000 ml @ 75 mls/hr IV . [id number] ONE Rx#:[id number] Oral 620 260 Output: Drainage 1000 Left Abdomen 600 Right Abdomen 400 Urine 1800 2400 Other: Voiding Method Bedside Commode Bedside Commode Bedside Commode # Voids 1 3 # Bowel Movements 0 - Exam PHYSICAL EXAMINATION: GENERAL: 82-year-old female in no acute distress at the time of my examination HEENT: Head is atraumatic, normocephalic. Pupils equal, round. Sclera anicteric. Conjunctiva are clear. Mucous membranes of the mouth are moist. Neck is supple. There is no elevated jugular venous pressure. No carotid bruit is heard. HEART EXAMINATION: Heart S1 and S2 irregularly irregular a systolic murmur is heard. CHEST EXAMINATION: Lungs clear to auscultation bilaterally ABDOMEN: Soft, nontender. Bowel sounds are heard. No organomegaly noted. EXTREMITIES: 2+ peripheral pulses with no evidence of peripheral edema and no calf tenderness noted. NEUROLOGIC patient is awake, alert and oriented X3. . - Labs CBC & Chem 7: 05/22/18 07:13 05/22/18 07:13 Labs: Abnormal Lab Results - Last 24 Hours (Table) 05/22/18 05/22/18 05/22/18 Range/Units 07:13 07:13 07:13 WBC 2.1 L (3.8-10.6) k/uL RBC 2.10 L (3.80-5.40) m/uL Hgb 7.3 L (11.4-16.0) gm/dL Hct 19.8 L* (34.0-46.0) % RDW 20.3 H (11.5-15.5) % Plt Count 22 L (150-450) k/uL Lymphocytes # (Manual) 0.34 L (1.0-4.8) k/uL Retic Count 3.0 H (0.5-2.0) % Chloride 108 H (98-107) mmol/L BUN 26 H (7-17) mg/dL Total Bilirubin (0.2-1.3) mg/dL Total Protein (6.3-8.2) g/dL Albumin (3.5-5.0) g/dL 05/22/18 Range/Units 07:13 WBC (3.8-10.6) k/uL RBC (3.80-5.40) m/uL Hgb (11.4-16.0) gm/dL Hct (34.0-46.0) % RDW (11.5-15.5) % Plt Count (150-450) k/uL Lymphocytes # (Manual) (1.0-4.8) k/uL Retic Count (0.5-2.0) % Chloride 108 H (98-107) mmol/L BUN 26 H (7-17) mg/dL Total Bilirubin 1.5 H (0.2-1.3) mg/dL Total Protein 4.6 L (6.3-8.2) g/dL Albumin 2.6 L (3.5-5.0) g/dL Assessment and Plan Plan: Assessment and plan 1 acute on chronic anemia 2 pancytopenia likely secondary to acute leukemia. 3 recurrent bilateral pleural effusion: Pleurx catheter in place bilaterally. 4 A. fib , chronic persistent 5 Sick sinus syndrome status post permanent pacemaker. Pacemaker interrogated and is functioning appropriately. 6 history of DVT and pulmonary embolism patient is at risk of bleeding will hold Coumadin for now until cleared by hematology. 7 COPD 8 atherosclerosis heart disease: With no angioplasty or stent placement continue medical management. 9 diastolic congestive heart failure, chronic 10 history of melanoma has affected the eye post resection has been in remission. 11 hyperlipidemia Plan From cardiology's perspective, we will recommend to continue this patient on her current medications. We will follow her along with you now on an as-needed basis only, please don't hesitate to call with any questions. DNP note has been reviewed, I agree with a documented findings and plan of care. Patient was seen and examined.
--- NOTE | 2018-05-22 11:57 | P.PN ---
Subjective 82-year-old female patient of Dr. 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 History of chronic iron deficiency anemia, and history of atrial fibrillation with rapid ventricular response has been well controlled medication,melanoma, COPD, GERD sick sinus syndrome and permanent pacemaker implantation.last hospitalised for pleural effusion s/p thoracentesis, history of fatigue and tiredness found to have anemia requiring trnasfusion in 2017. Patient underwent EGD in February and was found to have antral erosive gastritis but no evidence of peptic ulcer was seen with plan to resume anticoagulation in 3 weeks. Patient has Pleurx catheter and get pleural fluid removed from both pleural spaces 3 times a week. 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 Patient comes in from outpatient chemotherapy for anemia with hemoglobin of 5.7. 2 units of PRBCs was transfused in the ER patient was admitted for further evaluation of anemia. She is currently off anticoagulation. She denies any 3 of dark stool but does complain of fatigue and generalized tiredness. She has noticed that her left pleural effusion is bloody in color but right is clear.It is in the ER suggested temp of 96.6 respiratory rate 18, blood pressure 118/58 saturating well on room air. Labs evaluated in the outpatient chemotherapy suggested hemoglobin of 5.1, platelets 28, WBC 2.5, reticulocyte count 8, LDH 1442, creatinine 0.88, glucose 128, total bilirubin 1.9 albumin 2.8. EKG suggests atrial fibrillation but pacemaker does not appear to be close to the QRS complex. Cardiology consulted for evaluation. Hematology consulted for pancytopenia. 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 With peripheral smear concerning for macrocytic normochromic normocytic anemia. Oncology consulted for further assessment. Haptoglobin LDH ordered for hemolysis workup 05/21: Patient is status post transfusion of 2 units of packed RBC for hemoglobin of 5.2. Hemoglobin this morning is 7.4. Patient states she is feeling well with no new complaints. Patient states she has not had a bowel movement since she was at home yesterday. She denies any black or tarry in his to her stools. She denies any blood in her urine. She denies any chest pain or shortness of breath. She states cardiology has seen her in no concerns. There is a problem with interrogating her pacemaker which the nursing staff is working on. Oncology to evaluate see if we can discharge home. Most likely anemia secondary to lymphoma we do not plan to consult GI as she recently had workup. We will have nursing staff drained Pleurx catheters today. She is normally done Thursday and Thursday by home care. Patient can be discharged home once cleared by consultants. 05/22: Patient is status post transfusion of 2 units of packed red blood cells for hemoglobin of 5.2. Hemoglobin this morning is 7.3. Patient states she is feeling well complaining of intermittent knee pain, that is new to her this morning. She denies any other complaints. Patient denies any black or tarry stools or any blood in her urine. Patient was seen by cardiology and no concerns noted.Patient was seen by oncology yesterday and awaiting lab work for today to make a determination for discharge home. Pleurx catheter was drained yesterday. Patient states that the appearance of the pleural fluid has improved since last drainage. Patient may be discharged tomorrow. Objective - Vital Signs Vital signs: Vital Signs Temp 96.7 F L 05/22/18 08:00 Pulse 78 05/22/18 08:00 Resp 18 05/22/18 08:00 BP 100/55 05/22/18 08:00 Pulse Ox 97 05/22/18 08:00 Intake & Output 05/21/18 05/22/18 05/22/18 18:59 06:59 18:59 Intake Total 620 900 260 Output Total 1800 3400 Balance -1180 -2500 260 Weight 94.7 kg Intake: IV 900 Sodium Chloride 0.9% 1, 900 000 ml @ 75 mls/hr IV . [id number] ONE Rx#:[id number] Oral 620 260 Output: Drainage 1000 Left Abdomen 600 Right Abdomen 400 Urine 1800 2400 Other: Voiding Method Bedside Commode Bedside Commode Bedside Commode # Voids 1 3 # Bowel Movements 0 - Exam Gen: This is an 82-year-old female, cooperative, no acute distress, obese HEENT: Head is atraumatic, normocephalic. Pupils equal, round. Sclerae is anicteric. NECK: Supple. No JVD. No lymphadenopathy. No thyromegaly. LUNGS: Clear to auscultation. No wheezes or rhonchi. No intercostal retractions. Pleurx catheter tubes bilaterally in place. HEART: Regular rate and rhythm. No murmur. ABDOMEN: Soft. Bowel sounds are present. No masses. No tenderness. EXTREMITIES: No pedal edema. No calf tenderness. NEUROLOGICAL: Patient is awake, alert and oriented x3. Cranial nerves 2 through 12 are grossly intact. - Labs CBC & Chem 7: 05/22/18 07:13 05/22/18 07:13 Labs: Abnormal Lab Results - Last 24 Hours (Table) 05/22/18 05/22/18 05/22/18 Range/Units 07:13 07:13 07:13 WBC 2.1 L (3.8-10.6) k/uL RBC 2.10 L (3.80-5.40) m/uL Hgb 7.3 L (11.4-16.0) gm/dL Hct 19.8 L* (34.0-46.0) % RDW 20.3 H (11.5-15.5) % Plt Count 22 L (150-450) k/uL Lymphocytes # (Manual) 0.34 L (1.0-4.8) k/uL Retic Count 3.0 H (0.5-2.0) % Chloride 108 H (98-107) mmol/L BUN 26 H (7-17) mg/dL Total Bilirubin (0.2-1.3) mg/dL Total Protein (6.3-8.2) g/dL Albumin (3.5-5.0) g/dL 05/22/18 Range/Units 07:13 WBC (3.8-10.6) k/uL RBC (3.80-5.40) m/uL Hgb (11.4-16.0) gm/dL Hct (34.0-46.0) % RDW (11.5-15.5) % Plt Count (150-450) k/uL Lymphocytes # (Manual) (1.0-4.8) k/uL Retic Count (0.5-2.0) % Chloride 108 H (98-107) mmol/L BUN 26 H (7-17) mg/dL Total Bilirubin 1.5 H (0.2-1.3) mg/dL Total Protein 4.6 L (6.3-8.2) g/dL Albumin 2.6 L (3.5-5.0) g/dL Assessment and Plan Plan: 1 acute anemia differential include hemolysis versus gastrointestinal bleed. Fecal occult ordered. EGD done in February 2018 suggestive antral gastritis. Currently not on Coumadin. 2 units PRBC transfused, monitor hemoglobin and transfuse hemoglobin less than 7 other possibility include a hemolytic anemia from lymphoma. 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 Hematology oncology consulted CBC daily. Platelet transfusion if less than 10 stop continue to watch for any bleeding 3 recurrent bilateral pleural effusion: Pleurx catheter in place bilaterally. Home care nurse helps with drainage of Pleurx catheter 3 times a week patient does not know how to do it. 4 A. fib with RVR: Heart rates under control lately patient is doing well, anticoagulation on hold since 03/15 continue to hold until addressed by hematology 5 Sick sinus syndrome status post permanent pacemaker. EKG does show pacer not close to the QRS. Pacemaker interrogation. Cardiology consulted 6 history of DVT and pulmonary embolism patient is at risk of bleeding will hold Coumadin for now until cleared by hematology. 7 COPD: Will use DuoNeb on an as-needed basis. 8 atherosclerosis heart disease: With no angioplasty or stent placement continue medical management. 9 diastolic congestive heart failure: Patient remain on furosemide 40 mg twice a day and spironolactone 12.5 mg daily. 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 11 hyperlipidemia: Remain on atorvastatin 20 mg a day. 12 recurrent gout: Has been on Zyloprim 300 mg daily. 13 GI prophylaxis: Patient will be on pantoprazole IV. 14 DVT prophylaxis: Off anticoagulation for now will continue knee-high CODI hose and Venodyne boots. CODE STATUS: Full code. Discharge plan: Home with homecare Impression and plan of care have been directed as dictated by the signing physician. Prachi Merritt nurse practitioner acting as scribe for signing physician.
[2018-05-22] MEDS: Acetaminophen-Codeine 300-30mg TAB PO PRN ×2 (17:04→23:56)
[2018-05-22] MEDS: ATORVASTATIN 20 MG TAB PO SCH (20:19)
--- NOTE | 2018-05-22 20:30 | PN ---
PROGRESS NOTE DATE OF SERVICE: May 22, 2018 CHIEF COMPLAINT: Tired and knee pain. Zelda is seen today as a followup. She feels tired. She has some knee pain off and on. She denies any fever or chills. No melena, hematochezia, or hematuria or hemoptysis. MEDICATION: Medications and allergies were reviewed in her electronic medical records. PHYSICAL EXAMINATION: She is alert, oriented x3. She does not appear to be in acute distress at this time. Her vital signs are temperature 97.1, afebrile, pulse 68, respiration 18, blood pressure 118/54. HEENT: Normocephalic, atraumatic. No obvious icterus. NECK: Supple. Chest equal expansion bilaterally. Lungs are clear to auscultation. Heart is regular rhythm. ABDOMEN: Soft. No tenderness. Extremities revealed trace edema. LABORATORY DATA: From today, WBC of 2.1, hemoglobin 7.3, hematocrit 19.8, platelet count 22. Sodium 141, potassium 4.3, chloride 108, CO2 is 26, BUN 26, creatinine 0.88. Total bilirubin is 1.1. Haptoglobin is 37.5. IMPRESSION: 1. Pancytopenia. This is likely secondary to recent systemic treatment with bendamustine and Rituxan which she just had about 4 weeks ago. 2. Autoimmune hemolytic anemia. 3. Malt lymphoma that she has had for several years initially presenting with involvement of her right eye. However, recently, a decision was made to proceed with systemic treatment due to autoimmune hemolytic anemia related to her underlying MALT lymphoma and recurrent pleural effusion, which required bilateral PleurX catheter placement. At this point in time there is no active hemolysis. Her anemia is most likely related to recent chemotherapy. At this time there is no significant ongoing hemolysis. Her haptoglobin appeared to be normal. It used to be much lower than that. RECOMMENDATION: Continue supportive transfusion as needed. We will hold further systemic treatment with bendamustine and Cytoxan regimen. May consider switching to single agent Rituxan given weekly for 4 weeks. Hopefully, with this, we will may consider a dose reduction on her bendamustine dose along with Rituxan and we will make that decision based on her improvement in her blood count. Thank you very much. MMODL / IJN: [id number] /
[2018-05-23] MEDS: FUROSEMIDE 40 MG TAB PO SCH ×2 (06:14→17:34)
[2018-05-23 08:48] LABS: Albumin 2.9 g/dL (3.5-5.0); Calcium 9.1 mg/dL (8.4-10.2); Potassium 4.2 mmol/L (3.5-5.1); Total Bilirubin 1.5 mg/dL (0.2-1.3); Total Protein 5.1 g/dL (6.3-8.2)
[2018-05-23] MEDS: ALLOPURINOL 300 MG TAB PO SCH (08:50)
[2018-05-23] MEDS: BACLOFEN 10 MG TAB PO SCH ×2 (08:51→20:03)
[2018-05-23] MEDS: SPIRONOLACTONE 25 MG TAB PO SCH (08:51)
[2018-05-23] MEDS: LOSARTAN 50 MG TAB PO SCH (08:51)
[2018-05-23] MEDS: METOPROLOL SUCCINATE (ER) 25 MG TAB.ER.24H PO SCH (08:51)
[2018-05-23] MEDS: FOLIC ACID 1 MG TAB PO SCH (08:52)
[2018-05-23 09:46] LABS: Anisocytosis Moderate; HCT 22.5 % (34.0-46.0); HGB 7.9 gm/dL (11.4-16.0); MCH 33.9 pg (25.0-35.0); MCHC 35.3 g/dL (31.0-37.0); MCV 96.1 fL (80.0-100.0); Macrocytosis Slight; Platelet Count 27 k/uL (150-450); Poikilocytosis Slight; RBC 2.34 m/uL (3.80-5.40); RDW 20.1 % (11.5-15.5); WBC 2.4 k/uL (3.8-10.6)
[2018-05-23 10:42] LABS: Eosinophils # (M) 0.02 k/uL (0-0.7); Lymphocytes # (M) 0.34 k/uL (1.0-4.8); Monocytes # (M) 0.17 k/uL (0-1.0); Neutrophils # (M) 1.87 k/uL (1.3-7.7); Neutrophils % (M) 78 %; Nucleated Red Blood Cells 0 /100 WBC (0-0); Polychromasia Present; Total Cells Counted 100
--- NOTE | 2018-05-23 12:53 | P.PN ---
Subjective Progress Note Date: 05/23/18 82-year-old female patient of Dr. 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 History of chronic iron deficiency anemia, and history of atrial fibrillation with rapid ventricular response has been well controlled medication,melanoma, COPD, GERD sick sinus syndrome and permanent pacemaker implantation.last hospitalised for pleural effusion s/p thoracentesis, history of fatigue and tiredness found to have anemia requiring trnasfusion in 2017. Patient underwent EGD in February and was found to have antral erosive gastritis but no evidence of peptic ulcer was seen with plan to resume anticoagulation in 3 weeks. Patient has Pleurx catheter and get pleural fluid removed from both pleural spaces 3 times a week. 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 Patient comes in from outpatient chemotherapy for anemia with hemoglobin of 5.7. 2 units of PRBCs was transfused in the ER patient was admitted for further evaluation of anemia. She is currently off anticoagulation. She denies any 3 of dark stool but does complain of fatigue and generalized tiredness. She has noticed that her left pleural effusion is bloody in color but right is clear.It is in the ER suggested temp of 96.6 respiratory rate 18, blood pressure 118/58 saturating well on room air. Labs evaluated in the outpatient chemotherapy suggested hemoglobin of 5.1, platelets 28, WBC 2.5, reticulocyte count 8, LDH 1442, creatinine 0.88, glucose 128, total bilirubin 1.9 albumin 2.8. EKG suggests atrial fibrillation but pacemaker does not appear to be close to the QRS complex. Cardiology consulted for evaluation. Hematology consulted for pancytopenia. 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 With peripheral smear concerning for macrocytic normochromic normocytic anemia. Oncology consulted for further assessment. Haptoglobin LDH ordered for hemolysis workup 05/21: Patient is status post transfusion of 2 units of packed RBC for hemoglobin of 5.2. Hemoglobin this morning is 7.4. Patient states she is feeling well with no new complaints. Patient states she has not had a bowel movement since she was at home yesterday. She denies any black or tarry in his to her stools. She denies any blood in her urine. She denies any chest pain or shortness of breath. She states cardiology has seen her in no concerns. There is a problem with interrogating her pacemaker which the nursing staff is working on. Oncology to evaluate see if we can discharge home. Most likely anemia secondary to lymphoma we do not plan to consult GI as she recently had workup. We will have nursing staff drained Pleurx catheters today. She is normally done Thursday and Thursday by home care. Patient can be discharged home once cleared by consultants. 05/22: Patient is status post transfusion of 2 units of packed red blood cells for hemoglobin of 5.2. Hemoglobin this morning is 7.3. Patient states she is feeling well complaining of intermittent knee pain, that is new to her this morning. She denies any other complaints. Patient denies any black or tarry stools or any blood in her urine. Patient was seen by cardiology and no concerns noted.Patient was seen by oncology yesterday and awaiting lab work for today to make a determination for discharge home. Pleurx catheter was drained yesterday. Patient states that the appearance of the pleural fluid has improved since last drainage. Patient may be discharged tomorrow. 05/23: Patient is resting comfortably had a total of 2 units of packed red blood cells hemoglobin today 7.9. Patient states that she is feeling well without any complaints. She denies any black or tarry stools or any blood in her urine. Patient was seen by oncology yesterday and discussed pancytopenia secondary to chemotherapy agents. Patient will continue to follow-up outpatient Hung with oncology. We will draw CBC tomorrow and if labs are okay possible discharge. Objective - Vital Signs Vital signs: Vital Signs Temp 97.5 F L 05/23/18 05:00 Pulse 66 05/23/18 05:00 Resp 16 05/23/18 05:00 BP 105/55 05/23/18 05:00 Pulse Ox 100 05/23/18 05:00 Intake & Output 05/22/18 05/23/18 05/23/18 18:59 06:59 18:59 Intake Total 1585 Output Total 300 100 Balance 1285 -100 Intake: IV 525 Sodium Chloride 0.9% 1, 525 000 ml @ 75 mls/hr IV . [id number] ONE Rx#:[id number] Oral 1060 Output: Urine 300 100 Other: Voiding Method Bedside Commode Bedside Commode Bedside Commode # Voids 2 2 # Bowel Movements 0 - Exam Gen: This is an 82-year-old female, cooperative, no acute distress, obese HEENT: Head is atraumatic, normocephalic. Pupils equal, round. Sclerae is anicteric. NECK: Supple. No JVD. No lymphadenopathy. No thyromegaly. LUNGS: Clear to auscultation. No wheezes or rhonchi. No intercostal retractions. Pleurx catheter tubes bilaterally in place. HEART: Regular rate and rhythm. No murmur. ABDOMEN: Soft. Bowel sounds are present. No masses. No tenderness. EXTREMITIES: No pedal edema. No calf tenderness. NEUROLOGICAL: Patient is awake, alert and oriented x3. Cranial nerves 2 through 12 are grossly intact. - Labs CBC & Chem 7: 05/23/18 08:17 05/23/18 08:17 Labs: Abnormal Lab Results - Last 24 Hours (Table) 05/23/18 05/23/18 Range/Units 08:17 08:17 WBC 2.4 L (3.8-10.6) k/uL RBC 2.34 L (3.80-5.40) m/uL Hgb 7.9 L (11.4-16.0) gm/dL Hct 22.5 L (34.0-46.0) % RDW 20.1 H (11.5-15.5) % Plt Count 27 L (150-450) k/uL Lymphocytes # (Manual) 0.34 L (1.0-4.8) k/uL Chloride 109 H (98-107) mmol/L BUN 22 H (7-17) mg/dL Total Bilirubin 1.5 H (0.2-1.3) mg/dL Total Protein 5.1 L (6.3-8.2) g/dL Albumin 2.9 L (3.5-5.0) g/dL Assessment and Plan Plan: 1 acute anemia differential include hemolysis versus gastrointestinal bleed. Fecal occult negative. EGD done in February 2018 suggestive antral gastritis. Currently not on Coumadin. 2 units PRBC transfused, monitor hemoglobin and transfuse hemoglobin less than 7 other possibility include a hemolytic anemia from lymphoma. Hematology oncology consulted continue to hold Coumadin. 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 Hematology oncology consulted CBC daily. Platelet transfusion if less than 10 stop continue to watch for any bleeding 3 recurrent bilateral pleural effusion: Pleurx catheter in place bilaterally. Home care nurse helps with drainage of Pleurx catheter 3 times a week patient does not know how to do it. 4 A. fib with RVR: Heart rates under control lately patient is doing well, anticoagulation on hold since 03/15 continue to hold until addressed by hematology 5 Sick sinus syndrome status post permanent pacemaker. EKG does show pacer not close to the QRS. Pacemaker interrogation. Cardiology consulted 6 history of DVT and pulmonary embolism patient is at risk of bleeding will hold Coumadin for now until cleared by hematology. 7 COPD: Will use DuoNeb on an as-needed basis. 8 atherosclerosis heart disease: With no angioplasty or stent placement continue medical management. 9 diastolic congestive heart failure: Patient remain on furosemide 40 mg twice a day and spironolactone 12.5 mg daily. 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 11 hyperlipidemia: Remain on atorvastatin 20 mg a day. 12 recurrent gout: Has been on Zyloprim 300 mg daily. 13 GI prophylaxis: Patient will be on pantoprazole IV. 14 DVT prophylaxis: Off anticoagulation for now will continue knee-high CODI hose and Venodyne boots. CODE STATUS: Full code. Discharge plan: Home with homecare Impression and plan of care have been directed as dictated by the signing physician. Prachi Merritt nurse practitioner acting as scribe for signing physician.
--- NOTE | 2018-05-23 18:43 | PN ---
PROGRESS NOTE CHIEF COMPLAINT: Zelda is seen today as followup. She feels much better. She is little tired, but overall much better. Her knee pain and back pain are better. No fever or chills. No melena, hematochezia, or hemoptysis. MEDICATION: Her medications reviewed in her electronic medical record. PHYSICAL EXAMINATION: She is alert, oriented x3. No distress. Her vital signs are temperature 97.9, afebrile, pulse 67 regular, respirations 20, blood pressure 100/68. HEENT: Normocephalic, atraumatic. No icterus. NECK: Supple. CHEST: bilaterally. Lungs are clear to auscultation. Heart is regular rhythm. Abdomen is soft. No tenderness. Bowel sounds present. Extremities reveal no significant edema. LABORATORY DATA: From today: WBC 2.4, hemoglobin 7.9, hematocrit 22.5, platelet of 27. Her absolute neutrophil count is 1.87. Sodium 141, potassium 4.2, chloride 109, CO2 is 24, BUN is 22, creatinine 0.86, total bilirubin is 1.5. IMPRESSION: 1. MALT lymphoma complicated by autoimmune hemolytic anemia. There is no active ongoing hemolysis at this point in time. 2. Myelosuppression and pancytopenia. This is related to recent chemotherapy. Appears to be slowly improving. RECOMMENDATION: 1. Monitor blood count. 2. Supportive transfusion if needed. 3. From oncology standpoint, the patient could be discharged home. Her next cycle will be on hold until further improvement in her blood count and then may consider dose adjustment. MMODL / IJN: [id number] /
[2018-05-23] MEDS: ATORVASTATIN 20 MG TAB PO SCH (20:04)
[2018-05-24 00:40] VITALS: TEMP 97.7
[2018-05-24] MEDS: FUROSEMIDE 40 MG TAB PO SCH (06:31)
[2018-05-24 06:38] VITALS: PULSE 61
[2018-05-24] MEDS: SPIRONOLACTONE 25 MG TAB PO SCH (08:43)
[2018-05-24] MEDS: Acetaminophen-Codeine 300-30mg TAB PO PRN (08:44)
[2018-05-24] MEDS: ALLOPURINOL 300 MG TAB PO SCH (08:44)
[2018-05-24] MEDS: BACLOFEN 10 MG TAB PO SCH (08:44)
[2018-05-24] MEDS: METOPROLOL SUCCINATE (ER) 25 MG TAB.ER.24H PO SCH (08:47)
[2018-05-24] MEDS: LOSARTAN 50 MG TAB PO SCH (08:47)
[2018-05-24 10:08] LABS: Anisocytosis Moderate; HCT 20.6 % (34.0-46.0); HGB 7.6 gm/dL (11.4-16.0); MCH 34.9 pg (25.0-35.0); MCHC 36.8 g/dL (31.0-37.0); MCV 94.8 fL (80.0-100.0); Macrocytosis Slight; Poikilocytosis Slight; RBC 2.17 m/uL (3.80-5.40); RDW 20.2 % (11.5-15.5); WBC 2.3 k/uL (3.8-10.6)
[2018-05-24 10:11] LABS: Platelet Count 31 k/uL (150-450)
[2018-05-24] MEDS: FOLIC ACID 1 MG TAB PO SCH (11:50)
[2018-05-24 12:14] LABS: Eosinophils # (M) 0.02 k/uL (0-0.7); Lymphocytes # (M) 0.32 k/uL (1.0-4.8); Monocytes # (M) 0.07 k/uL (0-1.0); Neutrophils # (M) 1.89 k/uL (1.3-7.7); Neutrophils % (M) 82 %; Nucleated Red Blood Cells 0 /100 WBC (0-0); Total Cells Counted 100
[2018-05-24 12:48] VITALS: BP 111/68; RESP 24
--- NOTE | 2018-05-24 15:42 | P.DS ---
Providers Date of admission: 05/20/18 12:57 Expected date of discharge: 05/24/18 Attending physician: Amanda Gunderson MD Consults: 05/20/18 12:56 Consult Physician Urgent Consulting Provider: Almas Ngo Consult Reason/Comments: History of lymphoma Do you want consulting provider notified?: Yes 05/20/18 17:24 Consult Physician Routine Consulting Provider: Margo Rodrigues Consult Reason/Comments: Inappropriate pacing Do you want consulting provider notified?: Yes Primary care physician: [facility] Course: 82-year-old female patient of Dr. 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 History of chronic iron deficiency anemia, and history of atrial fibrillation with rapid ventricular response has been well controlled medication,melanoma, COPD, GERD sick sinus syndrome and permanent pacemaker implantation.last hospitalised for pleural effusion s/p thoracentesis, history of fatigue and tiredness found to have anemia requiring trnasfusion in 2017. Patient underwent EGD in February and was found to have antral erosive gastritis but no evidence of peptic ulcer was seen with plan to resume anticoagulation in 3 weeks. Patient has Pleurx catheter and get pleural fluid removed from both pleural spaces 3 times a week. 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 Patient comes in from outpatient chemotherapy for anemia with hemoglobin of 5.7. 2 units of PRBCs was transfused in the ER patient was admitted for further evaluation of anemia. She is currently off anticoagulation. She denies any 3 of dark stool but does complain of fatigue and generalized tiredness. She has noticed that her left pleural effusion is bloody in color but right is clear.It is in the ER suggested temp of 96.6 respiratory rate 18, blood pressure 118/58 saturating well on room air. Labs evaluated in the outpatient chemotherapy suggested hemoglobin of 5.1, platelets 28, WBC 2.5, reticulocyte count 8, LDH 1442, creatinine 0.88, glucose 128, total bilirubin 1.9 albumin 2.8. EKG suggests atrial fibrillation but pacemaker does not appear to be close to the QRS complex. Cardiology consulted for evaluation. Hematology consulted for pancytopenia. 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 With peripheral smear concerning for macrocytic normochromic normocytic anemia. Oncology consulted for further assessment. Haptoglobin LDH ordered for hemolysis workup 05/21: Patient is status post transfusion of 2 units of packed RBC for hemoglobin of 5.2. Hemoglobin this morning is 7.4. Patient states she is feeling well with no new complaints. Patient states she has not had a bowel movement since she was at home yesterday. She denies any black or tarry in his to her stools. She denies any blood in her urine. She denies any chest pain or shortness of breath. She states cardiology has seen her in no concerns. There is a problem with interrogating her pacemaker which the nursing staff is working on. Oncology to evaluate see if we can discharge home. Most likely anemia secondary to lymphoma we do not plan to consult GI as she recently had workup. We will have nursing staff drained Pleurx catheters today. She is normally done Thursday and Thursday by home care. Patient can be discharged home once cleared by consultants. 05/22: Patient is status post transfusion of 2 units of packed red blood cells for hemoglobin of 5.2. Hemoglobin this morning is 7.3. Patient states she is feeling well complaining of intermittent knee pain, that is new to her this morning. She denies any other complaints. Patient denies any black or tarry stools or any blood in her urine. Patient was seen by cardiology and no concerns noted.Patient was seen by oncology yesterday and awaiting lab work for today to make a determination for discharge home. Pleurx catheter was drained yesterday. Patient states that the appearance of the pleural fluid has improved since last drainage. Patient may be discharged tomorrow. 05/23: Patient is resting comfortably had a total of 2 units of packed red blood cells hemoglobin today 7.9. Patient states that she is feeling well without any complaints. She denies any black or tarry stools or any blood in her urine. Patient was seen by oncology yesterday and discussed pancytopenia secondary to chemotherapy agents. Patient will continue to follow-up outpatient with oncology. We will draw CBC tomorrow and if labs are okay possible discharge. 05/24: Repeat hemoglobin 7.6, white count 2.3 and platelet count 31. Patient is quite drowsy she states from baclofen which is 5 mg twice daily. This will be decreased to 2.5 mg twice daily. Patient will be discharged home today in stable condition. Discharge diagnoses: 1 acute anemia secondary to underlying lymphoma. No sign of GI bleed. Patient is status post 2 units PRBC transfused. 2 pancytopenia likely secondary to lymphoma and chemotherapy 3 recurrent bilateral pleural effusion: Pleurx catheter in place bilaterally. 4 chronic atrial fibrillation 5 Sick sinus syndrome status post permanent pacemaker. 6 history of DVT and pulmonary embolism 7 COPD 8 atherosclerosis heart disease 9 chronic diastolic heart failure 10 history of melanoma has affected the eye post resection has been in remission. 11 hyperlipidemia 12 recurrent gout Discharge plan: Home with homecare Impression and plan of care have been directed as dictated by the signing physician. Geneva Dc nurse practitioner acting as scribe for signing physician. Patient Condition at Discharge: Good Plan - Discharge Summary New Discharge Prescriptions: Continue Atorvastatin [Lipitor] 20 mg PO HS Spironolactone [Aldactone] 25 mg PO DAILY Metoprolol Succinate [Toprol Xl] 25 mg PO DAILY Folic Acid 1 mg PO DAILY Acetaminophen Tab [Tylenol] 650 mg PO Q6HR PRN tab PRN Reason: Mild Pain Or Fever > 100.5 Allopurinol [Zyloprim] 300 mg PO DAILY #60 tab Furosemide [Lasix] 40 mg PO BID #120 tab Losartan [Cozaar] 50 mg PO DAILY Changed Baclofen 2.5 mg PO BID #0 Discharge Medication List Atorvastatin [Lipitor] 20 mg PO HS 02/12/16 [History] Folic Acid 1 mg PO DAILY 01/05/18 [History] Metoprolol Succinate [Toprol Xl] 25 mg PO DAILY 01/05/18 [History] Spironolactone [Aldactone] 25 mg PO DAILY 01/05/18 [History] Acetaminophen Tab [Tylenol] 650 mg PO Q6HR PRN tab 01/09/18 [Rx] Allopurinol [Zyloprim] 300 mg PO DAILY #60 tab 01/09/18 [Rx] Furosemide [Lasix] 40 mg PO BID #120 tab 01/22/18 [Rx] Losartan [Cozaar] 50 mg PO DAILY 05/20/18 [History] Baclofen 2.5 mg PO BID #0 05/24/18 [Rx] Follow up Appointment(s)/Referral(s): Alfredo Norwood MD [Primary Care Provider] - 05/31/18 2:00 pm [facility], [NON-STAFF] - Almas Ngo MD [STAFF PHYSICIAN] - 06/09/18 2:45 pm Patient Instructions/Handouts: Pleural Effusion (DC), Anemia (DC), How to Care for Your Chest or Abdominal Catheter (DC) Discharge Disposition: HOME WITH HOME HEALTH SERVICES
--- NOTE | 2018-05-24 19:04 | P.PN ---
Subjective Progress Note Date: 05/24/18 Principal diagnosis: Lymphoma status post first cycle of rituximab and bendeka Patient seen today in follow-up. She states she is feeling better but she is very anxious about being discharged as she can't get a hold of her right. Patient was assured that she would be allowed to find transportation home before being discharged. Patient also had anxiety about home care as well as treatment. Patient denied fevers, oral irritation, appetite is fair, no nausea , chest pain, changes in bowel or bladder, bleeding or pain. Objective - Vital Signs Vital signs: Vital Signs Temp 97.7 F 05/24/18 12:47 Pulse 61 05/24/18 12:47 Resp 24 05/24/18 12:47 BP 111/68 05/24/18 12:47 Pulse Ox 98 05/24/18 12:47 Intake & Output 05/23/18 05/24/18 05/24/18 18:59 06:59 18:59 Intake Total 400 1770 Output Total 2 Balance 400 1768 Intake: Oral 400 1770 Output: Stool 2 Other: Voiding Method Bedside Commode Bedside Commode Bedside Commode # Voids 2 2 - Constitutional General appearance: Present: average body habitus, cooperative, mild distress - Respiratory Respiratory: bilateral: CTA - Cardiovascular Heart sounds: normal: S1, S2 - Peripheral edema leg Peripheral Edema: bilateral: Trace - Gastrointestinal General gastrointestinal: Present: normal bowel sounds, soft - Neurologic Neurologic: Present: CNII-XII intact - Musculoskeletal Musculoskeletal: Present: generalized weakness, strength equal bilaterally - Psychiatric Psychiatric: Present: A&O x's 3, appropriate affect, intact judgment & insight - Labs CBC & Chem 7: 05/24/18 08:44 05/23/18 08:17 Labs: Abnormal Lab Results - Last 24 Hours (Table) 05/24/18 Range/Units 08:44 WBC 2.3 L (3.8-10.6) k/uL RBC 2.17 L (3.80-5.40) m/uL Hgb 7.6 L (11.4-16.0) gm/dL Hct 20.6 L (34.0-46.0) % RDW 20.2 H (11.5-15.5) % Plt Count 31 L (150-450) k/uL Lymphocytes # (Manual) 0.32 L (1.0-4.8) k/uL Assessment and Plan (1) Antineoplastic chemotherapy induced pancytopenia Narrative/Plan: Patient's counts today are stable. No acute intervention. CBC will be followed in the outpatient setting. Status: Acute Priority: High Code(s): D61.810 - ANTINEOPLASTIC CHEMOTHERAPY INDUCED PANCYTOPENIA; T45.1X5A - ADVERSE EFFECT OF ANTINEOPLASTIC AND IMMUNOSUP DRUGS, INIT SNOMED Code(s): 198107011638267 (2) MALT (mucosa associated lymphoid tissue) Narrative/Plan: Patient is status post her first cycle of Rituxan and bendeka. Patient had significant hematological toxicities post treatment. She will have a CBC in the outpatient setting and then a follow-up with Dr. Ngo which is scheduled for the to review her case, with possible dose adjustments. Status: Acute Priority: High Code(s): C88.4 - EXTRNOD MRGNL ZN B-CELL LYMPH OF MUCOSA-ASSOC LYMPHOID TISS SNOMED Code(s): 628280206
[2018-05-24] MEDS ORDERED: BACLOFEN 10 MG TAB PO SCH (21:00)
== END 2018-05-24 14:59 | disposition home health service (06) | DRG 840 ==
LOC: EC 12:13 → 6SEL 12:57 → 5ONC 05-22 23:12
PROVIDERS: ADMIT Internal Medicine; ATTEND Internal Medicine
PROC: 30233N1 Transfusion of Nonautologous Red Blood Cells into Peripheral Vein, Percutaneous Approach (ICD-10-PCS; principal; 2018-05-20)
DX: C88.4 Extranodal marginal zone B-cell lymphoma of mucosa-associated lymphoid tissue [MALT-lymphoma] (principal); D61.810 Antineoplastic chemotherapy induced pancytopenia; J91.8 Pleural effusion in other conditions classified elsewhere; I50.32 Chronic diastolic (congestive) heart failure; D63.0 Anemia in neoplastic disease; I48.2 Chronic atrial fibrillation; I11.0 Hypertensive heart disease with heart failure; G43.909 Migraine, unspecified, not intractable, without status migrainosus; J44.9 Chronic obstructive pulmonary disease, unspecified; E78.5 Hyperlipidemia, unspecified; K29.50 Unspecified chronic gastritis without bleeding; M25.569 Pain in unspecified knee; M54.9 Dorsalgia, unspecified; T45.1X5A Adverse effect of antineoplastic and immunosuppressive drugs, initial encounter; F41.9 Anxiety disorder, unspecified; K21.9 Gastro-esophageal reflux disease without esophagitis; I25.10 Atherosclerotic heart disease of native coronary artery without angina pectoris; R91.1 Solitary pulmonary nodule; M19.91 Primary osteoarthritis, unspecified site; M10.9 Gout, unspecified; Z79.899 Other long term (current) drug therapy; Z86.718 Personal history of other venous thrombosis and embolism; Z86.711 Personal history of pulmonary embolism; Z86.79 Personal history of other diseases of the circulatory system; Z87.01 Personal history of pneumonia (recurrent); Z85.820 Personal history of malignant melanoma of skin; Z95.0 Presence of cardiac pacemaker; Z86.010 Personal history of colon polyps; Z87.440 Personal history of urinary (tract) infections; Z90.01 Acquired absence of eye; Z90.710 Acquired absence of both cervix and uterus; Z95.828 Presence of other vascular implants and grafts; Z87.81 Personal history of (healed) traumatic fracture; Z97.2 Presence of dental prosthetic device (complete) (partial); Z98.51 Tubal ligation status; Z80.0 Family history of malignant neoplasm of digestive organs; Z83.2 Family history of diseases of the blood and blood-forming organs and certain disorders involving the immune mechanism
CPT/HCPCS: 36415; 71046; 80048; 80053; 82272; 83010; 83615; 84484; 85025; 85027; 85045; 85610; 85730; 86850; 86900; 86901; 86920; 93005; 96367; 99285

== ENCOUNTER 2018-07-08 09:06 | Emergency (ER) | payer MEDICARE ==
[2018-07-08] MEDS ORDERED: SODIUM CHLORIDE 0.9% 1,000 ML IV STA ×2 (09:22)
--- NOTE | 2018-07-08 09:22 | ED ---
Recheck HPI - General Chief Complaint: Recheck/Abnormal Lab/Rx Stated Complaint: Abnormal labs Time Seen by Provider: 07/08/18 09:21 Source: patient, RN notes reviewed, old records reviewed Mode of arrival: ambulatory Limitations: no limitations - History of Present Illness Initial Comments: This is a 82-year-old female to the ER for evaluation. Patient presents today for evaluation regards to abnormal lab value. Patient denies any acute complaints or significant symptoms. She does complain of back pain which she always has back pain. Patient states she was called by her doctor and told to come the emergency room immediately for abnormal potassium level. Again patient denies any complaints MD Complaint: abnormal lab (Potassium) -: days(s) Returns Today for: Called Because of Abnormal Lab/Test Symptoms Since Prior Visit: no new symptoms Context: called for abnormal lab result Associated Symptoms: none - Related Data Home Medications Medication Instructions Recorded Confirmed Atorvastatin [Lipitor] 20 mg PO HS 02/12/16 07/08/18 Folic Acid 1 mg PO DAILY 01/05/18 07/08/18 Metoprolol Succinate [Toprol Xl] 25 mg PO DAILY 01/05/18 07/08/18 Spironolactone [Aldactone] 25 mg PO DAILY 01/05/18 07/08/18 Losartan [Cozaar] 50 mg PO DAILY 05/20/18 07/08/18 Previous Rx's Medication Instructions Recorded Allopurinol [Zyloprim] 300 mg PO DAILY #60 tab 01/09/18 Furosemide [Lasix] 40 mg PO BID #120 tab 01/22/18 Allergies Allergy/AdvReac Type Severity Reaction Status Date / Time No Known Allergies Allergy Verified 07/08/18 10:05 Review of Systems ROS Statement: Those systems with pertinent positive or pertinent negative responses have been documented in the HPI. ROS Other: All systems not noted in ROS Statement are negative. 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 Echo showed ef of 50-55% . Lymphoma, R eye removed d/t CA; SKIN CA. 1994 Brain Aneurysm w/ Surgery, LT hand weakness since. SSS w/ Pacemaker. R leg DVT, L lung PE. Benign colon polyps. RECENT ADM FOR ANEMIA SX, TRANSFUSED X3. HX UTIs, Diverticular dx, Migraines. History of Any Multi-Drug Resistant Organisms: None Reported Past Surgical History: Heart Catheterization, Hysterectomy, Joint Replacement, Pacemaker, Tubal Ligation Additional Past Surgical History / Comment(s): Bilateral thoracentesis 12/2017, [place] Filter, cardiac cath in 2012 w/ mild disease, ORIF R leg d/t fracture, R eye removed, tooth implants, EXC skin lesions face and R leg, EGD/ colonoscopies, bronchoscopy, D&C, L knee arthroscopy, bilateral knee tendon repairs. Past Anesthesia/Blood Transfusion Reactions: No Reported Reaction Additional Past Anesthesia/Blood Transfusion Reaction / Comment(s): Pt has received blood in past without reaction. Type of Cardiac Device: Permanent Pacemaker Device Placement Date:: 02/14/16 Past Psychological History: No Psychological Hx Reported Smoking Status: Never smoker Past Alcohol Use History: None Reported Past Drug Use History: None Reported - Past Family History Father Family Medical History: Cancer, Deep Vein Thrombosis (DVT) Additional Family Medical History / Comment(s): colon cancer at 82 Mother Family Medical History: No Reported History Additional Family Medical History / Comment(s): mother at 103yrs General Exam Limitations: no limitations General appearance: alert, in no apparent distress Head exam: Present: atraumatic, normocephalic, normal inspection Eye exam: Present: normal appearance, PERRL, EOMI. Absent: scleral icterus, conjunctival injection, periorbital swelling ENT exam: Present: normal exam, mucous membranes moist Neck exam: Present: normal inspection. Absent: tenderness, meningismus, lymphadenopathy Respiratory exam: Present: normal lung sounds bilaterally. Absent: respiratory distress, wheezes, rales, rhonchi, stridor Cardiovascular Exam: Present: regular rate, normal rhythm, normal heart sounds. Absent: systolic murmur, diastolic murmur, rubs, gallop, clicks GI/Abdominal exam: Present: soft, normal bowel sounds. Absent: distended, tenderness, guarding, rebound, rigid Extremities exam: Present: normal inspection, full ROM, normal capillary refill. Absent: tenderness, pedal edema, joint swelling, calf tenderness Back exam: Present: normal inspection Neurological exam: Present: alert, oriented X3, CN II-XII intact Psychiatric exam: Present: normal affect, normal mood Skin exam: Present: warm, dry, intact, normal color. Absent: rash Course Vital Signs 07/08/18 07/08/18 07/08/18 09:06 09:30 10:00 Temperature 96.9 F L Pulse Rate 84 73 Respiratory 22 18 Rate Blood Pressure 134/80 126/58 137/80 O2 Sat by Pulse 100 100 100 Oximetry - Reevaluation(s) Reevaluation #1: 07/08/18 11:00 Medical record is reviewed Patient takes splaying possibilities of abnormal lab tests, questions answered Medical Decision Making - Medical Decision Making 82 female the ER for abnormal potassium, patient's potassium here is normal he' ll likely hemolyzed, patient can be discharged home - Lab Data Result diagrams: 07/08/18 09:40 07/08/18 09:40 Lab Results 07/08/18 07/08/18 07/08/18 Range/Units 09:40 09:40 09:40 WBC 2.6 L (3.8-10.6) k/uL RBC 2.93 L (3.80-5.40) m/uL Hgb 9.8 L (11.4-16.0) gm/dL Hct 29.1 L (34.0-46.0) % MCV 99.0 (80.0-100.0) fL MCH 33.3 (25.0-35.0) pg MCHC 33.6 (31.0-37.0) g/dL RDW 17.5 H (11.5-15.5) % Plt Count 119 L (150-450) k/uL Sodium 140 (137-145) mmol/L Potassium 4.5 (3.5-5.1) mmol/L Chloride 108 H (98-107) mmol/L Carbon Dioxide 25 (22-30) mmol/L Anion Gap 7 mmol/L BUN 19 H (7-17) mg/dL Creatinine 0.86 (0.52-1.04) mg/dL Est GFR (CKD-EPI)AfAm 74 (>60 ml/min/1.73 sqM) Est GFR (CKD-EPI)NonAf 65 (>60 ml/min/1.73 sqM) Glucose 98 (74-99) mg/dL Calcium 9.6 (8.4-10.2) mg/dL Phosphorus 3.9 (2.5-4.5) mg/dL Magnesium 2.0 (1.6-2.3) mg/dL Total Bilirubin 1.0 (0.2-1.3) mg/dL AST 32 (14-36) U/L ALT 30 (9-52) U/L Alkaline Phosphatase 136 H (38-126) U/L Total Creatine Kinase 34 (30-135) U/L CK-MB (CK-2) 0.6 (0.0-2.4) ng/mL CK-MB (CK-2) Rel Index 1.8 Troponin I <0.012 (0.000-0.034) ng/mL Total Protein 5.6 L (6.3-8.2) g/dL Albumin 3.5 (3.5-5.0) g/dL - EKG Data -: EKG Interpreted by Me (EKG shows A. fib rate of 79, QRS 90, QTc 472) Disposition Clinical Impression: Hyperkalemia Narrative: Hyperkalemia not found Disposition: HOME SELF-CARE Condition: Good Instructions: Normal Exam (ED) Is patient prescribed a controlled substance at d/c from ED?: No Referrals: Alfredo Norwood MD [Primary Care Provider] - 1-2 days
[2018-07-08 10:06] VITALS: BP 137/80; PULSE 73; RESP 18
[2018-07-08 10:08] LABS: Albumin 3.5 g/dL (3.5-5.0); Calcium 9.6 mg/dL (8.4-10.2); Phosphorus 3.9 mg/dL (2.5-4.5); Potassium 4.5 mmol/L (3.5-5.1); Total Protein 5.6 g/dL (6.3-8.2)
[2018-07-08 10:24] LABS: Anisocytosis Slight; HCT 29.1 % (34.0-46.0); HGB 9.8 gm/dL (11.4-16.0); Hypochromasia Slight; MCH 33.3 pg (25.0-35.0); Macrocytosis Slight; Mean Platelet Volume 7.8; Platelet Count 119 k/uL (150-450); Poikilocytosis Slight; RBC 2.93 m/uL (3.80-5.40); RDW 17.5 % (11.5-15.5); WBC 2.6 k/uL (3.8-10.6)
[2018-07-08 10:25] LABS: MCHC 33.6 g/dL (31.0-37.0)
[2018-07-08 10:33] LABS: Creatine Kinase 34 U/L (30-135)
[2018-07-08] MEDS: MORPHINE SULFATE 4 MG/ML SYRINGE IVP STA ×2 (10:36→10:40)
[2018-07-08 10:46] LABS: Creatine Kinase MB 0.6 ng/mL (0.0-2.4); Troponin I <0.012 ng/mL (0.000-0.034)
[2018-07-08] MEDS ORDERED: ACETAMINOPHEN TAB 325 MG TAB PO STA (10:53)
[2018-07-08 11:03] LABS: Eosinophils # (M) 0.03 k/uL (0-0.7); Lymphocytes # (M) 0.23 k/uL (1.0-4.8); Neutrophils # (M) 2.24 k/uL (1.3-7.7); Neutrophils % (M) 86 %; Nucleated Red Blood Cells 0 /100 WBC (0-0); Total Cells Counted 100
[2018-07-08 11:04] VITALS: TEMP 97.9
== END 2018-07-08 10:55 | disposition home or self-care (01) ==
LOC: EC 09:06
DX: E87.5 Hyperkalemia (principal); M54.9 Dorsalgia, unspecified; I48.91 Unspecified atrial fibrillation; I25.10 Atherosclerotic heart disease of native coronary artery without angina pectoris; I48.92 Unspecified atrial flutter; I10 Essential (primary) hypertension; D64.9 Anemia, unspecified; M19.90 Unspecified osteoarthritis, unspecified site; Z85.828 Personal history of other malignant neoplasm of skin; Z85.72 Personal history of non-Hodgkin lymphomas; Z79.899 Other long term (current) drug therapy; Z95.818 Presence of other cardiac implants and grafts; Z95.0 Presence of cardiac pacemaker; Z53.8 Procedure and treatment not carried out for other reasons
CPT/HCPCS: 36415; 80053; 82550; 82553; 83735; 84100; 84484; 85025; 93005; 96360; 99284

== ENCOUNTER 2020-05-30 08:37 | Day surgery (SDC) | payer MEDICARE ==
[2020-05-25 14:31] VITALS: BMI 33.9
[2020-05-30] MEDS ORDERED: SODIUM CHLORIDE 0.9% 500 ML 500 ML IV ONE (09:14)
[2020-05-30 09:26] VITALS: TEMP 99
[2020-05-30 09:51] LABS: INR 3.7 (<1.2); Prothrombin Time 36.7 sec (9.0-12.0)
[2020-05-30] MEDS ORDERED: fentaNYL (PF) 50 MCG/ML 2 ML AMP ONE (11:01)
[2020-05-30] MEDS: BENZOCAINE SPRAY 1 CAN MUCOUS MEM ONE ×2 (11:09→11:17)
[2020-05-30] MEDS ORDERED: fentaNYL (PF) 50 MCG/ML 2 ML AMP IV ONE (11:25)
[2020-05-30] MEDS ORDERED: MIDAZOLAM 2 MG/2 ML VIAL IV ONE (11:26)
[2020-05-30] MEDS ORDERED: SODIUM CHLORIDE 0.9% 1,000 ML IV SCH (11:45)
--- NOTE | 2020-05-30 12:50 | ECHOT ---
TRANSESOPHAGEAL ECHOCARDIOGRAM INDICATION: Evaluation of mitral valve. PROCEDURE: After explaining the procedure to the patient, its risks and complication, blood pressure, heart rate, O2 saturation was monitored. The throat was sprayed with Cetacaine. She received 2 mg intravenous Versed, 50 mcg intravenous fentanyl. The probe was introduced into the esophagus without difficulty, images were obtained. Following that, the probe was removed. There was no immediate complication. FINDINGS: Biatrial enlargement was noted, left atrial appendage is normal. Left ventricular size is normal. The ejection fraction of 50% to 55% The aortic valve revealed fibrocalcific change with aortic cusp with preserved opening, mitral anulus calcification and calcification of the mitral valve leaflets were noted. Tricuspid valve is normal, descending thoracic aorta appears to be normal. Contrast bubble study revealed no evidence of shunting across the interatrial septum. There was no pericardial effusion. Doppler pulse wave and color Doppler obtained, revealed a moderate to severe mitral regurgitation. The PISA was 0.5 cm. The severe tricuspid regurgitation was noted with a right-sided pressure of 55 mmHg consistent with moderate to severe pulmonary hypertension. No shunting was noted by color Doppler study. CONCLUSION: 1. Severe biatrial enlargement. 2. Normal left ventricular size with mild ejection fraction of 50% to 55%. 3. Moderate to severe mitral regurgitation, central with mitral annulus calcification and calcification of the leaflets. 4. Mild aortic sclerosis with no stenosis. 5. Severe tricuspid regurgitation with moderate to severe pulmonary hypertension. 6. No shunting across the interatrial septum. MMODL / IJN: [id number] / RENA
[2020-05-30 12:59] VITALS: RESP 18
[2020-05-30 13:57] VITALS: BP 155/72; PULSE 64
== END 2020-05-30 13:35 | disposition home health service (06) ==
LOC: CATHCVL 08:37
PROVIDERS: ATTEND Internal Medicine Interventional Cardiology
DX: I08.3 Combined rheumatic disorders of mitral, aortic and tricuspid valves (principal); I27.20 Pulmonary hypertension, unspecified; I48.21 Permanent atrial fibrillation; C85.90 Non-Hodgkin lymphoma, unspecified, unspecified site; I49.5 Sick sinus syndrome; I25.10 Atherosclerotic heart disease of native coronary artery without angina pectoris; I10 Essential (primary) hypertension; I67.1 Cerebral aneurysm, nonruptured; Z95.0 Presence of cardiac pacemaker; Z86.711 Personal history of pulmonary embolism; Z72.0 Tobacco use; Z79.899 Other long term (current) drug therapy; Z79.01 Long term (current) use of anticoagulants; Z86.718 Personal history of other venous thrombosis and embolism
CPT/HCPCS: 93312; 93320; 93325; 85610; J2250; J3010

== ENCOUNTER → 2020-07-17 | Day surgery (SDC) | payer MEDICARE ==
[2020-07-11 12:09] VITALS: BMI 34.6
[~2020-07-17] MED LIST changes: +ACETAMINOPHEN IV (For NPO) 1,000 MG in EMPTY BAG 1 BAG IVPB ONE; +ACETAMINOPHEN TAB 325 MG TAB PO PRN; +HYDROcodone/APAP 5-325MG 1 EACH TAB PO PRN; +IOPAMIDOL-250 50ML BTL IV ONE; +IOPAMIDOL-370 50ML BTL INJ ONE; -LACTATED RINGERS 1,000 ML IV SCH; -LIDOCAINE 1% 20 ML VIAL (10MG/ML) FOR IV START INTRADERMA PRN; +LIDOCAINE 1% INJ 10MG/ML (20 ML MDV) ONE; +LIDOCAINE 1% INJ 10MG/ML (20 ML MDV) SQ ONE; +MIDAZOLAM 2 MG/2 ML VIAL ONE; +PROPOFOL 10 MG/ML 20 ML VIAL IV ONE; +SODIUM CHLORIDE 0.9% 1,000 ML IV ONE; +SODIUM CHLORIDE 0.9% 1,000 ML IV SCH; +SODIUM CHLORIDE 0.9% 250 ML IV ONE; +ceFAZolin 1,000 MG in SODIUM CHLORIDE 0.9% IRRIGATIO 250 ML IRRIGATION ONE; +fentaNYL (PF) 50 MCG/ML 2 ML AMP ONE
[2020-07-17 06:53] VITALS: RESP 16; TEMP 98.2
[2020-07-17 07:19] LABS: Calcium 9.7 mg/dL (8.4-10.2)
[2020-07-17 07:30] LABS: Prothrombin Time 19.8 sec (9.0-12.0)
[2020-07-17 07:37] LABS: HCT 43.8 % (34.0-46.0); MCH 30.3 pg (25.0-35.0); MCHC 31.9 g/dL (31.0-37.0); MCV 95.1 fL (80.0-100.0); Mean Platelet Volume 7.4; Platelet Count 159 k/uL (150-450); RBC 4.61 m/uL (3.80-5.40); RDW 13.8 % (11.5-15.5); WBC 6.1 k/uL (3.8-10.6)
[2020-07-17 07:53] LABS: Potassium 6.7 mmol/L (3.5-5.1)
[2020-07-17 08:10] LABS: Basophils # (M) 0.12 k/uL (0-0.2); Lymphocytes # (M) 0.73 k/uL (1.0-4.8); Monocytes # (M) 0.18 k/uL (0-1.0); Neutrophils # (M) 5.06 k/uL (1.3-7.7); Neutrophils % (M) 83 %; Nucleated Red Blood Cells 0 /100 WBC (0-0); Total Cells Counted 100
--- NOTE | 2020-07-17 11:54 | XR ---
EXAMINATION TYPE: XR chest 1V portable DATE OF EXAM: 07/17/2020 COMPARISON: 05/20/2018 HISTORY: Post pacemaker insertion TECHNIQUE: Single frontal view of the chest is obtained. FINDINGS: There is no focal air space opacity, pleural effusion, or pneumothorax seen. The cardiac silhouette size is within normal limits. The osseous structures are intact. Heart enlarged and ther e is a double a pacemaker. Diffuse osteopenia and arthropathy of the shoulders. IMPRESSION: Cardiomegaly with findings suggestive of COPD.
--- NOTE | 2020-07-17 12:49 | PCN ---
PROCEDURE NOTE Zelda Pena is an 84-year-old female with left ventricular ejection fraction of about 50%, mildly dilated LV with shortness of breath and heart failure symptoms. She is in persistent atrial fibrillation with bradycardia and has undergone a single- chamber pacemaker implantation in the past. She paces the atrium between 75%-84% of the times. She was brought in for an upgrade to a biventricular pacemaker to minimize RV pacing and improve her heart failure status, as well as provide the opportunity for electrical cardioversion and atrial based pacing to improve her symptoms, she is on Coumadin. First, potassium came back greater than 6 and two repeat potassiums again came back greater than 6, but these were hemolyzed samples. Following that, it was confirmed that her potassium was actually 3.4 and we proceeded with the upgrade. The left pectoral area was prepped and draped as per protocol. 1% lidocaine was used for local anesthesia. A 4 cm incision was made parallel to the deltopectoral groove and carried down to the level of the generator. The old generator was explanted. A partial capsulectomy was performed. The subfascial pocket was extended caudally. Axillary vein access was obtained by 2 sites at two separate points. Venous sheaths were placed. The atrial lead was screwed in the right atrial appendage. This was a Med[employer]onic model #5076, 52 cm length and serial #[id number]. The patient was in atrial fibrillation. Impedance was 22 ohms, atrial fib waves 0.8 mV. The Medtronic model #3830, 69 cm lead was screwed in the HIS bundle area, nonselective capture followed by selective capture was noted. selective capture was noted at 3 V at 1 millisecond and complete loss of capture at 1.7 V at 1 millisecond. . The sheaths were removed. The leads were secured to the underlying pectoralis muscle using 2 nonabsorbable sutures. Pocket was irrigated with antibiotic solution. The old generator was removed, was disconnected from the RV lead. The RV lead was interrogated. Pacing impedance 817 ohms, R-waves 15 mV and pacing threshold 1 V at 0.4 milliseconds. The new generator was implanted, leads were connected. The new generator was a [employer] CRTP Liseth MRI model #W1TR 02 serial #[id number]. The leads and the generator were then placed in subfascial pocket. The wound was closed in 3 layers and dressed per protocol. The device was then programmed to VVI at 50-130 ppm with preferential HIS bundle pacing. The patient tolerated the procedure well without any acute complications. PLAN: Maximize beta blockers now and preferably switch to carvedilol 3.125 mg twice daily and maximize 6.25 mg twice daily to for blood pressure control and continue all other cardiac medications. Continue anticoagulation. MMODL / IJN: [id number] /
[2020-07-17 14:09] VITALS: BP 138/64; PULSE 52
== END ==
LOC: CATHEP 06:11
PROVIDERS: ATTEND Internal Medicine Clinical Cardiac Electrophysiology
DX: Z45.018 Encounter for adjustment and management of other part of cardiac pacemaker (principal); I48.19 Other persistent atrial fibrillation; I49.5 Sick sinus syndrome; I08.1 Rheumatic disorders of both mitral and tricuspid valves; I25.10 Atherosclerotic heart disease of native coronary artery without angina pectoris; I11.0 Hypertensive heart disease with heart failure; I50.9 Heart failure, unspecified; I67.1 Cerebral aneurysm, nonruptured; I27.20 Pulmonary hypertension, unspecified; E78.5 Hyperlipidemia, unspecified; Z85.72 Personal history of non-Hodgkin lymphomas; Z86.718 Personal history of other venous thrombosis and embolism; Z86.711 Personal history of pulmonary embolism; Z95.828 Presence of other vascular implants and grafts; Z72.0 Tobacco use; Z79.899 Other long term (current) drug therapy; Z79.01 Long term (current) use of anticoagulants; Z98.890 Other specified postprocedural states; Z97.0 Presence of artificial eye
CPT/HCPCS: 33225; 33229; 80048; 85025; 85610; 71045; C1769 ×3; C1892; C1898; C2621; J2250; J0690 ×2; J2001; J3010; J0131; J2704; Q9967; 33216